=== PATIENT | female | born 2000 | race African-American/Black ===

== ENCOUNTER 2021-01-14 10:28 | Outpatient (REF) | payer OTHER, SELFPAY | END 2021-01-14 10:29 | disposition home or self-care (01) | LOC: HO.LNP 10:28 | PROVIDERS: Visit Provider Otolaryngology | DX: H60.92 Unspecified otitis externa, left ear (principal) | CPT/HCPCS: 87071; 87205 ==

== ENCOUNTER → 2021-05-27 14:40 | Outpatient (BNVA) | payer OTHER, SELFPAY | PROVIDERS: PCP Hospitalist; Visit Provider Hospitalist ==

== ENCOUNTER → 2021-06-15 15:57 | Outpatient (REF) | payer OTHER, SELFPAY | LOC: HO.SL 15:57 | PROVIDERS: PCP Hospitalist; Visit Provider Hospitalist | DX: G47.33 Obstructive sleep apnea (adult) (pediatric) (principal) | CPT/HCPCS: 95806 ==

== ENCOUNTER 2021-07-01 09:20 | Outpatient (REF) | payer OTHER, SELFPAY ==
[2021-07-01 11:06] LABS: MANUAL DIFF FLAG NO
[2021-07-01 11:12] LABS: Basophils Percent Auto 0.3 % (0-2); Eosinophils Absolute Auto 0.5 X10*3/uL (0.0-0.4); Eosinophils Percent Auto 3.8 % (0-4); Hemoglobin 11.1 g/dl (12.0-16.0); Imm Gran Abs Auto 0.03 X10*3/uL (0.00-0.03); Imm Gran Pct Auto 0.2 % (0.0-0.4); Lymphocytes Absolute Auto 3.8 X10*3/uL (1.2-4.9); Lymphocytes Percent Auto 29.5 % (20-40); Mean Corpuscular HGB Conc 31.7 g/dl (31.0-35.0); Mean Corpuscular Hemoglobin 24.8 pg (27.0-33.0); Mean Corpuscular Volume 78.3 fL (80-98); Mean Platelet Volume 10.1 fL (9.4-12.3); Monocytes Absolute Auto 0.5 X10*3/uL (0.1-1.2); Monocytes Percent Auto 4.1 % (2-11); Neutrophils Absolute Auto 7.9 X10*3/uL (2.0-8.3); Neutrophils Percent Auto 62.1 % (45-73); Platelet Count 360 X10*3/uL (160-400); Red Blood Count 4.47 X10*6/uL (4.20-5.50); Red Cell Distribution Width 17.1 % (11.0-16.0); White Blood Count 12.8 X10*3/uL (4.8-10.8)
[2021-07-01 11:20] LABS: Alanine Aminotransferase 89 U/L (0-31); Albumin Level 3.9 g/dL (3.5-5.0); Alkaline Phosphatase 91 U/L (39-117); Anion Gap 11 (12-20); Aspartate Amino Transferase 53 U/L (5-31); Bilirubin Direct 0.2 mg/dL (0.0-0.5); Bilirubin Total 0.3 mg/dL (0.0-1.0); Blood Urea Nitrogen 6 mg/dL (9-16); Calcium 8.8 mg/dL (8.4-10.2); Carbon Dioxide 29 mmol/L (22-29); Chloride 105 mmol/L (96-108); Cholesterol 158 mg/dL; Estimated Glomerular Filt Rate > 60; Glucose Fasting 96 mg/dL (60-99); HDL Cholesterol 44 mg/dL; LDL Cholesterol Calculated 94 mg/dl; Potassium 4.2 mmol/L (3.3-5.1); Sodium 141 mmol/L (135-145); Triglycerides 102 mg/dL
[2021-07-01 11:52] LABS: Appearance Urine HAZY; Color Urine YELLOW; Glucose Urine UA NEG (NEG); Leukocyte Esterase Urine NEG (NEG); Nitrite Urine NEG (NEG); PH 6.5 (5.0-8.0); Specific Gravity - Urine 1.015 (1.005-1.025); Urine Blood NEG (NEG); Urine Ketones NEG (NEG); Urine Protein NEG (NEG-TRACE)
[2021-07-01 11:53] LABS: HBS Num1 4.31 mIU/mL (0-7.99); HBc Num1 0.18 S/CO (0.00-0.79); HBsAGNum1 0.29 S/CO (0.00-0.99); Hepatitis B Core Antibody Nonreactive (Nonreactive); Hepatitis B Surface Antigen Negative (Negative); ~Hepatitis B Surface Antibody NONREACTIVE (Nonreactive); ~Hepatitis C Antibody Nonreactive (Nonreactive)
[2021-07-01 12:39] LABS: Erythrocyte Sedimentation Rate 18 MM/HR (0-20)
[2021-07-02 08:09] LABS: Hepatitis A Antibody IgM 0.14 Index (0-0.79); ~Hepatitis A Antibody IgM Nonreactive (Nonreactive)
[2021-07-04 21:52] LABS: Anti Nuclear Antibody Screen NEGATIVE (NEGATIVE)
== END 2021-07-01 09:21 | disposition home or self-care (01) ==
LOC: HO.WFDLDS 09:20
PROVIDERS: Hospitalist; Visit Provider Hospitalist
DX: Z00.00 Encounter for general adult medical examination without abnormal findings (principal); J45.909 Unspecified asthma, uncomplicated; Z11.3 Encounter for screening for infections with a predominantly sexual mode of transmission
CPT/HCPCS: 36415; 80048; 80061; 80076; 81003; 82785; 84443; 85025; 85027; 85652; 86003; 86038; 86039; 86704; 86706; 86709; 86803; 87086; 87340

== ENCOUNTER → 2021-07-09 15:43 | Outpatient (BNVA) | payer OTHER, SELFPAY | PROVIDERS: PCP Hospitalist; Visit Provider Hospitalist | DX: G47.30 Sleep apnea, unspecified (principal); J45.909 Unspecified asthma, uncomplicated ==

== ENCOUNTER 2021-08-18 08:50 | Outpatient (REF) | payer OTHER, SELFPAY ==
[2021-08-18 11:56] LABS: HCG Quantitative < 2 mIU/mL
== END 2021-08-18 08:51 | disposition home or self-care (01) ==
LOC: HO.WFDLDS 08:50
PROVIDERS: PCP Hospitalist; Visit Provider Hospitalist
DX: N92.6 Irregular menstruation, unspecified (principal)
CPT/HCPCS: 36415; 84702

== ENCOUNTER → 2021-08-19 15:12 | Outpatient (BNVA) | payer OTHER, SELFPAY | PROVIDERS: PCP Hospitalist; Visit Provider Hospitalist ==

== ENCOUNTER → 2021-10-21 15:53 | Outpatient (BNVA) | payer OTHER, SELFPAY | PROVIDERS: PCP Hospitalist; Visit Provider Hospitalist | DX: J45.40 Moderate persistent asthma, uncomplicated (principal); J30.2 Other seasonal allergic rhinitis; J33.9 Nasal polyp, unspecified; L30.9 Dermatitis, unspecified | CPT/HCPCS: 90471; 90686 ==

== ENCOUNTER 2021-10-28 18:10 | Outpatient (REF) | payer OTHER, SELFPAY | END 2021-10-28 18:11 | disposition home or self-care (01) | LOC: HO.LNP 18:10 | PROVIDERS: Visit Provider Hospitalist | DX: R82.90 Unspecified abnormal findings in urine (principal) | CPT/HCPCS: 87086 ==

== ENCOUNTER → 2021-11-01 15:57 | Outpatient (BNV) | payer OTHER, SELFPAY | PROVIDERS: PCP Hospitalist; Visit Provider Hospitalist | DX: R82.90 Unspecified abnormal findings in urine (principal) | CPT/HCPCS: 81003 ==

== ENCOUNTER 2021-11-09 09:00 | Outpatient (REF) | payer OTHER, SELFPAY ==
[2021-11-09 11:39] LABS: Hematocrit 33.9 % (37.0-47.0); Hemoglobin 10.6 g/dl (12.0-16.0); Mean Corpuscular HGB Conc 31.3 g/dl (31.0-35.0); Mean Corpuscular Hemoglobin 24.5 pg (27.0-33.0); Mean Corpuscular Volume 78.3 fL (80.0-98.0); Mean Platelet Volume 10.4 fL (9.4-12.3); Platelet Count 438 X10*3/uL (160-400); Red Blood Count 4.33 X10*6/uL (4.20-5.50); White Blood Count 10.3 X10*3/uL (4.8-10.8)
[2021-11-09 12:11] LABS: Alanine Aminotransferase 21 U/L (0-31); Albumin Level 3.8 g/dL (3.5-5.0); Alkaline Phosphatase 66 U/L (39-117); Anion Gap 13 (12-20); Aspartate Amino Transferase 12 U/L (5-31); Bilirubin Total 0.3 mg/dL (0.0-1.0); Blood Urea Nitrogen 10 mg/dL (9-16); Calcium 9.1 mg/dL (8.4-10.2); Carbon Dioxide 26 mmol/L (22-29); Chloride 105 mmol/L (96-108); Cholesterol 178 mg/dL; Estimated Glomerular Filt Rate > 60; Glucose Fasting 114 mg/dL (60-99); HDL Cholesterol 44 mg/dL; LDL Cholesterol Calculated 113 mg/dl; Potassium 4.7 mmol/L (3.3-5.1); Sodium 139 mmol/L (135-145); Total Protein 7.3 g/dL (6.5-8.0); Triglycerides 108 mg/dL
[2021-11-09 12:20] LABS: TSH reflex Free T4 0.45 uIU/mL (0.32-4.0)
== END 2021-11-09 09:01 | disposition home or self-care (01) ==
LOC: HO.WFDLDS 09:00
PROVIDERS: Visit Provider Hospitalist
DX: Z00.01 Encounter for general adult medical examination with abnormal findings (principal)
CPT/HCPCS: 36415; 80053; 80061; 84443; 85027

== ENCOUNTER 2021-11-25 09:20 | Outpatient (REF) | payer OTHER, SELFPAY ==
[2021-11-25 10:53] LABS: Hematocrit 34.9 % (37.0-47.0); Hemoglobin 10.6 g/dl (12.0-16.0); Mean Corpuscular HGB Conc 30.4 g/dl (31.0-35.0); Mean Corpuscular Volume 79.1 fL (80.0-98.0); Mean Platelet Volume 9.9 fL (9.4-12.3); Platelet Count 280 X10*3/uL (160-400); Red Blood Count 4.41 X10*6/uL (4.20-5.50); Red Cell Distribution Width 17.9 % (11.0-16.0); White Blood Count 8.8 X10*3/uL (4.8-10.8)
[2021-11-25 11:50] LABS: Folate 3.2 ng/mL (> or = 4.0); Vitamin B12 346 pg/mL (200-900)
== END 2021-11-25 09:21 | disposition home or self-care (01) ==
LOC: HO.WFDLDS 09:20
PROVIDERS: Visit Provider Hospitalist
DX: D64.9 Anemia, unspecified (principal)
CPT/HCPCS: 36415; 82607; 82746; 85027

== ENCOUNTER → 2022-02-15 15:51 | Outpatient (BNVA) | payer OTHER, MEDICAID, SELFPAY | PROVIDERS: PCP Hospitalist; Visit Provider Hospitalist | DX: G47.33 Obstructive sleep apnea (adult) (pediatric) (principal) ==

== ENCOUNTER 2022-03-02 09:17 | Outpatient (REF) | payer OTHER, MEDICAID, SELFPAY ==
[2022-03-02 11:34] LABS: Hematocrit 33.9 % (37.0-47.0); Hemoglobin 10.5 g/dl (12.0-16.0); Mean Corpuscular Hemoglobin 24.1 pg (27.0-33.0); Mean Corpuscular Volume 77.8 fL (80.0-98.0); Mean Platelet Volume 10.4 fL (9.4-12.3); Platelet Count 353 X10*3/uL (160-400); Red Blood Count 4.36 X10*6/uL (4.20-5.50); Red Cell Distribution Width 15.6 % (11.0-16.0); White Blood Count 8.9 X10*3/uL (4.8-10.8)
[2022-03-02 11:44] LABS: Iron 47 mcg/dL (30-160); Percent Iron Saturation 13 % (15-50); Total Iron Binding Capacity 354 mcg/dL (228-428); Unsaturated Iron Binding 307 ug/dL
[2022-03-02 12:22] LABS: Folate 3.3 ng/mL (> or = 4.0)
== END 2022-03-02 09:18 | disposition home or self-care (01) ==
LOC: HO.WFDLDS 09:17
PROVIDERS: Visit Provider Hospitalist
DX: D64.9 Anemia, unspecified (principal); E53.8 Deficiency of other specified B group vitamins
CPT/HCPCS: 36415; 82746; 83540; 85027

== ENCOUNTER 2022-03-03 14:15 | Emergency (ER) | payer OTHER, SELFPAY ==
[2022-03-03 14:20] VITALS: BP 146/86; PULSE 102; RESP 20; TEMP 36.8; O2SAT 100; BMI 54.1
--- NOTE | 2022-03-03 14:31 | ED.PSYCH ---
HPI - Psych General Chief Complaint: Psychiatric Symptoms Stated Complaint: crisis Time Seen by Provider: 03/03/22 14:30 Source: patient Mode of arrival: ambulatory Limitations: no limitations History of Present Illness MD complaint: suicidal ideation and feels depressed Onset (ago): week(s) Duration: getting worse History of same: Yes Relieving factors: none Exacerbating factors: none Context: significant life stressor Associated psychiatric symptoms: depression and suicidal ideation Associated symptoms: denies other symptoms Treatments prior to arrival: none If self harm: admits thoughts of self harm Related Data Home Medications Medication Instructions Recorded Confirmed cetirizine 10 mg capsule (Zyrtec) 10 mg PO DAILY 09/29/20 02/10/22 methylphenidate HCl 36 mg 36 mg PO DAILY 02/10/22 02/10/22 tablet,extended release 24 hr (Concerta) Previous Rx's Medication Instructions Recorded ProAir HFA 90 mcg/actuation 2 puff INHALATION Q4H PRN 30 Days 05/01/21 aerosol inhaler (albuterol sulfate) #8.5 g NS trazodone 100 mg tablet 100 mg PO BEDTIME #30 tab 08/11/21 hydroxyzine HCl 50 mg tablet 50 mg PO BID PRN #60 tab 08/18/21 albuterol sulfate 2.5 mg (3 mL) INHALATION Q4H PRN 11/05/21 30 Days #360 ml folic acid 1 mg tablet 1 mg PO DAILY #90 tab 02/10/22 furosemide 20 mg tablet (Lasix) 20 mg PO QAM 3 Days #3 tab 02/15/22 Dupixent Syringe 300 mg/2 mL 300 mg (2 mL) SUBCUT Q2W 30 Days 02/17/22 subcutaneous syringe (dupilumab) #6 ml NS medroxyprogesterone 150 mg/mL 150 mg IM Q12W #1 ml 03/03/22 intramuscular syringe (Depo-Provera) Allergies Allergy/AdvReac Type Severity Reaction Status Date / Time fexofenadine [From Sofía-D] Allergy Severe Swelling Verified 03/03/22 11:19 milk Allergy Severe Anaphylaxis Verified 03/03/22 11:19 pseudoephedrine Allergy Severe Swelling Verified 03/03/22 11:19 [From Sofía-D] Beef Containing Products Allergy Intermediate Hives Verified 03/03/22 11:19 aranda Allergy Intermediate Hives Verified 03/03/22 11:19 egg Allergy Intermediate Hives Verified 03/03/22 11:19 nut - unspecified Allergy Intermediate Hives Verified 03/03/22 11:19 doxycycline AdvReac Intermediate projectile Verified 03/03/22 11:19 vomiting tiotropium AdvReac Intermediate Cough Verified 03/03/22 11:19 [From Spiriva with HandiHaler] Review of Systems Review of Systems: Constitutional : No Fever, No Chills ENT/Mouth : No Ear Pain, No Nasal Congestion, No sore throat Eyes: No Eye Pain, No Swelling, No Redness Cardiovascular : No Chest Pain, No SOB Respiratory : No Cough, No Sputum, No Dyspnea Gastrointestinal : No Nausea, No Vomiting, No Diarrhea, No Hematochezia, No Melena Genitourinary : No Dysuria, No Urinary Frequency, No Hematuria Musculoskeletal : No Myalgias Skin : No Skin Lesions, No rash Neuro : No Weakness, No Numbness, No Paresthesias, No Dizziness, No Headache Psych : positive Anxiety, positive Depression, positive SI no HI Heme/Lymph: No Lymphadenopathy Endocrine : No Polyuria, No Polydipsia All other systems reviewed and are negative [facility] Past Medical History Attestation statement: The following information was validated with the patient. Medical History Asthma Eczema Major depressive disorder Nasal polyps Surgical History History of wisdom tooth extraction Family History Family History Mother Asthma HTN (hypertension) Father Bipolar 1 disorder Diabetes Parkinson disease Social History Social History Housing: House Alcohol intake: current Alcohol intake frequency: holidays/special occasions only Patient Tobacco Use Status: Never used Tobacco e-Cigarette/Vaping Use: Never Used Advance Directives: No Advance Directives Information Provided: Yes service: No Current occupational status: unemployed Cognitive needs: No Hearing needs: No Vision needs: No Physical Exam Vital Signs: Vital Signs: Last Vital Signs Temp 98.2 F 03/03/22 14:20 Pulse 102 H 03/03/22 14:20 Resp 20 03/03/22 14:20 BP 146/86 H 03/03/22 14:20 Pulse Ox 100 03/03/22 14:20 BMI result Body Mass Index 54.1 Appearance: Alert. Oriented X3. No acute distress. Calm and cooperative Eyes: Pupils equal, round and reactive to light. ENT: Pharynx normal. Neck: Normal inspection. Neck supple. CVS: Normal heart rate and rhythm. Pulses normal. Respiratory: No respiratory distress. Breath sounds normal. Abdomen: Soft and nontender. Skin: Skin warm and dry. Normal skin color. Normal skin turgor. Extremities: No lower extremity edema. No calf ttp Neuro: Oriented X 3. No motor deficit. No sensory deficit. Cn 2-12 intact Course Course Course Narrative: Physician observation started at 333pm Patient placed in physician observation because the patient needed more time for N to assess the need for psych admission. At the time observation was started the patient's vitals were stable, patient is alert and oriented, Neuro: nonfocal, CV RRR, Lungs clear MDM - Psych MDM Narrative Medical decision making narrative: 21 yo female with hx of asthma, AMAIRANI, anxiety and depression [place] [facility] [place] comes in with c/o SI and depression - at this time labs, BHN consult ordered Lab Data Result diagrams: 03/03/22 14:51 03/03/22 14:51 Labs: Lab Results 03/03/22 03/03/22 03/03/22 Range/Units 14:51 14:51 14:51 WBC 11.1 H (4.8-10.8) X10*3/uL RBC 4.60 (4.20-5.50) X10*6/uL Hgb 11.0 L (12.0-16.0) g/dl Hct 35.4 L (37.0-47.0) % MCV 77.0 L (80.0-98.0) fL MCH 23.9 L (27.0-33.0) pg MCHC 31.1 (31.0-35.0) g/dl RDW 15.7 (11.0-16.0) % Plt Count 349 (160-400) X10*3/uL MPV 10.1 (9.4-12.3) fL Absolute Nucleated RBC 0.000 (0.0-0.012) X10*3/uL Nucleated RBC % (auto) 0.0 (0.0-0.2) /100WBC Sodium 141 (135-145) mmol/L Potassium 4.3 (3.3-5.1) mmol/L Chloride 107 (96-108) mmol/L Carbon Dioxide 24 (22-29) mmol/L Anion Gap 14 (12-20) BUN 11 (9-16) mg/dL Creatinine 0.88 (0.5-1.4) mg/dL Estim Creat Clear Calc 121.7 Estimated GFR > 60 Random Glucose 101 (60-115) mg/dL Calcium 9.3 (8.4-10.2) mg/dL COVID-19 (TIFFANIE) Negative (Negative) COVID-19 Clin Com See Note Discharge Plan Discharge Clinical Impression: Depression Qualifiers: Depression Type: unspecified Qualified Code(s): F32.A - Depression, unspecified Patient Disposition: Still a Patient Prescriptions: No Action albuterol sulfate [ProAir HFA] 90 mcg/actuation HFA aerosol inhaler 2 puff inhalation Q4H PRN (Reason: shortness of breath or wheezing) 30 Days Qty: 8.5 4RF hydroxyzine HCl 50 mg tablet 50 mg PO BID PRN (Reason: for anxiety) Qty: 60 2RF albuterol sulfate 2.5 mg /3 mL (0.083 %) solution for nebulization 2.5 mg inhalation Q4H PRN (Reason: shortness of breath or wheezing) 30 Days Qty: 360 11RF Dupixent Syringe 300 mg/2 mL syringe 300 mg subcut Q2W 30 Days Qty: 6 11RF Zyrtec 10 mg capsule 10 mg PO DAILY 0RF methylphenidate HCl [Concerta] 36 mg tablet extended release 24hr 36 mg PO DAILY 0RF folic acid 1 mg tablet 1 mg PO DAILY Qty: 90 1RF trazodone 100 mg tablet 100 mg PO BEDTIME Qty: 30 2RF medroxyprogesterone [Depo-Provera] 150 mg/mL syringe 150 mg IM Q12W Qty: 1 3RF furosemide [Lasix] 20 mg tablet 20 mg PO QAM 3 Days Qty: 3 0RF
[2022-03-03 15:01] LABS: Hematocrit 35.4 % (37.0-47.0); Mean Corpuscular HGB Conc 31.1 g/dl (31.0-35.0); Mean Corpuscular Hemoglobin 23.9 pg (27.0-33.0); Mean Platelet Volume 10.1 fL (9.4-12.3); Platelet Count 349 X10*3/uL (160-400); Red Cell Distribution Width 15.7 % (11.0-16.0); White Blood Count 11.1 X10*3/uL (4.8-10.8)
[2022-03-03 15:15] LABS: Anion Gap 14 (12-20); Blood Urea Nitrogen 11 mg/dL (9-16); Calcium 9.3 mg/dL (8.4-10.2); Carbon Dioxide 24 mmol/L (22-29); Chloride 107 mmol/L (96-108); Creatinine Clr Calc Pharmacy 121.7; Estimated Glomerular Filt Rate > 60; Glucose Random 101 mg/dL (60-115); Potassium 4.3 mmol/L (3.3-5.1); Sodium 141 mmol/L (135-145)
[2022-03-03 15:17] LABS: COVID-19 Test Negative (Negative); IDNOW Serial# 9DD0AD1C
[2022-03-03 16:16] VITALS: BP 148/83; PULSE 104; RESP 18; TEMP 37.2; O2SAT 98
--- NOTE | 2022-03-03 16:23 | PC.NURSE ---
care team meeting with pt to discuss plan of care for evaluation
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
== END 2022-03-03 18:39 | disposition home or self-care (01) ==
PROVIDERS: Emergency Provider Emergency Medicine; PCP Hospitalist
DX: F31.9 Bipolar disorder, unspecified (principal); R45.851 Suicidal ideations; J45.909 Unspecified asthma, uncomplicated; Z20.822 Contact with and (suspected) exposure to COVID-19
CPT/HCPCS: 80048; 85027; 87635; 99284; 99285

== ENCOUNTER 2022-07-12 09:29 | Outpatient (REF) | payer OTHER, SELFPAY ==
[2022-07-12 12:05] LABS: Hematocrit 29.9 % (37.0-47.0); Hemoglobin 9.4 g/dl (12.0-16.0); Mean Corpuscular HGB Conc 31.4 g/dl (31.0-35.0); Mean Corpuscular Volume 76.5 fL (80.0-98.0); Mean Platelet Volume 10.5 fL (9.4-12.3); Platelet Count 327 X10*3/uL (160-400); Red Blood Count 3.91 X10*6/uL (4.20-5.50); Red Cell Distribution Width 17.1 % (11.0-16.0); White Blood Count 11.4 X10*3/uL (4.8-10.8)
[2022-07-12 12:10] LABS: Alanine Aminotransferase 17 U/L (0-31); Albumin Level 3.7 g/dL (3.5-5.0); Alkaline Phosphatase 66 U/L (39-117); Anion Gap 14 (12-20); Aspartate Amino Transferase 11 U/L (5-31); Bilirubin Total 0.4 mg/dL (0.0-1.0); Blood Urea Nitrogen 7 mg/dL (9-16); Calcium 8.6 mg/dL (8.4-10.2); Carbon Dioxide 25 mmol/L (22-29); Chloride 107 mmol/L (96-108); Estimated Glomerular Filt Rate > 60; Glucose Random 101 mg/dL (60-115); Potassium 3.6 mmol/L (3.3-5.1); Sodium 142 mmol/L (135-145); Total Protein 6.4 g/dL (6.5-8.0)
[2022-07-16 16:51] LABS: Vitamin D 25-OH, D2 <4 ng/mL; Vitamin D 25-OH, D3 7 ng/mL; Vitamin D 25-OH, Total 7 ng/mL (30-100)
== END 2022-07-12 09:30 | disposition home or self-care (01) ==
LOC: HO.WFDLDS 09:29
PROVIDERS: Visit Provider Hospitalist
DX: Z13.9 Encounter for screening, unspecified (principal); D64.9 Anemia, unspecified; R55 Syncope and collapse
CPT/HCPCS: 36415; 80053; 82306; 85027

== ENCOUNTER 2022-07-14 11:02 | Outpatient (REF) | payer OTHER, SELFPAY ==
[2022-07-14 15:29] LABS: Iron 33 mcg/dL (30-160); Percent Iron Saturation 10 % (15-50); Total Iron Binding Capacity 328 mcg/dL (228-428); Unsaturated Iron Binding 295 ug/dL
[2022-07-14 15:53] LABS: Folate 8.6 ng/mL (> or = 4.0); Vitamin B12 258 pg/mL (200-900)
== END 2022-07-14 11:03 | disposition home or self-care (01) ==
LOC: HO.WFDLDS 11:02
PROVIDERS: Visit Provider Hospitalist
DX: D64.9 Anemia, unspecified (principal)
CPT/HCPCS: 36415; 82607; 82746; 83540

== ENCOUNTER 2022-09-02 10:21 | Outpatient (REF) | payer OTHER, SELFPAY ==
[2022-09-02 18:46] LABS: Influenza A PCR NEGATIVE (Negative); Influenza B PCR NEGATIVE (Negative); Resp Syncy Virus RNA Qual PCR NEGATIVE (Negative); SARS COV2 PCR INHOUSE POSITIVE (Negative)
== END 2022-09-02 10:22 | disposition home or self-care (01) ==
LOC: HO.LAB 10:21
PROVIDERS: Visit Provider Nurse Practitioner Family
DX: Z20.822 Contact with and (suspected) exposure to COVID-19 (principal); B34.9 Viral infection, unspecified
CPT/HCPCS: 0241U

== ENCOUNTER → 2022-10-31 13:09 | Outpatient (BNVA) | payer OTHER, SELFPAY | PROVIDERS: PCP Hospitalist; Referring Provider Hospitalist; Visit Provider Internal Medicine | DX: R55 Syncope and collapse (principal) | CPT/HCPCS: 93005 ==

== ENCOUNTER → 2022-11-15 13:03 | Outpatient (REF) | payer OTHER, SELFPAY ==
--- NOTE | 2022-11-15 13:06 | CA_ITS ---
Transthoracic Echocardiogram Patient (Last, First, Middle): Nimo Bae M Gender: Female Date of : 2000 Age: 22 Procedure Date: 11/15/2022 Procedure Type: Transthoracic Echocardiogram Location: OP Height: 152.4 cm Weight: 122.47 kg BSA: 2.12 m2 Heart Rate: bpm BP: 110 / 70 mmHg Playground Attendant: TO Referring MD: Robert Raymond MD Symptoms: M79.89 - Other specified soft tissue disorders Study Quality: Fair/contrast declined ECG Rhythm: Sinus Conclusions: - The left ventricular systolic function is normal. The visually estimated ejection fraction is between 55-60%. - No obvious valvular pathology seen on this study. Findings Procedure Information The patient declines contrast. Left Ventricle Normal left ventricular cavity size. There is normal left ventricular wall thickness. The left ventricular systolic function is normal. The visually estimated ejection fraction is between 55-60%. There is no evidence of regional wall motion abnormalities. Diastolic function is normal for age. Right Ventricle Normal right ventricular cavity size and systolic function. Atria Both atria are normal in size. Aortic Valve The aortic valve was not well visualized. The aortic valve structure and function is likely normal. There is no aortic valve regurgitation. Mitral Valve The mitral valve appears normal. There is trace mitral valve regurgitation. There is no mitral valve stenosis. Pulmonic Valve The pulmonic valve is likely normal. Tricuspid Valve There is trace tricuspid valve regurgitation. Tricuspid regurgitation envelope is inadequate for calculation of right ventricular systolic pressure. Great Vessels The asc aorta is normal in size. Venous The inferior vena cava is normal in size and collapses greater than 50% with inspiration. Pericardium/Pleural There is a trivial pericardial effusion. Prior Study Comparison No prior study available for comparison. Recommendations, Care & Conclusions No obvious valvular pathology seen on this study. Measurements 2D Linear Measurements IVSd: 0.94 0.6-0.9/0.6-1.0 cm LVIDd: 4.88 3.9-5.3/4.2-5.9 cm LVIDd Index: 2.30 2.4-3.2/2.2-3.1 cm/m2 LVIDs: 3.47 2.0-3.6 cm LVPWd: 0.89 0.7-1.1 cm LA Diam: 3.10 2.7-3.8/3.0-4.0 cm LAIDs Index: 1.46 1.5-2.3 cm/m2 LV Mass: 191.93 67-162/88-224 g LV Mass Index: 90.53 43-95/49-115 g/m2 LVOT Diam: 2.10 3.0+(-)1.3 cm Mitral Valve MV Pk E: 0.92 MV PK A: 0.43 MV Decel Time: 184.00 E/A: 2.10 E'Lateral: 16.20 E'Medial: 12.80 E/E' Med: 7.20 E/E' Lat: 5.70 PHT: 54.00 MVA PHT: 4.07 Decel [place]: 5.01 Aortic Valve AoV Pk Jose: 1.52 AoV Mn Jose: 1.01 AoV VTI: 0.28 AoV Pk Grad: 9.00 Aov Mn Grad: 5.00 WAN Cont.VTI: 1.98 LVOT LVOT Pk Jose: 0.85 LVOT Mn Jose: 0.56 LVOT VTI: 0.16 LVOT Pk Grad: 3.00 LVOT Mn Grad: 1.00 LVOT Diam: 2.10 LVOT Area: 3.46 Diastolic Function MV Pk E: 0.92 MV Pk A: 0.43 E/A: 2.10 E'Medial: 12.80 E/E' Med: 7.20 E' Laterial: 16.20 E/E' Lat: 5.70 Right Ventricle TAPSE (mm): 27.20 TVS' Jose: 11.30 Great Vessels Aorta Sinus of Valsalva: 2.78 2.0-3.5 cm Ao Asc: 2.30 2.1-3.4 cm Updated in Other Vendor System with Status of Final Robert Raymond MD electronically signed on 11/15/2022 5:06:15 PM with status of Final
--- NOTE | 2022-11-15 13:06 | HM_ITS ---
Conclusion: 1. Patient was monitored for total period of 12 days and 7 hours 2. Baseline was normal sinus rhythm with average heart rate 99 beats per minute 3. Frequent sinus tachycardia with 33% of time heart rate greater than 100 beats per minute 4. Rare ectopy noted 5. Patient reported 1 event that correlated with sinus rhythm MTDD
== END ==
LOC: HO.CARD 13:03
PROVIDERS: PCP Hospitalist; Visit Provider Internal Medicine
DX: R55 Syncope and collapse (principal); M79.89 Other specified soft tissue disorders
CPT/HCPCS: 93246; 93306; Q9957

== ENCOUNTER → 2022-12-06 13:30 | Outpatient (BNVA) | payer OTHER, SELFPAY | PROVIDERS: PCP Hospitalist; Referring Provider Hospitalist; Visit Provider Internal Medicine | DX: Z13.89 Encounter for screening for other disorder (principal) ==

== ENCOUNTER → 2023-04-06 09:29 | Outpatient (BNVA) | payer OTHER, SELFPAY | PROVIDERS: PCP Hospitalist; Visit Provider Psychiatry & Neurology Neurology ==

== ENCOUNTER 2023-05-02 12:53 | Outpatient (REF) | payer OTHER, SELFPAY ==
--- NOTE | 2023-05-02 12:56 | EEG_ITS ---
FINDINGS: The waking background activity consists of a [id number] voltage posterior, well-defined 10 to 11 hertz alpha frequency that seems symmetrical and attenuates well with eye opening on low voltage fast frequencies predominate anteriorly. Photic stimulation is are without activation. Hyperventilation is without activation. No focal, lateralizing, or paroxysmal discharges were seen. IMPRESSION: This waking EEG is within normal limits. MD SANCHEZ Melissa/STIVEN / [id number]
== END 2023-05-02 12:54 | disposition home or self-care (01) ==
LOC: HO.NEURO 12:53
PROVIDERS: Visit Provider Psychiatry & Neurology Neurology
DX: R55 Syncope and collapse (principal)
CPT/HCPCS: 95816

== ENCOUNTER → 2023-05-29 09:10 | Day surgery (SDC) | payer OTHER, SELFPAY ==
--- NOTE | ~2023-05-29 | FL_ITS ---
EXAMINATION: XR LUMBAR PUNCTURE CLINICAL INFORMATION: Benign intracranial hypertension COMPARISON: None available. TECHNIQUE/FINDINGS: Procedure and risks and benefits including bleeding, infection and headache were discussed with the patient and informed consent was obtained. Patient was positioned in the prone position. The back was prepped and draped in usual sterile fashion. Soft tissues were anesthetized with 1% lidocaine plain. Using a 20-gauge spinal needle, right interlaminar access to the spinal canal at the L3-L4 level was obtained. 6 mL initially slightly blood-tinged followed by clear fluid was removed. Opening pressure was 26 cm of water. Diagnostic specimen was sent as requested by the ordering physician. FLUOROSCOPY TIME: 0.3 minutes DOSE AREA PRODUCT: 3.8 Gonzalez per centimeter squared. Total dose 22 mgy. 1 saved fluoroscopic image. FL/FL guided lumbar puncture LP IMPRESSION: Fluoroscopy-guided lumbar puncture.
[2023-05-29 10:28] LABS: UPreg QC Valid YES; Urine Pregnancy NEGATIVE (NEGATIVE)
[2023-05-29 10:32] LABS: MANUAL DIFF FLAG NO
[2023-05-29 10:34] LABS: Basophils Percent Auto 0.4 % (0-2); Eosinophils Absolute Auto 0.9 X10*3/uL (0.0-0.4); Eosinophils Percent Auto 8.5 % (0-4); Hematocrit 34.7 % (37.0-47.0); Hemoglobin 11.1 g/dl (12.0-16.0); Imm Gran Abs Auto 0.03 X10*3/uL (0.00-0.03); Imm Gran Pct Auto 0.3 % (0.0-0.4); Lymphocytes Absolute Auto 3.2 X10*3/uL (1.2-4.9); Mean Corpuscular Hemoglobin 26.6 pg (27.0-33.0); Mean Corpuscular Volume 83.2 fL (80.0-98.0); Mean Platelet Volume 9.5 fL (9.4-12.3); Monocytes Absolute Auto 0.6 X10*3/uL (0.1-1.2); Monocytes Percent Auto 5.4 % (2-11); Neutrophils Absolute Auto 5.6 x10*3/uL (2.0-8.3); Neutrophils Percent Auto 54.4 % (45-73); Platelet Count 352 X10*3/uL (160-400); Red Blood Count 4.17 X10*6/uL (4.20-5.50); Red Cell Distribution Width 17.2 % (11.0-16.0); White Blood Count 10.4 X10*3/uL (4.8-10.8)
[2023-05-29 10:40] LABS: INTERNATIONAL NORM RATIO 1.1 (0.9-1.1); Prothrombin Time 13.6 SEC (11.1-13.3)
[2023-05-29 10:43] LABS: Partial Thromboplastin Time 35.6 SEC (26.0-36.4)
[2023-05-29 12:00] VITALS: BP 146/83; PULSE 95; RESP 20; TEMP 36.1; O2SAT 100
[2023-05-29 12:15] VITALS: BP 143/80; PULSE 98; RESP 20; O2SAT 100
[2023-05-29 12:30] VITALS: BP 144/85; PULSE 98; RESP 20; O2SAT 98
[2023-05-29 13:00] VITALS: BP 144/78; PULSE 99; RESP 20; TEMP 36.3; O2SAT 99
[2023-05-29 13:11] LABS: Glucose CSF 65 mg/dL; Total Protein CSF 13.6 mg/dL (15-45)
[2023-05-29 13:20] LABS: Appearance CSF CLEAR; CSF Tube # 4; Color CSF COLORLESS; Lymphocytes CSF 50 %; Neutrophils CSF 50 %; Red Blood Cell CSF 33 MM*3; White Blood Cell CSF 2 MM*3
[2023-05-29 13:30] VITALS: BP 125/68; PULSE 97; RESP 20; O2SAT 100
[2023-05-29 14:11] LABS: CSF Appearance Clear, Colorless; CSF Tube # 3
== END | disposition home or self-care (01) ==
PROVIDERS: Radiology Diagnostic Radiology; PCP Hospitalist; Visit Provider Psychiatry & Neurology Neurology
PROC: 009U3ZZ Drainage of Spinal Canal, Percutaneous Approach (ICD-10-PCS; CPT 62270; principal; 2023-05-29 11:30)
DX: G93.2 Benign intracranial hypertension (principal); R55 Syncope and collapse; G43.909 Migraine, unspecified, not intractable, without status migrainosus; G47.33 Obstructive sleep apnea (adult) (pediatric); I10 Essential (primary) hypertension; J45.909 Unspecified asthma, uncomplicated; E66.01 Morbid (severe) obesity due to excess calories; Z68.43 Body mass index [BMI] 50.0-59.9, adult; Z79.899 Other long term (current) drug therapy; Z99.89 Dependence on other enabling machines and devices; Z88.1 Allergy status to other antibiotic agents; Z88.8 Allergy status to other drugs, medicaments and biological substances; Z91.011 Allergy to milk products; Z91.012 Allergy to eggs
CPT/HCPCS: 36415; 62328; 81025; 82945; 84157; 85025; 85610; 85730; 89051

== ENCOUNTER → 2023-05-29 10:17 | Outpatient (BNV) | payer OTHER, SELFPAY | PROVIDERS: PCP Hospitalist; Visit Provider Radiology Diagnostic Radiology | DX: G93.2 Benign intracranial hypertension (principal) | CPT/HCPCS: 62328 ==

== ENCOUNTER 2023-07-20 08:36 | Outpatient (AMB) | payer OTHER, SELFPAY ==
--- NOTE | 2023-07-20 08:39 | A.OFFPC_ITS ---
Vital Signs 07/20/23 08:40 Height 5 ft Weight 287 lb 6 oz BMI 56.1 BP 124/66 Blood Pressure Location Lt brachial Position Sitting Respiration 13 Pulse 87 Pulse Source Pulse Oximeter Temp 97.3 F Temp Source Temporal Artery Scan Pulse Oximetry (%) 99 Oxygen Delivery Method Room Air Intake Visit Reasons: PE Intake Note: Patient states she would like referral to urology due to incontinence at night and has been happening for over 6 months. Patient states she never received her B-12 and would like it resent over. Manager Of It Required: No Accompanied by: Self / Same As Patient Allergies fexofenadine [From Sofía-D] Allergy (Severe, Verified 07/20/23 09:01) Swelling milk Allergy (Severe, Verified 07/20/23 09:01) Anaphylaxis pseudoephedrine [From Sofía-D] Allergy (Severe, Verified 07/20/23 09:01) Swelling Beef Containing Products Allergy (Intermediate, Verified 07/20/23 09:01) Hives aranda Allergy (Intermediate, Verified 07/20/23 09:01) Hives egg Allergy (Intermediate, Verified 07/20/23 09:01) Hives nut - unspecified Allergy (Intermediate, Verified 07/20/23 09:01) Hives doxycycline Adverse Reaction (Intermediate, Verified 07/20/23 09:01) projectile vomiting tiotropium [From Spiriva with HandiHaler] Adverse Reaction (Intermediate, Verified 07/20/23 09:01) Cough Medication List - Last Reconciled 07/20/23 by Ayse Orta, RESEARCH ENVIRONMENTAL SCIENTIST albuterol sulfate 2.5 mg (3 mL) inhalation Q4H PRN 30 days aripiprazole 7.5 mg PO DAILY blood pressure kit-extra large As directed [id number]-ezallpcjiofsq-hviz 50-325-40 mg 1 tab PO Q6H PRN cetirizine (Zyrtec) 10 mg PO DAILY PRN compress.stocking,knee,reg,med [id number] Dupixent Syringe (dupilumab) 300 mg (2 mL) subcut Q2W 30 days NS ferrous sulfate 325 mg PO DAILY 3 months folic acid 1 mg PO DAILY hydroxyzine HCl 50 mg PO BID PRN magnesium oxide 400 mg PO .qhs medroxyprogesterone (Depo-Provera) 150 mg IM Q12W methylphenidate HCl ER (Concerta) 36 mg PO DAILY ProAir HFA 90 mcg/actuation (albuterol sulfate) 2 puffs inhalation Q4H PRN 30 days NS propranolol 10 mg PO BID riboflavin (vitamin B2) 400 mg PO QAM risperidone (Risperdal) 2 mg PO DAILY trazodone 100 mg PO BEDTIME Tobacco use date assessed: 12/05/22 Dental Screening Dental Screen Date: 07/20/23 Did you have a dental visit in the last 12 months?: Yes Did you have a dental problem in the last 6 months where you did not have access to dental care?: No Was dental information given to patient?: Patient has dentist HPI HPI Comments History of Present Illness Details 23-year-old female presents for a comple te physical exam Her former PCP was GARCIA who is no longer with the practice She has past medical history significant for pseudotumor cerebri he (diagnosed in 2011), migraines, obesity, AMAIRANI on CPAP, hypertension, asthma, vitamin-D deficiency, bipolar 1 disorder, anxiety and depression. She reports urinary incontinence at night for the past 6 months. She admits to not drinking significant amount of fluids before bedtime. She denies associated symptoms. She requests urology referral. She also reports chronic right upper back pain. She reports history of taking methotrexate for fibromyalgia. She is currently not taking any medication for pain. She states she sees a therapist weekly and a psychiatrist monthly. Her psychiatrist manages her psychotropic meds. She notes that she does not exercise routinely. She admits to making healthy dietary choices. She requests a referral to weight management. She notes that her last Pap smear test was a year ago: Normal She is followed by Neurology, Ophthalmology, and Cardiology. [facility] Medical History (Updated 07/20/23 @ 09:28 by Ayse Orta CNP) Lumbar puncture headache Cervicalgia Migraine Benign intracranial hypertension Essential hypertension Lower extremity edema Syncope Major depressive disorder Eczema Nasal polyps Asthma Surgical History History of wisdom tooth extraction Family History Mother Asthma HTN (hypertension) Father Bipolar 1 disorder Diabetes Parkinson disease Maternal Grandmother S/P triple vessel bypass Social History Housing: House Alcohol intake: current Alcohol intake frequency: holidays/special occasions only Patient Tobacco Use Status: Never used Tobacco e-Cigarette/Vaping Use: Never Used Second Hand Smoke Exposure: No service: No Current occupational status: student Current occupational exposures/hazards: No Cognitive needs: No Hearing needs: No Vision needs: No Questionnaire PHQ-9 Over the last 2 weeks, how often have you been bothered by any of the following problems? 1. Little interest or pleasure in doing things: not at all 2. Feeling down, depressed, or hopeless: not at all 3. Trouble falling or staying asleep, or sleeping too much: not at all 4. Feeling tired or having little energy: not at all 5. Poor appetite or overeating: not at all 6. Feeling bad about yourself - or that you are a failure or have let yourself or your family down: not at all 7. Trouble concentrating on things, such as reading the newspaper or watching television: not at all 8. Moving or speaking so slowly that other people could have noticed. Or the opposite - being so fidgety or restless that you have been moving around a lot more than usual: not at all 9. Thoughts that you would be better off or of hurting yourself in some way: not at all Total score: 0 Depression Screening Interpretation: Negative Depression Screening Done: Yes 40323 - PHQ-9 Billing: Yes Source: Developed by Drs. Christofer Ba, Kaylah Dickerson, Marbin Macario and colleagues, with an educational vern from [employer]. Thrive Questionnaire Date Thrive assessed: 07/20/23 I am a: Patient What is your living situation today?: I have a steady place to live Within the past 12 months, did the food you bought not last and you didn't have the money to get more?: Never true Within the past 12 months, did you worry whether your food would run out before you got money to buy more?: Never true Do you have trouble paying for medicines?: No Do you have trouble getting transportation to medical appointments?: No Do you have trouble paying your heating and electricity bill?: No Do you have trouble taking care of your child, family member or friend?: No Do you have trouble with day-to-day activities such as bathing, preparing meals, shopping, managing finances, etc.?: No Are you currently unemployed and looking for a job?: No Are you interested in more education?: No Please select the resources that you would like help with: None Currently or been in a relationship where the following occur: no concerns reported AUDIT C Alcohol Use Questionnaire (AUDIT-C) 1. How often do you have a drink containing alcohol?: Never 3. How often do you have six or more drinks on one occasion?: Never Total Score: 0 CLAIRE-7 AMB Questionnaire CLAIRE-7 Date CLAIRE - 7 assessed: 07/20/23 Feeling nervous, anxious, or on edge: 0 = Not at all Not being able to stop or control worryin = Not at all Worrying too much about different things: 0 = Not at all Trouble relaxin = Not at all Being so restless that it is hard to sit still: 0 = Not at all Becoming easily annoyed or irritable: 0 = Not at all Feeling afraid as if something awful might happen: 0 = Not at all Total CLAIRE-7 score (0-4 normal; 5-9 mild; 10-14 moderate; 15-21 severe): 0 Source: Developed by Drs. Christofer Ba, Kaylah Dickerson, Marbin Macario and colleagues, with an educational vern from [employer]. CLAIRE-7 Assessment Billing CLAIRE-7 Assessment Tool: CLAIRE-7 Assessment 37372 ACT Questionnaire In the past 4 weeks, how much of the time did your asthma keep you from getting as much done at work, school or at home?: Some of the time During the past 4 weeks, how often have you had shortness of breath?: More than once a day During the past 4 weeks, how often did your asthma symptoms wake you up at night or earlier than usual in the morning?: Once or twice per week During the past 4 weeks, how often have you had to use your rescue inhaler or nebulizer medication?: Once a week or less How would you rate your asthma control during the past 4 weeks?: Somewhat controlled ACT Interpretation: Positive Score: 15 Review of Systems Const Details: Const Denies chills, Denies fatigue, Denies fever(s), Denies headache(s) and Denies weakness ENT Denies dizziness and Denies headache(s) Card Denies chest pain, Denies lightheadedness, Denies dyspnea and Denies other (Palpitations) Resp Denies cough, Denies dyspnea, Denies wheezing and Denies other ( shortness of breath) GI Denies abdominal pain, Denies melena, Denies hematochezia, Denies change in bowel habits, Denies dyspepsia and Denies nausea Reports urinary incontinence, Denies hematuria and Denies dysuria Musc Reports right upper back pain , Denies abnormal gait, Denies numbness and Denies tingling Skin/Breast Denies rash, Denies unusual bruising and Denies wounds Neuro Denies abnormal gait, Denies dizziness, Denies headache(s), Denies memory loss, Denies numbness, Denies Sensory deficit (Neuro), Denies tingling and Denies weakness Psych Denies anxiety, Denies depression, Denies memory loss Endo Denies cold intolerance, Denies fatigue, Denies heat intolerance, Denies polydipsia and Denies polyuria Aller/Immun Denies wheezing Physical exam (Primary Care) Vital Signs: Last Vital Signs Temp 97.3 F 07/20/23 08:40 Pulse 87 07/20/23 08:40 Resp 13 07/20/23 08:40 BP 124/66 07/20/23 08:40 Pulse Ox 99 07/20/23 08:40 Oxygen Delivery Method Room Air 07/20/23 08:40 BMI result Body Mass Index 56.1 Tobacco/Smoking Status: Tobacco use Status Tobacco use date assessed 12/05/22 07/20/23 08:53 Patient Tobacco Use Status Never used Tobacco 07/20/23 08:53 e-Cigarette/Vaping Use Never Used 07/20/23 08:53 PHQ-9: PHQ-9 Score PHQ-9: Total score 0 07/20/23 09:31 Depression Screening Interpretation: Negative Thrive Assessment: Date of Thrive Assessment Date Thrive assessed 07/20/23 07/20/23 09:31 Currently or been in a relationship where the following occur: no concerns reported Const Other: General: no acute distress and well developed Nutritional Appearance: well nourished Orientation/consciousness: patient oriented x3 HENMT Head: Yes normocephalic and Yes atraumatic Eyes General: appearance normal, both eyes and all related structures Pupils: Equal, round and reactive pupils present EOM: EOMs intact bilaterally Resp Effort & Inspection: normal respiratory effort Auscultation: clear to auscultation bilaterally Cardio Rate: regular rate Rhythm: regular rhythm Heart sounds: S1 normal heart sound present, S2 normal heart sound present, no gallops, no murmurs and no rubs GI Palpation (GI): No Abdominal aortic bruit present, Soft to palpation, nontender, No hepatosplenomegaly present and No Rebound tenderness present Auscultation: normal bowel sounds General: Yes no CVA tenderness Back/Spine/Pelvis Back: no CVA tenderness Cervical Spine: cervical ROM normal and No Cervical spine tenderness Thoracic/Lumbar Spine: thoraco-lumbar ROM normal, No pain with thoraco-lumbar ROM, thoracic spinal tenderness and No lumbar spinal tenderness Extrem General: Yes normal to inspection, No edema and No calf tenderness Skin General: warm and dry. Normal skin color. Normal skin turgor Lesions: no lesions Rashes: no rashes Trauma: no lacerations or abrasions Wounds: no wounds Nails: normal Neuro General: patient oriented x3, gait normal and no focal neuro deficit Cranial nerves: Yes Equal, round and reactive pupils present Cognition (Neuro): normal cognition Gait exam (Neuro): Normal gait present Sensory Exam: No Sensory deficit (Neuro) Psych Appearance: grossly normal Affect: normal affect Attitude: cooperative Thought process: Normal thought process present Assessment and Plan Assessment & Plan (1) Normal physical examination, routine: Code(s): Z00.00 - Encounter for general adult medical examination without abnormal findings Plan: No significant physical restrictions limitations noted Advised to get blood work done and schedule a telehealth visit for labs review Return with symptoms or concerns Verbalized understanding and agreed with treatment plan. (2) Urinary incontinence: Code(s): R32 - Unspecified urinary incontinence Plan: She reports urinary incontinence at night for the past 6 months. She admits to not drinking significant amount of fluids before bedtime. She denies associated symptoms. She requests urology referral Will check urinalysis Referred to Urology Follow-up with worsening or new symptoms Verbalized understanding and agreed with treatment plan. (3) Chronic back pain: Code(s): M54.9 - Dorsalgia, unspecified; G89.29 - Other chronic pain Plan: Reports chronic right upper back pain. She reports history of taking methotrexate for fibromyalgia. She is currently not taking any medication for pain. Thoracic spine tenderness to palpation Likely musculoskeletal pain May take Tylenol ibuprofen for pain or discomfort Warm/cool compresses encouraged Follow-up with worsening or new symptoms. May referred to rheumatology Verbalized understanding and agreed with treatment plan. (4) Anxiety with depression: Code(s): F41.8 - Other specified anxiety disorders Plan: PHQ-9 and CLAIRE-7 scores are normal Continue with current treatment regimen Continue follow-up with psychiatrist and therapist as planned Return with symptoms or concerns Verbalized understanding and agreed with treatment plan. (5) Bipolar 1 disorder: Code(s): F31.9 - Bipolar disorder, unspecified Plan: As above (6) Morbid obesity with BMI of 45.0-49.9, adult: Code(s): E66.01 - Morbid (severe) obesity due to excess calories; Z68.42 - Body mass index [BMI] 45.0-49.9, adult Plan: She weighs 287 lb, BMI is 56.1 She admits to making healthy dietary choices but not exercising routinely Healthy diet and routine exercise encouraged Referred to weight management Return with symptoms or concerns Verbalized understanding and agreed with treatment plan. (7) Laboratory tests ordered as part of a complete physical exam (CPE): Code(s): Z00.00 - Encounter for general adult medical examination without abnormal findings Plan: Fasting labs ordered as part of a complete physical exam. Advised to fast for at least 10 hours before getting labs drawn. May drink water Verbalized understanding and agreed with treatment plan. Orders: Orders Complete Blood Count Auto Diff Today Z00.00 - Encounter for general adult medical examination without abnormal findings TSH reflex Free T4 Today Z00.00 - Encounter for general adult medical examination without abnormal findings Vitamin D 25-OH Total Today Z00.00 - Encounter for general adult medical examination without abnormal findings Lipid Panel Today Z00.00 - Encounter for general adult medical examination without abnormal findings Complete Blood Count no Diff Today Z00.00 - Encounter for general adult medical examination without abnormal findings UA CC w/rflx Micro + Cult Today Z00.00 - Encounter for general adult medical examination without abnormal findings Referrals Urology Referral R32 - Unspecified urinary incontinence Medical Weight Management Referral E66.01 - Morbid (severe) obesity due to excess calories, Z68.42 - Body mass index [BMI] 45.0-49.9, adult Coding Level of Care Code Est Pt Level 4 (18154) Est Pt Prev Care 18-39y(45045) Diagnoses Normal physical examination, routine Z00.00 Urinary incontinence R32 Chronic back pain M54.9; G89.29 Anxiety with depression F41.8 Bipolar 1 disorder F31.9 Morbid obesity with BMI of 45.0-49.9, adult E66.01; Z68.42 Laboratory tests ordered as part of a complete physical exam (CPE) Z00.00 Additional Codes CLAIRE-7 Assessment Billing - CLAIRE-7 Assessment Tool: CLAIRE-7 Assessment 74998 ([id number])
[2023-07-20 08:40] VITALS: BP 124/66; PULSE 87; RESP 13; TEMP 36.3; O2SAT 99; BMI 56.1
== END 2023-07-20 09:30 | disposition home or self-care (01) ==
PROVIDERS: PCP Hospitalist; Visit Provider Nurse Practitioner Family
DX: Z00.00 Encounter for general adult medical examination without abnormal findings (principal); E66.01 Morbid (severe) obesity due to excess calories; Z68.42 Body mass index [BMI] 45.0-49.9, adult; F31.9 Bipolar disorder, unspecified; F41.8 Other specified anxiety disorders; R32 Unspecified urinary incontinence; M54.9 Dorsalgia, unspecified; G89.29 Other chronic pain
CPT/HCPCS: 96127; 99395

== ENCOUNTER 2023-09-18 11:42 | Outpatient (AMB) | payer OTHER, SELFPAY ==
--- NOTE | 2023-09-18 11:45 | A.OFFVIS_ITS ---
Intake Intake Visit Reasons: Unspecified urinary incontinence Intake Note: New Patient presents for initial visit for urinary incontinence Urology Medications: none Blood Thinner: none PVR: [employer] Required: No Accompanied by: Mother Allergies fexofenadine [From Sofía-D] Allergy (Severe, Verified 09/18/23 12:36) Swelling milk Allergy (Severe, Verified 09/18/23 12:36) Anaphylaxis pseudoephedrine [From Sofía-D] Allergy (Severe, Verified 09/18/23 12:36) Swelling Beef Containing Products Allergy (Intermediate, Verified 09/18/23 12:36) Hives aranda Allergy (Intermediate, Verified 09/18/23 12:36) Hives egg Allergy (Intermediate, Verified 09/18/23 12:36) Hives nut - unspecified Allergy (Intermediate, Verified 09/18/23 12:36) Hives doxycycline Adverse Reaction (Intermediate, Verified 09/18/23 12:36) projectile vomiting tiotropium [From Spiriva with HandiHaler] Adverse Reaction (Intermediate, Verified 09/18/23 12:36) Cough Medication List - Last Reconciled 09/18/23 by WILLA Goins- albuterol sulfate 2.5 mg (3 mL) inhalation Q4H PRN 30 days aripiprazole 7.5 mg PO DAILY blood pressure kit-extra large As directed [id number] 50-325-40 mg 1 tab PO Q6H PRN cetirizine (Zyrtec) 10 mg PO DAILY PRN compress.stocking,knee,reg,med [id number] Dupixent Syringe (dupilumab) 300 mg (2 mL) subcut Q2W 30 days NS ferrous sulfate 325 mg PO DAILY 3 months folic acid 1 mg PO DAILY hydroxyzine HCl 50 mg PO BID PRN magnesium oxide 400 mg PO .qhs medroxyprogesterone (Depo-Provera) 150 mg IM Q12W methylphenidate HCl ER (Concerta) 36 mg PO DAILY oxybutynin chloride ER 10 mg PO DAILY 30 days ProAir HFA 90 mcg/actuation (albuterol sulfate) 2 puffs inhalation Q4H PRN 30 days NS propranolol 10 mg PO BID riboflavin (vitamin B2) 400 mg PO QAM risperidone (Risperdal) 2 mg PO DAILY trazodone 100 mg PO BEDTIME HPI HPI Comments History of Present Illness Details Zelda Snyder is a pleasant 23-year-old female patient of Dr. Low was accompanied by her mom at today's office visit. She has a past medical history of lumbar puncture headache, migraines, benign intracranial hypertension, hypertension, lower extremity edema, major depression, and asthma. She presents to the office today as a new patient for ongoing lower urinary tract symptoms. In discussion with the patient today she reports noting lower urinary tract symptoms to have been present for over 2 years however feels they are worsening. She reports having urinary urgency, urinary frequency, incontinence, and enuresis. She reports originally she had been using incontinent pads however is now using adult diapers due to lower urinary tract symptoms. When asked she denies hematuria, dysuria, foul smelling urine, changes to urinary stream, flank pain, fever, and or chills. She denies any past medical history of pregnancies and or deliveries. Discussed at length potential causes for lower urinary tract symptoms patient is experiencing. Discussed at length lifestyle modifications to assist with lower urinary tract symptoms. Discussed obtaining retroperitoneal ultrasound for further assessment evaluation. In office urinalysis results reviewed with the patient today. PVR 0 mL. PFSH Medical History Lumbar puncture headache Cervicalgia Migraine Benign intracranial hypertension Essential hypertension Lower extremity edema Syncope Major depressive disorder Eczema Nasal polyps Asthma Surgical History History of wisdom tooth extraction Family History Mother Asthma HTN (hypertension) Father Bipolar 1 disorder Diabetes Parkinson disease Maternal Grandmother S/P triple vessel bypass Social History Housing: House Alcohol intake: current Alcohol intake frequency: holidays/special occasions only Patient Tobacco Use Status: Never used Tobacco e-Cigarette/Vaping Use: Never Used Second Hand Smoke Exposure: No service: No Current occupational status: student Current occupational exposures/hazards: No Cognitive needs: No Hearing needs: No Vision needs: No Review of Systems Const Reports as per HPI Eyes Reports no additional complaints ENT Reports no additional complaints Card Reports as per HPI Resp Reports as per HPI GI Reports no additional complaints Reports as per HPI Musc Reports as per HPI Neuro Reports as per HPI Psych Reports as per HPI Endo Reports no additional complaints Vicente/Lymph Reports no additional complaints Aller/Immun Reports no additional complaints Physical Exam Const General: cooperative, healthy appearing, comfortable, no acute distress, well developed, alert and awake Nutritional Appearance: overweight Orientation/consciousness: patient oriented x3 Limitations: no limitations HEENT Head: Yes normal to inspection, Yes normocephalic and Yes atraumatic Ears: hearing grossly normal bilaterally Eyes General: appearance normal, both eyes and all related structures Neck Neck: Yes normal visual inspection and Yes trachea midline Chest Chest palpation & inspection: normal inspection of the chest Resp Effort & Inspection: normal respiratory effort and able to speak in complete sentences Cardio Rate: regular rate GI Inspection: Yes normal to inspection General: Yes no CVA tenderness Back/Spine/Pelvis Back: no CVA tenderness Skin General skin exam: no rashes or lesions noted Neuro General: patient oriented x3 Extrem General: Yes normal to inspection Psych Appearance: grossly normal and well kempt Mental Status: mental status grossly normal Speech and movement: Normal speech and movement present and Clear speech present Affect: normal affect Attitude: cooperative Thought process: Normal thought process present Thought content: Normal thought content present Insight: Fair insight present (Psych) Judgement: Fair judgement present (Psych) Office Procedures Post Void Residual Post Residual Void Post Void Residual (PVR): 0 [id number] Void Residual by ultrasound Results AMB Urinalysis, Automated UA Leukoctes 15 [place]/uL Last Edit by [employer] on 09/18/23 13:10 UA Nitrite Negative Last Edit by [employer] on 09/18/23 13:10 UA Urobilinogen 0.2 mg/dL Last Edit by [employer] on 09/18/23 13:10 UA Protein 0 mg/dL Last Edit by [employer] on 09/18/23 13:10 UA pH 6.0 Last Edit by [employer] on 09/18/23 13:10 UA Blood 0 [place]/uL Last Edit by [employer] on 09/18/23 13:10 UA Specific [place] 1.015 Last Edit by [employer] on 09/18/23 13:10 UA Ketone Negative Last Edit by [employer] on 09/18/23 13:10 UA Bilirubin 0 mg/dL Last Edit by Marilu Burrows on 09/18/23 13:10 UA Glucose 0 mg/dL Last Edit by Marilu Burrows on 09/18/23 13:10 Results Reviewed Results Reviewed: Laboratory Last Values Urine pH (Auto) 6.0 09/18/23 11:57 Specific [place] (Auto) 1.015 09/18/23 11:57 Urine Protein (Auto) 0 mg/dL 09/18/23 11:57 Glucose (UA)(Auto) 0 mg/dL 09/18/23 11:57 Urine Ketones (Auto) Negative 09/18/23 11:57 Urine Blood (Auto) 0 [place]/uL 09/18/23 11:57 Urine Nitrite (Auto) Negative 09/18/23 11:57 Urine Bilirubin (Auto) 0 mg/dL 09/18/23 11:57 Urine Urobilinogen (Auto) 0.2 mg/dL 09/18/23 11:57 Leukocyte Esterase (Auto) 15 [place]/uL 09/18/23 11:57 Assessment & Plan Assessment & Plan (1) Urinary incontinence: Code(s): R32 - Unspecified urinary incontinence (2) Urinary urgency: Code(s): R39.15 - Urgency of urination (3) Urinary frequency: Code(s): R35.0 - Frequency of micturition Plan In office urinalysis results reviewed with the patient today; as noted above. PVR 0 mL. Discussed at length lifestyle modifications to assist with lower urinary tract symptoms patient is reporting. Will obtain retroperitoneal ultrasound for further assessment evaluation. Discussed and stressed the importance of weight management to assist with lower urinary tract symptoms as well as overall health and well-being Start oxybutynin as discussed and prescribed. Discussed possible near future in office cystoscopy and or urodynamics for further assessment evaluation. Discussed bladder triggers/irritants. Discussed importance of limiting fluids to 3 hours prior to bed to assist with decreasing episodes of enuresis. Follow-up in 6 weeks with imaging to be completed prior and PVR at next office visit; or sooner with any issues, concerns, and or questions. Orders: Orders AMB Urinalysis Automated Today Z13.9 - Encounter for screening, unspecified AMB Post Void Residual by ultrasound Today R39.15 - Urgency of urination US retroperitoneal comp Today R32 - Unspecified urinary incontinence Medications: New oxybutynin chloride ER 10 mg PO DAILY 30 tabs 1RF 30 days N32.81 - Overactive bladder Patient Instructions: The patient had an opportunity to ask questions regarding the treatment plan. All questions were answered. Physical exam, labs, and imaging were discussed and reviewed in detail. As well as risks, benefits, and discussion of treatment choices. No major barriers to understanding were identified. The patient expressed understanding and agreement with the above treatment plan. The patient was made aware they should contact our office by phone for worsening of their current condition, the appearance of new symptoms, or with any questions or concerns. Compliance is encouraged with any medications and follow up testing that is ordered. It is a privilege to be allowed the opportunity to participate in? your urological care.? Again, if you have any questions or concerns If you have any questions or concerns please do not hesitate to contact me. The office is [phone]. This note is constructed using voice recognition software. While every effort has been made to ensure accuracy bar manager errors may have been included. Yours sincerely, TAHIR Goins Coding Level of Care Code New Pt Level 4 (57341) Diagnoses Urinary incontinence R32 Urinary urgency R39.15 Urinary frequency R35.0 CPT Codes Post Residual Void - PVR CPT Code: 70122-Nmyn Void Residual by ultrasound ([id number])
== END 2023-09-18 12:35 | disposition home or self-care (01) ==
PROVIDERS: PCP Hospitalist; Visit Provider Nurse Practitioner Family
DX: R32 Unspecified urinary incontinence (principal); R39.15 Urgency of urination; R35.0 Frequency of micturition; Z13.9 Encounter for screening, unspecified
CPT/HCPCS: 99204

== ENCOUNTER → 2023-09-18 11:42 | Outpatient (BNVA) | payer OTHER, SELFPAY | PROVIDERS: PCP Hospitalist; Visit Provider Nurse Practitioner Family | DX: R32 Unspecified urinary incontinence (principal); R39.15 Urgency of urination; R35.0 Frequency of micturition | CPT/HCPCS: 51798; 81003 ==

== ENCOUNTER 2023-10-12 15:43 | Outpatient (AMB) | payer OTHER, SELFPAY ==
--- NOTE | 2023-10-12 15:46 | A.OFFVIS_ITS ---
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 [employer] Required: No Allergies fexofenadine [From Sofía-D] Allergy (Severe, Verified 10/12/23 15:50) Swelling milk Allergy (Severe, Verified 10/12/23 15:50) Anaphylaxis pseudoephedrine [From Sofía-D] Allergy (Severe, Verified 10/12/23 15:50) Swelling Beef Containing Products Allergy (Intermediate, Verified 10/12/23 15:50) Hives aranda Allergy (Intermediate, Verified 10/12/23 15:50) Hives egg Allergy (Intermediate, Verified 10/12/23 15:50) Hives nut - unspecified Allergy (Intermediate, Verified 10/12/23 15:50) Hives doxycycline Adverse Reaction (Intermediate, Verified 10/12/23 15:50) projectile vomiting tiotropium [From Spiriva with HandiHaler] Adverse Reaction (Intermediate, Verified 10/12/23 15:50) Cough HPI HPI Comments History of Present Illness Details The patient is a 23-year-old woman with a known history of asthma in addition to significant allergies and obstructive sleep apnea. Apparently she has had significant allergies and she was very young. She did follow-up with Dr. Dow for many years. She was provided with allergy shots for some time but she is no longer doing nose. She has required prednisone multiple times a year because her significant asthma. Usually her symptoms do worsen in the fall and she is concerned about that. Patient has been on Symbicort for many years. Does not feel like it is working as well for her. She still having to use her rescue inhaler multiple times a day. She does not have a nebulizer at home. In addition to that she does have a history of eczema. the patient has not use any biologics. We did review her blood work from [facility] for many years and she has had significant eosinophilia throughout. Therefore she may be a good candidate for biologics if she continues to be symptomatic patient already is morbidly obese. She is concerned about her weight in the use of prednisone. She has noticed increasing daytime drowsiness. She also has significant migraines and headaches. Her Powell score is elevated 09/24. She has had sleep studies in the past demonstrating sleep apnea but does many years ago. At this point the patient is concerned that her sleep apnea is getting worse and she would likely treated. Therefore, she will need a home sleep study at this time. 07/09/2021 the patient is here for a pulmonary follow-up visit. Since we last spoke she has been having worsening shortness of breath and wheezing. Unfortunately, she could not get the Trelegy inhaler. I will send her the Breo and Incruse separate. in the meantime she continues to be very symptomatic. We did look at her allergy testing and she does have significant allergies, but, specially to dust mites. She is going to get rid of her stopping rug and also will get hypoallergenic covers. She already has an EpiPen available. She has not had to use it. We did review her sleep study. Does not appear that she has any significant sleep apnea the needs treatment. Most likely her degree of difficulty sleeping as a due mainly with her nasal congestion and allergies. On my examination I did believe she had a nasal polyp in her left nostril. This is causing near complete obstruction of the nasal passage on the left-hand side. The patient would benefit from biologic therapy. Will maximize her respiratory therapy in if she still symptomatic will start her on Biologic therapy. Based on her significant allergies, her elevated IgE, her nasal polyps and also h istory of eczema along with the severe asthma I believe Dupixent will be a perfect choice for her. 10/21/2021 the patient is here for a pulmonary follow-up visit. As we last spoke the patient has had episodes of increasing shortness of breath and wheezing. Initially she was responding well to the Dupixent. But she has had an issue with the Dupixent is no longer being the liver. In addition to that she is no longer getting maintenance medication. The patient responded well to Trelegy but was not covered. Therefore I sent Breo and Incruse. However, those were not provided for some reason. She does have a rescue inhaler. I will send her Advair HFA in addition to Spiriva. I am hopeful that she can start this therapy. In addition to that we did talk to the office staff about assessing the issue with the Dupixent delivery. In the meantime the patient is sleeping well. She does have mild degree of sleep apnea. She knows not to sleep on her back and she is adherent to her positional therapy. 02/15/2022 the patient is here for pulmonary follow-up visit. Since we last spoke she has been getting more daytime drowsiness. She has had documented episodes of apnea. She also has significant snoring. she had undergoing a sleep study that we had reviewed previously demonstrating mild sleep apnea. Based on the fact that she is more symptomatic will go ahead and start her on CPAP therapy. will go ahead and request the CPAP from a local DME company. Patient also has a significant family history of sleep apnea and also is obese. Regards of the asthma she has not started the Dupixent as his yet. She had some issues with the pharmacy. Apparently is now on his way and she should be starting soon. When she starts the Dupixent her respiratory symptoms should improve. Meantime she does continue on her respiratory therapy. She does require the albuterol multiple times a week. In addition to that she has had lower extremity edema. Her family is concerned because of the degree of edema. Hopefully when she starts CPAP will see improvement in the meantime will try 3 days of diuresis and she is going to follow low-sodium diet. 06/14/2022 the patient is here for a pulmonary follow-up visit. She finally got her CPAP. She has been trying to use it. The CPAP therapy has been affecting beneficial. She is trying to use it more than 4 hours a night. Her machine is a little cumbersome. She does have a Noreen CPAP. I will have to as regional for download. In the meantime she continues on Dupixent injections. She has not required any prednisone. She still having issues with shortness of breath. Although she still having significant lower extremity edema and overall volume overload status. She did take diuretic for 3 days during the last visit but she did not notice any significant diuresis per in addition to that the patient is describing episodes of syncope and also presyncope. With her significant lower extremity edema patient really needs an echocardiogram to further address her symptoms and also to see if she has any underlying cardiac arrhythmias in view of her other comorbidities even at this early age. Therefore, I am going to re briana her to Cardiology to have further testing done. 09/13/2022 the patient is here for a pulmonary follow-up visit. The patient has been having some issues with her CPAP. She has a hard time with her mask. She is using currently on F 30 mask. Feels like she is not getting enough air up her nose. Is not lining up well. She rather have a traditional fullface mask. I did have an F20 small in the office. We did try it on her own she tolerated well. While she does use it her AHI is down to 0.1. Her average pressure is around 6-7.5. She does use it for more than 4 hours. Unfortunately with the current mass she has not been able to tolerated as well. We did switch her to the F20 mask. She tolerated that much better. I will submit a prescription to her [employer] company with the new masks. From an asthma standpoint she continues on Dupixent injections. She continues with respiratory therapy. She has not had any exacerbations. She has been doing well from that standpoint. She still has lower extremity edema. She has tried to cut down on the salt and also trying to use the compression stockings. She continues to monitor those closely. She is also now on Norvasc so therefore trapped to monitor for any worsening edema. I am hopeful that the more she uses her CPAP the better her lower extremity edema is going to get. 10/12/2023 the patient is here for pulmonary follow-up visit. The patient has been having hard time with her breathing lately. She is noticed increased nasal congestion and shortness of breath. Chest tightness. She continues on Dupixent and just has not been working as well as it did before. Although she did stop most of her inhalers such as Advair she stopped her fluticasone nasal spray. In addition to that the patient was diagnosed with sleep apnea and she did have a CPAP. Although, she stopped using it because she could not tolerated. Now that she has not using she is getting additional daytime drowsiness her Powell score is elevated 09/24. She also has significant lower extremity edema and she is at risk for developing further worsening cardiovascular risk factors. Based on that the patient is willing to have the repeat sleep study and go back on CPAP since she really needs it. On my examination I do believe she does have a component of sinusitis that may be contributing to her ongoing nasal congestion. The patient should continue with biologic therapy and will optimize her respiratory therapy and treated for the upper respiratory illness. Will follow- up in a few months after her sleep study. [facility] Medical History Lumbar puncture headache Cervicalgia Migraine Benign intracranial hypertension Essential hypertension Lower extremity edema Syncope Major depressive disorder Eczema Nasal polyps Asthma Surgical History History of wisdom tooth extraction Family History Mother Asthma HTN (hypertension) Father Bipolar 1 disorder Diabetes Parkinson disease Maternal Grandmother S/P triple vessel bypass Social History Housing: House Alcohol intake: current Alcohol intake frequency: holidays/special occasions only Patient Tobacco Use Status: Never used Tobacco e-Cigarette/Vaping Use: Never Used Second Hand Smoke Exposure: No service: No Current occupational status: student Current occupational exposures/hazards: No Cognitive needs: No Hearing needs: No Vision needs: No Review of Systems Const Reports daytime sleepiness, Reports difficulty sleeping, Reports headache(s), Denies night sweats, Reports stops breathing during sleep and Reports weight gain ENT Denies change in voice, Reports headache(s), Denies lip swelling, Denies mouth pain, Reports nasal congestion, Reports nasal discharge, Reports post nasal drip, Reports sinus pressure and Denies tongue swelling Card Denies chest pain and Reports leg edema Resp Reports cough and Reports wheezing GI Denies abdominal pain Musc Denies no additional complaints Neuro Denies Neuro-related abnormal movements and Reports headache(s) Psych Denies no additional complaints Vicente/Lymph Denies easy bleeding and Denies lymphadenopathy Aller/Immun Denies lip swelling, Denies tongue swelling and Reports wheezing Physical Exam Vital Signs: Last Vital Signs Pulse 88 10/12/23 15:49 Pulse Ox 99 10/12/23 15:49 Oxygen Delivery Method Room Air 10/12/23 15:49 BMI result Body Mass Index 54.5 Const General: alert HEENT General nose exam: Abnormal mucous membranes and turbinates present erythematous Neck Neck: Yes normal visual inspection, Yes full ROM and Yes no lymphadenopathy Chest Chest palpation & inspection: normal inspection of the chest Resp Effort & Inspection: normal respiratory effort Auscultation: no wheezes and diminished lung sounds Cardio Rate: regular rate Rhythm: regular rhythm Heart sounds: S1 normal heart sound present and S2 normal heart sound present GI Palpation (GI): Soft to palpation and nontender Auscultation: normal bowel sounds Skin General skin exam: rashes and/or lesions noted Extrem General: Yes edema Assessment & Plan Assessment & Plan (1) Asthma: Code(s): J45.909 - Unspecified asthma, uncomplicated Qualifiers: Asthma complication type: uncomplicated Asthma persistence: persistent Asthma severity: moderate Qualified Code(s): J45.40 - Moderate persistent asthma, uncomplicated (2) Seasonal allergies: Code(s): J30.2 - Other seasonal allergic rhinitis (3) Nasal polyps: Code(s): J33.9 - Nasal polyp, unspecified (4) Eczema: Code(s): L30.9 - Dermatitis, unspecified Qualifiers: Eczema type: flexural Qualified Code(s): L20.82 - Flexural eczema (5) Sleep apnea: Code(s): G47.30 - Sleep apnea, unspecified Qualifiers: Sleep apnea type: obstructive Qualified Code(s): G47.33 - Obstructive sleep apnea (adult) (pediatric) (6) Lower extremity edema: Code(s): R60.0 - Localized edema (7) Sinusitis: Code(s): J32.9 - Chronic sinusitis, unspecified Qualifiers: Chronicity: subacute Sinusitis location: maxillary Qualified Code(s): J01.00 - Acute maxillary sinusitis, unspecified Plan continue Advair HFA start Augmentin start prednisone restart Fluticasone continue Dupixent Continue nebulizer. repeat home sleep study Bloodwork, allergy levels Low NA diet compression stockings Follow-up in 3 months Orders: Orders Immunoglobulins,IgG IgA IgM Today J45.909 - Unspecified asthma, uncomplicated Immunoglobulin G Subclasses Today J45.909 - Unspecified asthma, uncomplicated Erythrocyte Sedimentation Rate Today J45.909 - Unspecified asthma, uncomplicated Complete Blood Count Auto Diff Today J45.909 - Unspecified asthma, uncomplicated Immunoglobulin E Today J45.909 - Unspecified asthma, uncomplicated RT home sleep study Today G47.33 - Obstructive sleep apnea (adult) (pediatric) Medications: New amoxicillin-pot clavulanate 875-125 mg 1 tab PO BID 14 days 28 tabs 0RF fluticasone propion-salmeterol 115-21 mcg/actuation (Advair HFA) 2 puffs inhalation Q12H 30 days 12 grams 11RF fluticasone propionate 50 mcg/actuation 2 sprays intranasal DAILY 30 days 15.8 mL 11RF J31.0 - Chronic rhinitis Coding Level of Care Code Est Pt Level 4 (79342) Diagnoses Moderate persistent asthma without complication J45.40 Asthma complication type: uncomplicated Asthma persistence: persistent Asthma severity: moderate Seasonal allergies J30.2 Nasal polyps J33.9 Flexural eczema L20.82 Eczema type: flexural Obstructive sleep apnea syndrome G47.33 Sleep apnea type: obstructive Lower extremity edema R60.0 Subacute maxillary sinusitis J01.00 Chronicity: subacute Sinusitis location: maxillary Time Spent (min) 18
[2023-10-12 15:49] VITALS: PULSE 88; O2SAT 99; BMI 54.5
== END 2023-10-12 16:13 | disposition home or self-care (01) ==
PROVIDERS: PCP Hospitalist; Visit Provider Hospitalist
DX: J45.40 Moderate persistent asthma, uncomplicated (principal); J30.2 Other seasonal allergic rhinitis; J33.9 Nasal polyp, unspecified; L20.82 Flexural eczema; G47.33 Obstructive sleep apnea (adult) (pediatric); R60.0 Localized edema; J01.00 Acute maxillary sinusitis, unspecified
CPT/HCPCS: 99214

== ENCOUNTER → 2023-10-12 15:43 | Outpatient (BNVA) | payer OTHER, SELFPAY | PROVIDERS: PCP Hospitalist; Visit Provider Hospitalist ==

== ENCOUNTER 2023-10-30 16:03 | Outpatient (REF) | payer OTHER, SELFPAY ==
--- NOTE | ~2023-10-30 | US_ITS ---
EXAMINATION: US RETROPERITONEAL COMPLETE (RENAL) CLINICAL INFORMATION: Unspecified urinary incontinence. COMPARISON: None available. TECHNIQUE: Real-time imaging of the kidneys and bladder. FINDINGS: RIGHT KIDNEY: 10.3 x 3.8 x 6.0 cm (SAG x AP x TRV). The kidney is normal in size, contour, and echogenicity. Renal cortical thickness is normal. No calculi or focal parenchymal lesions. No hydronephrosis. LEFT KIDNEY: 11.5 x 6.6 x 6.3 cm (SAG x AP x TRV). The kidney is normal in size, contour, and echogenicity. Renal cortical thickness is normal. No calculi or focal parenchymal lesions. There is moderate hydronephrosis and hydroureter. BLADDER: Well distended and normal. Bilateral ureteral jets are demonstrated. Prevoid bladder volume is 146 mL. Postvoid bladder volume is 7 mL. No stones are seen. US/US retroperitoneal comp IMPRESSION: 1. Normal appearance of the right kidney. 2. Moderate left hydronephrosis and hydroureter. 3. Normal appearance of the bladder.
== END 2023-10-30 16:04 | disposition home or self-care (01) ==
LOC: HO.US 16:03
PROVIDERS: Visit Provider Nurse Practitioner Family
DX: R32 Unspecified urinary incontinence (principal)
CPT/HCPCS: 76770

== ENCOUNTER 2023-10-31 14:24 | Outpatient (AMB) | payer OTHER, SELFPAY ==
--- NOTE | 2023-10-31 14:41 | MHC.OFFVIS ---
Intake Intake Visit Reasons: 6w/US Intake Note: Patient presents for follow up incontinence and ultrasound results Imagin10/30/23 Urology Medications: D/C Oxybutynin Blood Thinner: none PVR: 0ml's Front Office Administrator Required: No Accompanied by: Self / Same As Patient Allergies fexofenadine [From Sofía-D] Allergy (Severe, Verified 10/31/23 15:21) Swelling milk Allergy (Severe, Verified 10/31/23 15:21) Anaphylaxis pseudoephedrine [From Sofía-D] Allergy (Severe, Verified 10/31/23 15:21) Swelling Beef Containing Products Allergy (Intermediate, Verified 10/31/23 15:21) Hives aranda Allergy (Intermediate, Verified 10/31/23 15:21) Hives egg Allergy (Intermediate, Verified 10/31/23 15:21) Hives nut - unspecified Allergy (Intermediate, Verified 10/31/23 15:21) Hives doxycycline Adverse Reaction (Intermediate, Verified 10/31/23 15:21) projectile vomiting tiotropium [From Spiriva with HandiHaler] Adverse Reaction (Intermediate, Verified 10/31/23 15:21) Cough Medication List - Last Reconciled 10/31/23 by WILLA Goins-BC albuterol sulfate 2.5 mg (3 mL) inhalation Q4H PRN 30 days aripiprazole 7.5 mg PO DAILY blood pressure kit-extra large As directed bzggdbytmn-ttitmghmqvzaa-afrt 50-325-40 mg 1 tab PO Q6H PRN cetirizine (Zyrtec) 10 mg PO DAILY PRN compress.stocking,knee,reg,med [id number] Dupixent Syringe (dupilumab) 300 mg (2 mL) subcut Q2W 30 days NS ferrous sulfate 325 mg PO DAILY 3 months fluticasone furoate-vilanterol 200-25 mcg/dose (Breo Ellipta) 1 inh inhalation DAILY 30 days fluticasone propion-salmeterol 115-21 mcg/actuation (Advair HFA) 2 puffs inhalation Q12H 30 days fluticasone propionate 50 mcg/actuation 2 sprays intranasal DAILY 30 days folic acid 1 mg PO DAILY hydroxyzine HCl 50 mg PO BID PRN magnesium oxide 400 mg PO .qhs medroxyprogesterone (Depo-Provera) 150 mg IM Q12W methylphenidate HCl ER (Concerta) 36 mg PO DAILY mirabegron ER (Myrbetriq) 25 mg PO DAILY 30 days ProAir HFA 90 mcg/actuation (albuterol sulfate) 2 puffs inhalation Q4H PRN 30 days NS propranolol 10 mg PO BID riboflavin (vitamin B2) 400 mg PO QAM risperidone (Risperdal) 2 mg PO DAILY trazodone 100 mg PO BEDTIME HPI HPI Comments History of Present Illness Details Zelda Snyder is a pleasant 23-year-old female patient of Dr. Low. She has a past medical history of lumbar puncture headache, migraines, benign intracranial hypertension, hypertension, lower extremity edema, major depression, and asthma. She presents to the office today for follow-up. Of note, patient was seen approximately 6 weeks ago as a new patient for ongoing lower urinary tract symptoms at which time a retroperitoneal ultrasound was ordered for further assessment evaluation in the patient was started on oxybutynin. Recent retroperitoneal ultrasound results reviewed with the patient today. Bilateral kidneys with no calculi or lesions noted. Right kidney with no hydronephrosis. Left kidney with moderate hydronephrosis and hydroureter. The bladder is well distended and normal. Bilateral ureteral jets are demonstrated. Pre void bladder volume is approximately 150 mL. Postvoid bladder volume is approximately 10 mL. No stones are seen within the bladder. Discussed at length potential causes for hydronephrosis. Patient reports having since stopped oxybutynin due to dry mouth and abdominal cramping she had been experiencing while taking this medication. She reports having urinary urgency, urinary frequency, incontinence, and enuresis. She reports originally she had been using incontinent pads however is now using adult diapers due to lower urinary tract symptoms. When asked she denies hematuria, dysuria, foul smelling urine, changes to urinary stream, flank pain, fever, and or chills. She denies any past medical history of pregnancies and or deliveries. Discussed at length potential causes for lower urinary tract symptoms patient is experiencing. Discussed at length lifestyle modifications to assist with lower urinary tract symptoms. Discussed obtaining CT urogram for further assessment evaluation. In office urinalysis results reviewed with the patient today. PVR 0 mL. PFSH Medical History Lumbar puncture headache Cervicalgia Migraine Benign intracranial hypertension Essential hypertension Lower extremity edema Syncope Major depressive disorder Eczema Nasal polyps Asthma Surgical History History of wisdom tooth extraction Family History Mother Asthma HTN (hypertension) Father Bipolar 1 disorder Diabetes Parkinson disease Maternal Grandmother S/P triple vessel bypass Social History Housing: House Alcohol intake: current Alcohol intake frequency: holidays/special occasions only Patient Tobacco Use Status: Never used Tobacco e-Cigarette/Vaping Use: Never Used Second Hand Smoke Exposure: No service: No Current occupational status: student Current occupational exposures/hazards: No Cognitive needs: No Hearing needs: No Vision needs: No Review of Systems Const Reports as per HPI Eyes Reports no additional complaints ENT Reports no additional complaints Card Reports as per HPI Resp Reports as per HPI GI Reports no additional complaints Reports as per HPI Musc Reports as per HPI Neuro Reports as per HPI Psych Reports as per HPI Endo Reports no additional complaints Vicente/Lymph Reports no additional complaints Aller/Immun Reports no additional complaints Physical Exam Const General: cooperative, healthy appearing, comfortable, no acute distress, well developed, alert and awake Nutritional Appearance: overweight Orientation/consciousness: patient oriented x3 Limitations: no limitations HEENT Head: Yes normal to inspection, Yes normocephalic and Yes atraumatic Ears: hearing grossly normal bilaterally Eyes General: appearance normal, both eyes and all related structures Neck Neck: Yes normal visual inspection and Yes trachea midline Chest Chest palpation & inspection: normal inspection of the chest Resp Effort & Inspection: normal respiratory effort and able to speak in complete sentences Cardio Rate: regular rate GI Inspection: Yes normal to inspection General: Yes no CVA tenderness Back/Spine/Pelvis Back: no CVA tenderness Skin General skin exam: no rashes or lesions noted Neuro General: patient oriented x3 Extrem General: Yes normal to inspection Psych Appearance: grossly normal and well kempt Mental Status: mental status grossly normal Speech and movement: Normal speech and movement present and Clear speech present Affect: normal affect Attitude: cooperative Thought process: Normal thought process present Thought content: Normal thought content present Insight: Fair insight present (Psych) Judgement: Fair judgement present (Psych) Results Reviewed Results Reviewed: Date of Service: 10/30/23 EXAMINATION: US RETROPERITONEAL COMPLETE (RENAL) FINDINGS: RIGHT KIDNEY: 10.3 x 3.8 x 6.0 cm (SAG x AP x TRV). The kidney is normal in size, contour, and echogenicity. Renal cortical thickness is normal. No calculi or focal parenchymal lesions. No hydronephrosis. LEFT KIDNEY: 11.5 x 6.6 x 6.3 cm (SAG x AP x TRV). The kidney is normal in size, contour, and echogenicity. Renal cortical thickness is normal. No calculi or focal parenchymal lesions. There is moderate hydronephrosis and hydroureter. BLADDER: Well distended and normal. Bilateral ureteral jets are demonstrated. Prevoid bladder volume is 146 mL. Postvoid bladder volume is 7 mL. No stones are seen. IMPRESSION: 1. Normal appearance of the right kidney. 2. Moderate left hydronephrosis and hydroureter. 3. Normal appearance of the bladder. Assessment & Plan Assessment & Plan (1) Hydronephrosis: Code(s): N13.30 - Unspecified hydronephrosis (2) Urinary incontinence: Code(s): R32 - Unspecified urinary incontinence (3) Urinary urgency: Code(s): R39.15 - Urgency of urination (4) Urinary frequency: Code(s): R35.0 - Frequency of micturition Plan In office urinalysis results reviewed with the patient today; as noted above. PVR 0 mL. Recent retroperitoneal ultrasound results reviewed with the patient today; as noted above; discussed at length potential causes for hydronephrosis Discussed at length lifestyle modifications to assist with lower urinary tract symptoms patient is reporting. Will obtain CT urogram for further assessment evaluation. BUN and creatinine ordered for imaging Discussed and stressed the importance of weight management to assist with lower urinary tract symptoms as well as overall health and well-being Stop oxybutynin Back start Myrbetriq as discussed and prescribed Discussed possible near future in office cystoscopy and or urodynamics for further assessment evaluation. Discussed bladder triggers/irritants. Discussed importance of limiting fluids to 3 hours prior to bed to assist with decreasing episodes of enuresis. Follow-up in 6 weeks with imaging to be completed prior and PVR at next office visit; or sooner with any issues, concerns, and or questions. Orders: Orders Blood Urea Nitrogen Today R39.15 - Urgency of urination CT urogram Today N13.30 - Unspecified hydronephrosis Creatinine Today R39.15 - Urgency of urination Medications: New mirabegron ER (Myrbetriq) 25 mg PO DAILY 30 days 30 tabs 1RF N30.10 - Interstitial cystitis (chronic) without hematuria, N32.81 - Overactive bladder, R35.1 - Nocturia, R39.15 - Urgency of urination Discontinued amoxicillin-pot clavulanate 875-125 mg Discontinued Reason: Patient Completed Course 1 tab PO BID 14 days 28 tabs 0RF Patient Instructions: The patient had an opportunity to ask questions regarding the treatment plan. All questions were answered. Physical exam, labs, and imaging were discussed and reviewed in detail. As well as risks, benefits, and discussion of treatment choices. No major barriers to understanding were identified. The patient expressed understanding and agreement with the above treatment plan. The patient was made aware they should contact our office by phone for worsening of their current condition, the appearance of new symptoms, or with any questions or concerns. Compliance is encouraged with any medications and follow up testing that is ordered. It is a privilege to be allowed the opportunity to participate in? your urological care.? Again, if you have any questions or concerns If you have any questions or concerns please do not hesitate to contact me. The office is [phone]. This note is constructed using voice recognition software. While every effort has been made to ensure accuracy product director errors may have been included. Yours sincerely, TAHIR Goins Coding Level of Care Code Est Pt Level 4 (69688) Diagnoses Hydronephrosis N13.30 Urinary incontinence R32 Urinary urgency R39.15 Urinary frequency R35.0
== END 2023-10-31 15:23 | disposition home or self-care (01) ==
PROVIDERS: PCP Hospitalist; Visit Provider Nurse Practitioner Family
DX: N13.30 Unspecified hydronephrosis (principal); R32 Unspecified urinary incontinence; R39.15 Urgency of urination; R35.0 Frequency of micturition
CPT/HCPCS: 99214

== ENCOUNTER → 2023-10-31 14:24 | Outpatient (BNVA) | payer OTHER, SELFPAY | PROVIDERS: PCP Hospitalist; Visit Provider Nurse Practitioner Family ==

== ENCOUNTER 2023-11-07 09:19 | Outpatient (REF) | payer OTHER, SELFPAY ==
[2023-11-07 11:17] LABS: MANUAL DIFF FLAG NO
[2023-11-07 11:38] LABS: Basophils Percent Auto 0.3 % (0-2); Eosinophils Absolute Auto 0.6 X10*3/uL (0.0-0.4); Eosinophils Percent Auto 5.4 % (0-4); Hematocrit 32.9 % (37.0-47.0); Hemoglobin 10.6 g/dl (12.0-16.0); Imm Gran Abs Auto 0.03 X10*3/uL (0.00-0.03); Imm Gran Pct Auto 0.3 % (0.0-0.4); Lymphocytes Absolute Auto 3.7 X10*3/uL (1.2-4.9); Lymphocytes Percent Auto 36.3 % (20-40); Mean Corpuscular HGB Conc 32.2 g/dl (31.0-35.0); Mean Corpuscular Hemoglobin 25.1 pg (27.0-33.0); Mean Platelet Volume 10.4 fL (9.4-12.3); Monocytes Absolute Auto 0.5 X10*3/uL (0.1-1.2); Monocytes Percent Auto 4.5 % (2-11); Neutrophils Absolute Auto 5.4 x10*3/uL (2.0-8.3); Neutrophils Percent Auto 53.2 % (45-73); Platelet Count 316 X10*3/uL (160-400); Red Blood Count 4.22 X10*6/uL (4.20-5.50); White Blood Count 10.2 X10*3/uL (4.8-10.8)
[2023-11-07 12:12] LABS: Color Urine Yellow; Glucose Urine UA Negative (Negative); Leukocyte Esterase Urine Negative (Negative); Nitrite Urine Negative (Negative); Specific Gravity - Urine 1.025 (1.005-1.025); Urine Blood Negative (Negative); Urine Ketones Negative (Negative); Urine Protein Negative (Neg-Trace)
[2023-11-07 12:16] LABS: Erythrocyte Sedimentation Rate 34 MM/HR (0-20)
[2023-11-07 12:17] LABS: Appearance Urine Hazy
[2023-11-07 12:21] LABS: Cholesterol 111 mg/dL (<200); HDL Cholesterol 32 mg/dL (>40); LDL Cholesterol Calculated 66 mg/dL (<100); Triglycerides 68 mg/dL (<150)
[2023-11-07 13:23] LABS: TSH reflex Free T4 1.63 uIU/mL (0.32-4.0); Vitamin D 25-OH Total 13.3 ng/mL (>30)
[2023-11-08 18:58] LABS: Immunoglobulin E 179 kU/L (<OR=114)
[2023-11-09 09:03] LABS: IgA 203 mg/dL (47-310); IgG 974 mg/dL (600-1640); IgM 504 mg/dL (50-300)
[2023-11-09 13:44] LABS: Immunoglobulin G Subclass 1 495 mg/dL (382-929); Immunoglobulin G Subclass 2 343 mg/dL (241-700); Immunoglobulin G Subclass 3 37 mg/dL (22-178); Immunoglobulin G Subclass 4 41.3 mg/dL (4-86); Immunoglobulin G Total 882 mg/dL (600-1640)
== END 2023-11-07 09:20 | disposition home or self-care (01) ==
LOC: HO.WFDLDS 09:19
PROVIDERS: Hospitalist; Nurse Practitioner Family; Visit Provider Nurse Practitioner Family
DX: Z00.00 Encounter for general adult medical examination without abnormal findings (principal); J45.909 Unspecified asthma, uncomplicated
CPT/HCPCS: 36415; 80061; 81003; 82306; 82784; 82785; 84443; 85025; 85027; 85652

== ENCOUNTER 2023-11-21 17:16 | Outpatient (AMB) | payer OTHER, SELFPAY ==
[2023-11-21 17:19] VITALS: BP 126/70; PULSE 121; RESP 13; TEMP 36.6; O2SAT 99; BMI 56.7
--- NOTE | 2023-11-21 17:19 | A.OFFPC_ITS ---
Vital Signs 11/21/23 17:19 11/21/23 17:43 Height 5 ft Weight 290 lb 6 oz BMI 56.7 BP 126/70 Blood Pressure Location Rt brachial Position Sitting Respiration 13 Pulse 121 H 110 H Pulse Source Pulse Oximeter Auscultation Temp 97.9 F Temp Source Temporal Artery Scan Pulse Oximetry (%) 99 Oxygen Delivery Method Room Air Intake Visit Reasons: F/U Anemia Sales Development Coordinator Required: No Accompanied by: Self / Same As Patient Allergies fexofenadine [From Sofía-D] Allergy (Severe, Verified 11/21/23 17:34) Swelling milk Allergy (Severe, Verified 11/21/23 17:34) Anaphylaxis pseudoephedrine [From Sofía-D] Allergy (Severe, Verified 11/21/23 17:34) Swelling Beef Containing Products Allergy (Intermediate, Verified 11/21/23 17:34) Hives aranda Allergy (Intermediate, Verified 11/21/23 17:34) Hives egg Allergy (Intermediate, Verified 11/21/23 17:34) Hives nut - unspecified Allergy (Intermediate, Verified 11/21/23 17:34) Hives doxycycline Adverse Reaction (Intermediate, Verified 11/21/23 17:34) projectile vomiting tiotropium [From Spiriva with HandiHaler] Adverse Reaction (Intermediate, Verified 11/21/23 17:34) Cough Medication List - Last Reconciled 11/21/23 by Ayse Orta CNP albuterol sulfate 2.5 mg (3 mL) inhalation Q4H PRN 30 days aripiprazole 7.5 mg PO DAILY blood pressure kit-extra large As directed yywbfvfaia-hzcomxmunylkd-uogz 50-325-40 mg 1 tab PO Q6H PRN cetirizine (Zyrtec) 10 mg PO DAILY PRN cholecalciferol (vitamin D3) 1,250 mcg PO QWEEK 8 weeks compress.stocking,knee,reg,med [id number] Dupixent Syringe (dupilumab) 300 mg (2 mL) subcut Q2W 30 days NS ferrous sulfate 325 mg PO DAILY 3 months fluticasone furoate-vilanterol 200-25 mcg/dose (Breo Ellipta) 1 inh inhalation DAILY 30 days fluticasone propion-salmeterol 115-21 mcg/actuation (Advair HFA) 2 puffs inhalation Q12H 30 days fluticasone propionate 50 mcg/actuation 2 sprays intranasal DAILY 30 days folic acid 1 mg PO DAILY hydroxyzine HCl 50 mg PO BID PRN magnesium oxide 400 mg PO .qhs medroxyprogesterone (Depo-Provera) 150 mg IM Q12W methylphenidate HCl ER (Concerta) 36 mg PO DAILY mirabegron ER (Myrbetriq) 25 mg PO DAILY 30 days ProAir HFA 90 mcg/actuation (albuterol sulfate) 2 puffs inhalation Q4H PRN 30 days NS propranolol 10 mg PO BID riboflavin (vitamin B2) 400 mg PO QAM risperidone (Risperdal) 2 mg PO DAILY trazodone 100 mg PO BEDTIME Tobacco use date assessed: 11/21/23 Dental Screening Dental Screen Date: 11/21/23 Did you have a dental visit in the last 12 months?: Yes Did you have a dental problem in the last 6 months where you did not have access to dental care?: No Was dental information given to patient?: Patient has dentist HPI HPI Comments History of Present Illness Details 23-year-old female presents for iron def iciency anemia follow-up She notes that she has not been ferrous sulfate in the past 4 months. She note she ran out of refills She offers no complaints and denies acute symptoms at this time She notes that i think i picked up vitamin D3 1250 mcg that was recently ordered. However, she has not started taking the medication. She notes that she will start taking the medication She notes that she continues to follow up with her therapist and psychiatrist and takes her psychotropic medications as prescribed [facility] Medical History Lumbar puncture headache Cervicalgia Migraine Benign intracranial hypertension Essential hypertension Lower extremity edema Syncope Major depressive disorder Eczema Nasal polyps Asthma Surgical History History of wisdom tooth extraction Family History (Updated 11/21/23 @ 17:26 by Gina Joe MA) Mother Asthma HTN (hypertension) Father Bipolar 1 disorder Diabetes Parkinson disease Maternal Grandmother S/P triple vessel bypass Other Mental health disorder Social History Housing: House Alcohol intake: current Alcohol intake frequency: holidays/special occasions only Patient Tobacco Use Status: Never used Tobacco e-Cigarette/Vaping Use: Never Used Second Hand Smoke Exposure: No service: No Current occupational status: student Current occupational exposures/hazards: No Cognitive needs: No Hearing needs: No Vision needs: No Questionnaire Thrive Questionnaire Date Thrive assessed: 07/20/23 CLAIRE-7 AMB Questionnaire CLAIRE-7 Date CLAIRE - 7 assessed: 07/20/23 Source: Developed by Drs. Christofer Ba, Kaylah Dickerson, Marbin Macario and colleagues, with an educational vern from [employer]. Review of Systems Const Details: Const Denies chills, Denies fatigue, Denies fever(s), Denies headache(s) and Denies weakness ENT Denies dizziness and Denies headache(s) Card Denies chest pain, Denies lightheadedness, Denies dyspnea and Denies other (Palpitations) Resp Denies cough, Denies dyspnea, Denies wheezing and Denies other ( shortness of breath) GI Denies abdominal pain, Denies melena, Denies hematochezia, Denies change in bowel habits, Denies dyspepsia and Denies nausea Denies hematuria and Denies dysuria Musc Denies abnormal gait, Denies myalgias, Denies arthralgias, Denies numbness and Denies tingling Skin/Breast Denies rash, Denies unusual bruising and Denies wounds Neuro Denies abnormal gait, Denies dizziness, Denies headache(s), Denies memory loss, Denies numbness, Denies Sensory deficit (Neuro), Denies tingling and Denies weakness Psych Denies anxiety, Denies depression, Denies memory loss Endo Denies cold intolerance, Denies fatigue, Denies heat intolerance, Denies polydipsia and Denies polyuria Aller/Immun Denies wheezing Physical exam (Primary Care) Vital Signs: Last Vital Signs Temp 97.9 F 11/21/23 17:19 Pulse 121 H 11/21/23 17:19 Resp 13 11/21/23 17:19 BP 126/70 11/21/23 17:19 Pulse Ox 99 11/21/23 17:19 Oxygen Delivery Method Room Air 11/21/23 17:19 BMI result Body Mass Index 56.7 Tobacco/Smoking Status: Tobacco use Status Tobacco use date assessed 11/21/23 11/21/23 17:26 Patient Tobacco Use Status Never used Tobacco 11/21/23 17:26 e-Cigarette/Vaping Use Never Used 11/21/23 17:26 Thrive Assessment: Date of Thrive Assessment Date Thrive assessed 07/20/23 11/21/23 17:26 Const Other: General: no acute distress and well developed Nutritional Appearance: well nourished Orientation/consciousness: patient oriented x3 HENMT Head: Yes normocephalic and Yes atraumatic Eyes General: appearance normal, both eyes and all related structures Pupils: Equal, round and reactive pupils present EOM: EOMs intact bilaterally Resp Effort & Inspection: normal respiratory effort Auscultation: clear to auscultation bilaterally Cardio Rate: regular rate Rhythm: regular rhythm Heart sounds: S1 normal heart sound present, S2 normal heart sound present, no gallops, no murmurs and no rubs GI Palpation (GI): No Abdominal aortic bruit present, Soft to palpation, nontender, No hepatosplenomegaly present and No Rebound tenderness present Auscultation: normal bowel sounds General: Yes no CVA tenderness Back/Spine/Pelvis Back: no CVA tenderness Cervical Spine: cervical ROM normal and No Cervical spine tenderness Thoracic/Lumbar Spine: thoraco-lumbar ROM normal, No pain with thoraco-lumbar ROM, No thoracic spinal tenderness and No lumbar spinal tenderness Extrem General: Yes normal to inspection, No edema and No calf tenderness Skin General: warm and dry. Normal skin color. Normal skin turgor Neuro General: patient oriented x3, gait normal and no focal neuro deficit Cranial nerves: Yes Equal, round and reactive pupils present Cognition (Neuro): normal cognition Gait exam (Neuro): Normal gait present Sensory Exam: No Sensory deficit (Neuro) Psych Appearance: grossly normal Affect: normal affect Attitude: cooperative Thought process: Normal thought process present Assessment and Plan Assessment & Plan (1) Iron deficiency anemia: Code(s): D50.9 - Iron deficiency anemia, unspecified Plan: Recent labs reviewed with the patient H&H and MCV levels are low, 10.6/32.9 and 78 respectively Ferrous sulfate 325 mg daily refilled. Take as prescribed Adequate hydration and Healthy diet encouraged Will recheck CBC and iron studies Advised to get blood work done 2-3 days before next visit Follow-up in 6 weeks or return sooner with symptoms or concerns Verbalized understanding and agreed with treatment plan (2) Vitamin D deficiency: Code(s): E55.9 - Vitamin D deficiency, unspecified Plan: Recent vitamin-D level is 13.3 She has not taking vitamin D3 1250 mcg since it was prescribed earlier this month Encouraged to take the medication as prescribed, once weekly (same-day) Advised to inform PCP if she is unable to locate medication Will recheck vitamin-D level. Advised to get blood work done 2-3 days before next visit Follow-up in 6 weeks Verbalized understanding and agreed with treatment plan Orders: Orders Ferritin 6 Weeks D50.9 - Iron deficiency anemia, unspecified Vitamin D 25-OH Total 6 Weeks E55.9 - Vitamin D deficiency, unspecified Reticulocyte Count 6 Weeks D50.9 - Iron deficiency anemia, unspecified IRON PROFILE 6 Weeks D50.9 - Iron deficiency anemia, unspecified Complete Blood Count no Diff 6 Weeks D50.9 - Iron deficiency anemia, unspecified Medications: Changed From ferrous sulfate 325 mg PO DAILY 3 months 90 tabs 1RF D64.9 - Anemia, unspecified To ferrous sulfate 325 mg PO DAILY 30 tabs 3RF 30 days D64.9 - Anemia, unspecified Coding Level of Care Code Est Pt Level 3 (09984) Diagnoses Iron deficiency anemia D50.9 Vitamin D deficiency E55.9
[2023-11-21 17:43] VITALS: PULSE 110
== END 2023-11-21 18:04 | disposition home or self-care (01) ==
PROVIDERS: PCP Hospitalist; Visit Provider Nurse Practitioner Family
DX: D50.9 Iron deficiency anemia, unspecified (principal); E55.9 Vitamin D deficiency, unspecified
CPT/HCPCS: 99213

== ENCOUNTER 2023-12-13 14:00 | Outpatient (REF) | payer OTHER, SELFPAY ==
--- NOTE | ~2023-12-13 | CT_ITS ---
EXAMINATION: CT ABDOMEN AND PELVIS WITHOUT AND WITH CONTRAST CLINICAL INFORMATION: Left hydronephrosis. COMPARISON: Renal ultrasound 10/30/2023. TECHNIQUE: Noncontrast CT of the abdomen and pelvis is performed followed by split bolus contrast-enhanced images using 85 mL Omnipaque 350 contrast.? Postcontrast imaging is performed during the combined nephrogram and excretion phase. Sagittal and coronal reformatted images were obtained on the technologist's workstation for both the precontrast and postcontrast phases. This CT examination was performed using dose optimization techniques as appropriate, variously including the following: *Automated exposure control *Adjustment of mA and/or kV according to patient size (this includes techniques or standardized protocols for targeted exams where dose is matched to indication/reason for exam; i.e. extremities or head) *Use of iterative reconstruction technique DLP: 1537 mGy-cm FINDINGS: LUNG BASES: The visualized lung bases are unremarkable. LIVER, GALLBLADDER, AND BILIARY TREE: The liver is normal in size, shape, and attenuation. No focal hepatic lesion or biliary ductal dilatation is present. Multiple noncalcified gallstones. No evidence of cholecystitis. PANCREAS: No discrete pancreatic mass or pancreatic ductal dilatation. SPLEEN: Renal size. No focal lesion. ADRENAL GLANDS: No adrenal mass. KIDNEYS AND URETERS: No nephrolithiasis. There is moderate dilatation of the left renal pelvis and intrarenal collecting system with transition at the UPJ. Contrast layers dependently in the collecting system. There is no contrast visible in the left ureter. The right renal collecting system appears normal. The symmetric nephrograms and the bilateral ureteral jets present on ultrasound both suggest that the apparent obstruction is only partial. No suspicious renal mass. BLADDER: No bladder calculus or visible bladder mass. GASTROINTESTINAL TRACT: The small and large bowel are unremarkable. The appendix is unremarkable. ABDOMINAL WALL: Small fat-containing umbilical hernia. LYMPH NODES: No adenopathy. VASCULAR: Normal caliber abdominal aorta and inferior vena cava. PELVIC VISCERA: Unremarkable. OSSEUS STRUCTURES: No suspicious osseous lesions. CT/CT urogram IMPRESSION: Moderate hydronephrosis of the left kidney with transition at the UPJ. The symmetric nephrograms and previously seen bilateral ureteral jets on ultrasound both suggest that the hydronephrosis visualized on this CT scan is likely related to a partial UPJ obstruction. This could be further evaluated with nuclear medicine renal scintigraphy. Cholelithiasis.
[2023-12-13] MEDS: iohexoL 350 MG/ML 100 ML INFUS..BTL 85 ML IV (14:48)
== END 2023-12-13 14:01 | disposition home or self-care (01) ==
LOC: HO.CT 14:00
PROVIDERS: PCP Nurse Practitioner Family; Visit Provider Nurse Practitioner Family
DX: N13.30 Unspecified hydronephrosis (principal)
CPT/HCPCS: 74178; Q9967

== ENCOUNTER 2024-01-09 16:32 | Outpatient (AMB) | payer OTHER, SELFPAY ==
[2024-01-09 16:35] VITALS: BP 124/70; PULSE 118; RESP 14; TEMP 36.4; O2SAT 98; BMI 55.8
--- NOTE | 2024-01-09 16:35 | MHC.PC.OV ---
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 Accompanied by: Self / Same As Patient Allergies fexofenadine [From Sofía-D] Allergy (Severe, Verified 01/09/24 16:52) Swelling milk Allergy (Severe, Verified 01/09/24 16:52) Anaphylaxis pseudoephedrine [From Sofía-D] Allergy (Severe, Verified 01/09/24 16:52) Swelling Beef Containing Products Allergy (Intermediate, Verified 01/09/24 16:52) Hives aranda Allergy (Intermediate, Verified 01/09/24 16:52) Hives egg Allergy (Intermediate, Verified 01/09/24 16:52) Hives nut - unspecified Allergy (Intermediate, Verified 01/09/24 16:52) Hives doxycycline Adverse Reaction (Intermediate, Verified 01/09/24 16:52) projectile vomiting tiotropium [From Spiriva with HandiHaler] Adverse Reaction (Intermediate, Verified 01/09/24 16:52) Cough Medication List - Last Reconciled 01/09/24 by Ayse Orta CNP albuterol sulfate 2.5 mg (3 mL) inhalation Q4H PRN 30 days aripiprazole 7.5 mg PO DAILY blood pressure kit-extra large As directed nusfrtbbqy-pewpygqvelizm-jlsa 50-325-40 mg 1 tab PO Q6H PRN cetirizine (Zyrtec) 10 mg PO DAILY PRN cholecalciferol (vitamin D3) 1,250 mcg PO QWEEK 8 weeks compress.stocking,knee,reg,med [id number] Dupixent Syringe (dupilumab) 300 mg (2 mL) subcut Q2W 30 days NS ferrous sulfate 325 mg PO DAILY 30 days fluticasone furoate-vilanterol 200-25 mcg/dose (Breo Ellipta) 1 inh inhalation DAILY 30 days fluticasone propion-salmeterol 115-21 mcg/actuation (Advair HFA) 2 puffs inhalation Q12H 30 days fluticasone propionate 50 mcg/actuation 2 sprays intranasal DAILY 30 days folic acid 1 mg PO DAILY hydroxyzine HCl 50 mg PO BID PRN magnesium oxide 400 mg PO .qhs medroxyprogesterone (Depo-Provera) 150 mg IM Q12W methylphenidate HCl ER (Concerta) 36 mg PO DAILY mirabegron ER (Myrbetriq) 25 mg PO DAILY 30 days ProAir HFA 90 mcg/actuation (albuterol sulfate) 2 puffs inhalation Q4H PRN 30 days NS propranolol 10 mg PO BID riboflavin (vitamin B2) 400 mg PO QAM risperidone (Risperdal) 2 mg PO DAILY trazodone 100 mg PO BEDTIME Tobacco use date assessed: 11/21/23 Dental Screening Dental Screen Date: 01/09/24 Did you have a dental visit in the last 12 months?: Yes Did you have a dental problem in the last 6 months where you did not have access to dental care?: No Was dental information given to patient?: Patient has dentist HPI HPI Comments History of Present Illness Details 23-year-old female presents for iron-deficiency anemia and vitamin-D deficiency follow-up She admits to taking ferrous sulfate prescribed without adverse reactions. She notes that she has not started taking vitamin D3 She states that she did not get blood work done for anemia and vitamin-D deficiency due to transportation issues but plans on getting it done this week She requests a new GI referral for h/o colitis and eosinophilic esophagitis. She states that her pervious GI specialist from [facility] retired last fall and she was not connected with a new provider She offers no complaints and denies acute symptoms at this time [facility] Medical History Lumbar puncture headache Cervicalgia Migraine Benign intracranial hypertension Essential hypertension Lower extremity edema Syncope Major depressive disorder Eczema Nasal polyps Asthma Surgical History History of wisdom tooth extraction Family History Mother Asthma HTN (hypertension) Father Bipolar 1 disorder Diabetes Parkinson disease Maternal Grandmother S/P triple vessel bypass Other Mental health disorder Social History Housing: House Alcohol intake: current Alcohol intake frequency: holidays/special occasions only Patient Tobacco Use Status: Never used Tobacco e-Cigarette/Vaping Use: Never Used Second Hand Smoke Exposure: No service: No Current occupational status: student Current occupational exposures/hazards: No Cognitive needs: No Hearing needs: No Vision needs: No Questionnaire Thrive Questionnaire Date Thrive assessed: 07/20/23 CLAIRE-7 AMB Questionnaire CLAIRE-7 Date CLAIRE - 7 assessed: 07/20/23 Source: Developed by Drs. Christofer Ba, Kaylah Dickerson, Marbin Macario and colleagues, with an educational vern from [employer]. Review of Systems Const Details: Const Denies chills, Denies fatigue, Denies fever(s), Denies headache(s) and Denies weakness ENT Denies dizziness and Denies headache(s) Card Denies chest pain, Denies lightheadedness, Denies dyspnea and Denies other (Palpitations) Resp Denies cough, Denies dyspnea, Denies wheezing and Denies other ( shortness of breath) GI Denies abdominal pain, Denies melena, Denies hematochezia, Denies change in bowel habits, Denies dyspepsia and Denies nausea Denies hematuria and Denies dysuria Musc Denies abnormal gait, Denies myalgias, Denies arthralgias, Denies numbness and Denies tingling Skin/Breast Denies rash, Denies unusual bruising and Denies wounds Neuro Denies abnormal gait, Denies dizziness, Denies headache(s), Denies memory loss, Denies numbness, Denies Sensory deficit (Neuro), Denies tingling and Denies weakness Psych Denies anxiety, Denies depression, Denies memory loss Endo Denies cold intolerance, Denies fatigue, Denies heat intolerance, Denies polydipsia and Denies polyuria Aller/Immun Denies wheezing Physical exam (Primary Care) Vital Signs: Last Vital Signs Temp 97.6 F 01/09/24 16:35 Pulse 118 H 01/09/24 16:35 Resp 14 01/09/24 16:35 BP 124/70 01/09/24 16:35 Pulse Ox 98 01/09/24 16:35 Oxygen Delivery Method Room Air 01/09/24 16:35 BMI result Body Mass Index 55.8 Tobacco/Smoking Status: Tobacco use Status Tobacco use date assessed 11/21/23 01/09/24 16:41 Patient Tobacco Use Status Never used Tobacco 01/09/24 16:41 e-Cigarette/Vaping Use Never Used 01/09/24 16:41 Thrive Assessment: Date of Thrive Assessment Date Thrive assessed 07/20/23 01/09/24 16:41 Const Other: General: no acute distress and well developed Nutritional Appearance: well nourished Orientation/consciousness: patient oriented x3 HENMT Head: Yes normocephalic and Yes atraumatic Eyes General: appearance normal, both eyes and all related structures Pupils: Equal, round and reactive pupils present EOM: EOMs intact bilaterally Resp Effort & Inspection: normal respiratory effort Auscultation: clear to auscultation bilaterally Cardio Rate: regular rate Rhythm: regular rhythm Heart sounds: S1 normal heart sound present, S2 normal heart sound present, no gallops, no murmurs and no rubs GI Palpation (GI): No Abdominal aortic bruit present, Soft to palpation, nontender, No hepatosplenomegaly present and No Rebound tenderness present Auscultation: normal bowel sounds General: Yes no CVA tenderness Back/Spine/Pelvis Back: no CVA tenderness Cervical Spine: cervical ROM normal and No Cervical spine tenderness Thoracic/Lumbar Spine: thoraco-lumbar ROM normal, No pain with thoraco-lumbar ROM, No thoracic spinal tenderness and No lumbar spinal tenderness Extrem General: Yes normal to inspection, No edema and No calf tenderness Skin General: warm and dry. Normal skin color. Normal skin turgor Neuro General: patient oriented x3, gait normal and no focal neuro deficit Cranial nerves: Yes Equal, round and reactive pupils present Cognition (Neuro): normal cognition Gait exam (Neuro): Normal gait present Sensory Exam: No Sensory deficit (Neuro) Psych Appearance: grossly normal Affect: normal affect Attitude: cooperative Thought process: Normal thought process present Assessment and Plan Assessment & Plan (1) Iron deficiency anemia: Code(s): D50.9 - Iron deficiency anemia, unspecified Plan: She did not get blood work done Advised to continue current treatment regimen Encouraged to get blood work done and follow-up for telehealth visit in 2-3 weeks Return sooner with symptoms or concerns Verbalized understanding and agreed with the treatment plan (2) Vitamin D deficiency: Code(s): E55.9 - Vitamin D deficiency, unspecified Plan: She did not get blood work done She has not been taking vitamin-D 3 12 50 units every week; advised to take as prescribed Encouraged to get blood work done in follow-up for telehealth visit 2-3 weeks Verbalized understanding and agreed with the treatment plan (3) History of colitis: Code(s): Z87.19 - Personal history of other diseases of the digestive system Plan: Reports history of colitis and eosinophilic esophagitis. She was followed by [facility] gastroenterology but her provider retired last for and she has not been connected to new provider. Referred to [facility] gastroenterology Follow-up with symptoms or concerns Verbalized understanding and agreed with plan (4) Eosinophilic esophagitis: Code(s): K20.0 - Eosinophilic esophagitis Plan: As above Orders: Orders Reticulocyte Count Today D50.9 - Iron deficiency anemia, unspecified Referrals Gastroenterology Referral K20.0 - Eosinophilic esophagitis, Z87.19 - Personal history of other diseases of the digestive system Coding Level of Care Code Est Pt Level 3 (21846) Diagnoses Iron deficiency anemia D50.9 Vitamin D deficiency E55.9 History of colitis Z87.19 Eosinophilic esophagitis K20.0
== END 2024-01-09 17:27 | disposition home or self-care (01) ==
PROVIDERS: PCP Nurse Practitioner Family; Visit Provider Nurse Practitioner Family
DX: D50.9 Iron deficiency anemia, unspecified (principal); E55.9 Vitamin D deficiency, unspecified; Z87.19 Personal history of other diseases of the digestive system; K20.0 Eosinophilic esophagitis
CPT/HCPCS: 99213

== ENCOUNTER 2024-02-02 15:57 | Outpatient (AMB) | payer OTHER, SELFPAY ==
--- NOTE | 2024-02-02 16:07 | A.OFFVIS_ITS ---
Vital Signs 02/02/24 16:09 Height 5 ft Weight 285 lb BMI 55.7 Pulse 92 Pulse Source Pulse Oximeter Pulse Oximetry (%) 98 Oxygen Delivery Method Room Air Intake Visit Reasons: Dyspnea Allergies fexofenadine [From Sofía-D] Allergy (Severe, Verified 02/02/24 16:11) Swelling milk Allergy (Severe, Verified 02/02/24 16:11) Anaphylaxis pseudoephedrine [From Sofía-D] Allergy (Severe, Verified 02/02/24 16:11) Swelling Beef Containing Products Allergy (Intermediate, Verified 02/02/24 16:11) Hives aranda Allergy (Intermediate, Verified 02/02/24 16:11) Hives egg Allergy (Intermediate, Verified 02/02/24 16:11) Hives nut - unspecified Allergy (Intermediate, Verified 02/02/24 16:11) Hives doxycycline Adverse Reaction (Intermediate, Verified 02/02/24 16:11) projectile vomiting tiotropium [From Spiriva with HandiHaler] Adverse Reaction (Intermediate, Verified 02/02/24 16:11) Cough HPI Comments Details: The patient is a 23-year-old woman with a known history of asthma in addition to significant allergies and obstructive sleep apnea. Apparently she has had significant allergies and she was very young. She did follow-up with Dr. Dow for many years. She was provided with allergy shots for some time but she is no longer doing nose. She has required prednisone multiple times a year because her significant asthma. Usually her symptoms do worsen in the fall and she is concerned about that. Patient has been on Symbicort for many years. Does not feel like it is working as well for her. She still having to use her rescue inhaler multiple times a day. She does not have a nebulizer at home. In addition to that she does have a history of eczema. the patient has not use any biologics. We did review her blood work from [facility] for many years and she has had significant eosinophilia throughout. Therefore she may be a good candidate for biologics if she continues to be symptomatic patient already is morbidly obese. She is concerned about her weight in the use of prednisone. She has noticed increasing daytime drowsiness. She also has significant migraines and headaches. Her Charleston score is elevated 1224. She has had sleep studies in the past demonstrating sleep apnea but does many years ago. At this point the patient is concerned that her sleep apnea is getting worse and she would likely treated. Therefore, she will need a home sleep study at this time. 07/09/2021 the patient is here for a pulmonary follow-up visit. Since we last spoke she has been having worsening shortness of breath and wheezing. Unfortunately, she could not get the Trelegy inhaler. I will send her the Breo and Incruse separate. in the meantime she continues to be very symptomatic. We did look at her allergy testing and she does have significant allergies, but, specially to dust mites. She is going to get rid of her stopping rug and also will get hypoallergenic covers. She already has an EpiPen available. She has not had to use it. We did review her sleep study. Does not appear that she has any significant sleep apnea the needs treatment. Most likely her degree of difficulty sleeping as a due mainly with her nasal congestion and allergies. On my examination I did believe she had a nasal polyp in her left nostril. This is causing near complete obstruction of the nasal passage on the left-hand side. The patient would benefit from biologic therapy. Will maximize her respiratory therapy in if she still symptomatic will start her on Biologic therapy. Based on her significant allergies, her elevated IgE, her nasal polyps and also history of eczema along with the severe asthma I believe Dupixent will be a perfect choice for her. 10/21/2021 the patient is here for a pulmonary follow-up visit. As we last spoke the patient has had episodes of increasing shortness of breath and wheezing. Initially she was responding well to the Dupixent. But she has had an issue with the Dupixent is no longer being the liver. In addition to that she is no longer getting maintenance medication. The patient responded well to Trelegy but was not covered. Therefore I sent Breo and Incruse. However, those were not provided for some reason. She does have a rescue inhaler. I will send her Advair HFA in addition to Spiriva. I am hopeful that she can start this therapy. In addition to that we did talk to the office staff about assessing the issue with the Dupixent delivery. In the meantime the patient is sleeping well. She does have mild degree of sleep apnea. She knows not to sleep on her back and she is adherent to her positional therapy. 02/15/2022 the patient is here for pulmonary follow-up visit. Since we last spoke she has been getting more daytime drowsiness. She has had documented episodes of apnea. She also has significant snoring. she had undergoing a sleep study that we had reviewed previously demonstrating mild sleep apnea. Based on the fact that she is more symptomatic will go ahead and start her on CPAP therapy. will go ahead and request the CPAP from a local DME company. Patient also has a significant family history of sleep apnea and also is obese. Regards of the asthma she has not started the Dupixent as his yet. She had some issues with the pharmacy. Apparently is now on his way and she should be starting soon. When she starts the Dupixent her respiratory symptoms should improve. Meantime she does continue on her respiratory therapy. She does require the albuterol multiple times a week. In addition to that she has had lower extremity edema. Her family is concerned because of the degree of edema. Hopefully when she starts CPAP will see improvement in the meantime will try 3 days of diuresis and she is going to follow low-sodium diet. 06/14/2022 the patient is here for a pulmonary follow-up visit. She finally got her CPAP. She has been trying to use it. The CPAP therapy has been affecting beneficial. She is trying to use it more than 4 hours a night. Her machine is a little cumbersome. She does have a Noreen CPAP. I will have to as regional for download. In the meantime she continues on Dupixent injections. She has not required any prednisone. She still having issues with shortness of breath. Although she still having significant lower extremity edema and overall volume overload status. She did take diuretic for 3 days during the last visit but she did not notice any significant diuresis per in addition to that the patient is describing episodes of syncope and also presyncope. With her significant lower extremity edema patient really needs an echocardiogram to further address her symptoms and also to see if she has any underlying cardiac arrhythmias in view of her other comorbidities even at this early age. Therefore, I am going to refer her to Cardiology to have further testing done. 09/13/2022 the patient is here for a pulmonary follow-up visit. The patient has been having some issues with her CPAP. She has a hard time with her mask. She is using currently on F 30 mask. Feels like she is not getting enough air up her nose. Is not lining up well. She rather have a traditional fullface mask. I did have an F20 small in the office. We did try it on her own she tolerated well. While she does use it her AHI is down to 0.1. Her average pressure is around 6-7.5. She does use it for more than 4 hours. Unfortunately with the current mass she has not been able to tolerated as well. We did switch her to the F20 mask. She tolerated that much better. I will submit a prescription to her [employer] company with the new masks. From an asthma standpoint she continues on Dupixent injections. She continues with respiratory therapy. She has not had any exacerbations. She has been doing well from that standpoint. She still has lower extremity edema. She has tried to cut down on the salt and also trying to use the compression stockings. She continues to monitor those closely. She is also now on Norvasc so therefore trapped to monitor for any worsening edema. I am hopeful that the more she uses her CPAP the better her lower extremity edema is going to get. 10/12/2023 the patient is here for pulmonary follow-up visit. The patient has been having hard time with her breathing lately. She is noticed increased nasal congestion and shortness of breath. Chest tightness. She continues on Dupixent and just has not been working as well as it did before. Although she did stop most of her inhalers such as Advair she stopped her fluticasone nasal spray. In addition to that the patient was diagnosed with sleep apnea and she did have a CPAP. Although, she stopped using it because she could not tolerated. Now that she has not using she is getting additional daytime drowsiness her Charleston score is elevated 12/24. She also has significant lower extremity edema and she is at risk for developing further worsening cardiovascular risk factors. Based on that the patient is willing to have the repeat sleep study and go back on CPAP since she really needs it. On my examination I do believe she does have a component of sinusitis that may be contributing to her ongoing nasal congestion. The patient should continue with biologic therapy and will optimize her respiratory therapy and treated for the upper respiratory illness. Will follow- up in a few months after her sleep study. 02/02/2024 the patient is here for a pulmonary follow-up visit. Overall the patient has been doing well. She is responding well to the Dupixent injections. she is administering them every 2 weeks. In addition to that she is getting some pain at the site of the injections but typically quickly resolved. No other adverse effects. No significant conjunctivitis or rashes noted. She continues to use her albuterol. She had been on Advair. Although for some reason she has not been able to get it filled at the pharmacy. She is actually requesting to see if she can try a new inhaler, Airsupra. at this point is reasonable for her to start the medication she can try and see if his effective for her. If is not she will call and I can send the Advair again to the pharmacy. I do believe since the initiation of the Dupixent her asthma has been better controlled and using as needed combination inhaler would be reasonable at this time. She continues have some daytime drowsiness. Charleston score is elevated, 10/24. Although she did not tolerate CPAP and she has not interested to go back on it. We did review his sleep study. She should respond to positional therapy. We did talk about different options in order for to perform positional therapy at this time. No recent imaging studies to review. [facility] Medical History Lumbar puncture headache Cervicalgia Migraine Benign intracranial hypertension Essential hypertension Lower extremity edema Syncope Major depressive disorder Eczema Nasal polyps Asthma Surgical History History of wisdom tooth extraction Family History Mother Asthma HTN (hypertension) Father Bipolar 1 disorder Diabetes Parkinson disease Maternal Grandmother S/P triple vessel bypass Other Mental health disorder Social History Housing: House Alcohol intake: current Alcohol intake frequency: holidays/special occasions only Patient Tobacco Use Status: Never used Tobacco e-Cigarette/Vaping Use: Never Used Second Hand Smoke Exposure: No service: No Current occupational status: student Current occupational exposures/hazards: No Cognitive needs: No Hearing needs: No Vision needs: No Review of Systems Const Reports daytime sleepiness, Reports difficulty sleeping, Reports headache(s), Denies night sweats, Reports stops breathing during sleep and Reports weight gain ENT Denies change in voice, Reports headache(s), Denies lip swelling, Denies mouth pain, Reports nasal congestion, Reports nasal discharge, Reports post nasal drip, Reports sinus pressure and Denies tongue swelling Card Denies chest pain and Reports leg edema Resp Reports cough and Reports wheezing GI Denies abdominal pain Musc Denies no additional complaints Neuro Denies Neuro-related abnormal movements and Reports headache(s) Psych Denies no additional complaints Vicente/Lymph Denies easy bleeding and Denies lymphadenopathy Aller/Immun Denies lip swelling, Denies tongue swelling and Reports wheezing Physical Exam Vital Signs: Last Vital Signs Pulse 92 02/02/24 16:09 Pulse Ox 98 02/02/24 16:09 Oxygen Delivery Method Room Air 02/02/24 16:09 BMI result Body Mass Index 55.7 Const General: alert HEENT General nose exam: Abnormal mucous membranes and turbinates present erythematous Neck Neck: Yes normal visual inspection, Yes full ROM and Yes no lymphadenopathy Chest Chest palpation & inspection: normal inspection of the chest Resp Effort & Inspection: normal respiratory effort Auscultation: no wheezes and diminished lung sounds Cardio Rate: regular rate Rhythm: regular rhythm Heart sounds: S1 normal heart sound present and S2 normal heart sound present GI Palpation (GI): Soft to palpation and nontender Auscultation: normal bowel sounds Skin General skin exam: rashes and/or lesions noted Extrem General: Yes edema Assessment & Plan Assessment & Plan (1) Asthma: Code(s): J45.909 - Unspecified asthma, uncomplicated Category: Medical Qualifiers: Asthma complication type: uncomplicated Asthma persistence: persistent Asthma severity: moderate Qualified Code(s): J45.40 - Moderate persistent asthma, uncomplicated (2) Seasonal allergies: Code(s): J30.2 - Other seasonal allergic rhinitis Category: Medical (3) Nasal polyps: Code(s): J33.9 - Nasal polyp, unspecified Category: Medical (4) Eczema: Code(s): L30.9 - Dermatitis, unspecified Category: Medical Qualifiers: Eczema type: flexural Qualified Code(s): L20.82 - Flexural eczema (5) Sleep apnea: Code(s): G47.30 - Sleep apnea, unspecified Category: Medical Qualifiers: Sleep apnea type: obstructive Qualified Code(s): G47.33 - Obstructive sleep apnea (adult) (pediatric) (6) Lower extremity edema: Code(s): R60.0 - Localized edema Category: Medical Plan hold Advair HFA start Airsupra BID PRN continue Fluticasone continue Dupixent Continue nebulizer. Low NA diet compression stockings AMAIRANI positional therapy Follow-up in 6-8 months Medications: New albuterol-budesonide 90-80 mcg/actuation (Airsupra) 2 inhalations inhalation BID PRN 10.7 grams 11RF shortness of breath 30 days Coding Level of Care Code Est Pt Level 4 (04516) Diagnoses Moderate persistent asthma without complication J45.40 Asthma complication type: uncomplicated Asthma persistence: persistent Asthma severity: moderate Seasonal allergies J30.2 Nasal polyps J33.9 Flexural eczema L20.82 Eczema type: flexural Obstructive sleep apnea syndrome G47.33 Sleep apnea type: obstructive Lower extremity edema R60.0 Time Spent (min) 17
[2024-02-02 16:09] VITALS: PULSE 92; O2SAT 98; BMI 55.7
== END 2024-02-02 16:25 | disposition home or self-care (01) ==
PROVIDERS: PCP Hospitalist; Visit Provider Hospitalist
DX: J45.40 Moderate persistent asthma, uncomplicated (principal); J30.2 Other seasonal allergic rhinitis; J33.9 Nasal polyp, unspecified; L20.82 Flexural eczema; G47.33 Obstructive sleep apnea (adult) (pediatric); R60.0 Localized edema
CPT/HCPCS: 99214

== ENCOUNTER → 2024-02-02 15:57 | Outpatient (BNVA) | payer OTHER, SELFPAY | PROVIDERS: PCP Hospitalist; Visit Provider Hospitalist ==

== ENCOUNTER 2024-02-23 13:30 | Outpatient (AMB) | payer OTHER, SELFPAY ==
--- NOTE | 2024-02-23 13:30 | MHC.OFFVIS ---
Intake Visit Reasons: 6w/CT/labs(set) Intake Note: Patient presents for follow up CT Scan Imagin12/13/23 Urology Medications: Myrbetriq Blood Thinner: none Lumber Tripper Required: No Accompanied by: Self / Same As Patient Allergies fexofenadine [From Sofía-D] Allergy (Severe, Verified 02/26/24 16:56) Swelling milk Allergy (Severe, Verified 02/26/24 16:56) Anaphylaxis pseudoephedrine [From Sofía-D] Allergy (Severe, Verified 02/26/24 16:56) Swelling Beef Containing Products Allergy (Intermediate, Verified 02/26/24 16:56) Hives aranda Allergy (Intermediate, Verified 02/26/24 16:56) Hives egg Allergy (Intermediate, Verified 02/26/24 16:56) Hives nut - unspecified Allergy (Intermediate, Verified 02/26/24 16:56) Hives doxycycline Adverse Reaction (Intermediate, Verified 02/26/24 16:56) projectile vomiting tiotropium [From Spiriva with HandiHaler] Adverse Reaction (Intermediate, Verified 02/26/24 16:56) Cough Medication List - Last Reconciled 02/26/24 by WILLA Goins- albuterol sulfate 2.5 mg (3 mL) inhalation Q4H PRN 30 days albuterol-budesonide 90-80 mcg/actuation (Airsupra) 2 inhalations inhalation BID PRN 30 days blood pressure kit-extra large As directed hzhbsoglov-ngsycfrftdrje-alvu 50-325-40 mg 1 tab PO Q6H PRN cetirizine (Zyrtec) 10 mg PO DAILY PRN cholecalciferol (vitamin D3) 1,250 mcg PO QWEEK 8 weeks compress.stocking,knee,reg,med [id number] Dupixent Syringe (dupilumab) 300 mg (2 mL) subcut Q2W 30 days NS ferrous sulfate 325 mg PO DAILY 30 days fluticasone furoate-vilanterol 200-25 mcg/dose (Breo Ellipta) 1 inh inhalation DAILY 30 days fluticasone propionate 50 mcg/actuation 2 sprays intranasal DAILY 30 days folic acid 1 mg PO DAILY hydroxyzine HCl 50 mg PO BID PRN lorazepam 0.5 mg PO DAILY magnesium oxide 400 mg PO .qhs medroxyprogesterone (Depo-Provera) 150 mg IM Q12W methylphenidate HCl ER (Concerta) 36 mg PO DAILY mirabegron ER (Myrbetriq) 50 mg (2 x 25 mg) PO DAILY 90 days nebulizers As directed ProAir HFA 90 mcg/actuation (albuterol sulfate) 2 puffs inhalation Q4H PRN 30 days NS propranolol 10 mg PO BID riboflavin (vitamin B2) 400 mg PO QAM risperidone (Risperdal) 2 mg PO DAILY trazodone 100 mg PO BEDTIME HPI Comments Details: Zelda Snyder is a pleasant 23-year-old female patient of Dr. Low. She has a past medical history of lumbar puncture headache, migraines, benign intracranial hypertension, hypertension, lower extremity edema, major depression, and asthma. She is being followed up on today via video telehealth for her ongoing lower urinary tract symptoms and hydronephrosis. In discussion with the patient today she reports to be doing and feeling well. Recent CT results reviewed with the patient today. No nephrolithiasis. There is moderate dilatation of the left renal pelvis and intrarenal collecting system with transition at the UPJ. Contrast layers dependently in the collecting system. There is no contrast visible in the left ureter. The right renal collecting system appears normal. The symmetric nephrograms and the bilateral ureteral jets present on ultrasound both suggest that the apparent obstruction is only partial. No suspicious renal mass. Bladder with no bladder calculus or visible bladder mass. Previous workup has also included a retroperitoneal ultrasound noting bilateral kidneys with no calculi or lesions noted. Right kidney with no hydronephrosis. Left kidney with moderate hydronephrosis and hydroureter. The bladder is well distended and normal. Bilateral ureteral jets are demonstrated. Pre void bladder volume is approximately 150 mL. Postvoid bladder volume is approximately 10 mL. No stones are seen within the bladder. Discussed at length potential causes for hydronephrosis. Patient reports having since stopped oxybutynin due to dry mouth and abdominal cramping she had been experiencing while taking this medication. She has since been prescribed Myrbetriq 25 mg daily and feels this has been somewhat helpful in her lower urinary tract symptoms of urinary urgency, urinary frequency, incontinence, and enuresis. When asked she denies hematuria, dysuria, foul smelling urine, changes to urinary stream, flank pain, fever, and or chills. Discussed at length potential causes for lower urinary tract symptoms patient is experiencing. Discussed at length lifestyle modifications to assist with lower urinary tract symptoms. Discussed obtaining nuclear renal scan further assessment evaluation. During last office visit BUN and creatinine were ordered however never obtain. Discussed importance in doing so. She otherwise offers no other issues or concerns at this time. [facility] Medical History Lumbar puncture headache Cervicalgia Migraine Benign intracranial hypertension Essential hypertension Lower extremity edema Syncope Major depressive disorder Eczema Nasal polyps Asthma Surgical History History of wisdom tooth extraction Family History Mother Asthma HTN (hypertension) Father Bipolar 1 disorder Diabetes Parkinson disease Maternal Grandmother S/P triple vessel bypass Other Mental health disorder Social History Housing: House Alcohol intake: current Alcohol intake frequency: holidays/special occasions only Patient Tobacco Use Status: Never used Tobacco e-Cigarette/Vaping Use: Never Used Second Hand Smoke Exposure: No service: No Current occupational status: student Current occupational exposures/hazards: No Cognitive needs: No Hearing needs: No Vision needs: No Review of Systems Const Reports as per [facility] Eyes Reports no additional complaints ENT Reports no additional complaints Card Reports as per HPI Resp Reports as per HPI GI Reports no additional complaints Reports as per HPI Musc Reports as per [facility] Neuro Reports as per [facility] Psych Reports as per HPI Endo Reports no additional complaints Vicente/Lymph Reports no additional complaints Aller/Immun Reports no additional complaints Physical Exam Const General: cooperative, healthy appearing, comfortable, no acute distress, well developed, alert and awake Nutritional Appearance: obese Orientation/consciousness: patient oriented x3 Resp Effort & Inspection: normal respiratory effort and able to speak in complete sentences Neuro General: patient oriented x3 Psych Appearance: grossly normal and well kempt Mental Status: mental status grossly normal Speech and movement: Clear speech present Affect: normal affect Attitude: cooperative Thought process: Normal thought process present Thought content: Normal thought content present Insight: Fair insight present (Psych) Judgement: Fair judgement present (Psych) Telehealth Telehealth Telehealth Platform: Doximity Location of provider rendering services: practice address Location of patient: address on file Patient Identification confirmed using: Name, : Yes Telehealth method: video Patient verbally consented to treatment: Yes Patient verbally consented to billing insurance company: Yes Patient informed of any privacy concerns related to visit: Yes Minutes spent on Phone/Video with Pt.: 21 Results Reviewed Results Reviewed: Date of Service: 12/13/23 EXAMINATION: CT ABDOMEN AND PELVIS WITHOUT AND WITH CONTRAST FINDINGS: LUNG BASES: The visualized lung bases are unremarkable. LIVER, GALLBLADDER, AND BILIARY TREE: The liver is normal in size, shape, and attenuation. No focal hepatic lesion or biliary ductal dilatation is present. Multiple noncalcified gallstones. No evidence of cholecystitis. PANCREAS: No discrete pancreatic mass or pancreatic ductal dilatation. SPLEEN: Renal size. No focal lesion. ADRENAL GLANDS: No adrenal mass. KIDNEYS AND URETERS: No nephrolithiasis. There is moderate dilatation of the left renal pelvis and intrarenal collecting system with transition at the UPJ. Contrast layers dependently in the collecting system. There is no contrast visible in the left ureter. The right renal collecting system appears normal. The symmetric nephrograms and the bilateral ureteral jets present on ultrasound both suggest that the apparent obstruction is only partial. No suspicious renal mass. BLADDER: No bladder calculus or visible bladder mass. GASTROINTESTINAL TRACT: The small and large bowel are unremarkable. The appendix is unremarkable. ABDOMINAL WALL: Small fat-containing umbilical hernia. LYMPH NODES: No adenopathy. VASCULAR: Normal caliber abdominal aorta and inferior vena cava. PELVIC VISCERA: Unremarkable. OSSEUS STRUCTURES: No suspicious osseous lesions. IMPRESSION: Moderate hydronephrosis of the left kidney with transition at the UPJ. The symmetric nephrograms and previously seen bilateral ureteral jets on ultrasound both suggest that the hydronephrosis visualized on this CT scan is likely related to a partial UPJ obstruction. This could be further evaluated with nuclear medicine renal scintigraphy. Cholelithiasis. Assessment & Plan Assessment & Plan (1) Hydronephrosis: Code(s): N13.30 - Unspecified hydronephrosis Category: Medical (2) Urinary frequency: Code(s): R35.0 - Frequency of micturition Category: Medical Plan Recent CT results reviewed with the patient today; as noted above. Will obtain nuclear renal scan for further assessment evaluation. Continue Myrbetriq; dose increase to 50 mg daily; prescription provided Discussed near future in office cystoscopy and or urodynamics for further assessment evaluation. Discussed, educated, and stressed the importance of weight loss to assist with lower urinary tract symptoms as well as overall health and well-being. Will obtain BUN and creatinine as planned; discussed importance in doing so. Discussed potential causes of hydronephrosis. Follow-up in 1-2 months with imaging to be completed prior; or sooner with any issues, concerns, and or questions. Orders: Orders NM renal flow w pharm int 02/23/24 N13.30 - Unspecified hydronephrosis, R35.0 - Frequency of micturition Medications: Changed From mirabegron ER (Myrbetriq) 25 mg PO DAILY 30 days 30 tabs 1RF N30.10 - Interstitial cystitis (chronic) without hematuria, N32.81 - Overactive bladder, R35.1 - Nocturia, R39.15 - Urgency of urination To mirabegron ER (Myrbetriq) 50 mg (2 x 25 mg) PO DAILY 90 days 180 tabs 1RF N30.10 - Interstitial cystitis (chronic) without hematuria, N32.81 - Overactive bladder, R35.1 - Nocturia, R39.15 - Urgency of urination Patient Instructions: The patient had an opportunity to ask questions regarding the treatment plan. All questions were answered. Physical exam, labs, and imaging were discussed and reviewed in detail. As well as risks, benefits, and discussion of treatment choices. No major barriers to understanding were identified. The patient expressed understanding and agreement with the above treatment plan. The patient was made aware they should contact our office by phone for worsening of their current condition, the appearance of new symptoms, or with any questions or concerns. Compliance is encouraged with any medications and follow up testing that is ordered. It is a privilege to be allowed the opportunity to participate in? your urological care.? Again, if you have any questions or concerns If you have any questions or concerns please do not hesitate to contact me. The office is [phone]. This note is constructed using voice recognition software. While every effort has been made to ensure accuracy financial services professional errors may have been included. Yours sincerely, TAHIR Goins Coding Level of Care Code Tele Est Pt Level 4 (19506) Diagnoses Hydronephrosis N13.30 Urinary frequency R35.0
== END 2024-02-23 14:30 | disposition home or self-care (01) ==
LOC: HO.HUSH 13:30
PROVIDERS: PCP Hospitalist; Visit Provider Nurse Practitioner Family
DX: N13.30 Unspecified hydronephrosis (principal); R35.0 Frequency of micturition
CPT/HCPCS: 99214

== ENCOUNTER → 2024-02-23 13:30 | Outpatient (BNVA) | payer OTHER, SELFPAY | PROVIDERS: PCP Hospitalist; Visit Provider Nurse Practitioner Family ==

== ENCOUNTER → 2024-04-02 13:07 | Outpatient (REF) | payer OTHER, SELFPAY ==
--- NOTE | ~2024-04-02 | NM_ITS ---
EXAMINATION: NM RENOGRAM WITH LASIX CLINICAL INFORMATION: 24-year-old female with left-sided hydroureteronephrosis with transition at the UPJ. COMPARISON: Renal ultrasound done on 10/30/[address] urogram done on 12/13/2023. TECHNIQUE: Dynamic renal scintigraphy was performed after intravenous administration of 10.0 mCi Tc-99m Technetium 99m DTPA . 40 mg of furosemide was administered at 30 minutes and continued dynamic imaging of the abdomen/pelvis was obtained for a total of 60 minutes. The images were processed multiple times using different centimeters to get optimal value. FINDINGS: Left kidney 65.7% and the right kidney 34.3% of total renal uptake. Left Kidney: Normal perfusion. The left kidney is normal in size, shape, outline and position. The radiotracer is seen taken up by the cortex promptly with subsequent progressive excretion into the asymmetrically dilated pelvicalyceal system, similar to prior CT urogram done on 12/13/2023. The left ureter remained nonvisualized throughout the entire study and no evidence of any significant washout of the tracer activity from the dilated pelvicalyceal system is seen before as well as after administration of Lasix confirming presence of underlying significant obstruction. The time activity curve following administration of Lasix remains flat without any significant washout, consistent with underlying obstruction at the UPJ. Right Kidney: Normal perfusion. The right renal pelvicalyceal system appeared normal in caliber and shows progressive washout before as well as after administration of Lasix indicating above no underlying obstruction. Other: None. NM/NM renal flow w pharm int IMPRESSION: 1. Differential renal function: Left 65.7%, Right 34.3%. 2. Left kidney has obstructive parameters after diuresis. 3. Right kidney has non-obstructive parameters before and after diuresis.
== END ==
LOC: HO.NUCMED 13:07
PROVIDERS: Visit Provider Nurse Practitioner Family
DX: N13.30 Unspecified hydronephrosis (principal); R35.0 Frequency of micturition
CPT/HCPCS: 78708; A9539; J1940

== ENCOUNTER 2024-05-28 15:07 | Outpatient (AMB) | payer OTHER, SELFPAY ==
--- NOTE | 2024-05-28 15:10 | A.OFFVIS_ITS ---
Vital Signs 05/28/24 15:11 Height 5 ft Weight 274 lb 4.081 oz BMI 53.6 BP 134/73 Blood Pressure Location Rt brachial Position Sitting Pulse 98 Intake Visit Reasons: Eosinophilic esophagitis Intake Note: Patient in office today for evaluation and management of eosinophilic esophagitis. CC: Patient states that she has always had trouble with GI. She used to see a GI specialist at [facility]. Patient c/o abdominal pain, nausea, vomiting every other week, GERD, diarrhea, and constipation. Last colonoscopy and EGD was on 2020 at [facility]. Fancy Needleworker Required: No Accompanied by: Mother Allergies fexofenadine [From Sofía-D] Allergy (Severe, Verified 06/13/24 16:01) Swelling milk Allergy (Severe, Verified 06/13/24 16:01) Anaphylaxis pseudoephedrine [From Sofía-D] Allergy (Severe, Verified 06/13/24 16:01) Swelling Beef Containing Products Allergy (Intermediate, Verified 06/13/24 16:01) Hives aranda Allergy (Intermediate, Verified 06/13/24 16:01) Hives egg Allergy (Intermediate, Verified 06/13/24 16:01) Hives nut - unspecified Allergy (Intermediate, Verified 06/13/24 16:01) Hives doxycycline Adverse Reaction (Intermediate, Verified 06/13/24 16:01) projectile vomiting tiotropium [From Spiriva with HandiHaler] Adverse Reaction (Intermediate, Verified 06/13/24 16:01) Cough Medication List - Last Reconciled 05/28/24 by DUSTIN Roberts albuterol sulfate 2.5 mg (3 mL) inhalation Q4H PRN 30 days albuterol-budesonide 90-80 mcg/actuation (Airsupra) 2 inhalations inhalation BID PRN 30 days blood pressure kit-extra large As directed skckguojqf-dbijnhwnwhivh-fayg 50-325-40 mg 1 tab PO Q6H PRN compress.stocking,knee,reg,med [id number] dupilumab (Dupixent) 300 mg (2 mL) subcut Q2W hydroxyzine HCl 50 mg PO BID PRN loratadine (Claritin) 10 mg PO DAILY lorazepam 0.5 mg PO DAILY magnesium oxide 400 mg PO .qhs medroxyprogesterone (Depo-Provera) 150 mg IM Q12W methylphenidate HCl ER (Concerta) 36 mg PO DAILY mirabegron ER 50 mg PO DAILY 90 days nebulizers As directed omeprazole 40 mg PO DAILY ProAir HFA 90 mcg/actuation (albuterol sulfate) 2 puffs inhalation Q4H PRN 30 days NS propranolol 60 mg PO DAILY risperidone 4 mg PO BEDTIME trazodone 100 mg PO BEDTIME HPI HPI Eosinophilic esophagitis: Details: 24-year-old female here for initial evaluation of ?colitis and eosinophilic esophagitis.? She is referred [place] Ayse [facility] [place] [facility]. PMX AMAIRANI Asthma Morbid obesity Hypertension High cholesterol - pt denies Migraines Chronic diarrhea GERD Fibromyalgia syndrome Pseudotumor cerebri Hard of hearing left ear Bipolar disorder/depression/anxiety Multiple food allergies * SURGICAL HISTORY [place] teeth extraction * ALLERGIES Fexofenadine - stiff neck Doxycycline - N/V Tiotropium - r/t milk protein ingredient Propofol - hyperactivity * [facility] LABS: Laboratory Tests 07/12/22 11/07/23 09:36 09:24 WBC 10.2 Hgb 10.6 L Hct 32.9 L MCV 78.0 L MCH 25.1 L Plt Count 316 Total Bilirubin 0.4 AST 11 ALT 17 Alkaline Phosphatase 66 TSH 1.63 REVIEW OF [facility] GASTR[facility] NOTES 01/2023 This indicates the patient has a long history of erosive esophagitis since childhood. PATHOLOGY REPORT FROM LAST EGD AT [facility] 01/2023 Final Diagnosis: 1. Colon, random biopsies: ?? ?- Colonic mucosa, without significant change. ?? ? 2. Duodenum, biopsies: ?? ?- Duodenal mucosa, without significant change. ? 3. Stomach, random biopsies: ?? ?- Gastric mucosa, fundic-body type, with reactive changes. ?? ?- No histologic evidence of H. pylori organisms. ? 4. Esophagus, biopsies: ?? ?- Squamous esophageal mucosa, without significant change. ?? ?- Minute fragment of gastric mucosa, fundic-body type, without significant change. ? CT ABD AND PELVIS [facility] [place] 10/2022 RESULT: CT Abd/Pelvis W/ IV Contrast Only CT Abd/Pelvis W/ IV Contrast Only Hx of Present Illness: Pt came in stating that she has sleep apnea and she has lack of control of her bladder in the last 3 months. Pt states that she urinates 3-4 times at night not knowing it and couple times times during a day time. Pt also, c o abd pain and diarrhea; Reason: Other:; abdominal pain; Clinical Question(s): Diverticulitis; Order Comment: Patient unable to tolerate PO contrast. TECHNIQUE: Spiral CT through the abdomen and pelvis with IV contrast formatted in 3 planes. 100 cc of Omnipaque 300 was administered intravenously. This study was performed without oral contrast. Weight-based protocol using automatic tube modulation was used to optimize exposure parameters. CTDIvol Body: 35.42 mGy, DLP Body: 1683 mGy*cm. COMPARISON: None. FINDINGS: Filling Machine Tender View Findings, Lines and Tubes: None. Visualized Chest: Lung bases are clear. 3 mm nodule at the left lung base is subpleural, likely postinfectious or postinflammatory. No pleural effusion. The heart is normal in size. No pericardial effusion. Diaphragm: Normal. Liver: No acute abnormality. Findings suggest underlying chronic hepatic steatosis. Gallbladder: Gallstones. Bile ducts: No biliary ductal dilation. Spleen: Mildly enlarged at 13 cm Pancreas: Normal. Adrenal glands: Normal. Kidneys and ureters: Marked pelvocaliectasis on the left with moderate pelviectasis seen to the level of the upper ureter/ureteropelvic junction at series 2 image 64. No solid renal mass. Bladder: Mild diffuse bladder wall thickening which could be due to nondistention. Reproductive organs: Unremarkable. Stomach, small bowel, and large bowel: No bowel obstruction. Tiny hiatal hernia. Mild submucosal fat seen throughout the colon is likely related to prior inflammation Appendix: Normal. Peritoneum and retroperitoneum: No ascites or fluid collection. No omental or mesenteric lesions. Lymph nodes: No adenopathy. Blood vessels: Nonaneurysmal abdominal aorta. No evidence of venous thrombosis. Abdominal and pelvic wall: No acute abnormality Bones: No acute abnormality. IMPRESSION: Mild diffuse bladder wall thickening. This can be seen with cystitis or be exaggerated by under distention. Recommend correlation with urinalysis to evaluate for cystitis, if clinically warranted. Moderate degree of pelvocaliectasis on the left with transition point at the ureteropelvic junction. This can be seen with congenital or crossing vessel/prior stricture obstruction. No asymmetric resultant atrophy of the left kidney. Suggest outpatient urology clinic follow-up which could include additional imaging such as CT IVP, if clinically supported. Cholelithiasis. No CT evidence for acute cholecystitis. TODAY'S VISIT The patient says she was seen by [facility] for many years until ?the provider left.? Vomiting new sx, diarrhea chronic but alt with [facility] ? diarrhea more, pain mid abd below BB, sharp/aching, mostly there always, 02/08 - 07/11. It will be 07/11 3-4 days a week lasting all day. Vomiting about once a week, always nauseated. Food allergies: Milk, nuts, eggs, beef, cherries, apples skin. Still has GERD and HB on omeprazole 20mg 2 at once buying OTC now. She had a CT 2022 = gallstones of which she was unaware. (??). No meds for diarrhea in past. A lot of gas and bloating. No known FHX crc, similar sx or stomach/esoph ca. Mother had GB disease and tricia. NO wt loss of gain. Will try changing her PPI to something like Dexilant, give her a trial of Creon for gas and bloating and re-evaluate her response. Return office visit in 4 weeks [facility] Medical History Low folate Morbid obesity due to excess calories Asthma, mild intermittent, well-controlled Well adult exam Morbid (severe) obesity due to excess calories Otitis media Foreign body in ear Left otitis media Concern about STD in female without diagnosis Nasal polyps Irregular menses Sinusitis Abnormal physical evaluation Abnormal urinalysis Anemia Headache Lower extremity edema Due for screening Viral upper respiratory illness Leg swelling Morbid obesity Urinary incontinence Urinary frequency Laboratory tests ordered as part of a complete physical exam (CPE) Normal physical examination, routine Lumbar puncture headache Cervicalgia Migraine Benign intracranial hypertension Essential hypertension Syncope Major depressive disorder Eczema Asthma Surgical History History of esophagogastroduodenoscopy (EGD) H/O colonoscopy History of wisdom tooth extraction Family History Mother Asthma HTN (hypertension) Father Bipolar 1 disorder Diabetes Parkinson disease Maternal Grandmother S/P triple vessel bypass Mother Uterine cancer Other Mental health disorder Social History Housing: House Alcohol intake: current Alcohol intake frequency: holidays/special occasions only Patient Tobacco Use Status: Never used Tobacco e-Cigarette/Vaping Use: Never Used Second Hand Smoke Exposure: No service: No Current occupational status: student Current occupational exposures/hazards: No Cognitive needs: No Hearing needs: No Vision needs: No Review of Systems Const Denies fatigue, Denies fever(s), Denies night sweats, Denies poor appetite and Denies weight loss Eyes Details: glasses Reports requires corrective lenses ENT Reports Normal hearing present, Denies dysphagia, Denies odynophagia, Denies throat swelling and Denies tongue swelling Card Reports no additional complaints Resp Reports no additional complaints GI Details: Reports abdominal pain, Denies melena, Reports bloating, Denies hematochezia, Denies constipation, Denies GI cramping, Denies dysphagia, Reports excessive flatus, Denies early satiety, Reports heartburn, Denies diarrhea, Reports nausea, Denies odynophagia, Reports vomiting and Denies hematemesis Skin/Breast Denies pruritus, Denies lesions, Denies rash and Denies jaundice Neuro Reports Normal hearing present and Denies Abnormal speech present Endo Denies fatigue Aller/Immun Denies throat swelling and Denies tongue swelling Physical Exam Vital Signs: Last Vital Signs Pulse 98 05/28/24 15:11 BP 134/73 05/28/24 15:11 BMI result Body Mass Index 53.6 Const General: cooperative, no acute distress, well developed and well groomed Nutritional Appearance: well nourished and obese morbidly obese Orientation/consciousness: oriented to person, oriented to place and oriented to time Limitations: No language barrier HEENT Head: Yes normocephalic and Yes atraumatic Eyes General: appearance normal, both eyes and all related structures Pupils: Equal, round and reactive pupils present Neck Neck: Yes normal visual inspection and Yes no lymphadenopathy Thyroid: Thyroid normal Resp Effort & Inspection: normal respiratory effort and able to speak in complete sentences Auscultation: clear to auscultation bilaterally Cardio Rate: regular rate Rhythm: regular rhythm Heart sounds: Normal, physiologic split S2 sound present Peripheral pulses: radial pulses present and posterior tibial pulses present GI Inspection: No distended, Yes Abdominal panniculus present, Yes obesity, No scar and No striae Palpation (GI): Soft to palpation, Tenderness to palpation present (GI) in the RLQ, in the LUQ and periumbilically, no guarding, not rigid and No hepatosplenomegaly present Percussion: Yes normal to percussion Auscultation: normal bowel sounds Rectal Exam - Female: deferred Skin Other: lower legs very dry/eczema General skin exam: no rashes or lesions noted, turgor normal, dry skin, no jaundice, No spider nevi and no striae Rashes: no rashes Nails: normal Neuro General: oriented to person, oriented to place and oriented to time Cranial nerves: Yes Equal, round and reactive pupils present and Yes Normal hearing present Speech: No Abnormal speech present Extrem General: Yes normal to inspection, No clubbing, No cyanosis and No edema Psych Appearance: grossly normal and well kempt Mental Status: mental status grossly normal Speech and movement: Normal speech and movement present Affect: normal affect Attitude: cooperative Thought process: Normal thought process present and not confabulating Thought content: Normal thought content present Insight: Fair insight present (Psych) Judgement: Fair judgement present (Psych) Results Reviewed Results Reviewed: Laboratory Tests 07/12/22 11/07/23 09:36 09:24 WBC 10.2 Hgb 10.6 L Hct 32.9 L MCV 78.0 L MCH 25.1 L Plt Count 316 Total Bilirubin 0.4 AST 11 ALT 17 Alkaline Phosphatase 66 TSH 1.63 REVIEW OF [facility] NOTES 01/2023 This indicates the patient has a long history of erosive esophagitis since childhood. PATHOLOGY REPORT FROM LAST EGD AT [facility] 01/2023 Final Diagnosis: 1. Colon, random biopsies: ?? ?- Colonic mucosa, without significant change. ?? ? 2. Duodenum, biopsies: ?? ?- Duodenal mucosa, without significant change. ? 3. Stomach, random biopsies: ?? ?- Gastric mucosa, fundic-body type, with reactive changes. ?? ?- No histologic evidence of H. pylori organisms. ? 4. Esophagus, biopsies: ?? ?- Squamous esophageal mucosa, without significant change. ?? ?- Minute fragment of gastric mucosa, fundic-body type, without significant change. ? CT ABD AND PELVIS [facility] [place] 10/2022 RESULT: CT Abd/Pelvis W/ IV Contrast Only CT Abd/Pelvis W/ IV Contrast Only Hx of Present Illness: Pt came in stating that she has sleep apnea and she has lack of control of her bladder in the last 3 months. Pt states that she urinates 3-4 times at night not knowing it and couple times times during a day time. Pt also, c o abd pain and diarrhea; Reason: Other:; abdominal pain; Clinical Question(s): Diverticulitis; Order Comment: Patient unable to tolerate PO contrast. TECHNIQUE: Spiral CT through the abdomen and pelvis with IV contrast formatted in 3 planes. 100 cc of Omnipaque 300 was administered intravenously. This study was performed without oral contrast. Weight-based protocol using automatic tube modulation was used to optimize exposure parameters. CTDIvol Body: 35.42 mGy, DLP Body: 1683 mGy*cm. COMPARISON: None. FINDINGS: Filling Machine Tender View Findings, Lines and Tubes: None. Visualized Chest: Lung bases are clear. 3 mm nodule at the left lung base is subpleural, likely postinfectious or postinflammatory. No pleural effusion. The heart is normal in size. No pericardial effusion. Diaphragm: Normal. Liver: No acute abnormality. Findings suggest underlying chronic hepatic steatosis. Gallbladder: Gallstones. Bile ducts: No biliary ductal dilation. Spleen: Mildly enlarged at 13 cm Pancreas: Normal. Adrenal glands: Normal. Kidneys and ureters: Marked pelvocaliectasis on the left with moderate pelviectasis seen to the level of the upper ureter/ureteropelvic junction at series 2 image 64. No solid renal mass. Bladder: Mild diffuse bladder wall thickening which could be due to nondistention. Reproductive organs: Unremarkable. Stomach, small bowel, and large bowel: No bowel obstruction. Tiny hiatal hernia. Mild submucosal fat seen throughout the colon is likely related to prior inflammation Appendix: Normal. Peritoneum and retroperitoneum: No ascites or fluid collection. No omental or mesenteric lesions. Lymph nodes: No adenopathy. Blood vessels: Nonaneurysmal abdominal aorta. No evidence of venous thrombosis. Abdominal and pelvic wall: No acute abnormality Bones: No acute abnormality. IMPRESSION: Mild diffuse bladder wall thickening. This can be seen with cystitis or be exaggerated by under distention. Recommend correlation with urinalysis to evaluate for cystitis, if clinically warranted. Moderate degree of pelvocaliectasis on the left with transition point at the ureteropelvic junction. This can be seen with congenital or crossing vessel/prior stricture obstruction. No asymmetric resultant atrophy of the left kidney. Suggest outpatient urology clinic follow-up which could include additional imaging such as CT IVP, if clinically supported. Cholelithiasis. No CT evidence for acute cholecystitis. Assessment & Plan Assessment & Plan (1) Eosinophilic esophagitis: Code(s): K20.0 - Eosinophilic esophagitis Category: Medical (2) Gallstones: Code(s): K80.20 - Calculus of gallbladder without cholecystitis without obstruction Category: Medical (3) Abdominal pain: Code(s): R10.9 - Unspecified abdominal pain Category: Medical (4) Diarrhea: Code(s): R19.7 - Diarrhea, unspecified Category: Medical (5) Erosive esophagitis: Code(s): K22.10 - Ulcer of esophagus without bleeding Category: Medical (6) Abdominal pain: Code(s): R10.9 - Unspecified abdominal pain Category: Medical (7) Diarrhea: Code(s): R19.7 - Diarrhea, unspecified Category: Medical Plan The patient says she was seen by [facility] for many years until ?the provider left.? Vomiting new sx, diarrhea chronic but alt with [facility] ? diarrhea more, pain mid abd below BB, sharp/aching, mostly there always, 5/10 - 10/10. It will be 10/10 3-4 days a week lasting all day. Vomiting about once a week, always nauseated. Food allergies: Milk, nuts, eggs, beef, cherries, apples skin. Still has GERD and HB on omeprazole 20mg 2 at once buying OTC now. She had a CT 2022 = gallstones of which she was unaware. (??). No meds for diarrhea in past. A lot of gas and bloating. No known FHX crc, similar sx or stomach/esoph ca. Mother had GB disease and tricia. NO wt loss of gain. Will try changing her PPI to something like Dexilant, give her a trial of Creon for gas and bloating and re-evaluate her response. Return office visit in 4 weeks Orders: Orders NM hepatobiliary w pharm 05/28/24 K80.20 - Calculus of gallbladder without cholecystitis without obstruction, R10.9 - Unspecified abdominal pain, R19.7 - Diarrhea, unspecified, K20.0 - Eosinophilic esophagitis Rast Allergen 05/28/24 K80.20 - Calculus of gallbladder without cholecystitis without obstruction, R10.9 - Unspecified abdominal pain, R19.7 - Diarrhea, unspecified, K20.0 - Eosinophilic esophagitis NM gastric emptying study 05/28/24 K80.20 - Calculus of gallbladder without cholecystitis without obstruction, R10.9 - Unspecified abdominal pain, R19.7 - Diarrhea, unspecified, K20.0 - Eosinophilic esophagitis Medications: New dexlansoprazole (Dexilant) 60 mg PO DAILY 30 caps 6RF 30 days [id number] 36,000-114,000- 180,000 unit (Creon) administer with meals and/or snacks 2 caps PO BID 120 caps 6RF R19.7 - Diarrhea, unspecified, R10.9 - Unspecified abdominal pain Coding Level of Care Code New Pt Level 3 (34852) Diagnoses Eosinophilic esophagitis K20.0 Gallstones K80.20 Abdominal pain R10.9 Diarrhea R19.7 Erosive esophagitis K22.10
[2024-05-28 15:11] VITALS: BP 134/73; PULSE 98; BMI 53.6
== END 2024-05-28 16:15 | disposition home or self-care (01) ==
PROVIDERS: PCP Hospitalist; Visit Provider Nurse Practitioner
DX: K20.0 Eosinophilic esophagitis (principal); K80.20 Calculus of gallbladder without cholecystitis without obstruction; R19.7 Diarrhea, unspecified
CPT/HCPCS: 99203

== ENCOUNTER → 2024-05-28 15:07 | Outpatient (BNVA) | payer OTHER, SELFPAY | PROVIDERS: PCP Hospitalist; Visit Provider Nurse Practitioner | DX: K59.00 Constipation, unspecified (principal); K20.0 Eosinophilic esophagitis; K80.20 Calculus of gallbladder without cholecystitis without obstruction; K22.10 Ulcer of esophagus without bleeding; R10.9 Unspecified abdominal pain; R11.10 Vomiting, unspecified; K21.9 Gastro-esophageal reflux disease without esophagitis; R19.7 Diarrhea, unspecified | CPT/HCPCS: 99202 ==

== ENCOUNTER 2024-06-11 11:35 | Outpatient (REF) | payer OTHER, SELFPAY ==
[2024-06-11 14:09] LABS: MANUAL DIFF FLAG NO
[2024-06-11 14:16] LABS: Immature Retic Fraction 11.2 % (3.0-15.9); Retic HGB Equivalent 35.1 pg (30.0-35.0); Reticulocyte Percent 1.3 % (0.5-1.8); Reticulocytes Absolute 0.044 X10*6/uL (0.026-0.095)
[2024-06-11 14:18] LABS: Basophils Percent Auto 0.4 % (0-2); Eosinophils Absolute Auto 0.7 X10*3/uL (0.0-0.4); Eosinophils Percent Auto 6.7 % (0-4); Hematocrit 30.4 % (37.0-47.0); Hemoglobin 9.9 g/dl (12.0-16.0); Imm Gran Abs Auto 0.04 X10*3/uL (0.00-0.03); Imm Gran Pct Auto 0.4 % (0.0-0.4); Immature Retic Fraction 17.2 % (3.0-15.9); Lymphocytes Absolute Auto 3.3 X10*3/uL (1.2-4.9); Lymphocytes Percent Auto 30.7 % (20-40); Mean Corpuscular HGB Conc 32.6 g/dl (31.0-35.0); Mean Corpuscular Hemoglobin 29.3 pg (27.0-33.0); Mean Corpuscular Volume 89.9 fL (80.0-98.0); Mean Platelet Volume 10.2 fL (9.4-12.3); Monocytes Absolute Auto 0.4 X10*3/uL (0.1-1.2); Monocytes Percent Auto 3.7 % (2-11); Neutrophils Absolute Auto 6.3 x10*3/uL (2.0-8.3); Neutrophils Percent Auto 58.1 % (45-73); Platelet Count 353 X10*3/uL (160-400); Red Blood Count 3.38 X10*6/uL (4.20-5.50); Red Cell Distribution Width 17.5 % (11.0-16.0); Retic HGB Equivalent 35.4 pg (30.0-35.0); Reticulocyte Percent 1.3 % (0.5-1.8); Reticulocytes Absolute 0.045 X10*6/uL (0.026-0.095); White Blood Count 10.9 X10*3/uL (4.8-10.8)
[2024-06-11 14:43] LABS: Blood Urea Nitrogen 8 mg/dL (9-16); Estimated Glomerular Filt Rate > 60; Iron 43 mcg/dL (30-160); Percent Iron Saturation 18 % (15-50); Total Iron Binding Capacity 240 mcg/dL (228-428); Unsaturated Iron Binding 197 ug/dL
[2024-06-11 14:50] LABS: Ferritin 99 ng/mL (10-122); Vitamin D 25-OH Total 15.5 ng/mL (>30)
== END 2024-06-11 11:36 | disposition home or self-care (01) ==
LOC: HO.WFDLDS 11:35
PROVIDERS: Nurse Practitioner; Referring Provider Nurse Practitioner Family; Visit Provider Nurse Practitioner Family
DX: Z00.00 Encounter for general adult medical examination without abnormal findings (principal); R39.15 Urgency of urination; D50.9 Iron deficiency anemia, unspecified; E55.9 Vitamin D deficiency, unspecified; K80.20 Calculus of gallbladder without cholecystitis without obstruction; R10.9 Unspecified abdominal pain; R19.7 Diarrhea, unspecified; K20.0 Eosinophilic esophagitis
CPT/HCPCS: 36415; 82306; 82565; 82728; 83540; 84520; 85025; 85027; 85045; 86003

== ENCOUNTER 2024-06-13 14:50 | Outpatient (AMB) | payer OTHER, SELFPAY ==
--- NOTE | 2024-06-13 14:52 | A.OFFVIS_ITS ---
Intake Visit Reasons: follow up/imaging(set) Intake Note: Patient presents today for follow up on hydronephrosis, frequency, renal scan and lab results Imagin04/02/24 Urology Medications: Myrbetriq Blood Thinner: none PVR: 0ml's Airline Dispatcher Required: No Accompanied by: Self / Same As Patient Allergies fexofenadine [From Sofía-D] Allergy (Severe, Verified 06/13/24 16:01) Swelling milk Allergy (Severe, Verified 06/13/24 16:01) Anaphylaxis pseudoephedrine [From Sofía-D] Allergy (Severe, Verified 06/13/24 16:01) Swelling Beef Containing Products Allergy (Intermediate, Verified 06/13/24 16:01) Hives aranda Allergy (Intermediate, Verified 06/13/24 16:01) Hives egg Allergy (Intermediate, Verified 06/13/24 16:01) Hives nut - unspecified Allergy (Intermediate, Verified 06/13/24 16:01) Hives doxycycline Adverse Reaction (Intermediate, Verified 06/13/24 16:01) projectile vomiting tiotropium [From Spiriva with HandiHaler] Adverse Reaction (Intermediate, Verified 06/13/24 16:01) Cough Medication List - Last Reconciled 06/13/24 by WILLA Goins- albuterol sulfate 2.5 mg (3 mL) inhalation Q4H PRN 30 days albuterol-budesonide 90-80 mcg/actuation (Airsupra) 2 inhalations inhalation BID PRN 30 days blood pressure kit-extra large As directed ooeepeheql-dmfcvepxbgnrj-vvmw 50-325-40 mg 1 tab PO Q6H PRN compress.stocking,knee,reg,med [id number] dexlansoprazole (Dexilant) 60 mg PO DAILY 30 days dupilumab (Dupixent) 300 mg (2 mL) subcut Q2W hydroxyzine HCl 50 mg PO BID PRN ccjqqk-zxhhsrjh-fsjtool 36,000-114,000- 180,000 unit (Creon) 2 caps PO BID loratadine (Claritin) 10 mg PO DAILY lorazepam 0.5 mg PO DAILY magnesium oxide 400 mg PO .qhs medroxyprogesterone (Depo-Provera) 150 mg IM Q12W methylphenidate HCl ER (Concerta) 36 mg PO DAILY nebulizers As directed omeprazole 40 mg PO DAILY ProAir HFA 90 mcg/actuation (albuterol sulfate) 2 puffs inhalation Q4H PRN 30 days NS propranolol 60 mg PO DAILY risperidone 4 mg PO BEDTIME trazodone 100 mg PO BEDTIME vibegron (Gemtesa) 75 mg PO DAILY 30 days HPI Comments Details: Nimo Snyder is a pleasant 24-year-old female patient of Dr. Low who was accompanied by her mom at today's office visit. She has a past medical history of lumbar puncture headache, migraines, benign intracranial hypertension, hypertension, lower extremity edema, major depression, and asthma. She presents to the office today for follow-up of her urinary incontinence and hydronephrosis. In discussion with the patient today she reports to be doing and feeling well. Of note, initial presentation to urology office was for urinary incontinence at which time a retroperitoneal ultrasound 10/25 was ordered and noted bilateral kidneys with no calculi or lesions noted. Right kidney with no hydronephrosis. Left kidney with moderate hydronephrosis and hydroureter. The bladder is well distended and normal. Bilateral ureteral jets are demonstrated. Pre void bladder volume is approximately 150 mL. Postvoid bladder volume is approximately 10 mL. No stones are seen within the bladder at which time a CT urogram was ordered for further assessment evaluation. CT 12/23 noted no nephrolithiasis. There is moderate dilatation of the left renal pelvis and intrarenal collecting system with transition at the UPJ. Contrast layers dependently in the collecting system. There is no contrast visible in the left ureter. The right renal collecting system appears normal. The symmetric nephrograms and the bilateral ureteral jets present on ultrasound both suggest that the apparent obstruction is only partial. No suspicious renal mass. Bladder with no bladder calculus or visible bladder mass. Therefore during last office visit a nuclear renal scan 04/24 was ordered for further assessment ev aluation and these results were reviewed with the patient and her mother today differential renal function left 65.7%, right 34.3%. Left kidney has obstructive parameters after diuresis. Right kidney has nonobstructive parameters before and after diuresis. We discussed at length further workup to include diagnostic bilateral retrograde with left ureteroscopy. Risks and benefits of this intervention were discussed. She continues to experience incontinence. She reports utilizing a proximally 4-5 Arline pads per day. She does feel 50 mg of Myrbetriq has been somewhat helpful however continues with incontinent episodes. She reports mixed urinary incontinence. She has previously trialed oxybutynin however experience dry mouth and abdominal cramping. When asked she denies hematuria, dysuria, foul smelling urine, changes to urinary stream, flank pain, fever, and or chills. Discussed at length potential causes for lower urinary tract symptoms patient is experiencing. We discussed hydronephrosis. All questions were answered Discussed at length lifestyle modifications to assist with lower urinary tract symptoms. BUN and creatinine results were reviewed. She otherwise offers no other issues or concerns at this time. BUN:06/22 6, 11/23 10, 03/23 11, 07/23 7, 06/25 8 Creatinine: 06/22 0.72, 11/23 0.76, 03/23 0.88, 07/23 0.86, 06/25 0.77 [facility] Medical History Low folate Morbid obesity due to excess calories Asthma, mild intermittent, well-controlled Well adult exam Morbid (severe) obesity due to excess calories Otitis media Foreign body in ear Left otitis media Concern about STD in female without diagnosis Nasal polyps Irregular menses Sinusitis Abnormal physical evaluation Abnormal urinalysis Anemia Headache Lower extremity edema Due for screening Viral upper respiratory illness Leg swelling Morbid obesity Urinary incontinence Urinary frequency Laboratory tests ordered as part of a complete physical exam (CPE) Normal physical examination, routine Lumbar puncture headache Cervicalgia Migraine Benign intracranial hypertension Essential hypertension Syncope Major depressive disorder Eczema Asthma Surgical History History of esophagogastroduodenoscopy (EGD) H/O colonoscopy History of wisdom tooth extraction Family History Mother Asthma HTN (hypertension) Father Bipolar 1 disorder Diabetes Parkinson disease Maternal Grandmother S/P triple vessel bypass Mother Uterine cancer Other Mental health disorder Social History Housing: House Alcohol intake: current Alcohol intake frequency: holidays/special occasions only Patient Tobacco Use Status: Never used Tobacco e-Cigarette/Vaping Use: Never Used Second Hand Smoke Exposure: No service: No Current occupational status: student Current occupational exposures/hazards: No Cognitive needs: No Hearing needs: No Vision needs: No Review of Systems Const Reports as per [facility] Eyes Reports no additional complaints ENT Reports no additional complaints Card Reports as per [facility] Resp Reports as per [facility] GI Reports no additional complaints Reports as per HPI Musc Reports as per [facility] Neuro Reports as per [facility] Psych Reports as per HPI Endo Reports no additional complaints Vicente/Lymph Reports no additional complaints Aller/Immun Reports no additional complaints Physical Exam Const General: cooperative, healthy appearing, comfortable, no acute distress, well developed, alert and awake Nutritional Appearance: overweight Orientation/consciousness: patient oriented x3 Limitations: no limitations HEENT Head: Yes normal to inspection, Yes normocephalic and Yes atraumatic Ears: hearing grossly normal bilaterally Eyes General: appearance normal, both eyes and all related structures Neck Neck: Yes normal visual inspection and Yes trachea midline Chest Chest palpation & inspection: normal inspection of the chest Resp Effort & Inspection: normal respiratory effort and able to speak in complete sentences Cardio Rate: regular rate GI Inspection: Yes normal to inspection General: Yes no CVA tenderness Back/Spine/Pelvis Back: no CVA tenderness Skin General skin exam: no rashes or lesions noted Neuro General: patient oriented x3 Extrem General: Yes normal to inspection Psych Appearance: grossly normal and well kempt Mental Status: mental status grossly normal Speech and movement: Normal speech and movement present and Clear speech present Affect: normal affect Attitude: cooperative Thought process: Normal thought process present Thought content: Normal thought content present Insight: Fair insight present (Psych) Judgement: Fair judgement present (Psych) Office Procedures Post Void Residual Post Residual Void Post Void Residual (PVR): 0 22104-Sinv Void Residual by ultrasound Results AMB Urinalysis, Automated UA Leukoctes 0 [place]/uL Last Edit by [employer] on 06/13/24 15:46 UA Nitrite Negative Last Edit by [employer] on 06/13/24 15:46 UA Urobilinogen 0.2 mg/dL Last Edit by [employer] on 06/13/24 15:46 UA Protein 0 mg/dL Last Edit by [employer] on 06/13/24 15:46 UA pH 6.0 Last Edit by [employer] on 06/13/24 15:46 UA Blood 0 [place]/uL Last Edit by Marilu Emmanuelarnold on 06/13/24 15:46 UA Specific [place] 1.015 Last Edit by Denzelalfserge Emmanuelarnold on 06/13/24 15:46 UA Ketone Negative Last Edit by Denzelalfserge Emmanuelarnold on 06/13/24 15:46 UA Bilirubin 0 mg/dL Last Edit by Denzelgilda Lienarnold on 06/13/24 15:46 UA Glucose 0 mg/dL Last Edit by Denzelgilda Lienarnold on 06/13/24 15:46 Results Reviewed Results Reviewed: Laboratory Last Values Urine pH (Auto) 6.0 06/13/24 14:58 Specific [place] (Auto) 1.015 06/13/24 14:58 Urine Protein (Auto) 0 mg/dL 06/13/24 14:58 Glucose (UA)(Auto) 0 mg/dL 06/13/24 14:58 Urine Ketones (Auto) Negative 06/13/24 14:58 Urine Blood (Auto) 0 [place]/uL 06/13/24 14:58 Urine Nitrite (Auto) Negative 06/13/24 14:58 Urine Bilirubin (Auto) 0 mg/dL 06/13/24 14:58 Urine Urobilinogen (Auto) 0.2 mg/dL 06/13/24 14:58 Leukocyte Esterase (Auto) 0 [place]/uL 06/13/24 14:58 Date of Service: 04/02/24 EXAMINATION: NM RENOGRAM WITH LASIX FINDINGS: Left kidney 65.7% and the right kidney 34.3% of total renal uptake. Left Kidney: Normal perfusion. The left kidney is normal in size, shape, outline and position. The radiotracer is seen taken up by the cortex promptly with subsequent progressive excretion into the asymmetrically dilated pelvicalyceal system, similar to prior CT urogram done on 12/13/2023. The left ureter remained nonvisualized throughout the entire study and no evidence of any significant washout of the tracer activity from the dilated pelvicalyceal system is seen before as well as after administration of Lasix confirming presence of underlying significant obstruction. The time activity curve following administration of Lasix remains flat without any significant washout, consistent with underlying obstruction at the UPJ. Right Kidney: Normal perfusion. The right renal pelvicalyceal system appeared normal in caliber and shows progressive washout before as well as after administration of Lasix indicating above no underlying obstruction. IMPRESSION: 1. Differential renal function: Left 65.7%, Right 34.3%. 2. Left kidney has obstructive parameters after diuresis. 3. Right kidney has non-obstructive parameters before and after diuresis. Assessment & Plan Assessment & Plan (1) Hydronephrosis: Code(s): N13.30 - Unspecified hydronephrosis Category: Medical (2) Ureteropelvic junction (UPJ) obstruction: Code(s): N13.5 - Crossing vessel and stricture of ureter without hydronephrosis Category: Medical (3) Urinary incontinence, mixed: Code(s): N39.46 - Mixed incontinence Category: Medical Plan: Risks, benefits and alternatives to therapy were discussed. These include but are not limited to infection, bleeding, damage to local organs and tissues, need for further interventions. ? Anesthetic risks regarding cardiac arrhythmia, blood clots, and potential mortality were discussed. The patient understands the typical recovery time and the outpatient nature of the procedure. After consideration of these risks the patient gives full informed consent and they wish to move ahead with the procedure. Plan In office urinalysis results reviewed with the patient today; as noted above. PVR 0 mL. Stop Myrbetriq. Start Gemtesa BUN and creatinine trended and reviewed with the patient today as noted above Recent renal nuclear scan results reviewed with the patient and her mother today; as noted above Discussed at length potential causes of hydronephrosis as well as urinary incontinence. Will schedule for bilateral retrograde with diagnostic left ureteroscopy; risks and benefits were discussed All questions were answered. Follow-up per doctor's orders; or sooner with any issues, concerns, and or questions. Orders: Orders AMB Post Void Residual by ultrasound Today R39.15 - Urgency of urination AMB Urinalysis Automated Today Z13.9 - Encounter for screening, unspecified Medications: New vibegron (Gemtesa) 75 mg PO DAILY 30 days 30 tabs 3RF N32.81 - Overactive bladder Discontinued mirabegron ER Discontinued Reason: Doctor's Order 50 mg PO DAILY 90 days 90 tabs 1RF N30.10 - Interstitial cystitis (chronic) without hematuria, N32.81 - Overactive bladder, R35.1 - Nocturia, R39.15 - Urgency of urination Patient Instructions: The patient had an opportunity to ask questions regarding the treatment plan. All questions were answered. Physical exam, labs, and imaging were discussed and reviewed in detail. As well as risks, benefits, and discussion of treatment choices. No major barriers to understanding were identified. The patient expr essed understanding and agreement with the above treatment plan. The patient was made aware they should contact our office by phone for worsening of their current condition, the appearance of new symptoms, or with any questions or concerns. Compliance is encouraged with any medications and follow up testing that is ordered. It is a privilege to be allowed the opportunity to participate in? your urological care.? Again, if you have any questions or concerns If you have any questions or concerns please do not hesitate to contact me. The office is [phone]. This note is constructed using voice recognition software. While every effort has been made to ensure accuracy transition program manager errors may have been included. Yours sincerely, TAHIR Goins Coding Level of Care Code Est Pt Level 4 (23646) Diagnoses Hydronephrosis N13.30 Ureteropelvic junction (UPJ) obstruction N13.5 Urinary incontinence, mixed N39.46 CPT Codes Post Residual Void - PVR CPT Code: 17238-Ucjx Void Residual by ultrasound ([id number])
== END 2024-06-13 15:25 | disposition home or self-care (01) ==
PROVIDERS: PCP Hospitalist; Visit Provider Nurse Practitioner Family
DX: N13.30 Unspecified hydronephrosis (principal); N13.5 Crossing vessel and stricture of ureter without hydronephrosis; N39.46 Mixed incontinence; Z13.9 Encounter for screening, unspecified
CPT/HCPCS: 99214

== ENCOUNTER → 2024-06-13 14:50 | Outpatient (BNVA) | payer OTHER, SELFPAY | PROVIDERS: PCP Hospitalist; Visit Provider Nurse Practitioner Family | DX: N13.30 Unspecified hydronephrosis (principal); N13.5 Crossing vessel and stricture of ureter without hydronephrosis; N39.46 Mixed incontinence | CPT/HCPCS: 51798; 81003; 99212 ==

== ENCOUNTER 2024-07-16 15:50 | Outpatient (REF) | payer OTHER, SELFPAY ==
[2024-07-16 16:54] LABS: MANUAL DIFF FLAG NO
[2024-07-16 17:13] LABS: Basophils Absolute Auto 0.1 X10*3/uL (0.0-0.2); Basophils Percent Auto 0.5 % (0-2); Eosinophils Absolute Auto 0.5 X10*3/uL (0.0-0.4); Eosinophils Percent Auto 5.2 % (0-4); Hematocrit 32.9 % (37.0-47.0); Hemoglobin 10.7 g/dl (12.0-16.0); Imm Gran Abs Auto 0.04 X10*3/uL (0.00-0.03); Imm Gran Pct Auto 0.4 % (0.0-0.4); Lymphocytes Absolute Auto 2.8 X10*3/uL (1.2-4.9); Lymphocytes Percent Auto 26.8 % (20-40); Mean Corpuscular HGB Conc 32.5 g/dl (31.0-35.0); Mean Corpuscular Hemoglobin 29.3 pg (27.0-33.0); Mean Corpuscular Volume 90.1 fL (80.0-98.0); Mean Platelet Volume 10.3 fL (9.4-12.3); Monocytes Absolute Auto 0.5 X10*3/uL (0.1-1.2); Monocytes Percent Auto 5.3 % (2-11); Neutrophils Absolute Auto 6.4 x10*3/uL (2.0-8.3); Neutrophils Percent Auto 61.8 % (45-73); Platelet Count 359 X10*3/uL (160-400); Red Blood Count 3.65 X10*6/uL (4.20-5.50); White Blood Count 10.3 X10*3/uL (4.8-10.8)
[2024-07-16 17:23] LABS: D Dimer High Sensitivity 221 NG/ML
[2024-07-16 17:43] LABS: Anion Gap 11 (12-20); Blood Urea Nitrogen 9 mg/dL (9-16); Calcium 9.8 mg/dL (8.4-10.2); Carbon Dioxide 28 mmol/L (22-29); Chloride 108 mmol/L (96-108); Estimated Glomerular Filt Rate > 60; Glucose Random 98 mg/dL (60-115); Potassium 4.5 mmol/L (3.3-5.1); Sodium 142 mmol/L (135-145)
[2024-07-16 17:49] LABS: Troponin-I High Sensitivity < 2.7 ng/L (<3.5-17.0)
[2024-07-16 18:16] LABS: Erythrocyte Sedimentation Rate 42 MM/HR (0-20)
[2024-07-18 14:04] LABS: Anti Nuclear Antibody Screen NEGATIVE (NEGATIVE)
== END 2024-07-16 15:51 | disposition home or self-care (01) ==
LOC: HO.LAB 15:50
PROVIDERS: PCP Nurse Practitioner Family; Visit Provider Hospitalist
DX: J45.40 Moderate persistent asthma, uncomplicated (principal); R09.1 Pleurisy; J33.9 Nasal polyp, unspecified; J30.2 Other seasonal allergic rhinitis; L20.82 Flexural eczema; G47.33 Obstructive sleep apnea (adult) (pediatric); R60.0 Localized edema
CPT/HCPCS: 36415; 80048; 84484; 85025; 85379; 85652; 86038; 99212

== ENCOUNTER 2024-07-16 15:50 | Outpatient (AMB) | payer OTHER, SELFPAY ==
--- NOTE | 2024-07-16 15:53 | MHC.OFFVIS ---
Vital Signs 07/16/24 15:55 Height 5 ft Weight 275 lb BMI 53.7 Pulse 83 Pulse Source Pulse Oximeter Pulse Oximetry (%) 99 Oxygen Delivery Method Room Air Intake Visit Reasons: Chest pain Allergies fexofenadine [From Sofía-D] Allergy (Severe, Verified 07/16/24 15:53) Swelling milk Allergy (Severe, Verified 07/16/24 15:53) Anaphylaxis pseudoephedrine [From Sofía-D] Allergy (Severe, Verified 07/16/24 15:53) Swelling Beef Containing Products Allergy (Intermediate, Verified 07/16/24 15:53) Hives aranda Allergy (Intermediate, Verified 07/16/24 15:53) Hives egg Allergy (Intermediate, Verified 07/16/24 15:53) Hives nut - unspecified Allergy (Intermediate, Verified 07/16/24 15:53) Hives doxycycline Adverse Reaction (Intermediate, Verified 07/16/24 15:53) projectile vomiting tiotropium [From Spiriva with HandiHaler] Adverse Reaction (Intermediate, Verified 07/16/24 15:53) Cough HPI Comments Details: The patient is a 24-year-old woman with a known history of asthma in addition to significant allergies and obstructive sleep apnea. Apparently she has had significant allergies and she was very young. She did follow-up with Dr. Dow for many years. She was provided with allergy shots for some time but she is no longer doing nose. She has required prednisone multiple times a year because her significant asthma. Usually her symptoms do worsen in the fall and she is concerned about that. Patient has been on Symbicort for many years. Does not feel like it is working as well for her. She still having to use her rescue inhaler multiple times a day. She does not have a nebulizer at home. In addition to that she does have a history of eczema. the patient has not use any biologics. We did review her blood work from [facility] for many years and she has had significant eosinophilia throughout. Therefore she may be a good candidate for biologics if she continues to be symptomatic patient already is morbidly obese. She is concerned about her weight in the use of prednisone. She has noticed increasing daytime drowsiness. She also has significant migraines and headaches. Her [place] score is elevated 09/24. She has had sleep studies in the past demonstrating sleep apnea but does many years ago. At this point the patient is concerned that her sleep apnea is getting worse and she would likely treated. Therefore, she will need a home sleep study at this time. 07/09/2021 the patient is here for a pulmonary follow-up visit. Since we last spoke she has been having worsening shortness of breath and wheezing. Unfortunately, she could not get the Trelegy inhaler. I will send her the Breo and Incruse separate. in the meantime she continues to be very symptomatic. We did look at her allergy testing and she does have significant allergies, but, specially to dust mites. She is going to get rid of her stopping rug and also will get hypoallergenic covers. She already has an EpiPen available. She has not had to use it. We did review her sleep study. Does not appear that she has any significant sleep apnea the needs treatment. Most likely her degree of difficulty sleeping as a due mainly with her nasal congestion and allergies. On my examination I did believe she had a nasal polyp in her left nostril. This is causing near complete obstruction of the nasal passage on the left-hand side. The patient would benefit from biologic therapy. Will maximize her respiratory therapy in if she still symptomatic will start her on Biologic therapy. Based on her significant allergies, her elevated IgE, her nasal polyps and also history of eczema along with the severe asthma I believe Dupixent will be a perfect choice for her. 10/21/2021 the patient is here for a pulmonary follow-up visit. As we last spoke the patient has had episodes of increasing shortness of breath and wheezing. Initially she was responding well to the Dupixent. But she has had an issue with the Dupixent is no longer being the liver. In addition to that she is no longer getting maintenance medication. The patient responded well to Trelegy but was not covered. Therefore I sent Breo and Incruse. However, those were not provided for some reason. She does have a rescue inhaler. I will send her Advair HFA in addition to Spiriva. I am hopeful that she can start this therapy. In addition to that we did talk to the office staff about assessing the issue with the Dupixent delivery. In the meantime the patient is sleeping well. She does have mild degree of sleep apnea. She knows not to sleep on her back and she is adherent to her positional therapy. 02/15/2022 the patient is here for pulmonary follow-up visit. Since we last spoke she has been getting more daytime drowsiness. She has had documented episodes of apnea. She also has significant snoring. she had undergoing a sleep study that we had reviewed previously demonstrating mild sleep apnea. Based on the fact that she is more symptomatic will go ahead and start her on CPAP therapy. will go ahead and request the CPAP from a local DME company. Patient also has a significant family history of sleep apnea and also is obese. Regards of the asthma she has not started the Dupixent as his yet. She had some issues with the pharmacy. Apparently is now on his way and she should be starting soon. When she starts the Dupixent her respiratory symptoms should improve. Meantime she does continue on her respiratory therapy. She does require the albuterol multiple times a week. In addition to that she has had lower extremity edema. Her family is concerned because of the degree of edema. Hopefully when she starts CPAP will see improvement in the meantime will try 3 days of diuresis and she is going to follow low-sodium diet. 06/14/2022 the patient is here for a pulmonary follow-up visit. She finally got her CPAP. She has been trying to use it. The CPAP therapy has been affecting beneficial. She is trying to use it more than 4 hours a night. Her machine is a little cumbersome. She does have a Noreen CPAP. I will have to as regional for download. In the meantime she continues on Dupixent injections. She has not required any prednisone. She still having issues with shortness of breath. Although she still having significant lower extremity edema and overall volume overload status. She did take diuretic for 3 days during the last visit but she did not notice any significant diuresis per in addition to that the patient is describing episodes of syncope and also presyncope. With her significant lower extremity edema patient really needs an echocardiogram to further address her symptoms and also to see if she has any underlying cardiac arrhythmias in view of her other comorbidities even at this early age. Therefore, I am going to refer her to Cardiology to have further testing done. 09/13/2022 the patient is here for a pulmonary follow-up visit. The patient has been having some issues with her CPAP. She has a hard time with her mask. She is using currently on F 30 mask. Feels like she is not getting enough air up her nose. Is not lining up well. She rather have a traditional fullface mask. I did have an F20 small in the office. We did try it on her own she tolerated well. While she does use it her AHI is down to 0.1. Her average pressure is around 6-7.5. She does use it for more than 4 hours. Unfortunately with the current mass she has not been able to tolerated as well. We did switch her to the F20 mask. She tolerated that much better. I will submit a prescription to her [employer] company with the new masks. From an asthma standpoint she continues on Dupixent injections. She continues with respiratory therapy. She has not had any exacerbations. She has been doing well from that standpoint. She still has lower extremity edema. She has tried to cut down on the salt and also trying to use the compression stockings. She continues to monitor those closely. She is also now on Norvasc so therefore trapped to monitor for any worsening edema. I am hopeful that the more she uses her CPAP the better her lower extremity edema is going to get. 10/12/2023 the patient is here for pulmonary follow-up visit. The patient has been having hard time with her breathing lately. She is noticed increased nasal congestion and shortness of breath. Chest tightness. She continues on Dupixent and just has not been working as well as it did before. Although she did stop most of her inhalers such as Advair she stopped her fluticasone nasal spray. In addition to that the patient was diagnosed with sleep apnea and she did have a CPAP. Although, she stopped using it because she could not tolerated. Now that she has not using she is getting additional daytime drowsiness her [place] score is elevated 12/24. She also has significant lower extremity edema and she is at risk for developing further worsening cardiovascular risk factors. Based on that the patient is willing to have the repeat sleep study and go back on CPAP since she really needs it. On my examination I do believe she does have a component of sinusitis that may be contributing to her ongoing nasal congestion. The patient should continue with biologic therapy and will optimize her respiratory therapy and treated for the upper respiratory illness. Will follow-up in a few months after her sleep study. 02/02/2024 the patient is here for a pulmonary follow-up visit. Overall the patient has been doing well. She is responding well to the Dupixent injections. she is administering them every 2 weeks. In addition to that she is getting some pain at the site of the injections but typically quickly resolved. No other adverse effects. No significant conjunctivitis or rashes noted. She continues to use her albuterol. She had been on Advair. Although for some reason she has not been able to get it filled at the pharmacy. She is actually requesting to see if she can try a new inhaler, Airsupra. at this point is reasonable for her to start the medication she can try and see if his effective for her. If is not she will call and I can send the Advair again to the pharmacy. I do believe since the initiation of the Dupixent her asthma has been better controlled and using as needed combination inhaler would be reasonable at this time. She continues have some daytime drowsiness. [place] score is elevated, 07/25. Although she did not tolerate CPAP and she has not interested to go back on it. We did review his sleep study. She should respond to positional therapy. We did talk about different options in order for to perform positional therapy at this time. No recent imaging studies to review. 07/16/2024 the patient is here for sick visit. The patient has been complaining of chest pain now for a couple weeks. The pain waxes and wanes. It is mainly substernal. Sometimes it affects her breathing. She has a hard time breathing in suggesting a pleuritic component. She denies any fevers chills. She denies any congested cough. She does use her inhalers and she gets some minimal improvement when she uses her inhalers. Her asthma continues to be well controlled under Dupixent. She has not had any recent studies and she has not use any nsdc-[id number]-lryizyo medications for. On further questioning she does states that her grandmother and her mother both had a history of blood clots. She has never had a blood clot in her life. She does have some lower extremity edema and she does have some pain in her lower extremities as well. During the office visit we did go for brief walking oximetry and heart rate in oxygen were within normal limits. The patient was complaining of her chest discomfort. Will go ahead and have blood work done including a D-dimer to see what her risk for thromboembolic diseases. If the D-dimer is elevated then she will need a CTA to rule out PE. Otherwise is negative will go ahead and request a chest x-ray. Likely that she may have a component of musculoskeletal discomfort or pleurisy. [facility] Medical History Low folate Morbid obesity due to excess calories Asthma, mild intermittent, well-controlled Well adult exam Morbid (severe) obesity due to excess calories Otitis media Foreign body in ear Left otitis media Concern about STD in female without diagnosis Nasal polyps Irregular menses Sinusitis Abnormal physical evaluation Abnormal urinalysis Anemia Headache Lower extremity edema Due for screening Viral upper respiratory illness Leg swelling Morbid obesity Urinary incontinence Urinary frequency Laboratory tests ordered as part of a complete physical exam (CPE) Normal physical examination, routine Lumbar puncture headache Cervicalgia Migraine Benign intracranial hypertension Essential hypertension Syncope Major depressive disorder Eczema Asthma Surgical History History of esophagogastroduodenoscopy (EGD) H/O colonoscopy History of wisdom tooth extraction Family History Mother Asthma HTN (hypertension) Father Bipolar 1 disorder Diabetes Parkinson disease Maternal Grandmother S/P triple vessel bypass Mother Uterine cancer Other Mental health disorder Social History Housing: House Alcohol intake: current Alcohol intake frequency: holidays/special occasions only Patient Tobacco Use Status: Never used Tobacco e-Cigarette/Vaping Use: Never Used Second Hand Smoke Exposure: No service: No Current occupational status: student Current occupational exposures/hazards: No Cognitive needs: No Hearing needs: No Vision needs: No Review of Systems Const Reports difficulty sleeping, Denies night sweats, Reports stops breathing during sleep and Reports weight gain ENT Denies change in voice, Denies lip swelling, Denies mouth pain, Reports nasal congestion, Reports post nasal drip and Denies tongue swelling Card Reports chest pain and Reports leg edema Resp Reports cough, Reports pain on inspiration and Reports wheezing GI Denies abdominal pain Musc Denies no additional complaints Neuro Denies Neuro-related abnormal movements Psych Denies no additional complaints Vicente/Lymph Denies easy bleeding and Denies lymphadenopathy Aller/Immun Denies lip swelling, Denies tongue swelling and Reports wheezing Physical Exam Vital Signs: Last Vital Signs Pulse 83 10/15/24 15:55 Pulse Ox 99 07/16/24 15:55 Oxygen Delivery Method Room Air 07/16/24 15:55 BMI result Body Mass Index 53.7 Const General: alert HEENT Head: Yes normocephalic General nose exam: Abnormal mucous membranes and turbinates present erythematous Neck Neck: Yes normal visual inspection, Yes full ROM and Yes no lymphadenopathy Chest Chest palpation & inspection: tenderness sternum and costochondral junction Resp Effort & Inspection: normal respiratory effort Auscultation: no wheezes and diminished lung sounds Cardio Rate: regular rate Rhythm: regular rhythm Heart sounds: S1 normal heart sound present and S2 normal heart sound present GI Palpation (GI): Soft to palpation and nontender Auscultation: normal bowel sounds Skin General skin exam: rashes and/or lesions noted Extrem General: Yes edema Assessment & Plan Assessment & Plan (1) Asthma: Code(s): J45.909 - Unspecified asthma, uncomplicated Category: Medical Qualifiers: Asthma complication type: uncomplicated Asthma persistence: persistent Asthma severity: moderate Qualified Code(s): J45.40 - Moderate persistent asthma, uncomplicated (2) Seasonal allergies: Code(s): J30.2 - Other seasonal allergic rhinitis Category: Medical (3) Nasal polyps: Code(s): J33.9 - Nasal polyp, unspecified Category: Medical (4) Eczema: Code(s): L30.9 - Dermatitis, unspecified Category: Medical Qualifiers: Eczema type: flexural Qualified Code(s): L20.82 - Flexural eczema (5) Sleep apnea: Code(s): G47.30 - Sleep apnea, unspecified Category: Medical Qualifiers: Sleep apnea type: obstructive Qualified Code(s): G47.33 - Obstructive sleep apnea (adult) (pediatric) (6) Lower extremity edema: Code(s): R60.0 - Localized edema Category: Medical (7) Pleurisy: Code(s): R09.1 - Pleurisy Category: Medical Plan medrol pack bloodwork if ddimer is + then will need CTA continue Airsupra BID PRN continue Fluticasone continue Dupixent Continue nebulizer. Low NA diet compression stockings AMAIRANI positional therapy Follow-up in 6-8 months Orders: Orders Complete Blood Count Auto Diff Today R09.1 - Pleurisy Erythrocyte Sedimentation Rate Today R09.1 - Pleurisy DAVE Reflex Titer and Pattern Today R09.1 - Pleurisy Basic Metabolic Panel Today R09.1 - Pleurisy D Dimer High Sensitivity Today R09.1 - Pleurisy Troponin-I High Sensitivity Today R09.1 - Pleurisy Medications: New methylprednisolone (Medrol (Pb)) PO PER PKG DIR 21 ea 0RF 6 days Coding Level of Care Code Est Pt Level 4 (78850) Diagnoses Moderate persistent asthma without complication J45.40 Asthma complication type: uncomplicated Asthma persistence: persistent Asthma severity: moderate Seasonal allergies J30.2 Nasal polyps J33.9 Flexural eczema L20.82 Eczema type: flexural Obstructive sleep apnea syndrome G47.33 Sleep apnea type: obstructive Lower extremity edema R60.0 Pleurisy R09.1 Time Spent (min) 17
[2024-07-16 15:55] VITALS: PULSE 83; O2SAT 99; BMI 53.7
== END 2024-07-16 16:10 | disposition home or self-care (01) ==
PROVIDERS: PCP Nurse Practitioner Family; Visit Provider Hospitalist
DX: J45.40 Moderate persistent asthma, uncomplicated (principal); J30.2 Other seasonal allergic rhinitis; J33.9 Nasal polyp, unspecified; L20.82 Flexural eczema; G47.33 Obstructive sleep apnea (adult) (pediatric); R60.0 Localized edema; R09.1 Pleurisy
CPT/HCPCS: 99214

== ENCOUNTER → 2024-07-18 08:13 | Outpatient (REF) | payer OTHER, SELFPAY ==
--- NOTE | ~2024-07-18 | NM_ITS ---
EXAMINATION: GA RADIONUCLIDE SOLID FOOD GASTRIC EMPTYING 4-HOUR STUDY CLINICAL INFORMATION: Abdominal pain. Gallstones. Bloating. Nausea and vomiting. COMPARISON: None TECHNIQUE: A standard meal consisting of 4 oz of Egg Beaters brand tagged with 1000 microcuries Tc-99m Sulfur Colloid, 8 oz water and 2 slices of toast with jelly was administered orally to the patient. Images were obtained using a dual head gamma camera in the anterior and posterior projections over of the stomach immediately post ingestion and at hourly intervals up to 4 hours post ingestion. The anterior and posterior counts at each time interval were averaged using the geometric mean and expressed as percentage of the immediate post ingestion counts. FINDINGS: There is good visualization of activity in the stomach immediately post ingestion. As the study progresses, there is good clearance of activity from the stomach and visualization of progressively increasing small bowel activity. By the end of the study, there is significant retention noted in the stomach. Retention in the stomach at each time interval was: 1 hour 84% (normal 37%-90%) 2 hours 80% (normal 30%-60%) 3 hours 77% 4 hours 63% (normal 0%-10%) GA/GA gastric emptying study IMPRESSION: Abnormal grade 4 delayed 4-hour solid food gastric emptying study. For solid meal, rapid gastric emptying is less than 30% at 60 minutes. Delayed gastric emptying criteria is more than 60% remaining at 120 minutes or more than 10% at 240 minutes. The 4-hour value is the best discriminator of a normal or abnormal result). Gastric emptying study grading per JNMT Consensus Recommendations in 2008 (https://tech.snmjournals.org/content/36/1/44) Grade 1 (mild retention): 11-20% at 4h Grade 2 (moderate retention): 21-35% at 4h Grade 3 (severe retention): 36-50% at 4h Grade 4 (very severe retention): >50% retention at 4h Electronically signed by: Kaitlyn Nguyen MD 07/22/2024 12:24 PM EDT
== END ==
LOC: HO.NUCMED 08:13
PROVIDERS: PCP Nurse Practitioner Family; Visit Provider Nurse Practitioner
DX: K80.20 Calculus of gallbladder without cholecystitis without obstruction (principal); R10.9 Unspecified abdominal pain; R19.7 Diarrhea, unspecified; K20.0 Eosinophilic esophagitis
CPT/HCPCS: 78264; A9541

== ENCOUNTER → 2024-07-22 11:15 | Outpatient (REF) | payer OTHER, SELFPAY ==
--- NOTE | ~2024-07-22 | NM_ITS ---
EXAMINATION: BILIARY TRACT IMAGING STUDY WITH CCK CLINICAL INFORMATION: Calculus of gallbladder without cholecystitis without obstruction.. COMPARISON: CT of the abdomen and pelvis done on 12/13/2023.. TECHNIQUE: Serial gamma scintillation camera images were obtained over the abdomen for a total observation period of 60 minutes following the intravenous administration of 5.0 mCi Tc-99m mebrofenin. FINDINGS: There is good concentration of activity in the liver by 5 minutes post injection. Biliary activity is visualized by 8 minutes. The gallbladder is well visualized by 15 minutes. Small bowel is well visualized by 15 minutes. At 60 minutes post radiopharmaceutical injection, a 30-minute infusion of 2.5 micrograms Sincalide was then begun and an additional 30 minutes of images were obtained. There is good emptying of the gallbladder. By the end of the study there is good clearance of activity from the liver and visualization of diffuse small bowel activity. The calculated gallbladder ejection fraction is 68% (normal gallbladder ejection fraction is greater than 35%). NM/NM hepatobiliary w pharm IMPRESSION: Visualization of the gallbladder is evidence of a patent cystic duct and strong evidence against the diagnosis of acute cholecystitis. The common bile duct is patent. Gallbladder emptying and ejection fraction are normal. Liver function appears normal. Electronically signed by: Kaitlyn Nguyen MD 08/11/2024 12:57 PM MEGHANN
== END ==
LOC: HO.NUCMED 11:15
PROVIDERS: PCP Nurse Practitioner Family; Visit Provider Nurse Practitioner
DX: K80.20 Calculus of gallbladder without cholecystitis without obstruction (principal); R10.9 Unspecified abdominal pain; R19.7 Diarrhea, unspecified; K20.0 Eosinophilic esophagitis
CPT/HCPCS: 78227; A9537; J2805

== ENCOUNTER 2024-07-29 06:15 | Day surgery (SDC) | payer OTHER, SELFPAY ==
[2024-07-25 10:23] VITALS: BMI 53.7
[2024-07-29 06:51] VITALS: BP 125/79; PULSE 85; RESP 12; TEMP 36.1; O2SAT 98; BMI 53.1
[2024-07-29 06:52] LABS: UPreg QC Valid YES; Urine Pregnancy NEGATIVE (NEGATIVE)
--- NOTE | 2024-07-29 07:07 | HO.ANESPROP2 ---
[facility] Active Problems Active Problems: All Active Problems Gastroparesis (Acute) Pleurisy (Acute) Food allergy (Acute) Urinary incontinence, mixed (Acute) Ureteropelvic junction (UPJ) obstruction (Acute) Erosive esophagitis (Acute) Diarrhea (Acute) Abdominal pain (Acute) Gallstones (Acute) Eosinophilic esophagitis (Acute) Iron deficiency anemia (Acute) Hydronephrosis (Acute) Morbid obesity with BMI of 45.0-49.9, adult (Acute) Chronic back pain (Acute) Migraine (Acute) Urinary urgency (Acute) HTN, goal below 130/80 (Acute) Vitamin D deficiency (Acute) Pseudotumor (Acute) Bipolar 1 disorder (Acute) Heavy menses (Acute) Chronic diarrhea of unknown origin (Acute) History of colitis (Acute) Gastroesophageal reflux disease (Acute) Fibromyalgia (Acute) Asthma (Acute). Used inhaler yesterday Sleep apnea (Acute). Does not use CPAPMachine because cannot tolerate Decreased hearing of left ear (Acute) Tympanosclerosis (Acute) Multiple food allergies (Acute) Seasonal allergies (Acute) Anxiety with depression (Acute) Cervicalgia (Acute) Benign intracranial hypertension (Acute) Syncope (Acute) Eczema (Acute) Past Medical History Medical History Pseudotumor cerebri Eosinophilic esophagitis Colitis Anxiety AMAIRANI (obstructive sleep apnea) Fibromyalgia Bipolar disorder Migraine headache History of lumbar puncture Urinary frequency Urinary incontinence Cervicalgia Benign intracranial hypertension Essential hypertension Syncope Major depressive disorder Anemia Irregular menses Eczema Nasal polyps Morbid (severe) obesity due to excess calories Asthma, mild intermittent, well-controlled Family History Family History Mother Asthma HTN (hypertension) Father Bipolar 1 disorder Diabetes Parkinson disease Maternal Grandmother S/P triple vessel bypass Mother Uterine cancer Other Mental health disorder Family history of problems with anesthesia: No Surgical History Surgical History History of esophagogastroduodenoscopy (EGD) H/O colonoscopy History of wisdom tooth extraction History of Problems with Anesthesia: No Social History Social History Housing: House Are you a primary director career to a significant other at home: No Do you presently have visiting nurse or other home services: No Alcohol intake: current Alcohol intake frequency: holidays/special occasions only Patient Tobacco Use Status: Never used Tobacco e-Cigarette/Vaping Use: Never Used Second Hand Smoke Exposure: No Use of substances other than those prescribed or required for medical reasons: No Have you been hit, kicked, punched, or otherwise hurt by someone within the past year? If so, by whom?: No Are you DNR?: No Advance Directives: No Advance Directives Information Provided: Yes Advance Directives on File: No Recently lost weight without trying: No Nutrition Risks: No Nutritional Risk Patient : No service: No Current occupational status: student Current occupational exposures/hazards: No Cognitive needs: No Hearing needs: No Vision needs: No Meds Allergies Allergy/AdvReac Type Severity Reaction Status Date / Time fexofenadine [From Sofía-D] Allergy Severe Swelling Verified 07/29/24 06:26 milk Allergy Severe Anaphylaxis Verified 07/29/24 06:26 pseudoephedrine Allergy Severe Swelling Verified 07/29/24 06:26 [From Sofía-D] Beef Containing Products Allergy Intermediate Hives Verified 07/29/24 06:26 aranda Allergy Intermediate Hives Verified 07/29/24 06:26 egg Allergy Intermediate Hives Verified 07/29/24 06:26 nut - unspecified Allergy Intermediate Hives Verified 07/29/24 06:26 doxycycline AdvReac Intermediate projectile Verified 07/29/24 06:26 vomiting tiotropium AdvReac Intermediate Cough Verified 07/29/24 06:26 [From Spiriva with HandiHaler] Home Medications ?Medication ?Instructions ?Recorded ?Confirmed ?Last Taken ?Type methylphenidate HCl 36 mg 36 mg PO DAILY 02/10/22 07/25/24 07/28/24 History tablet,extended release 24 hr (Concerta) mlqcfhefyu-qggiyaawnxhju-lalkraml 1 tab PO Q6H PRN headache 10/31/22 07/25/24 07/28/24 History 50 mg-325 mg-40 mg tablet lorazepam 0.5 mg tablet 0.5 mg PO DAILY 02/02/24 07/25/24 07/28/24 History nebulizers 02/02/24 05/28/24 07/28/24 History loratadine 10 mg tablet (Claritin) 10 mg PO DAILY 05/28/24 07/25/24 07/28/24 History propranolol 60 mg tablet 60 mg PO DAILY 05/28/24 07/25/24 07/28/24 History lumateperone 42 mg capsule 42 mg PO QPM 07/25/24 07/25/24 07/28/24 History (Caplyta) sertraline 50 mg tablet 50 mg PO DAILY 07/29/24 07/29/24 07/28/24 History topiramate 50 mg tablet (Topamax) mg 07/29/24 07/29/24 07/28/24 History Exam Height,Weight and Vital Signs: Height 5 ft Weight 123.377 kg Last Vital Signs Temp 97.0 F 07/29/24 06:51 Pulse 85 07/29/24 06:51 Resp 12 07/29/24 06:51 BP 125/79 07/29/24 06:51 Pulse Ox 98 07/29/24 06:51 O2 Del Method Room Air 07/29/24 06:51 Pertinent Lab Results Pertinent Lab Results: Laboratory Tests 07/29/24 06:20 Urine Test NEGATIVE Airway Mallampati Class: III TM Dist: >3cm Neck ROM: Full Loose/Missing/Broken Teeth: No Heart: RRR Lungs: CTAB Assessment and Plan Assessment Anesthesia Assessment: Anesthesia Plan Discussed and Chart Reviewed Final Anesthetic Review Family History of Problems with Anesthesia: No History of Problems with Anesthesia: No NPO: Yes ASA Class: III Final Preanesthetic Review: No Changes in Pt Med Stat, Meds/Allgs Chart Reviewed, Consent Obtained/Reviewed and Anes Risks/Benef Reviewed Patient Risk: Intermediate Procedure Risk: Low Assessment/Block/Sedation in SS: Assess/Block/Sedation-SS Anesthetic Plan Anesthetic Plan: GA Disposition: Standard PACU
[2024-07-29] MEDS: levoFLOXacin 500 MG TABLET PO (07:24)
[2024-07-29] MEDS: Metoclopramide HCl 10 MG/2 ML VIAL IVPUSH (07:27)
[2024-07-29] MEDS: Lactated Ringers 1,000 ML 100 ML IVCONT (07:32)
--- NOTE | 2024-07-29 07:40 | MHC.SHP ---
Pre-Procedural Eval Section A - 24 Hr Update-Section A only Date of Service: 07/29/24 The patient is an INPATIENT: No Changes since office visit: No Cold of Flu in the past 2 weeks, No New Medical Problems, No Changes in Medication and No Patient answered all questions The patient has been examined within 24 hours of the surgical procedure. The History & Physical has been completed within 30 days and I have reviewed it.: No Section B - Complete if H&P > 30 days Chief Complaint: Unspecified hydronephrosis Details of Present Illness: Cystoscopy, bilateral retrograde, left ureteroscopy Allergies: Allergies Allergy/AdvReac Type Severity Reaction Status Date / Time fexofenadine [From Sofía-D] Allergy Severe Swelling Verified 07/29/24 06:26 milk Allergy Severe Anaphylaxis Verified 07/29/24 06:26 pseudoephedrine Allergy Severe Swelling Verified 07/29/24 06:26 [From Sofía-D] Beef Containing Products Allergy Intermediate Hives Verified 07/29/24 06:26 aranda Allergy Intermediate Hives Verified 07/29/24 06:26 egg Allergy Intermediate Hives Verified 07/29/24 06:26 nut - unspecified Allergy Intermediate Hives Verified 07/29/24 06:26 doxycycline AdvReac Intermediate projectile Verified 07/29/24 06:26 vomiting tiotropium AdvReac Intermediate Cough Verified 07/29/24 06:26 [From Spiriva with HandiHaler] Review of Systems Sugical H&P ROS: Negative: Constitution, Cardiovascular, Respiratory, Neurological, Psychiatric, Hem-Onc, Allergic/Immunologic, Gastrointestinal, Genitourinary, Musculoskeletal, Integumentary, Endocrine and Eyes/Ears/Nose/Throat Exam Surgical H&P Exam: Normal: HEENT, Normal: Heart, Normal: Lungs, Normal: Extremities, Normal: Abdomen, Normal: Skin and Normal: Neurological Plan Diagnosis/Plan: Unchanged I have reviewed the history and physical and performed a pertinent physical examination on my patient. No changes have occurred unless specified. Time Spent With Patient Time: Total time managing care of this patient today ____ minutes.
--- NOTE | 2024-07-29 08:16 | P.OP_ITS ---
Operative Note Operative Note Date of Service: 07/29/24 Narrative: PreOperative Diagnosis: Left hydronephrosis Post Operative Diagnosis: Left UPJ obstruction Procedure: Cystoscopy, bilateral retrograde, left diagnostic ureteroscopy, left stent placement Surgeon: Dr Braden Scruggs Anesthesia: LMA Indications for procedure: Presentation with hydronephrosis and Lasix renogram showing delayed emptying on left side Procedure: After informed consent was verified the patient was brought to the operating room and placed in a supine position. Anesthesia was administered per protocol. The patient was prepped and draped in a sterile fashion. Safety pause time-out was performed. Antibiotics being given. Cystoscopy performed. Ureteric orifice in normal position. Left ureteric orifice cannulated. Retrograde examination performed. Delicate ureter. Hydronephrosis with probable UPJ. Does have efflux of urine from ureteric orifice. Retrograde examination on right side normal. Eduardo dilator used to dilate left side. Left ureteroscopy performed. Slim ureter. UPJ folds consistent with probable crossing vessel. Made to place 6 Somali by 22 cm stent. Patient 5 ft tall. Stent placed under fluoroscopy with good positioning. Bladder emptied. Patient tolerated the procedure well was extubated in operating room and transferred in stable condition to recovery area. Follow-up in 6 weeks with Lasix renogram to check for resolution of obstruction with stent in place. Also need CT angiogram delineating vessels in kidney Pathology: Drains: Stent as above
[2024-07-29 08:28] VITALS: BP 108/81; PULSE 93; RESP 18; TEMP 36.1; O2SAT 100
[2024-07-29 08:30] VITALS: BP 116/68; PULSE 93; RESP 18; O2SAT 100
[2024-07-29 08:35] VITALS: BP 124/70; PULSE 93; RESP 18; O2SAT 100
[2024-07-29 08:40] VITALS: BP 116/78; PULSE 85; RESP 18; O2SAT 100
[2024-07-29 08:55] VITALS: BP 116/75; PULSE 93; RESP 18; TEMP 36.1; O2SAT 100
== END 2024-07-29 09:30 | disposition home or self-care (01) ==
PROVIDERS: Anesthesiology; PCP Nurse Practitioner Family; Visit Provider Urology
PROC: 0TJ98ZZ Inspection of Ureter, Via Natural or Artificial Opening Endoscopic (ICD-10-PCS; CPT 52351; principal; 2024-07-29 07:30)
DX: N13.5 Crossing vessel and stricture of ureter without hydronephrosis (principal); N13.30 Unspecified hydronephrosis; N39.46 Mixed incontinence; G93.2 Benign intracranial hypertension; I10 Essential (primary) hypertension; D64.9 Anemia, unspecified; J45.909 Unspecified asthma, uncomplicated; R60.0 Localized edema; G43.909 Migraine, unspecified, not intractable, without status migrainosus; E66.01 Morbid (severe) obesity due to excess calories; G47.33 Obstructive sleep apnea (adult) (pediatric); F32.A Depression, unspecified; Z79.51 Long term (current) use of inhaled steroids; Z79.899 Other long term (current) drug therapy; Z91.018 Allergy to other foods; Z88.1 Allergy status to other antibiotic agents; Z88.8 Allergy status to other drugs, medicaments and biological substances; Z91.012 Allergy to eggs; Z91.011 Allergy to milk products; Z98.890 Other specified postprocedural states
CPT/HCPCS: 52351; 52332; 81025; C1758; C2617; J0131; J0330; J1100; J2003; J2250; J2704; J2765; J3010; Q9967

== ENCOUNTER → 2024-07-29 06:15 | Outpatient (BNV) | payer OTHER, SELFPAY | PROVIDERS: PCP Nurse Practitioner Family; Visit Provider Urology | DX: N13.0 Hydronephrosis with ureteropelvic junction obstruction (principal) | CPT/HCPCS: 52332; 74420 ==

== ENCOUNTER 2024-07-31 20:26 | Emergency (ER) | payer OTHER, SELFPAY ==
--- NOTE | ~2024-07-31 | XR_ITS ---
EXAMINATION: XR CHEST CLINICAL INFORMATION: Chest pain COMPARISON: None available. TECHNIQUE: 2 views of the chest were obtained. FINDINGS: No significant abnormality is noted involving the heart, lungs, mediastinum, bony thorax or soft tissues. XR/XR chest 2V IMPRESSION: Unremarkable examination. Electronically signed by: Christofer Batista MD 07/31/2024 10:31 PM EDT
--- NOTE | 2024-07-31 20:29 | ECG_ITS ---
Test Reason : CHEST PAIN Blood Pressure : / mmHG Vent. Rate : 082 BPM Atrial Rate : 082 BPM P-R Int : 136 ms QRS Dur : 088 ms QT Int : 368 ms P-R-T Axes : 037 000 007 degrees QTc Int : 429 ms Normal sinus rhythm with sinus arrhythmia Minimal voltage criteria for LVH, may be normal variant ( R in aVL ) Nonspecific T wave abnormality Abnormal ECG No previous ECGs available Referred By: Luis Martin Electronically Signed By:NIKKI MAHONEY
[2024-07-31 20:47] VITALS: BP 119/79; PULSE 81; RESP 19; TEMP 36.6; O2SAT 98; BMI 53.5
[2024-07-31 21:08] LABS: MANUAL DIFF FLAG NO
[2024-07-31 21:20] LABS: Anion Gap 13 (12-20); Blood Urea Nitrogen 11 mg/dL (9-16); Calcium 8.3 mg/dL (8.4-10.2); Carbon Dioxide 25 mmol/L (22-29); Chloride 106 mmol/L (96-108); Creatinine Clr Calc Pharmacy 76.2; Estimated Glomerular Filt Rate 47; Glucose Random 93 mg/dL (60-115); Potassium 3.8 mmol/L (3.3-5.1); Sodium 140 mmol/L (135-145)
[2024-07-31 21:23] LABS: Basophils Absolute Auto 0.1 X10*3/uL (0.0-0.2); Basophils Percent Auto 0.3 % (0-2); Eosinophils Absolute Auto 0.2 X10*3/uL (0.0-0.4); Eosinophils Percent Auto 1.2 % (0-4); Hematocrit 32.9 % (37.0-47.0); Hemoglobin 10.9 g/dl (12.0-16.0); Imm Gran Abs Auto 0.07 X10*3/uL (0.00-0.03); Imm Gran Pct Auto 0.5 % (0.0-0.4); Lymphocytes Absolute Auto 4.5 X10*3/uL (1.2-4.9); Lymphocytes Percent Auto 30.7 % (20-40); Mean Corpuscular HGB Conc 33.1 g/dl (31.0-35.0); Mean Corpuscular Hemoglobin 29.6 pg (27.0-33.0); Mean Corpuscular Volume 89.4 fL (80.0-98.0); Mean Platelet Volume 9.7 fL (9.4-12.3); Monocytes Absolute Auto 0.8 X10*3/uL (0.1-1.2); Monocytes Percent Auto 5.7 % (2-11); Neutrophils Percent Auto 61.6 % (45-73); Platelet Count 378 X10*3/uL (160-400); Red Blood Count 3.68 X10*6/uL (4.20-5.50); Red Cell Distribution Width 16.6 % (11.0-16.0); White Blood Count 14.7 X10*3/uL (4.8-10.8)
[2024-07-31 21:29] LABS: Troponin-I High Sensitivity < 2.7 ng/L (<3.5-17.0)
[2024-07-31 21:30] LABS: INTERNATIONAL NORM RATIO 1.1 (0.9-1.1); Prothrombin Time 12.3 SEC (10.9-12.4)
[2024-07-31 22:55] VITALS: BP 133/84; PULSE 88; RESP 13; TEMP 36.4; O2SAT 100
[2024-07-31 23:52] LABS: Troponin-I High Sensitivity < 2.7 ng/L (<3.5-17.0)
[2024-08-01 00:24] VITALS: BP 123/60; PULSE 79; RESP 18; O2SAT 97
--- NOTE | 2024-08-01 00:44 | ED.CHESTPAIN ---
HPI - Chest Pain General Chief Complaint: Chest Pain Stated Complaint: Chest Pain Time Seen by Provider: 07/31/24 20:42 Source: patient History of Present Illness ED Provider: Bill VILLEDA narrative: 24-year-old female with past medical history of obesity, asthma, acid reflux, eosinophilic esophagitis, gastroparesis, multiple food allergies presenting for chest pain and intermittent shortness of breath. Patient states that she has been experiencing approximately 3 weeks of chest pain and intermittent shortness of breath. She describes it as a substernal burning sensation that makes it difficult to breathe at times. She states it feels worsen her normal acid reflux. She denies diaphoresis, nausea, vomiting, urinary symptoms, fevers, chills. Related Data Home Medications ?Medication ?Instructions ?Recorded ?Confirmed methylphenidate HCl 36 mg 36 mg PO DAILY 02/10/22 07/25/24 tablet,extended release 24 hr (Concerta) iypsxnpcxq-ushhifydmyniv-dcogqjug 1 tab PO Q6H PRN headache 10/31/22 07/25/24 50 mg-325 mg-40 mg tablet lorazepam 0.5 mg tablet 0.5 mg PO DAILY 02/02/24 07/25/24 nebulizers 02/02/24 05/28/24 loratadine 10 mg tablet (Claritin) 10 mg PO DAILY 05/28/24 07/25/24 propranolol 60 mg tablet 60 mg PO DAILY 05/28/24 07/25/24 lumateperone 42 mg capsule 42 mg PO QPM 07/25/24 07/25/24 (Caplyta) sertraline 50 mg tablet 50 mg PO DAILY 07/29/24 07/29/24 topiramate 50 mg tablet (Topamax) mg 07/29/24 07/29/24 Previous Rx's ?Medication ?Instructions ?Recorded hydroxyzine HCl 50 mg tablet 50 mg PO BID PRN for anxiety #60 08/18/21 tabs albuterol sulfate 2.5 mg/3 mL 2.5 mg (3 mL) inhalation Q4H PRN 11/05/21 (0.083 %) solution for nebulization shortness of breath or wheezing 30 days #360 mL compress.stocking,knee,reg,med #2 ea 06/14/22 blood pressure kit-extra large #1 ea 07/11/22 trazodone 100 mg tablet 100 mg PO BEDTIME #30 tabs 03/09/23 magnesium oxide 400 mg PO .qhs #30 caps 04/06/23 albuterol 90 mcg-budesonide 80 2 inh inhalation BID PRN shortness 02/02/24 mcg/actuation HFA aerosol inhaler of breath 30 days #10.7 grams (Airsupra) dupilumab 300 mg/2 mL subcutaneous 300 mg (2 mL) subcut Q2W #4 mL 04/22/24 syringe (Dupixent) medroxyprogesterone 150 mg/mL 150 mg IM Q12W #1 mL 05/07/24 intramuscular syringe (Depo-Provera) dexlansoprazole 60 mg 60 mg PO DAILY 30 days #30 caps 05/28/24 capsule,biphase delayed release (Dexilant) qkgupm-uhkopykn-syneayp 2 cap PO BID #120 caps 05/28/24 36,000-114,000-180,000 unit capsule,delay rel (Creon) vibegron 75 mg tablet (Gemtesa) 75 mg PO DAILY 30 days #30 tabs 06/13/24 metoclopramide HCl 5 mg tablet 5 mg PO QIDACHS #120 tabs 07/22/24 (Reglan) phenazopyridine 100 mg tablet 100 mg PO TID PRN Spasm 4 days #12 07/29/24 (Pyridium) tabs sucralfate 1 gram tablet 1 g PO QIDACHS 14 days #60 tabs 07/31/24 Allergies Allergy/AdvReac Type Severity Reaction Status Date / Time fexofenadine [From Sofía-D] Allergy Severe Swelling Verified 07/31/24 20:49 milk Allergy Severe Anaphylaxis Verified 07/31/24 20:49 pseudoephedrine Allergy Severe Swelling Verified 07/31/24 20:49 [From Sofía-D] Beef Containing Products Allergy Intermediate Hives Verified 07/31/24 20:49 aranda Allergy Intermediate Hives Verified 07/31/24 20:49 egg Allergy Intermediate Hives Verified 07/31/24 20:49 nut - unspecified Allergy Intermediate Hives Verified 07/31/24 20:49 doxycycline AdvReac Intermediate projectile Verified 07/31/24 20:49 vomiting tiotropium AdvReac Intermediate Cough Verified 07/31/24 20:49 [From Spiriva with HandiHaler] Review of Systems Review of Systems: Patient endorses shortness of breath and chest pain Yes all other systems are reviewed and are negative [facility] Past Medical History Attestation statement: The following information was validated with the patient. [facility] Narrative: Obesity, eosinophilic esophagitis, milk allergy, acid reflux, asthma Source: old records reviewed Medical History Pseudotumor cerebri Eosinophilic esophagitis Colitis Anxiety AMAIRANI (obstructive sleep apnea) Fibromyalgia Bipolar disorder Migraine headache History of lumbar puncture Urinary frequency Urinary incontinence Cervicalgia Benign intracranial hypertension Essential hypertension Syncope Major depressive disorder Anemia Irregular menses Eczema Nasal polyps Morbid (severe) obesity due to excess calories Asthma, mild intermittent, well-controlled Surgical History History of esophagogastroduodenoscopy (EGD) H/O colonoscopy History of wisdom tooth extraction Family History Family History Mother Asthma HTN (hypertension) Father Bipolar 1 disorder Diabetes Parkinson disease Maternal Grandmother S/P triple vessel bypass Mother Uterine cancer Other Mental health disorder Social History Social History Housing: House Are you a primary career transition specialist to a significant other at home: No Do you presently have visiting nurse or other home services: No Alcohol intake: current Alcohol intake frequency: holidays/special occasions only Patient Tobacco Use Status: Never used Tobacco e-Cigarette/Vaping Use: Never Used Second Hand Smoke Exposure: No Advance Directives: No Advance Directives Information Provided: No Do you have a plan to hurt others: No Plan service: No Current occupational status: student Current occupational exposures/hazards: No Cognitive needs: No Hearing needs: No Vision needs: No Physical Exam Vital Signs: Vital Signs: Last Vital Signs Temp 97.5 F 07/31/24 22:55 Pulse 79 08/01/24 00:24 Resp 18 08/01/24 00:24 BP 123/60 08/01/24 00:24 Pulse Ox 97 08/01/24 00:24 O2 Del Method Room Air 08/01/24 00:24 BMI result Body Mass Index 53.5 Well-appearing female in no acute distress; lungs clear to auscultation bilaterally; sternal tenderness to palpation; normal S1-S2 regular rate rhythm; abdomen is soft nontender nondistended Medical Decision Making Medical Decision Making MDM Narrative: This is a 24-year-old female presenting for chest pain shortness of breath. I am concerned for the following; worsening of her underlying acid reflux/eosinophilic esophagitis. I have no concerns for asthma exacerbation, pulmonary embolism, ACS or dissection given HPI and physical exam -labs ordered in triage -labs notable for leukocytosis, stable H&H, electrolytes within normal limits, negative troponin x2 -patient does have a leukocytosis however she has no respiratory symptoms and denies dysuria/hematuria. I do not believe that pursuing this leukocytosis will change her disposition -patient states that she just recently got plugged in with a medical oncology physician and she was also started on a new PPI. -explained to her that I think her symptoms are due to her underlying gastrointestinal issue. I instructed her to reach out to her outpatient providers tomorrow in regards to her recent emergency department visit. I also provided her with return precautions Differential Diagnosis Differential Diagnoses: The differential diagnosis associated with the presentation includes Acid reflux, eosinophilic esophagitis, gastroparesis Lab Data 07/31/24 20:51 07/31/24 21:01 Labs: Lab Results 07/31/24 07/31/24 07/31/24 Range/Units 20:51 21:01 23:23 WBC 14.7 H (4.8-10.8) X10*3/uL RBC 3.68 L (4.20-5.50) X10*6/uL Hgb 10.9 L (12.0-16.0) g/dl Hct 32.9 L (37.0-47.0) % MCV 89.4 (80.0-98.0) fL MCH 29.6 (27.0-33.0) pg MCHC 33.1 (31.0-35.0) g/dl RDW 16.6 H (11.0-16.0) % Plt Count 378 (160-400) X10*3/uL MPV 9.7 (9.4-12.3) fL Immature Gran % (Auto) 0.5 H (0.0-0.4) % Neut % (Auto) 61.6 (45-73) % Lymph % (Auto) 30.7 (20-40) % [place] % (Auto) 5.7 (2-11) % Eos % (Auto) 1.2 (0-4) % Baso % (Auto) 0.3 (0-2) % Lymph # (Auto) 4.5 (1.2-4.9) X10*3/uL [place] # (Auto) 0.8 (0.1-1.2) X10*3/uL Eos # (Auto) 0.2 (0.0-0.4) X10*3/uL Baso # (Auto) 0.1 (0.0-0.2) X10*3/uL Abs Immat Gran (auto) 0.07 H (0.00-0.03) X10*3/uL Absolute Neuts (auto) 9.0 H (2.0-8.3) x10*3/uL Absolute Nucleated RBC 0.000 (0.0-0.012) X10*3/uL Nucleated RBC % (auto) 0.0 (0.0-0.2) /100WBC PT 12.3 (10.9-12.4) SEC INR 1.1 (0.9-1.1) Sodium 140 (135-145) mmol/L Potassium 3.8 (3.3-5.1) mmol/L Chloride 106 (96-108) mmol/L Carbon Dioxide 25 (22-29) mmol/L Anion Gap 13 (12-20) BUN 11 (9-16) mg/dL Creatinine 1.36 (0.5-1.4) mg/dL Estim Creat Clear Calc 76.2 Estimated GFR 47 Random Glucose 93 (60-115) mg/dL Calcium 8.3 L D (8.4-10.2) mg/dL Troponin I High Sens < 2.7 < 2.7 (<3.5-17.0) ng/L Discharge Plan Discharge Clinical Impression: Acid reflux Qualifiers: Esophagitis presence: with esophagitis Esophagitis bleeding: without hemorrhage Qualified Code(s): K21.00 - Gastro-esophageal reflux disease with esophagitis, without bleeding Patient Disposition: Home, Self-Care Additional Instructions: Please follow up with your outpatient providers in the next 24-48 hours If you develop any new or worsening symptoms please return to the emergency department Prescriptions: No Action hydroxyzine HCl 50 mg tablet 50 mg PO BID PRN (Reason: for anxiety) Qty: 60 2RF albuterol sulfate 2.5 mg /3 mL (0.083 %) solution for nebulization 2.5 mg inhalation Q4H PRN (Reason: shortness of breath or wheezing) 30 Days Qty: 360 11RF trazodone 100 mg tablet 100 mg PO BEDTIME Qty: 30 2RF Dupixent Syringe 300 mg/2 mL syringe 300 mg subcut Q2W Qty: 4 11RF medroxyprogesterone [Depo-Provera] 150 mg/mL syringe 150 mg IM Q12W Qty: 1 1RF metoclopramide HCl [Reglan] 5 mg tablet 5 mg PO QIDACHS Qty: 120 6RF sucralfate 1 gram tablet 1 g PO QIDACHS 14 Days Qty: 60 0RF Caplyta 42 mg capsule 42 mg PO QPM sertraline 50 mg Tablet 50 mg PO DAILY topiramate [Topamax] 50 mg Tablet phenazopyridine [Pyridium] 100 mg tablet 100 mg PO TID PRN (Reason: Spasm) 4 Days Qty: 12 0RF methylphenidate HCl [Concerta] 36 mg tablet extended release 24hr 36 mg PO DAILY (DME) blood pressure kit-extra large Kit See Rx Instructions .Route Qty: 1 0RF Rx Instructions: As directed magnesium oxide 400 mg magnesium capsule 400 mg PO .qhs Qty: 30 6RF (DME) compress.stocking,knee,reg,med Misc See Rx Instructions .Route Qty: 2 0RF Rx Instructions: [id number] lnubtaihbe-nxfjpahmnptuw-ybak 50-325-40 mg tablet 1 tab PO Q6H PRN (Reason: headache) (DME) nebulizers Misc See Rx Instructions .Route Rx Instructions: As directed lorazepam 0.5 mg tablet 0.5 mg PO DAILY Airsupra 90-80 mcg/actuation HFA aerosol inhaler 2 inh inhalation BID PRN (Reason: shortness of breath) 30 Days Qty: 10.7 11RF Gemtesa 75 mg tablet 75 mg PO DAILY 30 Days Qty: 30 3RF loratadine [Claritin] 10 mg tablet 10 mg PO DAILY propranolol 60 mg tablet 60 mg PO DAILY dexlansoprazole [Dexilant] 60 mg capsule,biphase delayed releas 60 mg PO DAILY 30 Days Qty: 30 6RF Creon 36,000-114,000- 180,000 unit capsule,delayed release(DR/EC) 2 cap PO BID Qty: 120 6RF Rx Instructions: administer with meals and/or snacks Print Language: American
[2024-08-01 01:08] VITALS: BP 133/82; PULSE 77; RESP 16; TEMP 36.6; O2SAT 98
[2024-08-01 01:12] VITALS: PULSE 72
[2024-08-01 01:14] VITALS: BP 133/82; PULSE 77; RESP 16; TEMP 36.6; O2SAT 98
== END 2024-08-01 01:16 | disposition home or self-care (01) ==
PROVIDERS: Emergency Provider Student in an Organized Health Care Education/Training Program
DX: K21.00 Gastro-esophageal reflux disease with esophagitis, without bleeding (principal); R07.9 Chest pain, unspecified; R06.02 Shortness of breath; K21.9 Gastro-esophageal reflux disease without esophagitis; Z79.899 Other long term (current) drug therapy
CPT/HCPCS: 36415; 71046; 80048; 84484; 85025; 85610; 93005; 99283; 99285

== ENCOUNTER → 2024-07-31 20:29 | Outpatient (BNV) | payer OTHER, SELFPAY | PROVIDERS: Emergency Provider Student in an Organized Health Care Education/Training Program; Visit Provider Internal Medicine | DX: R94.31 Abnormal electrocardiogram [ECG] [EKG] (principal) | CPT/HCPCS: 93010 ==

== ENCOUNTER 2024-08-09 14:08 | Outpatient (AMB) | payer OTHER, SELFPAY ==
--- NOTE | 2024-08-09 14:10 | MHC.OFFVIS ---
Intake Visit Reasons: BI retrogrades with left ureteroscopy- follow up Intake Note: Patient is present for Telephone Post Op Bi Retrogrades with Left Ureteroscopy Date of Procedure: 07/29/24 Urology Med: [facility] Antibiotic Allergy: None Blood Thinner: None Allergies fexofenadine [From Sfoía-D] Allergy (Severe, Verified 09/24/24 11:06) Swelling milk Allergy (Severe, Verified 09/24/24 11:06) Anaphylaxis pseudoephedrine [From Sofía-D] Allergy (Severe, Verified 09/24/24 11:06) Swelling Beef Containing Products Allergy (Intermediate, Verified 09/24/24 11:06) Hives aranda Allergy (Intermediate, Verified 09/24/24 11:06) Hives egg Allergy (Intermediate, Verified 09/24/24 11:06) Hives lamotrigine Allergy (Intermediate, Verified 09/24/24 11:06) hives nut - unspecified Allergy (Intermediate, Verified 09/24/24 11:06) Hives doxycycline Adverse Reaction (Intermediate, Verified 09/24/24 11:06) projectile vomiting tiotropium [From Spiriva with HandiHaler] Adverse Reaction (Intermediate, Verified 09/24/24 11:06) Cough sulcralfate Adverse Reaction (Mild, Uncoded 09/24/24 11:06) hives HPI Comments Details: Zelda is a pleasant female. She is a patient of Dr. Low. She seen for the following urologic conditions - hydronephrosis Hydronephrosis Retroperitoneal ultrasound with left moderate hydronephrosis CT urogram shows no stones Lasix renogram performed - left 65%, right 35%. Left kidney with obstructive parameters after diuresis. Plan for stent placement and repeat Lasix renogram [facility] Medical History Pseudotumor cerebri Eosinophilic esophagitis Colitis Anxiety AMAIRANI (obstructive sleep apnea) Fibromyalgia Bipolar disorder Migraine headache History of lumbar puncture Urinary frequency Urinary incontinence Cervicalgia Benign intracranial hypertension Essential hypertension Syncope Major depressive disorder Anemia Irregular menses Eczema Nasal polyps Morbid (severe) obesity due to excess calories Asthma, mild intermittent, well-controlled Surgical History History of esophagogastroduodenoscopy (EGD) H/O colonoscopy History of wisdom tooth extraction Family History Mother Asthma HTN (hypertension) Father Bipolar 1 disorder Diabetes Parkinson disease Maternal Grandmother S/P triple vessel bypass Mother Uterine cancer Other Mental health disorder Social History Housing: House Are you a primary career resource technician to a significant other at home: No Do you presently have visiting nurse or other home services: No Alcohol intake: never Patient Tobacco Use Status: Never used Tobacco e-Cigarette/Vaping Use: Never Used Second Hand Smoke Exposure: No service: No Current occupational status: student Current occupational exposures/hazards: No Cognitive needs: No Hearing needs: No Vision needs: No Review of Systems Const All systems reviewed & are unremarkable except as noted in HPI and below Denies chills and Denies fever(s) Card Reports no additional complaints and Denies syncope Resp Denies cough GI Denies abdominal pain and Denies heartburn Reports as per HPI and Denies change in libido Musc Reports no additional complaints Neuro Denies syncope Psych Denies change in libido Endo Denies change in libido Physical Exam Telemedicine evaluation Appropriate responses Regular breathing rate and rhythm HEENT Head: Yes normal to inspection Ears: hearing grossly normal bilaterally Eyes General: appearance normal, both eyes and all related structures Neck Neck: Yes normal visual inspection Chest Chest palpation & inspection: normal inspection of the chest Resp Effort & Inspection: normal respiratory effort and able to speak in complete sentences Telehealth Telehealth Telehealth Platform: [employer] Location of provider rendering services: practice address Location of patient: address on file Patient Identification confirmed using: Name, : Yes Telehealth method: video Patient verbally consented to treatment: Yes Patient verbally consented to billing insurance company: Yes Patient informed of any privacy concerns related to visit: Yes Assessment & Plan Assessment & Plan (1) Ureteropelvic junction (UPJ) obstruction: Code(s): N13.5 - Crossing vessel and stricture of ureter without hydronephrosis Category: Medical Plan Trial oxybutynin Needs stent placement Medications: New oxybutynin chloride ER 5 mg PO DAILY 30 tabs 1RF 30 days N13.5 - Crossing vessel and stricture of ureter without hydronephrosis, R39.15 - Urgency of urination, N32.81 - Overactive bladder Patient Instructions: Imaging studies, laboratory and physical exam results were discussed and reviewed in detail. No major barriers to patient understanding were identified. An opportunity to ask questions regarding the treatment plan was provided. All questions were answered. The patient expressed understanding and agreement with the above treatment plan. The patient is aware they should contact our office by phone for worsening of their current condition or the appearance of new urologic symptoms. Compliance is encouraged with any medications and followup testing that is ordered. It is a privilege to participate in the urologic care of your patient. If you have any questions or concerns regarding treatment for the above conditions, or other urologic issues, please do not hesitate to contact me. The office telephone contact is [phone]. This note is constructed using voice recognition software. While every effort has been made to ensure accuracy box brander errors may have been included. Yours sincerely, Dr Braden Scruggs MD, [facility] - Urology Providers of Expert, Compassionate Care for the Genitourinary System Coding Level of Care Code Est Pt Level 3 (03893) Diagnoses Ureteropelvic junction (UPJ) obstruction N13.5
== END 2024-08-09 15:10 | disposition home or self-care (01) ==
LOC: HO.HUSH 14:08
PROVIDERS: Visit Provider Urology
DX: N13.5 Crossing vessel and stricture of ureter without hydronephrosis (principal)
CPT/HCPCS: 99213

== ENCOUNTER → 2024-08-09 14:08 | Outpatient (BNVA) | payer OTHER, SELFPAY | PROVIDERS: Visit Provider Urology | DX: N13.5 Crossing vessel and stricture of ureter without hydronephrosis (principal); R39.15 Urgency of urination; N32.81 Overactive bladder; Z98.890 Other specified postprocedural states | CPT/HCPCS: 99212 ==

== ENCOUNTER 2024-08-16 13:26 | Outpatient (AMB) | payer OTHER, SELFPAY ==
--- NOTE | 2024-08-16 13:27 | MHC.PC.OV ---
Vital Signs 08/16/24 13:39 Height 5 ft Weight 276 lb BMI 53.9 BP 133/81 Blood Pressure Location Rt brachial Position Sitting Respiration 16 Pulse 90 Pulse Source Pulse Oximeter Temp 99.1 F Temp Source Oral Pulse Oximetry (%) 98 Oxygen Delivery Method Room Air Intake Visit Reasons: dc disability paperwork Intake Note: patient here for [facility] disability paper work Spindle Maker Required: No Is last menstrual period known: No (on the depo) Post menopausal: No Patient : No Allergies fexofenadine [From Sofía-D] Allergy (Severe, Verified 08/16/24 14:25) Swelling milk Allergy (Severe, Verified 08/16/24 14:25) Anaphylaxis pseudoephedrine [From Sofía-D] Allergy (Severe, Verified 08/16/24 14:25) Swelling Beef Containing Products Allergy (Intermediate, Verified 08/16/24 14:25) Hives aranda Allergy (Intermediate, Verified 08/16/24 14:25) Hives egg Allergy (Intermediate, Verified 08/16/24 14:25) Hives lamotrigine Allergy (Intermediate, Verified 08/16/24 14:25) hives nut - unspecified Allergy (Intermediate, Verified 08/16/24 14:25) Hives doxycycline Adverse Reaction (Intermediate, Verified 08/16/24 14:25) projectile vomiting tiotropium [From Spiriva with HandiHaler] Adverse Reaction (Intermediate, Verified 08/16/24 14:25) Cough sulcralfate Adverse Reaction (Mild, Uncoded 08/16/24 14:25) hives Medication List - Last Reconciled 08/16/24 by Ayse Orta CNP albuterol sulfate 2.5 mg (3 mL) inhalation Q4H PRN 30 days albuterol-budesonide 90-80 mcg/actuation (Airsupra) 2 inhalations inhalation BID PRN 30 days blood pressure kit-extra large As directed wkwncretvk-anscztxoahkiu-qdzk 50-325-40 mg 1 tab PO Q6H PRN compress.stocking,knee,reg,med [id number] dexlansoprazole (Dexilant) 60 mg PO DAILY 30 days dupilumab (Dupixent) 300 mg (2 mL) subcut Q2W nqoysq-ckmyjvfz-rmjkluk 36,000-114,000- 180,000 unit (Creon) 2 caps PO BID lithium carbonate 300 mg PO DAILY loratadine (Claritin) 10 mg PO DAILY lorazepam 0.5 mg PO DAILY lumateperone (Caplyta) 42 mg PO QPM magnesium oxide 400 mg PO .qhs medroxyprogesterone (Depo-Provera) 150 mg IM Q12W metoclopramide HCl (Reglan) 5 mg PO QIDACHS nebulizers As directed oxybutynin chloride ER 5 mg PO DAILY 30 days propranolol 60 mg PO DAILY sertraline 50 mg PO DAILY trazodone 100 mg PO BEDTIME Tobacco use date assessed: 11/21/23 Dental Screening Dental Screen Date: 01/09/24 HPI HPI Comments History of Present Illness Details 24-year-old female presents with request to have [facility] ([facility]) medical provider statement form completed by her PCP. She notes that she took her ferrous sulfate after she ran out of refills. She never took her vitamin D3 that was prescribed in May. She notes that she is not consistent with taking her medications because she is forgetful at time or She wants the medications refilled. No acute symptoms at this time. [facility] Medical History Pseudotumor cerebri Eosinophilic esophagitis Colitis Anxiety AMAIRANI (obstructive sleep apnea) Fibromyalgia Bipolar disorder Migraine headache History of lumbar puncture Urinary frequency Urinary incontinence Cervicalgia Benign intracranial hypertension Essential hypertension Syncope Major depressive disorder Anemia Irregular menses Eczema Nasal polyps Morbid (severe) obesity due to excess calories Asthma, mild intermittent, well-controlled Surgical History History of esophagogastroduodenoscopy (EGD) H/O colonoscopy History of wisdom tooth extraction Family History Mother Asthma HTN (hypertension) Father Bipolar 1 disorder Diabetes Parkinson disease Maternal Grandmother S/P triple vessel bypass Mother Uterine cancer Other Mental health disorder Social History Housing: House Are you a primary career services representative to a significant other at home: No Do you presently have visiting nurse or other home services: No Alcohol intake: never Patient Tobacco Use Status: Never used Tobacco e-Cigarette/Vaping Use: Never Used Second Hand Smoke Exposure: No service: No Current occupational status: student Current occupational exposures/hazards: No Cognitive needs: No Hearing needs: No Vision needs: No Questionnaire PHQ-9 Over the last 2 weeks, how often have you been bothered by any of the following problems? 1. Little interest or pleasure in doing things: more than half the days 2. Feeling down, depressed, or hopeless: more than half the days 3. Trouble falling or staying asleep, or sleeping too much: nearly every day 4. Feeling tired or having little energy: more than half the days 5. Poor appetite or overeating: more than half the days 6. Feeling bad about yourself - or that you are a failure or have let yourself or your family down: nearly every day 7. Trouble concentrating on things, such as reading the newspaper or watching television: several days 8. Moving or speaking so slowly that other people could have noticed. Or the opposite - being so fidgety or restless that you have been moving around a lot more than usual: not at all 9. Thoughts that you would be better off or of hurting yourself in some way: not at all Total score: 15 Depression Screening Interpretation: Positive Depression Screening Follow-up: Existing condition Depression Screening Done: Yes Source: Developed by Drs. Christofer Ba, Kaylah Dickerson, Marbin Macario and colleagues, with an educational vern from [employer]. Thrive Questionnaire Date Thrive assessed: 07/20/23 I am a: Patient What is your living situation today?: I have a steady place to live Within the past 12 months, did the food you bought not last and you didn't have the money to get more?: Never true Within the past 12 months, did you worry whether your food would run out before you got money to buy more?: Never true Do you have trouble paying for medicines?: No Do you have trouble getting transportation to medical appointments?: No Do you have trouble paying your heating and electricity bill?: No Do you have trouble taking care of your child, family member or friend?: No Do you have trouble with day-to-day activities such as bathing, preparing meals, shopping, managing finances, etc.?: I choose not to answer this question Are you currently unemployed and looking for a job?: No Are you interested in more education?: No Please select the resources that you would like help with: None Currently or been in a relationship where the following occur: No concerns reported THRIVE Score: 0 AUDIT C Alcohol Use Questionnaire (AUDIT-C) 1. How often do you have a drink containing alcohol?: Never Total Score: 0 CLAIRE-7 AMB Questionnaire CLAIRE-7 Date CLAIRE - 7 assessed: 07/20/23 Feeling nervous, anxious, or on edge: 2 = More than half the days Not being able to stop or control worryin = More than half the days Worrying too much about different things: 2 = More than half the days Trouble relaxin = More than half the days Being so restless that it is hard to sit still: 2 = More than half the days Becoming easily annoyed or irritable: 2 = More than half the days Feeling afraid as if something awful might happen: 0 = Not at all Total CLARIE-7 score (0-4 normal; 5-9 mild; 10-14 moderate; 15-21 severe): 12 Source: Developed by Drs. Christofer Ba, Kaylah Dickersno, Marbin Macario and colleagues, with an educational vern from [employer]. Review of Systems Const Details: Const Denies chills, Denies fatigue, Denies fever(s), Denies headache(s) and Denies weakness ENT Denies dizziness and Denies headache(s) Card Denies chest pain, Denies lightheadedness, Denies dyspnea and Denies other (Palpitations) Resp Denies cough, Denies dyspnea, Denies wheezing and Denies other ( shortness of breath) GI Denies abdominal pain, Denies melena, Denies hematochezia, Denies change in bowel habits, Denies dyspepsia and Denies nausea Denies hematuria and Denies dysuria Musc Denies abnormal gait, Denies myalgias, Denies arthralgias, Denies numbness and Denies tingling Skin/Breast Denies rash, Denies unusual bruising and Denies wounds Neuro Denies abnormal gait, Denies dizziness, Denies headache(s), Denies memory loss, Denies numbness, Denies Sensory deficit (Neuro), Denies tingling and Denies weakness Psych Denies anxiety, Denies depression, Denies memory loss Endo Denies cold intolerance, Denies fatigue, Denies heat intolerance, Denies polydipsia and Denies polyuria Aller/Immun Denies wheezing Physical exam (Primary Care) Vital Signs: Last Vital Signs Temp 99.1 F 08/16/24 13:39 Pulse 90 08/16/24 13:39 Resp 16 08/16/24 13:39 BP 133/81 08/16/24 13:39 Pulse Ox 98 08/16/24 13:39 Oxygen Delivery Method Room Air 08/16/24 13:39 BMI result Body Mass Index 53.9 Tobacco/Smoking Status: Tobacco use Status Tobacco use date assessed 11/21/23 08/16/24 13:41 Patient Tobacco Use Status Never used Tobacco 08/16/24 13:41 e-Cigarette/Vaping Use Never Used 08/16/24 13:41 PHQ-9: PHQ-9 Score PHQ-9: Total score 15 08/16/24 13:41 Depression Screening Interpretation: Positive Depression Screening Follow-up: Existing condition Thrive Assessment: Date of Thrive Assessment Date Thrive assessed 07/20/23 08/16/24 13:41 Currently or been in a relationship where the following occur: No concerns reported Coding Level of Care Code Est Pt Level 3 (31087) Diagnoses Iron deficiency anemia D50.9 Vitamin D deficiency E55.9 Anxiety with depression F41.8 Assessment & Plan Assessment & Plan (1) Iron deficiency anemia: Code(s): D50.9 - Iron deficiency anemia, unspecified Category: Medical Plan: She stopped taking ferrous sulfate after she ran out of refills Recent WBC is elevated, 14.7, RBC and H&H are low, 3.68 and 10.9/32.9 respectively Will check CBC and iron profile and make changes as needed Encouraged to schedule an appointment for an extended physical exam Return with symptoms or concerns Verbalized understanding and agreed with the treatment plan (2) Vitamin D deficiency: Code(s): E55.9 - Vitamin D deficiency, unspecified Category: Medical Plan: She never took her vitamin D3 that was prescribed in May Recent vitamin-D level is 15.5 Will check vitamin-D level and make changes as needed Verbalized understanding and agreed with the plan (3) Anxiety with depression: Code(s): F41.8 - Other specified anxiety disorders Category: Medical Plan: PHQ-9 and CLAIRE-7 scores revealed moderate depression and anxiety respectively She declines VNA services for medication management/administration and notes that her mom is a nurse and helps with medication management/administration Continue current treatment regimen Routine exercise encouraged Follow-up with therapist and psychiatrist as planned EAEOR statement form not completed as patient is currently being followed for iron-deficiency anemia and vitamin-D 3 which does not substantiate disability. She was encouraged to follow-up with her psychiatric provider to determine if the statement form can be completed Verbalized understanding and agreed with the treatment plan Orders: Orders Vitamin D 25-OH Total Today E55.9 - Vitamin D deficiency, unspecified Complete Blood Count no Diff Today D50.9 - Iron deficiency anemia, unspecified IRON PROFILE Today D50.9 - Iron deficiency anemia, unspecified
[2024-08-16 13:39] VITALS: BP 133/81; PULSE 90; RESP 16; TEMP 37.3; O2SAT 98; BMI 53.9
== END 2024-08-16 14:10 | disposition home or self-care (01) ==
PROVIDERS: Visit Provider Nurse Practitioner Family
DX: D50.9 Iron deficiency anemia, unspecified (principal); E55.9 Vitamin D deficiency, unspecified; F41.8 Other specified anxiety disorders

== ENCOUNTER → 2024-08-16 13:26 | Outpatient (BNVA) | payer OTHER, SELFPAY | PROVIDERS: Visit Provider Nurse Practitioner Family | DX: D50.9 Iron deficiency anemia, unspecified (principal); E55.9 Vitamin D deficiency, unspecified; F41.8 Other specified anxiety disorders | CPT/HCPCS: 96127; 99212 ==

== ENCOUNTER → 2024-08-22 10:52 | Outpatient (REF) | payer OTHER, SELFPAY ==
--- NOTE | ~2024-08-22 | NM_ITS ---
EXAMINATION: RENAL DYNAMIC IMAGING STUDY WITH LASIX CLINICAL INFORMATION: Reason for Exam - hydronephrosis, crossing vessel. Status post stent 1 month ago. COMPARISON: Diuretic renogram from April 09, 2024 TECHNIQUE: Serial gamma scintillation camera images were obtained over the posterior trunk during the initial transit and subsequent distribution of a bolus intravenous injection of 10 mCi of Tc-99m DTPA. At 30 minutes later, 40 mg of Lasix was administered intravenously and an additional 30 minutes of images obtained. FINDINGS: Initial rapid sequence images show prompt and bilaterally symmetrical flow to the kidneys. Subsequent images: Left kidney; normal radiotracer uptake with peak followed by corticomedullary transit is noted. There is moderate spontaneous clearance from the left renal collecting system with further clearance following Lasix administration. Thus, no longer reproduced are the prior study noted retention with no demonstrable spontaneous clearance or lack of response to Lasix from the left renal collecting system. Right kidney; relatively smaller than the left. Expected radiotracer uptake with peak followed by normal corticomedullary transit. There is spontaneous and good clearance from the right renal collecting system with further clearance following Lasix administration. The T-1/2 post Lasix: Left 13.2 (prior > 20) minutes and right 13.8 (prior 17.7) minutes. The relative function of the two kidneys based on the 2-3 minute images are: Left 61.4% (prior 63.1%) and right 38.6% (prior 36.9%). NM/NM renal flow w pharm int IMPRESSION: 1. Preserved parenchymal function in the left kidney with markedly improved excretory function. Prior study noted obstruction to the left renal collecting system is no longer demonstrated. 2. Normal functioning right kidney. 3. Relatively lesser functional contribution from the right kidney in comparison to the left; unchanged from prior. Electronically signed by: Brooks Adams MD 09/12/2024 02:31 PM MEGHANN
[2024-08-22] MEDS: Furosemide 40 MG/4 ML VIAL IVPUSH (13:54)
== END ==
LOC: HO.NUCMED 10:52
PROVIDERS: PCP Nurse Practitioner Family; Visit Provider Urology
DX: N13.30 Unspecified hydronephrosis (principal); N13.5 Crossing vessel and stricture of ureter without hydronephrosis; R39.15 Urgency of urination
CPT/HCPCS: 78708; A9539; J1940

== ENCOUNTER 2024-09-18 14:39 | Outpatient (AMB) | payer OTHER, SELFPAY ==
--- NOTE | 2024-09-18 14:50 | MHC.OFFVIS ---
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 Required: No Accompanied by: Self / Same As Patient Allergies fexofenadine [From Sofía-D] Allergy (Severe, Verified 09/18/24 15:00) Swelling milk Allergy (Severe, Verified 09/18/24 15:00) Anaphylaxis pseudoephedrine [From Sofía-D] Allergy (Severe, Verified 09/18/24 15:00) Swelling Beef Containing Products Allergy (Intermediate, Verified 09/18/24 15:00) Hives aranda Allergy (Intermediate, Verified 09/18/24 15:00) Hives egg Allergy (Intermediate, Verified 09/18/24 15:00) Hives lamotrigine Allergy (Intermediate, Verified 09/18/24 15:00) hives nut - unspecified Allergy (Intermediate, Verified 09/18/24 15:00) Hives doxycycline Adverse Reaction (Intermediate, Verified 09/18/24 15:00) projectile vomiting tiotropium [From Spiriva with HandiHaler] Adverse Reaction (Intermediate, Verified 09/18/24 15:00) Cough sulcralfate Adverse Reaction (Mild, Uncoded 09/18/24 15:00) hives HPI Comments Details: Nimo Snyder is a pleasant 24-year-old female patient of Dr. Low who was accompanied by her mom at today's office visit. She has a past medical history of lumbar puncture headache, migraines, benign intracranial hypertension, hypertension, lower extremity edema, major depression, and asthma. She presents to the office today for follow-up of her urinary incontinence and hydronephrosis. In discussion with the patient today she reports to be doing and feeling well. Of note, initial presentation to urology office was for urinary incontinence at which time a retroperitoneal ultrasound 10/25 was ordered and noted bilateral kidneys with no calculi or lesions noted. Right kidney with no hydronephrosis. Left kidney with moderate hydronephrosis and hydroureter. The bladder is well distended and normal. Bilateral ureteral jets are demonstrated. Pre void bladder volume is approximately 150 mL. Postvoid bladder volume is approximately 10 mL. No stones are seen within the bladder at which time a CT urogram was ordered for further assessment evaluation. CT 12/23 noted no nephrolithiasis. There is moderate dilatation of the left renal pelvis and intrarenal collecting system with transition at the UPJ. Contrast layers dependently in the collecting system. There is no contrast visible in the left ureter. The right renal collecting system appears normal. The symmetric nephrograms and the bilateral ureteral jets present on ultrasound both suggest that the apparent obstruction is only partial. No suspicious renal mass. Bladder with no bladder calculus or visible bladder mass. Therefore during last office visit a nuclear renal scan 04/24 was ordered for further assessment evaluation and these results were reviewed with the patient and her mother today differential renal function left 65.7%, right 34.3%. Left kidney has obstructive parameters after diuresis. Right kidney has nonobstructive parameters before and after diuresis. We discussed at length further workup to include diagnostic bilateral retrograde with left ureteroscopy. Risks and benefits of this intervention were discussed. She continues to experience incontinence. She reports utilizing a proximally 4-5 Arline pads per day. She does feel 50 mg of Myrbetriq has been somewhat helpful however continues with incontinent episodes. BUN:06/22 6, 11/23 10, 03/23 11, 07/23 7, 06/25 8 Creatinine: 06/22 0.72, 11/23 0.76, 03/23 0.88, 07/23 0.86, 06/25 0.77 Lasix renogram with stent shows resolved UPJ outlet Refer Dr. Bernstein for robotic UPJ repair [facility] [place] Medical History Pseudotumor cerebri Eosinophilic esophagitis Colitis Anxiety AMAIRANI (obstructive sleep apnea) Fibromyalgia Bipolar disorder Migraine headache History of lumbar puncture Urinary frequency Urinary incontinence Cervicalgia Benign intracranial hypertension Essential hypertension Syncope Major depressive disorder Anemia Irregular menses Eczema Nasal polyps Morbid (severe) obesity due to excess calories Asthma, mild intermittent, well-controlled Surgical History History of esophagogastroduodenoscopy (EGD) H/O colonoscopy History of wisdom tooth extraction Family History Mother Asthma HTN (hypertension) Father Bipolar 1 disorder Diabetes Parkinson disease Maternal Grandmother S/P triple vessel bypass Mother Uterine cancer Other Mental health disorder Social History Housing: House Are you a primary healthcare project manager to a significant other at home: No Do you presently have visiting nurse or other home services: No Alcohol intake: never Patient Tobacco Use Status: Never used Tobacco e-Cigarette/Vaping Use: Never Used Second Hand Smoke Exposure: No service: No Current occupational status: student Current occupational exposures/hazards: No Cognitive needs: No Hearing needs: No Vision needs: No Review of Systems Const Denies chills and Denies fever(s) Card Reports no additional complaints and Denies syncope Resp Denies cough GI Denies abdominal pain and Denies heartburn Reports as per HPI and Denies change in libido Neuro Denies syncope Psych Denies change in libido Endo Denies change in libido Physical Exam Const General: cooperative, healthy appearing, comfortable and no acute distress Orientation/consciousness: patient oriented x3 HEENT Face and sinus: Yes normal facial exam Mouth: moist mucous membranes Neck Neck: Yes normal visual inspection, Yes full ROM and Yes trachea midline Chest Chest palpation & inspection: normal inspection of the chest Resp Effort & Inspection: normal respiratory effort, able to speak in complete sentences and no respiratory distress GI Inspection: Yes normal to inspection Back/Spine/Pelvis Cervical Spine: normal cervical lordosis Thoracic/Lumbar Spine: thoracic and lumbar spine normal to inspection Skin General skin exam: no rashes or lesions noted Neuro General: patient oriented x3, gait normal, tone normal and moves all extremities Extrem General: Yes normal to inspection and Yes capillary refill normal Assessment & Plan Assessment & Plan (1) Urinary urgency: Code(s): R39.15 - Urgency of urination Category: Medical (2) Ureteropelvic junction (UPJ) obstruction: Code(s): N13.5 - Crossing vessel and stricture of ureter without hydronephrosis Category: Medical Plan Imaging for crossing vessel Referral to Dr. Bernstein regarding discussion for robotic UPJ repair Orders: Orders CT abdomen w IV con Today N13.5 - Crossing vessel and stricture of ureter without hydronephrosis Medications: Changed From oxybutynin chloride ER 5 mg PO DAILY 30 days 30 tabs 1RF N32.81 - Overactive bladder, R39.15 - Urgency of urination To oxybutynin chloride ER Take 1 per day, may double to 2 if necessary 10 mg PO DAILY 30 days 30 tabs 1RF N32.81 - Overactive bladder, R39.15 - Urgency of urination Patient Instructions: Imaging studies, laboratory and physical exam results were discussed and reviewed in detail. No major barriers to patient understanding were identified. An opportunity to ask questions regarding the treatment plan was provided. All questions were answered. The patient expressed understanding and agreement with the above treatment plan. The patient is aware they should contact our office by phone for worsening of their current condition or the appearance of new urologic symptoms. Compliance is encouraged with any medications and followup testing that is ordered. It is a privilege to participate in the urologic care of your patient. If you have any questions or concerns regarding treatment for the above conditions, or other urologic issues, please do not hesitate to contact me. The office telephone contact is [phone]. This note is constructed using voice recognition software. While every effort has been made to ensure accuracy extracorporeal circulation specialist errors may have been included. Yours sincerely, Dr Braden Scruggs MD, [facility] [place] - Urology Providers of Expert, Compassionate Care for the Genitourinary System Coding Level of Care Code Est Pt Level 4 (45743) Diagnoses Urinary urgency R39.15 Ureteropelvic junction (UPJ) obstruction N13.5
== END 2024-09-18 15:26 | disposition home or self-care (01) ==
PROVIDERS: Visit Provider Urology
DX: R39.15 Urgency of urination (principal); N13.5 Crossing vessel and stricture of ureter without hydronephrosis
CPT/HCPCS: 99214

== ENCOUNTER → 2024-09-18 14:39 | Outpatient (BNVA) | payer OTHER, SELFPAY | PROVIDERS: Visit Provider Urology | DX: R39.15 Urgency of urination (principal); N13.5 Crossing vessel and stricture of ureter without hydronephrosis | CPT/HCPCS: 99212 ==

== ENCOUNTER 2024-09-24 10:29 | Outpatient (AMB) | payer OTHER, SELFPAY ==
--- NOTE | 2024-09-24 10:31 | A.OFFPC_ITS ---
Vital Signs 09/24/24 10:40 Height 5 ft Weight 272 lb 8 oz BMI 53.2 BP 136/76 Blood Pressure Location Rt brachial Position Sitting Respiration 16 Pulse 106 H Pulse Source Pulse Oximeter Temp 98.1 F Temp Source Oral Pulse Oximetry (%) 97 Oxygen Delivery Method Room Air Intake Visit Reasons: CPE Intake Note: patient here for CPE Editor Producer Required: No Is last menstrual period known: No (on the depo) Post menopausal: No Patient : No Allergies fexofenadine [From Sofía-D] Allergy (Severe, Verified 09/24/24 11:06) Swelling milk Allergy (Severe, Verified 09/24/24 11:06) Anaphylaxis pseudoephedrine [From Sofía-D] Allergy (Severe, Verified 09/24/24 11:06) Swelling Beef Containing Products Allergy (Intermediate, Verified 09/24/24 11:06) Hives aranda Allergy (Intermediate, Verified 09/24/24 11:06) Hives egg Allergy (Intermediate, Verified 09/24/24 11:06) Hives lamotrigine Allergy (Intermediate, Verified 09/24/24 11:06) hives nut - unspecified Allergy (Intermediate, Verified 09/24/24 11:06) Hives doxycycline Adverse Reaction (Intermediate, Verified 09/24/24 11:06) projectile vomiting tiotropium [From Spiriva with HandiHaler] Adverse Reaction (Intermediate, Verified 09/24/24 11:06) Cough sulcralfate Adverse Reaction (Mild, Uncoded 09/24/24 11:06) hives Medication List - Last Reconciled 09/24/24 by Ayse Orta, ZARINA albuterol sulfate 2.5 mg (3 mL) inhalation Q4H PRN 30 days albuterol-budesonide 90-80 mcg/actuation (Airsupra) 2 inhalations inhalation BID PRN 30 days blood pressure kit-extra large As directed alimeagxmi-wlavftmgilfuc-snvr 50-325-40 mg 1 tab PO Q6H PRN compress.stocking,knee,reg,med [id number] dexlansoprazole (Dexilant) 60 mg PO DAILY 30 days dupilumab (Dupixent) 300 mg (2 mL) subcut Q2W dabuvi-uqiouhsx-cxsndia 36,000-114,000- 180,000 unit (Creon) 2 caps PO BID lorazepam 0.5 mg PO DAILY lumateperone (Caplyta) 42 mg PO QPM magnesium oxide 400 mg PO .qhs medroxyprogesterone (Depo-Provera) 150 mg IM Q12W metoclopramide HCl (Reglan) 5 mg PO QIDACHS nebulizers As directed oxybutynin chloride ER 10 mg PO DAILY 30 days propranolol 60 mg PO DAILY sertraline 50 mg PO DAILY trazodone 100 mg PO BEDTIME Tobacco use date assessed: 09/24/24 Dental Screening Dental Screen Date: 09/24/24 Did you have a dental visit in the last 12 months?: Yes Did you have a dental problem in the last 6 months where you did not have access to dental care?: No Was dental information given to patient?: Patient has dentist HPI HPI Comments History of Present Illness Details 24-year-old female, accompanied by her m other, presents for an extended physical exam. She admits to taking her medications as prescribed without adverse reactions. She stop taking ferrous sulfate and vitamin D3 since she ran out of refills several months ago. She was referred to [facility] weight management a year ago. However, she notes that she was not contacted to schedule an appointment. She requests a new weight management referral. She did not get blood work done for this visit as planned. Acute issue(s) - She notes generalized body aches and s oreness due to fibromyalgia. She has had fibromyalgia since childhood. She was followed by Rheumatology at [facility] until she was 14 years old. She requests rheumatology referral. Past Medical History - lumbar puncture headache, migraines, b enign intracranial hypertension, hypertension, lower extremity edema, major depression, anxiety, bipolar disorder, and seasonal allergies, asthma, AMAIRANI, gallstones, gastroparesis, morbid obesity, acid reflux, erosive esophagitis, colitis, urinary incontinence, hydronephrosis, vitamin-D deficiency, fibromyalgia, astigmatism, and eczema. Social History - Nonsmoker. Does not vape. Drinks 1 dri nk/liquor every 6 months. Denies recreational drug use - Has been making healthy dietary choice s. Does not exercise. Generally sleep well Health maintenance - Last eye exam was in March 2024. She wi ll sign a release for his PCP to obtain recordl - Last dental visit was in December 2023 - Last Tdap was on 06/06/2019 - Has not been vaccinated for the flu ; received vaccine at the end of this visit - Last pap smear test [facility]: normal Specialists - [facility] urology, pulmonology, and Gastroen terology - Psychiatrist, Shaneka Quiñones: sees her monthly - Therapist at [facility] every other week [facility] Medical History Pseudotumor cerebri Eosinophilic esophagitis Colitis Anxiety AMAIRANI (obstructive sleep apnea) Fibromyalgia Bipolar disorder Migraine headache History of lumbar puncture Urinary frequency Urinary incontinence Cervicalgia Benign intracranial hypertension Essential hypertension Syncope Major depressive disorder Anemia Irregular menses Eczema Nasal polyps Morbid (severe) obesity due to excess calories Asthma, mild intermittent, well-controlled Surgical History History of esophagogastroduodenoscopy (EGD) H/O colonoscopy History of wisdom tooth extraction Family History Mother Asthma HTN (hypertension) Father Bipolar 1 disorder Diabetes Parkinson disease Maternal Grandmother S/P triple vessel bypass Mother Uterine cancer Other Mental health disorder Social History Housing: House Are you a primary resident care manager to a significant other at home: No Do you presently have visiting nurse or other home services: No Alcohol intake: never Patient Tobacco Use Status: Never used Tobacco e-Cigarette/Vaping Use: Never Used Second Hand Smoke Exposure: No service: No Current occupational status: student Current occupational exposures/hazards: No Cognitive needs: No Hearing needs: No Vision needs: No Questionnaire PHQ-9 Over the last 2 weeks, how often have you been bothered by any of the following problems? 1. Little interest or pleasure in doing things: not at all 2. Feeling down, depressed, or hopeless: not at all 3. Trouble falling or staying asleep, or sleeping too much: not at all 4. Feeling tired or having little energy: not at all 5. Poor appetite or overeating: not at all 6. Feeling bad about yourself - or that you are a failure or have let yourself or your family down: not at all 7. Trouble concentrating on things, such as reading the newspaper or watching television: not at all 8. Moving or speaking so slowly that other people could have noticed. Or the opposite - being so fidgety or restless that you have been moving around a lot more than usual: not at all 9. Thoughts that you would be better off or of hurting yourself in some way: not at all Total score: 0 Depression Screening Interpretation: Negative Depression Screening Done: Yes 14229 - PHQ-9 Billing: Yes Source: Developed by Drs. Christofer Ba, Kaylah Dickerson, Marbin Macario and colleagues, with an educational vern from [employer]. Thrive Questionnaire Date Thrive assessed: 08/16/24 I am a: Patient What is your living situation today?: I have a steady place to live Within the past 12 months, did the food you bought not last and you didn't have the money to get more?: Never true Within the past 12 months, did you worry whether your food would run out before you got money to buy more?: Never true Do you have trouble paying for medicines?: No Do you have trouble getting transportation to medical appointments?: No Do you have trouble paying your heating and electricity bill?: No Do you have trouble taking care of your child, family member or friend?: No Do you have trouble with day-to-day activities such as bathing, preparing meals, shopping, managing finances, etc.?: No Are you currently unemployed and looking for a job?: No Are you interested in more education?: No Please select the resources that you would like help with: None Currently or been in a relationship where the following occur: No concerns reported THRIVE Score: 0 AUDIT C Alcohol Use Questionnaire (AUDIT-C) 1. How often do you have a drink containing alcohol?: Monthly or less 2. How many drinks containing alcohol do you have on a typical day when you are drinking?: 1 or 2 3. How often do you have six or more drinks on one occasion?: Never Total Score: 1 Score Reviewed/Action Taken: Yes CLAIRE-7 AMB Questionnaire CLAIRE-7 Date CLAIRE - 7 assessed: 09/24/24 Feeling nervous, anxious, or on edge: 0 = Not at all Not being able to stop or control worryin = Not at all Worrying too much about different things: 0 = Not at all Trouble relaxin = Not at all Being so restless that it is hard to sit still: 0 = Not at all Becoming easily annoyed or irritable: 0 = Not at all Feeling afraid as if something awful might happen: 0 = Not at all Total CLAIRE-7 score (0-4 normal; 5-9 mild; 10-14 moderate; 15-21 severe): 0 Source: Developed by Drs. Christofer Ba, Kaylah Dickerson, Marbin Macario and colleagues, with an educational vern from [employer]. CLAIRE-7 Assessment Billing CLAIRE-7 Assessment Tool: CLAIRE-7 Assessment 37853 ACT Questionnaire In the past 4 weeks, how much of the time did your asthma keep you from getting as much done at work, school or at home?: Some of the time During the past 4 weeks, how often have you had shortness of breath?: More than once a day During the past 4 weeks, how often did your asthma symptoms wake you up at night or earlier than usual in the morning?: Once a week During the past 4 weeks, how often have you had to use your rescue inhaler or nebulizer medication?: 2-3 times a week How would you rate your asthma control during the past 4 weeks?: Poorly controlled Score: 12 Review of Systems Const Details: Denies chills, Denies fatigue, Denies fever(s), Denies headache(s) and Denies weakness HEENT Denies change in vision, Denies dizziness, Denies headache(s), Denies hearing loss, Denies nasal congestion, Denies sinus pain, Denies sinus pressure and Denies sore throat Card Denies chest pain, Denies lightheadedness, Denies dyspnea and Denies other (palpitations) Resp Denies cough, Denies dyspnea and Denies wheezing GI Denies abdominal pain, Denies melena, Denies hematochezia, Denies change in bowel habits, Denies dyspepsia and Denies nausea Denies hematuria and Denies dysuria Musc Reports generalized body aches and soreness, Denies abnormal gait, Denies myalgias, Denies numbness and Denies tingling Skin/Breast Denies rash, Denies unusual bruising and Denies wounds Neuro Denies abnormal gait, Denies dizziness, Denies headache(s), Denies memory loss, Denies numbness, Denies Sensory deficit (Neuro), Denies tingling and Denies weakness Psych Denies anxiety, Denies depression and Denies memory loss Endo Denies cold intolerance, Denies fatigue, Denies heat intolerance, Denies polydipsia and Denies polyuria Vicente/Lymph Denies easy bleeding and Denies easy bruising Aller/Immun Denies wheezing Physical exam (Primary Care) Vital Signs: Last Vital Signs Temp 98.1 F 09/24/24 10:40 Pulse 106 H 09/24/24 10:40 Resp 16 09/24/24 10:40 BP 136/76 09/24/24 10:40 Pulse Ox 97 09/24/24 10:40 Oxygen Delivery Method Room Air 09/24/24 10:40 BMI result Body Mass Index 53.2 Tobacco/Smoking Status: Tobacco use Status Tobacco use date assessed 11/21/23 09/24/24 10:32 Patient Tobacco Use Status Never used Tobacco 09/24/24 10:32 e-Cigarette/Vaping Use Never Used 09/24/24 10:32 Depression Screening Interpretation: Negative Thrive Assessment: Date of Thrive Assessment Date Thrive assessed 08/16/24 09/24/24 10:32 Currently or been in a relationship where the following occur: No concerns reported Const Other: General: no acute distress, well developed, alert and awake Nutritional Appearance: well nourished Orientation/consciousness: patient oriented x3 HENMT Head: Yes normocephalic and Yes atraumatic Ears: hearing grossly normal bilaterally and TM's normal bilaterally General nose exam: Normal external nose present and Normal nares present Mouth: Normal oral and palatal mucosa present and moist mucous membranes Teeth and gingiva: dentition normal Throat: Yes oropharynx normal Eyes Pupils: Equal, round and reactive pupils present and Pupil accommodation reflex normal EOM: EOMs intact bilaterally Neck Neck: Yes normal visual inspection, Yes no lymphadenopathy and Yes trachea midline Thyroid: Thyroid normal Carotids: no bruits Lymphatic: no lymphadenopathy noted Chest Chest palpation & inspection: normal inspection of the chest Resp Effort & Inspection: normal respiratory effort Auscultation: clear to auscultation bilaterally Cardio Rate: regular rate Rhythm: regular rhythm Heart sounds: S1 normal heart sound present, S2 normal heart sound present, no gallops, no murmurs and no rubs Bruits: no abdominal aortic bruits and no carotid bruits GI Palpation (GI): No Abdominal aortic bruit present, Soft to palpation, nontender, No hepatosplenomegaly present and No Rebound tenderness present Auscultation: normal bowel sounds General: Yes no CVA tenderness Back/Spine/Pelvis Back: no CVA tenderness Cervical Spine: cervical ROM normal and No Cervical spine tenderness Thoracic/Lumbar Spine: thoraco-lumbar ROM normal, No pain with thoraco-lumbar ROM, No thoracic spinal tenderness and No lumbar spinal tenderness Skin General: warm and dry. Normal skin color. Normal skin turgor. Generalized muscle soreness and aches with palpation Lesions: no lesions Rashes: no rashes Trauma: no lacerations or abrasions Wounds: no wounds Nails: normal Neuro General: patient oriented x3, gait normal and CN's II-XI intact bilaterally Cranial nerves: Yes Equal, round and reactive pupils present Cognition (Neuro): normal cognition Gait exam (Neuro): Normal gait present Motor exam (neuro): 5/5 motor strength present throughout Sensory Exam: No Sensory deficit (Neuro) Deep tendon reflexes (DTR's): Right patellar reflex intensity grade: 2+ and Left patellar reflex intensity grade: 2+ Extrem General: Yes normal to inspection, No edema and No calf tenderness Psych Appearance: grossly normal Affect: normal affect Attitude: cooperative Thought process: Normal thought process present Coding Level of Care Code Est Pt Level 3 (50364) Est Pt Prev Care 18-39y(43135) Diagnoses Normal physical examination, routine Z00.00 Fibromyalgia M79.7 Morbid obesity with BMI of 50.0-59.9, adult E66.01; Z68.43 Additional Codes CLAIRE-7 Assessment Billing - CLAIRE-7 Assessment Tool: CLAIRE-7 Assessment 11335 ([id number]) PHQ-9 - 68167 - PHQ-9 Billing: Yes ([id number]) Assessment & Plan Assessment & Plan (1) Normal physical examination, routine: Code(s): Z00.00 - Encounter for general adult medical examination without abnormal findings Category: Medical Plan: No significant functional limitation noted. Continue current treatment regimen. Follow-up with specialist as planned. Advised to get lab work done today; Will review results and make changes as needed; Will also determine her next follow- up visit. Follow-up with symptoms or concerns. Verbalized understanding and agreed with the plan. (2) Fibromyalgia: Code(s): M79.7 - Fibromyalgia Category: Medical Plan: Generalized body aches and soreness with palpation. Was followed by [facility] Rheumatology until age 14. May take Tylenol ibuprofen for pain or discomfort. Warm/cool compresses encouraged. Follow-up with worsening or new symptoms. Referred to [facility] Rheumatology. Verbalized understanding and agreed with treatment plan. (3) Morbid obesity with BMI of 50.0-59.9, adult: Code(s): E66.01 - Morbid (severe) obesity due to excess calories; Z68.43 - Body mass index [BMI] 50.0-59.9, adult Category: Medical Plan: She currently weighs 272 lb, BMI is 53.2. Healthy diet and routine exercise encouraged. She was referred to [facility] with management a year ago but notes she was not contacted. New weight management referral made to [facility]. Verbalized understanding and agreed with the plan. Orders: Referrals Medical Weight Management Referral E66.01 - Morbid (severe) obesity due to excess calories, Z68.43 - Body mass index [BMI] 50.0-59.9, adult Rheumatology Referral M79.7 - Fibromyalgia Medications: New epinephrine (EpiPen) May repeat dose x1 after 5-15 minutes. Go to the ED after first use. 0.3 mg (0.3 mL) IM Q10M PRN 2 ea 0RF anaphylaxis
[2024-09-24 10:40] VITALS: BP 136/76; PULSE 106; RESP 16; TEMP 36.7; O2SAT 97; BMI 53.2
== END 2024-09-24 11:31 | disposition home or self-care (01) ==
LOC: HO.HMCFM 10:29
PROVIDERS: Visit Provider Nurse Practitioner Family
DX: Z00.00 Encounter for general adult medical examination without abnormal findings (principal); M79.7 Fibromyalgia; E66.01 Morbid (severe) obesity due to excess calories; Z68.43 Body mass index [BMI] 50.0-59.9, adult

== ENCOUNTER 2024-09-24 11:41 | Outpatient (REF) | payer OTHER, SELFPAY ==
[2024-09-24 14:44] LABS: Hematocrit 32.5 % (37.0-47.0); Hemoglobin 10.6 g/dl (12.0-16.0); Mean Corpuscular HGB Conc 32.6 g/dl (31.0-35.0); Mean Corpuscular Hemoglobin 30.2 pg (27.0-33.0); Mean Corpuscular Volume 92.6 fL (80.0-98.0); Mean Platelet Volume 10.4 fL (9.4-12.3); Platelet Count 360 X10*3/uL (160-400); Red Blood Count 3.51 X10*6/uL (4.20-5.50); Red Cell Distribution Width 18.1 % (11.0-16.0)
[2024-09-24 15:03] LABS: Iron 41 mcg/dL (30-160); Percent Iron Saturation 16 % (15-50); Total Iron Binding Capacity 250 mcg/dL (228-428); Unsaturated Iron Binding 209 ug/dL
[2024-09-24 15:31] LABS: Vitamin D 25-OH Total 9.9 ng/mL (>30)
== END 2024-09-24 11:42 | disposition home or self-care (01) ==
LOC: HO.WFDLDS 11:41
PROVIDERS: Visit Provider Nurse Practitioner Family
DX: D50.9 Iron deficiency anemia, unspecified (principal); E55.9 Vitamin D deficiency, unspecified
CPT/HCPCS: 36415; 82306; 83540; 85027

== ENCOUNTER 2024-09-24 16:02 | Outpatient (REF) | payer OTHER, SELFPAY ==
[2024-09-24] MEDS: iohexoL 350 MG/ML 100 ML INFUS..BTL IV (16:52)
== END 2024-09-24 16:03 | disposition home or self-care (01) ==
LOC: HO.CT 16:02
PROVIDERS: PCP Nurse Practitioner Family; Visit Provider Urology
DX: N13.5 Crossing vessel and stricture of ureter without hydronephrosis (principal)
CPT/HCPCS: 74170; 96127; 99212; 99395; Q9967

== ENCOUNTER → 2024-09-24 16:06 | Outpatient (BNV) | payer OTHER, SELFPAY | PROVIDERS: PCP Nurse Practitioner Family; Visit Provider Radiology Diagnostic Radiology | DX: N13.5 Crossing vessel and stricture of ureter without hydronephrosis (principal); Z96.0 Presence of urogenital implants | CPT/HCPCS: 74170 ==

== ENCOUNTER 2024-10-21 16:02 | Outpatient (AMB) | payer OTHER, SELFPAY ==
[2024-10-21 16:04] VITALS: BP 150/92; PULSE 75; O2SAT 99; BMI 53.6
--- NOTE | 2024-10-21 16:04 | A.OFFVIS_ITS ---
Vital Signs 10/21/24 16:04 Height 5 ft Weight 274 lb 7.608 oz BMI 53.6 BP 150/92 H Blood Pressure Location Rt brachial Position Sitting Pulse 75 Pulse Source Pulse Oximeter Pulse Oximetry (%) 99 Oxygen Delivery Method Room Air Intake Visit Reasons: Asthma Allergies fexofenadine [From Sofía-D] Allergy (Severe, Verified 10/21/24 16:07) Swelling milk Allergy (Severe, Verified 10/21/24 16:07) Anaphylaxis pseudoephedrine [From Sofía-D] Allergy (Severe, Verified 10/21/24 16:07) Swelling Beef Containing Products Allergy (Intermediate, Verified 10/21/24 16:07) Hives aranda Allergy (Intermediate, Verified 10/21/24 16:07) Hives egg Allergy (Intermediate, Verified 10/21/24 16:07) Hives lamotrigine Allergy (Intermediate, Verified 10/21/24 16:07) hives nut - unspecified Allergy (Intermediate, Verified 10/21/24 16:07) Hives doxycycline Adverse Reaction (Intermediate, Verified 10/21/24 16:07) projectile vomiting tiotropium [From Spiriva with HandiHaler] Adverse Reaction (Intermediate, Verified 10/21/24 16:07) Cough sulcralfate Adverse Reaction (Mild, Uncoded 10/21/24 16:07) hives HPI Comments Details: The patient is a 24-year-old woman with a known history of asthma in addition to significant allergies and obstructive sleep apnea. Apparently she has had significant allergies and she was very young. She did follow-up with Dr. Dow for many years. She was provided with allergy shots for some time but she is no longer doing nose. She has required prednisone multiple times a year because her significant asthma. Usually her symptoms do worsen in the fall and she is concerned about that. Patient has been on Symbicort for many years. Does not feel like it is working as well for her. She still having to use her rescue inhaler multiple times a day. She does not have a nebulizer at home. In addition to that she does have a history of eczema. the patient has not use any biologics. We did review her blood work from [facility] for many years and she has had significant eosinophilia throughout. Therefore she may be a good candidate for biologics if she continues to be symptomatic patient already is morbidly obese. She is concerned about her weight in the use of prednisone. She has noticed increasing daytime drowsiness. She also has significant migraines and headaches. Her Decker score is elevated 12/24. She has had sleep studies in the past demonstrating sleep apnea but does many years ago. At this point the patient is concerned that her sleep apnea is getting worse and s he would likely treated. Therefore, she will need a home sleep study at this time. 07/09/2021 the patient is here for a pulmonary follow-up visit. Since we last spoke she has been having worsening shortness of breath and wheezing. Unfortunately, she could not get the Trelegy inhaler. I will send her the Breo and Incruse separate. in the meantime she continues to be very symptomatic. We did look at her allergy testing and she does have significant allergies, but, specially to dust mites. She is going to get rid of her stopping rug and also will get hypoallergenic covers. She already has an EpiPen available. She has not had to use it. We did review her sleep study. Does not appear that she has any significant sleep apnea the needs treatment. Most likely her degree of difficulty sleeping as a due mainly with her nasal congestion and allergies. On my examination I did believe she had a nasal polyp in her left nostril. This is causing near complete obstruction of the nasal passage on the left-hand side. The patient would benefit from biologic therapy. Will maximize her respiratory therapy in if she still symptomatic will start her on Biologic therapy. Based on her significant allergies, her elevated IgE, her nasal polyps and also history of eczema along with the severe asthma I believe Dupixent will be a perfect choice for her. 10/21/2021 the patient is here for a pulmonary follow-up visit. As we last spoke the patient has had episodes of increasing shortness of breath and wheezing. Initially she was responding well to the Dupixent. But she has had a n issue with the Dupixent is no longer being the liver. In addition to that she is no longer getting maintenance medication. The patient responded well to Trelegy but was not covered. Therefore I sent Breo and Incruse. However, those were not provided for some reason. She does have a rescue inhaler. I will send her Advair HFA in addition to Spiriva. I am hopeful that she can start this therapy. In addition to that we did talk to the office staff about assessing the issue with the Dupixent delivery. In the meantime the patient is sleeping well. She does have mild degree of sleep apnea. She knows not to sleep on her back and she is adherent to her positional therapy. 02/15/2022 the patient is here for pulmonary follow-up visit. Since we last spoke she has been getting more daytime drowsiness. She has had documented episodes of apnea. She also has significant snoring. she had undergoing a sleep study that we had reviewed previously demonstrating mild sleep apnea. Based on the fact that she is more symptomatic will go ahead and start her on CPAP therapy. will go ahead and request the CPAP from a local [employer] company. Patient also has a significant family history of sleep apnea and also is obese. Regards of the asthma she has not started the Dupixent as his yet. She had some issues with the pharmacy. Apparently is now on his way and she should be starting soon. When she starts the Dupixent her respiratory symptoms should improve. Meantime she does continue on her respiratory therapy. She does require the albuterol multiple times a week. In addition to that she has had lower extremity edema. Her family is concerned because of the degree of edema. Hopefully when she starts CPAP will see improvement in the meantime will try 3 days of diuresis and she is going to follow low-sodium diet. 06/14/2022 the patient is here for a pulmonary follow-up visit. She finally got her CPAP. She has been trying to use it. The CPAP therapy has been affecting b eneficial. She is trying to use it more than 4 hours a night. Her machine is a little cumbersome. She does have a Noreen CPAP. I will have to as regional for download. In the meantime she continues on Dupixent injections. She has not required any prednisone. She still having issues with shortness of breath. Although she still having significant lower extremity edema and overall volume overload status. She did take diuretic for 3 days during the last visit but she did not notice any significant diuresis per in addition to that the patient is describing episodes of syncope and also presyncope. With her significant lower extremity edema patient really needs an echocardiogram to further address her symptoms and also to see if she has any underlying cardiac arrhythmias in view of her other comorbidities even at this early age. Therefore, I am going to refer her to Cardiology to have further testing done. 09/13/2022 the patient is here for a pulmonary follow-up visit. The patient has been having some issues with her CPAP. She has a hard time with her mask. She is using currently on F 30 mask. Feels like she is not getting enough air up her nose. Is not lining up well. She rather have a traditional fullface mask. I did have an F20 small in the office. We did try it on her own she tolerated well. While she does use it her AHI is down to 0.1. Her average pressure is around 6-7.5. She does use it for more than 4 hours. Unfortunately with the current mass she has not been able to tolerated as well. We did switch her to the F20 mask. She tolerated that much better. I will submit a prescription to her [employer] company with the new masks. From an asthma standpoint she continues on Dupixent injections. She continues with respiratory therapy. She has not had any exacerbations. She has been doing well from that standpoint. She still has lower extremity edema. She has tried to cut down on the salt and also trying to use the compression stockings. She continues to monitor those closely. She is also now on Norvasc so therefore trapped to monitor for any worsening edema. I am hopeful that the more she uses her CPAP the better her lower extremity edema is going to get. 10/12/2023 the patient is here for pulmonary follow-up visit. The patient has been having hard time with her breathing lately. She is noticed increased nasal congestion and shortness of breath. Chest tightness. She continues on Dupixent and just has not been working as well as it did before. Although she did stop most of her inhalers such as Advair she stopped her fluticasone nasal spray. In addition to that the patient was diagnosed with sleep apnea and she did have a CPAP. Although, she stopped using it because she could not tolerated. Now that she has not using she is getting additional daytime drowsiness her Decker score is elevated 09/24. She also has significant lower extremity edema and she is at risk for developing further worsening cardiovascular risk factors. Based on that the patient is willing to have the repeat sleep study and go back on CPAP since she really needs it. On my examination I do believe she does have a component of sinusitis that may be contributing to her ongoing nasal congestion. The patient should continue with biologic therapy and will optimize her respiratory therapy and treated for the upper respiratory illness. Will follow- up in a few months after her sleep study. 02/02/2024 the patient is here for a pulmonary follow-up visit. Overall the patient has been doing well. She is responding well to the Dupixent injections. she is administering them every 2 weeks. In addition to that she is getting some pain at the site of the injections but typically quickly resolved. No other adverse effects. No significant conjunctivitis or rashes noted. She continues to use her albuterol. She had been on Advair. Although for some reason she has not been able to get it filled at the pharmacy. She is actually requesting to see if she can try a new inhaler, Airsupra. at this point is reasonable for her to start the medication she can try and see if his effective for her. If is not she will call and I can send the Advair again to the pharmacy. I do believe since the initiation of the Dupixent her asthma has been better controlled and using as needed combination inhaler would be reasonable at this time. She continues have some daytime drowsiness. Decker score is elevated, 10/24. Although she did not tolerate CPAP and she has not interested to go back on it. We did review his sleep study. She should respond to positional therapy. We did talk about different options in order for to perform positional therapy at this time. No recent imaging studies to review. 07/16/2024 the patient is here for sick visit. The patient has been complaining of chest pain now for a couple weeks. The pain waxes and wanes. It is mainly substernal. Sometimes it affects her breathing. She has a hard time breathing in suggesting a pleuritic component. She denies any fevers chills. She denies any congested cough. She does use her inhalers and she gets some minimal improvement when she uses her inhalers. Her asthma continues to be well controlled under Dupixent. She has not had any recent studies and she has not use any jnov-[id number] medications for. On further questioning she does states that her grandmother and her mother both had a history of blood clots. She has never had a blood clot in her life. She does have some lower extremity edema and she does have some pain in her lower extremities as well. During the office visit we did go for brief walking oximetry and heart rate in oxygen were within normal limits. The patient was complaining of her chest discomfort. Will go ahead and have blood work done including a D-dimer to see what her risk for thromboembolic diseases. If the D-dimer is elevated then she will need a CTA to rule out PE. Otherwise is negative will go ahead and request a chest x- ray. Likely that she may have a component of musculoskeletal discomfort or pleurisy. 10/21/2024 the patient is here for a pulmonary follow-up visit. Overall she is doing okay. She does have daytime drowsiness. Decker score is elevated 08/25. She did have sleep apnea was on CPAP but it was taken away because she was not using it as prescribed. Now she has the developing high blood pressure and also lower extremity edema explained to her that importance of her treating her sleep apnea because of cardiovascular health specially her young age. In addition to that she complains of sinus discomfort and nasal obstruction. Has been dealing with sinusitis her some time. She feels like her breathing is worse. The Airsupra has been helpful but she will do better with Breztri. In the meantime for high blood pressure and lower extremity edema will give her a few days of Lasix. She will have a repeat home sleep study and will return 3 months to review. Patient now is more accepting of the diagnosis sleep apnea and is willing to be compliant with therapy. [facility] Medical History (Updated 10/18/24 @ 12:01 by Ce Williamson CMA) Pseudotumor cerebri Eosinophilic esophagitis Colitis Anxiety AMAIRANI (obstructive sleep apnea) Fibromyalgia Bipolar disorder Migraine headache History of lumbar puncture Urinary frequency Urinary incontinence Cervicalgia Benign intracranial hypertension Essential hypertension Syncope Major depressive disorder Anemia Irregular menses Eczema Nasal polyps Morbid (severe) obesity due to excess calories Asthma, mild intermittent, well-controlled Surgical History History of esophagogastroduodenoscopy (EGD) H/O colonoscopy History of wisdom tooth extraction Family History Mother Asthma HTN (hypertension) Father Bipolar 1 disorder Diabetes Parkinson disease Maternal Grandmother S/P triple vessel bypass Mother Uterine cancer Other Mental health disorder Social History Housing: House Are you a primary rn coronary care unit to a significant other at home: No Do you presently have visiting nurse or other home services: No Alcohol intake: current Alcohol intake frequency: holidays/special occasions only Patient Tobacco Use Status: Never used Tobacco e-Cigarette/Vaping Use: Never Used Second Hand Smoke Exposure: No service: No Current occupational status: student Current occupational exposures/hazards: No Cognitive needs: No Hearing needs: No Vision needs: No Review of Systems Const Reports difficulty sleeping, Denies night sweats, Reports stops breathing during sleep and Reports weight gain ENT Denies change in voice, Denies lip swelling, Denies mouth pain, Reports nasal congestion, Reports post nasal drip and Denies tongue swelling Card Reports chest pain and Reports leg edema Resp Reports cough, Reports pain on inspiration and Reports wheezing GI Denies abdominal pain Musc Denies no additional complaints Neuro Denies Neuro-related abnormal movements Psych Denies no additional complaints Vicente/Lymph Denies easy bleeding and Denies lymphadenopathy Aller/Immun Denies lip swelling, Denies tongue swelling and Reports wheezing Physical Exam Vital Signs: Last Vital Signs Pulse 75 10/21/24 16:04 BP 150/92 H 10/21/24 16:04 Pulse Ox 99 10/21/24 16:04 Oxygen Delivery Method Room Air 10/21/24 16:04 BMI result Body Mass Index 53.6 Const General: alert HEENT Head: Yes normocephalic General nose exam: Abnormal mucous membranes and turbinates present erythematous Neck Neck: Yes normal visual inspection, Yes full ROM and Yes no lymphadenopathy Chest Chest palpation & inspection: normal inspection of the chest Resp Effort & Inspection: normal respiratory effort Auscultation: no wheezes and diminished lung sounds Cardio Rate: regular rate Rhythm: regular rhythm Heart sounds: S1 normal heart sound present and S2 normal heart sound present GI Palpation (GI): Soft to palpation and nontender Auscultation: normal bowel sounds Skin General skin exam: rashes and/or lesions noted Extrem General: Yes edema Assessment & Plan Assessment & Plan (1) Asthma: Code(s): J45.909 - Unspecified asthma, uncomplicated Category: Medical Qualifiers: Asthma complication type: uncomplicated Asthma persistence: persistent Asthma severity: moderate Qualified Code(s): J45.40 - Moderate persistent asthma, uncomplicated (2) Seasonal allergies: Code(s): J30.2 - Other seasonal allergic rhinitis Category: Medical (3) Nasal polyps: Code(s): J33.9 - Nasal polyp, unspecified Category: Medical (4) Eczema: Code(s): L30.9 - Dermatitis, unspecified Category: Medical Qualifiers: Eczema type: flexural Qualified Code(s): L20.82 - Flexural eczema (5) Sleep apnea: Code(s): G47.30 - Sleep apnea, unspecified Category: Medical Qualifiers: Sleep apnea type: obstructive Qualified Code(s): G47.33 - Obstructive sleep apnea (adult) (pediatric) (6) Lower extremity edema: Code(s): R60.0 - Localized edema Category: Medical Plan stop Airsupra BID start Breztri continue Fluticasone continue Dupixent Continue nebulizer. Low NA diet compression stockings home sleep study start lasix x 3 days start Afrin x 5 days start azithromycin x 5 days Follow-up in 3-4 months Orders: Orders RT home sleep study Today G47.33 - Obstructive sleep apnea (adult) (pediatric) Medications: New aenkfcjzgm-xtteyisw-orwbdqcxtt 160-9-4.8 mcg/actuation (Breztri Aerosphere) 2 inhalations inhalation BID 10.7 grams 0RF azithromycin 500 mg PO DAILY 5 tabs 0RF 5 days oxymetazoline 0.05% (Afrin (oxymetazoline)) 2 sprays intranasal Q12H PRN 22 mL 0RF nasal congestion 5 days furosemide (Lasix) 20 mg PO DAILY 6 tabs 0RF 6 days Coding Level of Care Code Est Pt Level 4 (69694) Diagnoses Moderate persistent asthma without complication J45.40 Asthma complication type: uncomplicated Asthma persistence: persistent Asthma severity: moderate Seasonal allergies J30.2 Nasal polyps J33.9 Flexural eczema L20.82 Eczema type: flexural Obstructive sleep apnea syndrome G47.33 Sleep apnea type: obstructive Lower extremity edema R60.0 Time Spent (min) 17
== END 2024-10-21 16:21 | disposition home or self-care (01) ==
PROVIDERS: PCP Nurse Practitioner Family; Visit Provider Hospitalist
DX: J45.40 Moderate persistent asthma, uncomplicated (principal); J30.2 Other seasonal allergic rhinitis; J33.9 Nasal polyp, unspecified; L20.82 Flexural eczema; G47.33 Obstructive sleep apnea (adult) (pediatric); R60.0 Localized edema
CPT/HCPCS: 99214

== ENCOUNTER → 2024-10-21 16:02 | Outpatient (BNVA) | payer OTHER, SELFPAY | PROVIDERS: PCP Nurse Practitioner Family; Visit Provider Hospitalist | DX: J45.40 Moderate persistent asthma, uncomplicated (principal); J30.2 Other seasonal allergic rhinitis; J33.9 Nasal polyp, unspecified; G47.33 Obstructive sleep apnea (adult) (pediatric); L20.82 Flexural eczema; R60.0 Localized edema; Z99.89 Dependence on other enabling machines and devices | CPT/HCPCS: 99212 ==

== ENCOUNTER 2024-10-25 08:04 | Outpatient (AMB) | payer OTHER, SELFPAY ==
--- NOTE | 2024-10-25 13:08 | MHC.OFFVISWM ---
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 Allergies fexofenadine [From Sofía-D] Allergy (Severe, Verified 10/25/24 13:08) Swelling milk Allergy (Severe, Verified 10/25/24 13:08) Anaphylaxis pseudoephedrine [From Sofía-D] Allergy (Severe, Verified 10/25/24 13:08) Swelling Beef Containing Products Allergy (Intermediate, Verified 10/25/24 13:08) Hives aranad Allergy (Intermediate, Verified 10/25/24 13:08) Hives egg Allergy (Intermediate, Verified 10/25/24 13:08) Hives lamotrigine Allergy (Intermediate, Verified 10/25/24 13:08) hives nut - unspecified Allergy (Intermediate, Verified 10/25/24 13:08) Hives doxycycline Adverse Reaction (Intermediate, Verified 10/25/24 13:08) projectile vomiting tiotropium [From Spiriva with HandiHaler] Adverse Reaction (Intermediate, Verified 10/25/24 13:08) Cough sulcralfate Adverse Reaction (Mild, Uncoded 10/25/24 13:08) hives Medication List - Last Reconciled 10/25/24 by Pablo Acuna MD albuterol sulfate 2.5 mg (3 mL) inhalation Q4H PRN 30 days azithromycin 500 mg PO DAILY 5 days blood pressure kit-extra large As directed xgzvvadcij-pcsyzguw-hcibchkago 160-9-4.8 mcg/actuation (Breztri Aerosphere) 2 inhalations inhalation BID zjrdrnnkoe-qqvfclfuzgahz-rlxa 50-325-40 mg 1 tab PO Q6H PRN cholecalciferol (vitamin D3) 1,250 mcg PO QWEEK 8 weeks compress.stocking,knee,reg,med [id number] dexlansoprazole (Dexilant) 60 mg PO DAILY 30 days dupilumab (Dupixent) 300 mg (2 mL) subcut Q2W epinephrine (EpiPen) 0.3 mg (0.3 mL) IM Q10M PRN furosemide (Lasix) 20 mg PO DAILY 6 days tnnzbp-uxvbuypy-omdqgwq 36,000-114,000- 180,000 unit (Creon) 2 caps PO BID lorazepam 0.5 mg PO DAILY lumateperone (Caplyta) 42 mg PO QPM magnesium oxide 400 mg PO .qhs medroxyprogesterone (Depo-Provera) 150 mg IM Q12W metoclopramide HCl (Reglan) 5 mg PO QIDACHS nebulizers As directed oxybutynin chloride ER 10 mg PO DAILY 30 days oxymetazoline 0.05% (Afrin (oxymetazoline)) 2 sprays intranasal Q12H PRN 5 days propranolol 60 mg PO DAILY sertraline 50 mg PO DAILY trazodone 100 mg PO BEDTIME HPI HPI 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: Details: Start time: 1pm, End time: 1.45pm ?I spent 40 minutes speaking with the patient on the phone plus an additional 5 minutes reviewing and updating records for a total of 45 minutes HPI Comments Details: Previous weight loss efforts: exercise Wakes up: 11am, Sleep: 1am Breakfast: skips Lunch: 2pm (Mac and cheese, noodles, chicken) Dinner: 8pm (chicken, rice, beans, broccoli) Snacks: 4pm (popcorn), 10pm (cookies occasionally) Exercise: has a walking pad Fluids: coffee: none, iced/hot tea: 1-2 cups/day (oat milk and sugar), soda: Regular Coke and Gingerale (2-3 cans/day), juice: (3-4/day), ETOH: none PFSH Medical History (Updated 10/18/24 @ 12:01 by Ce Williamson CMA) Pseudotumor cerebri Eosinophilic esophagitis Colitis Anxiety AMAIRANI (obstructive sleep apnea) Fibromyalgia Bipolar disorder Migraine headache History of lumbar puncture Urinary frequency Urinary incontinence Cervicalgia Benign intracranial hypertension Essential hypertension Syncope Major depressive disorder Anemia Irregular menses Eczema Nasal polyps Morbid (severe) obesity due to excess calories Asthma, mild intermittent, well-controlled Surgical History History of esophagogastroduodenoscopy (EGD) H/O colonoscopy History of wisdom tooth extraction Family History Mother Asthma HTN (hypertension) Father Bipolar 1 disorder Diabetes Parkinson disease Maternal Grandmother S/P triple vessel bypass Mother Uterine cancer Other Mental health disorder Social History Housing: House Are you a primary family member caretaker to a significant other at home: No Do you presently have visiting nurse or other home services: No Alcohol intake: current Alcohol intake frequency: holidays/special occasions only Patient Tobacco Use Status: Never used Tobacco e-Cigarette/Vaping Use: Never Used Second Hand Smoke Exposure: No service: No Current occupational status: student Current occupational exposures/hazards: No Cognitive needs: No Hearing needs: No Vision needs: No Telehealth Telehealth Telehealth Platform: Telephone Location of provider rendering services: practice address Location of patient: address on file Patient Identification confirmed using: Name, : Yes Telehealth method: voice only Patient verbally consented to treatment: Yes Patient verbally consented to billing insurance company: Yes Patient informed of any privacy concerns related to visit: Yes Minutes spent on Phone/Video with Pt.: 45 Assessment & Plan Assessment & Plan (1) Morbid obesity with BMI of 45.0-49.9, adult: Code(s): E66.01 - Morbid (severe) obesity due to excess calories; Z68.42 - Body mass index [BMI] 45.0-49.9, adult Category: Medical Plan: 1. You will receive a link of our software remington to generate an individualized nutritional and exercise plan specific for you. Please send me a screenshot of the plans you will generate Meal to include lean meat (beef, fish, pork, turkey, chicken), or romanian yogurt, or egg whites, or beans with a salad with olive oil and fruits (berries, pears, apples, kiwi). Avoid salt, breads, potatoes, rice, pasta, desserts. ?2. If you choose shakes, each shake would be drunk slowly, like coffee in a period of 2 hours. ?3. If you choose bars, cut each bar in 4 pieces and eat each piece in 30min ?to make each bar last 2 hours. ?4. I emphasized the importance of measuring accurately the food portion and measure it when serving the food in plate ?5. The meal portions include a specific number of forks of meat and salad. You always eat the meat portion but you can replace up to half of salad/vegetables portion with rice, potatoes or pasta, or a fruit ?if you like. The less you do it the better weight loss will be. ?6. One full-size fork is what it can be scooped on the fork without falling aside and not what can be bit with the fork. Use regular forks like those you find in a typical restaurant. ?7.? Please buy the body composition scale we discussed and send me weight measurements as soon as possible and then once a week. Always include your diet and exercise plan. 8. The best choice would be to purchase a stationary bike, elliptical or treadmill at home that can track calories. Let me know if you do so I can give you an exercise plan. ?9. Goal is to lose at least 1.5-2lbs per week ?10. Goal to lose 10% of your weight before surgery, which is about 27lbs. Ultimate weight goal: 240lbs before surgery 11. Please follow the diet plan exactly without any change. If you don't like something about the plan or you feel hungry you need to communicate with me so I can help you revise the plan. You should not change the plan yourself.
[2024-10-25 13:28] VITALS: BMI 52.2
== END 2024-10-25 13:46 | disposition home or self-care (01) ==
LOC: HO.HBS 08:04
PROVIDERS: PCP Nurse Practitioner Family; Visit Provider Surgery
DX: E66.01 Morbid (severe) obesity due to excess calories (principal); Z68.42 Body mass index [BMI] 45.0-49.9, adult
CPT/HCPCS: 99204

== ENCOUNTER → 2024-10-25 08:04 | Outpatient (BNVA) | payer OTHER, SELFPAY | PROVIDERS: PCP Nurse Practitioner Family; Visit Provider Surgery ==

== ENCOUNTER 2024-11-01 14:01 | Outpatient (AMB) | payer OTHER, SELFPAY ==
--- NOTE | 2024-11-01 14:03 | A.OFFVIS_ITS ---
Intake Visit Reasons: 6w follow up Intake Note: Patient is present for 6W F/U Urology Medication:OXYBUTYNIN,VITAMIN B12 Antibiotic Allergy:DOXYCYLINE Blood Thinner:NONE Office Coordinator Receptionist Required: No Allergies fexofenadine [From Sofía-D] Allergy (Severe, Verified 11/01/24 14:05) Swelling milk Allergy (Severe, Verified 11/01/24 14:05) Anaphylaxis pseudoephedrine [From Sofía-D] Allergy (Severe, Verified 11/01/24 14:05) Swelling Beef Containing Products Allergy (Intermediate, Verified 11/01/24 14:05) Hives aranda Allergy (Intermediate, Verified 11/01/24 14:05) Hives egg Allergy (Intermediate, Verified 11/01/24 14:05) Hives lamotrigine Allergy (Intermediate, Verified 11/01/24 14:05) hives nut - unspecified Allergy (Intermediate, Verified 11/01/24 14:05) Hives doxycycline Adverse Reaction (Intermediate, Verified 11/01/24 14:05) projectile vomiting tiotropium [From Spiriva with HandiHaler] Adverse Reaction (Intermediate, Verified 11/01/24 14:05) Cough sulcralfate Adverse Reaction (Mild, Uncoded 11/01/24 14:05) hives HPI Comments Details: Poncho is a pleasant female. She is a patient of Dr. Low. She is seen for the following urologic conditions - urinary incontinence - background occult spina bifida - hydronephrosis left side Tolerating stent Upcoming appointment with Dr. 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 Prior study noted obstruction to the left renal collecting system is no longer demonstrated Urinary incontinence Aggravated by stent placement Using 4-5 pads per day Has been on 25 mg Myrbetriq which has been somewhat helpful Addition of oxybutynin not as useful Will trial Toviaz 8 mg PFSH Medical History (Updated 11/01/24 @ 16:11 by Danay Seay MD) Pseudotumor cerebri Eosinophilic esophagitis Colitis Anxiety AMAIRANI (obstructive sleep apnea) Fibromyalgia Bipolar disorder Migraine headache History of lumbar puncture Urinary frequency Urinary incontinence Cervicalgia Benign intracranial hypertension Essential hypertension Syncope Major depressive disorder Anemia Irregular menses Eczema Nasal polyps Morbid (severe) obesity due to excess calories Asthma, mild intermittent, well-controlled Surgical History (Updated 11/01/24 @ 11:27 by Danay Seay MD) History of esophagogastroduodenoscopy (EGD) H/O colonoscopy History of wisdom tooth extraction Family History Mother Asthma HTN (hypertension) Father Bipolar 1 disorder Diabetes Parkinson disease Maternal Grandmother S/P triple vessel bypass Mother Uterine cancer Other Mental health disorder Social History (Updated 11/01/24 @ 11:21 by Chas Dietrich) Household Members: Family Housing: House Are you a primary acute care nurse to a significant other at home: No Do you presently have visiting nurse or other home services: No Alcohol intake: current Alcohol intake frequency: holidays/special occasions only Patient Tobacco Use Status: Never used Tobacco e-Cigarette/Vaping Use: Never Used Second Hand Smoke Exposure: No Current occupational status: unemployed and student Current occupational exposures/hazards: No Gender identity: Female Cognitive needs: No Hearing needs: No Vision needs: No Review of Systems Const Denies chills and Denies fever(s) Card Reports no additional complaints and Denies syncope Resp Denies cough GI Denies abdominal pain and Denies heartburn Reports as per HPI and Denies change in libido Neuro Denies syncope Psych Denies change in libido Endo Denies change in libido Physical Exam Const General: cooperative, healthy appearing, comfortable and no acute distress Orientation/consciousness: patient oriented x3 HEENT Face and sinus: Yes normal facial exam Mouth: moist mucous membranes Neck Neck: Yes normal visual inspection, Yes full ROM and Yes trachea midline Chest Chest palpation & inspection: normal inspection of the chest Resp Effort & Inspection: normal respiratory effort, able to speak in complete sentences and no respiratory distress GI Inspection: Yes normal to inspection Back/Spine/Pelvis Cervical Spine: normal cervical lordosis Thoracic/Lumbar Spine: thoracic and lumbar spine normal to inspection Skin General skin exam: no rashes or lesions noted Neuro General: patient oriented x3, gait normal, tone normal and moves all extremities Extrem General: Yes normal to inspection and Yes capillary refill normal Results AMB Urinalysis, Automated UA Leukoctes 15 [place]/uL Last Edit by JOHAN Radford on 11/01/24 14:34 UA Nitrite Negative Last Edit by Socorro Montoya CCM on 11/01/24 14:34 UA Urobilinogen 0.2 mg/dL Last Edit by Socorro Montoya CCM on 11/01/24 14:3 4 UA Protein 0 mg/dL Last Edit by Socorro Montoya [facility] on 11/01/24 14:34 UA pH 6.0 Last Edit by Socorro Montoya [facility] on 11/01/24 14:34 UA Blood 0 [place]/uL Last Edit by Socorro Montoya CCM on 11/01/24 14:34 UA Specific [place] 1.010 Last Edit by Socorro Montoya [facility] on 11/01/24 14: 34 UA Ketone Negative Last Edit by Socorro Montoya CCM on 11/01/24 14:34 UA Bilirubin 0 mg/dL Last Edit by Socorro Montoya [facility] on 11/01/24 14:34 UA Glucose 0 mg/dL Last Edit by Socorro Montoya [facility] on 11/01/24 14:34 Results Reviewed Results Reviewed: Laboratory Last Values Urine pH (Auto) 6.0 11/01/24 14:33 Specific [place] (Auto) 1.010 11/01/24 14:33 Urine Protein (Auto) 0 mg/dL 11/01/24 14:33 Glucose (UA)(Auto) 0 mg/dL 11/01/24 14:33 Urine Ketones (Auto) Negative 11/01/24 14:33 Urine Blood (Auto) 0 [place]/uL 11/01/24 14:33 Urine Nitrite (Auto) Negative 11/01/24 14:33 Urine Bilirubin (Auto) 0 mg/dL 11/01/24 14:33 Urine Urobilinogen (Auto) 0.2 mg/dL 11/01/24 14:33 Leukocyte Esterase (Auto) 15 [place]/uL 11/01/24 14:33 Assessment & Plan Assessment & Plan (1) Urinary urgency: Code(s): R39.15 - Urgency of urination Category: Medical (2) Urinary incontinence, mixed: Code(s): N39.46 - Mixed incontinence Category: Medical (3) Occult spina bifida: Code(s): Q76.0 - Spina bifida occulta Category: Medical Plan Trial Toviaz Upcoming appointment Dr. Bernstein Orders: Orders AMB Urinalysis Automated Today Z13.9 - Encounter for screening, unspecified Medications: New diaper,brief,adult,disposable As directed 32 ea 3RF Q76.0 - Spina bifida occulta, R32 - Unspecified urinary incontinence fesoterodine ER (Toviaz) 8 mg PO DAILY 30 days 30 tabs 1RF R39.15 - Urgency of urination Patient Instructions: This note is constructed using voice recognition software. While every effort has been made to ensure accuracy companion errors may have been included. Imaging studies, laboratory and physical exam results were discussed and reviewed in detail. No major barriers to patient understanding were identified. An opportunity to ask questions regarding the treatment plan was provided. All questions were answered. The patient expressed understanding and agreement with the above treatment plan. The patient is aware they should contact our office by phone for worsening of their current condition or the appearance of new urologic symptoms. Compliance is encouraged with any medications and followup testing that is ordered. It is a privilege to participate in the urologic care of your patient. If you have any questions or concerns regarding treatment for the above conditions, or other urologic issues, please do not hesitate to contact me. The office telephone contact is [phone]. Sincerely, Dr Braden Scruggs MD, [facility] - Urology Compassionate Specialist Care for the Genitourinary System Coding Level of Care Code Est Pt Level 4 (70220) Diagnoses Urinary urgency R39.15 Urinary incontinence, mixed N39.46 Occult spina bifida Q76.0
== END 2024-11-01 15:12 | disposition home or self-care (01) ==
PROVIDERS: Visit Provider Urology
DX: R39.15 Urgency of urination (principal); Q76.0 Spina bifida occulta; Z13.9 Encounter for screening, unspecified
CPT/HCPCS: 99214

== ENCOUNTER → 2024-11-01 14:01 | Outpatient (BNVA) | payer OTHER, SELFPAY | PROVIDERS: Visit Provider Urology | DX: N39.46 Mixed incontinence (principal); Q76.0 Spina bifida occulta; R39.15 Urgency of urination | CPT/HCPCS: 81003; 99212 ==

== ENCOUNTER 2024-11-25 10:43 | Outpatient (AMB) | payer OTHER, SELFPAY ==
--- NOTE | 2024-11-25 10:36 | A.OFFPC_ITS ---
Intake Visit Reasons: Review labs Intake Note: patient here for telehealth for lab review Manager Exchange Required: No Is last menstrual period known: No (depo) Post menopausal: No Patient : No Allergies fexofenadine [From Sofía-D] Allergy (Severe, Verified 11/25/24 10:40) Swelling milk Allergy (Severe, Verified 11/25/24 10:40) Anaphylaxis pseudoephedrine [From Sofía-D] Allergy (Severe, Verified 11/25/24 10:40) Swelling Beef Containing Products Allergy (Intermediate, Verified 11/25/24 10:40) Hives aranda Allergy (Intermediate, Verified 11/25/24 10:40) Hives egg Allergy (Intermediate, Verified 11/25/24 10:40) Hives lamotrigine Allergy (Intermediate, Verified 11/25/24 10:40) hives nut - unspecified Allergy (Intermediate, Verified 11/25/24 10:40) Hives doxycycline Adverse Reaction (Intermediate, Verified 11/25/24 10:40) projectile vomiting tiotropium [From Spiriva with HandiHaler] Adverse Reaction (Intermediate, Verified 11/25/24 10:40) Cough sulcralfate Adverse Reaction (Mild, Uncoded 11/01/24 14:05) hives Tobacco use date assessed: 11/25/24 Dental Screening Dental Screen Date: 11/25/24 Did you have a dental visit in the last 12 months?: Yes Did you have a dental problem in the last 6 months where you did not have access to dental care?: No Was dental information given to patient?: Patient has dentist HPI HPI Comments History of Present Illness Details 24-year-old female presents for [facility] visit for review of recent lab results. She admits to taking her medications as prescribed without adverse reactions. However, she is unsure whether she picked up vitamin D3 that was prescribed in 09/24/2024. She offers no complaints and denies acute symptoms at this time. [facility] Medical History (Updated 11/25/24 @ 11:07 by Ayse Orta CNP) Pseudotumor cerebri Eosinophilic esophagitis Colitis Anxiety AMAIRANI (obstructive sleep apnea) Fibromyalgia Bipolar disorder Migraine headache History of lumbar puncture Urinary frequency Urinary incontinence Cervicalgia Benign intracranial hypertension Essential hypertension Syncope Major depressive disorder Anemia Irregular menses Eczema Nasal polyps Morbid (severe) obesity due to excess calories Asthma, mild intermittent, well-controlled Surgical History (Updated 11/01/24 @ 11:27 by Danay Seay MD) History of esophagogastroduodenoscopy (EGD) H/O colonoscopy History of wisdom tooth extraction Family History Mother Asthma HTN (hypertension) Father Bipolar 1 disorder Diabetes Parkinson disease Maternal Grandmother S/P triple vessel bypass Mother Uterine cancer Other Mental health disorder Social History (Updated 11/01/24 @ 11:21 by Chas Dietrich) Household Members: Family Housing: House Are you a primary intensive care specialist to a significant other at home: No Do you presently have visiting nurse or other home services: No Alcohol intake: current Alcohol intake frequency: holidays/special occasions only Patient Tobacco Use Status: Never used Tobacco e-Cigarette/Vaping Use: Never Used Second Hand Smoke Exposure: No Patient : No Current occupational status: unemployed and student Current occupational exposures/hazards: No Gender identity: Female Cognitive needs: No Hearing needs: No Vision needs: No Questionnaire Thrive Questionnaire Date Thrive assessed: 08/16/24 CLAIRE-7 AMB Questionnaire CLAIRE-7 Date CLAIRE - 7 assessed: 09/24/24 Source: Developed by Drs. Christofer Ba, Kaylah Dickerson, Marbin Macario and colleagues, with an educational vern from the grafter. Review of Systems Const Details: Const Denies chills, Denies fatigue, Denies fever(s), Denies headache(s) and Denies weakness ENT Denies dizziness and Denies headache(s) Card Denies chest pain, Denies lightheadedness, Denies dyspnea and Denies other (Palpitations) Resp Denies cough, Denies dyspnea, Denies wheezing and Denies other ( shortness of breath) Physical exam (Primary Care) Tobacco/Smoking Status: Tobacco use Status Tobacco use date assessed 11/25/24 11/25/24 10:42 Patient Tobacco Use Status Never used Tobacco 11/25/24 10:36 e-Cigarette/Vaping Use Never Used 11/25/24 10:36 Thrive Assessment: Date of Thrive Assessment Date Thrive assessed 08/16/24 11/25/24 10:36 Const Other: Telehealth visit. No physical exam. Telehealth Telehealth Telehealth Platform: Telephone Location of provider rendering services: practice address Location of patient: address on file Patient Identification confirmed using: Name, : Yes Telehealth method: voice only Patient verbally consented to treatment: Yes Patient verbally consented to billing insurance company: Yes Patient informed of any privacy concerns related to visit: Yes Coding Level of Care Code Tele Est Pt Level 3 (45286) Diagnoses Anemia D64.9 Vitamin D deficiency E55.9 Leukocytosis D72.829 Elevated AST (SGOT) R74.01 Time Spent (min) 25 Assessment & Plan Assessment & Plan (1) Anemia: Code(s): D64.9 - Anemia, unspecified Category: Medical Plan: Recent RBC and H&H are slightly low, 3.40 and 10.4/31.0 respectively. She has history of chronic normocystic anemia. She is on p.o. vitamin B12 and folic acid. Continue current treatment regimen per Hematology/Oncology. Continue to follow-up with Hematology/oncology as planned. Encouraged to schedule her next physical exam on or after 09/24/2025. Return with symptoms or concerns. Verbalized understanding and agreed with treatment plan. (2) Vitamin D deficiency: Code(s): E55.9 - Vitamin D deficiency, unspecified Category: Medical Plan: Vitamin-D level in 09/24/2024 was significantly low, 9.9. She was subsequently prescribed vitamin D3 1250 mcg weekly. However, she is unsure whether she picked up the medication from the pharmacy. Pharmacy was contacted and noted that the patient's health plan required 90 day supply of or vitamin D3 and therefore the medication was not filled when it was ordered. After discussion with the pharmacy that the medication is required for only 2 months, they were able to fill the medication for 28 days. A new order has been sent for vitamin D3 1250 mcg weekly for 28 days. Patient advised to take the medication weekly, same day, for 8 weeks Encouraged to perform vitamin D3 blood work after 8 weeks. Will review results and make changes as needed. May decrease vitamin D3 ordered to 25 mg or 50 mcg daily. Verbalized understanding and agreed with the plan. (3) Leukocytosis: Code(s): D72.829 - Elevated white blood cell count, unspecified Category: Medical Plan: Recent WBC level is slightly low, 11.5. She has history of leukocytosis. She is followed by Hematology/Oncology and i advised continued follow-up. (4) Elevated AST (SGOT): Code(s): R74.01 - Elevation of levels of liver transaminase levels Category: Medical Plan: Recent AST level is slightly elevated, 37. Fatty liver deposits is possible. Healthy diet, including low-fat and routine exercise encouraged. Will monitor liver enzymes periodically or if symptomatic. Verbalized understanding and agreed with the plan. Orders: Orders Vitamin D 25-OH Total Today E55.9 - Vitamin D deficiency, unspecified Medications: Changed From cholecalciferol (vitamin D3) 1,250 mcg PO QWEEK 8 weeks 8 tabs 0RF To cholecalciferol (vitamin D3) 1,250 mcg PO QWEEK 28 days 4 tabs 0RF
== END 2024-11-25 17:05 | disposition home or self-care (01) ==
LOC: HO.HMCFM 10:43
PROVIDERS: PCP Nurse Practitioner Family; Visit Provider Nurse Practitioner Family
DX: D64.9 Anemia, unspecified (principal); E55.9 Vitamin D deficiency, unspecified; D72.829 Elevated white blood cell count, unspecified; R74.01 Elevation of levels of liver transaminase levels

== ENCOUNTER → 2024-11-25 10:43 | Outpatient (BNVA) | payer OTHER, SELFPAY | PROVIDERS: PCP Nurse Practitioner Family; Visit Provider Nurse Practitioner Family ==

== ENCOUNTER 2024-12-03 11:55 | Outpatient (AMB) | payer OTHER, SELFPAY ==
--- NOTE | 2024-12-03 11:55 | MHC.PC.OV ---
Vital Signs 12/03/24 12:01 Height 5 ft Weight 264 lb BMI 51.6 BP 134/71 Blood Pressure Location Rt brachial Position Sitting Respiration 16 Pulse 90 Pulse Source Pulse Oximeter Temp 97.6 F Temp Source Oral Pulse Oximetry (%) 99 Oxygen Delivery Method Room Air Intake Visit Reasons: pain her ear Intake Note: patient here c/o waves of pain in left ear for about 2 weeks Valuation Consultant Required: No Is last menstrual period known: Yes Last menstrual period: 11/26/24 Post menopausal: No Patient : No Allergies fexofenadine [From Sofía-D] Allergy (Severe, Verified 12/03/24 12:05) Swelling milk Allergy (Severe, Verified 12/03/24 12:05) Anaphylaxis pseudoephedrine [From Sofía-D] Allergy (Severe, Verified 12/03/24 12:05) Swelling Beef Containing Products Allergy (Intermediate, Verified 12/03/24 12:05) Hives aranda Allergy (Intermediate, Verified 12/03/24 12:05) Hives egg Allergy (Intermediate, Verified 12/03/24 12:05) Hives lamotrigine Allergy (Intermediate, Verified 12/03/24 12:05) hives nut - unspecified Allergy (Intermediate, Verified 12/03/24 12:05) Hives doxycycline Adverse Reaction (Intermediate, Verified 12/03/24 12:05) projectile vomiting tiotropium [From Spiriva with HandiHaler] Adverse Reaction (Intermediate, Verified 12/03/24 12:05) Cough sulcralfate Adverse Reaction (Mild, Uncoded 12/03/24 12:05) hives Medication List - Last Reconciled 12/03/24 by Ayse Orta CNP albuterol sulfate 2.5 mg (3 mL) inhalation Q4H PRN 30 days azithromycin 500 mg PO DAILY 5 days blood pressure kit-extra large As directed pzqlgvltsw-nfaivjxw-guwccphhqd 160-9-4.8 mcg/actuation (Breztri Aerosphere) 2 inhalations inhalation BID qkvpbvdfji-bpdpieabcrcrx-ivsq 50-325-40 mg 1 tab PO Q6H PRN cholecalciferol (vitamin D3) 1,250 mcg PO QWEEK 28 days compress.stocking,knee,reg,med [id number] cyanocobalamin (vitamin B-12) (Vitamin B-12) 1,000 mcg PO DAILY Dexilant (dexlansoprazole) 60 mg PO DAILY 30 days NS diaper,brief,adult,disposable As directed 4 times daily dupilumab (Dupixent) 300 mg (2 mL) subcut Q2W epinephrine (EpiPen) 0.3 mg (0.3 mL) IM Q10M PRN fesoterodine ER (Toviaz) 8 mg PO DAILY 30 days folic acid 1 mg PO DAILY furosemide (Lasix) 20 mg PO DAILY 6 days opcgya-jvyurmxn-ntqtvwq 36,000-114,000- 180,000 unit (Creon) 2 caps PO BID lorazepam 0.5 mg PO DAILY lumateperone (Caplyta) 42 mg PO QPM magnesium oxide 400 mg PO .qhs metoclopramide HCl (Reglan) 5 mg PO QIDACHS nebulizers As directed propranolol 60 mg PO DAILY sertraline 50 mg PO DAILY trazodone 100 mg PO BEDTIME Tobacco use date assessed: 12/03/24 Dental Screening Dental Screen Date: 12/03/24 Did you have a dental visit in the last 12 months?: Yes Did you have a dental problem in the last 6 months where you did not have access to dental care?: No Was dental information given to patient?: Patient has dentist HPI HPI Comments History of Present Illness Details 24-year-old female presents with complaints of intermittent left ear pain for the past 2 weeks. She admits to cleaning her ears with Q-tips. She denies any other symptoms at this time. [facility] Medical History (Updated 12/03/24 @ 12:18 by Ayse Orta CNP) Pseudotumor cerebri Eosinophilic esophagitis Colitis Anxiety AMAIRANI (obstructive sleep apnea) Fibromyalgia Bipolar disorder Migraine headache History of lumbar puncture Urinary frequency Urinary incontinence Cervicalgia Benign intracranial hypertension Essential hypertension Syncope Major depressive disorder Anemia Irregular menses Eczema Nasal polyps Morbid (severe) obesity due to excess calories Asthma, mild intermittent, well-controlled Surgical History (Updated 11/01/24 @ 11:27 by Danay Seay MD) History of esophagogastroduodenoscopy (EGD) H/O colonoscopy History of wisdom tooth extraction Family History Mother Asthma HTN (hypertension) Father Bipolar 1 disorder Diabetes Parkinson disease Maternal Grandmother S/P triple vessel bypass Mother Uterine cancer Other Mental health disorder Social History (Updated 11/01/24 @ 11:21 by Chas Dietrich) Household Members: Family Housing: House Are you a primary director of healthcare systems to a significant other at home: No Do you presently have visiting nurse or other home services: No Alcohol intake: current Alcohol intake frequency: holidays/special occasions only Patient Tobacco Use Status: Never used Tobacco e-Cigarette/Vaping Use: Never Used Second Hand Smoke Exposure: No Current occupational status: unemployed and student Current occupational exposures/hazards: No Gender identity: Female Cognitive needs: No Hearing needs: No Vision needs: No Female Reproductive History Menstrual Date of last menstrual period: 11/26/24 Questionnaire Thrive Questionnaire Date Thrive assessed: 08/16/24 CLAIRE-7 AMB Questionnaire CLAIRE-7 Date CLAIRE - 7 assessed: 09/24/24 Source: Developed by Drs. Christofer Ba, Kaylah Dickerson, Marbin Macario and colleagues, with an educational vern from [employer]. Review of Systems Const Details: Const Denies chills, Denies fatigue, Denies fever(s), Denies headache(s) and Denies weakness ENT Reports as per HPI Card Denies chest pain, Denies lightheadedness, Denies dyspnea and Denies other (Palpitations) Resp Denies cough, Denies dyspnea, Denies wheezing and Denies other ( shortness of breath) GI Denies abdominal pain, Denies melena, Denies hematochezia, Denies change in bowel habits, Denies dyspepsia and Denies nausea Denies hematuria and Denies dysuria Musc Denies abnormal gait, Denies myalgias, Denies arthralgias, Denies numbness and Denies tingling Skin/Breast Denies rash, Denies unusual bruising and Denies wounds Neuro Denies abnormal gait, Denies dizziness, Denies headache(s), Denies memory loss, Denies numbness, Denies Sensory deficit (Neuro), Denies tingling and Denies weakness Psych Denies anxiety, Denies depression, Denies memory loss Endo Denies cold intolerance, Denies fatigue, Denies heat intolerance, Denies polydipsia and Denies polyuria Aller/Immun Denies wheezing Physical exam (Primary Care) Tobacco/Smoking Status: Tobacco use Status Tobacco use date assessed 11/25/24 12/03/24 11:57 Patient Tobacco Use Status Never used Tobacco 12/03/24 11:57 e-Cigarette/Vaping Use Never Used 12/03/24 11:57 Thrive Assessment: Date of Thrive Assessment Date Thrive assessed 08/16/24 12/03/24 11:57 Const Other: General: no acute distress and well developed Nutritional Appearance: well nourished Orientation/consciousness: patient oriented x3 HENMT Head is normocephalic Bilateral ear canal and TM are normal. Small hematoma to the left ear canal; no overt infection or active injury Nasal turbinates and oropharynx are pink and moist Sinuses are nontender with palpation No auricular or cervical lymphadenopathy Eyes General: appearance normal, both eyes and all related structures Pupils: Equal, round and reactive pupils present EOM: EOMs intact bilaterally Resp Effort & Inspection: normal respiratory effort Auscultation: clear to auscultation bilaterally Cardio Rate: regular rate Rhythm: regular rhythm Heart sounds: S1 normal heart sound present, S2 normal heart sound present, no gallops, no murmurs and no rubs GI Palpation (GI): No Abdominal aortic bruit present, Soft to palpation, nontender, No hepatosplenomegaly present and No Rebound tenderness present Auscultation: normal bowel sounds General: Yes no CVA tenderness Back/Spine/Pelvis Back: no CVA tenderness Cervical Spine: cervical ROM normal and No Cervical spine tenderness Thoracic/Lumbar Spine: thoraco-lumbar ROM normal, No pain with thoraco-lumbar ROM, No thoracic spinal tenderness and No lumbar spinal tenderness Extrem General: Yes normal to inspection, No edema and No calf tenderness Skin General: warm and dry. Normal skin color. Normal skin turgor Neuro General: patient oriented x3, gait normal and no focal neuro deficit Cranial nerves: Yes Equal, round and reactive pupils present Cognition (Neuro): normal cognition Gait exam (Neuro): Normal gait present Sensory Exam: No Sensory deficit (Neuro) Psych Appearance: grossly normal Affect: normal affect Attitude: cooperative Thought process: Normal thought process present Coding Level of Care Code Est Pt Level 3 (13780) Diagnoses Left ear pain H92.02 Assessment & Plan Assessment & Plan (1) Left ear pain: Code(s): H92.02 - Otalgia, left ear Category: Medical Plan: Intermittent left ear pain x2 weeks. Small hematoma to the left ear canal, likely from cleaning the ear with Q-tip. No overt infection or active injury. Advised to avoid cleaning ears with a Q-tip to prevent injury/trauma. May take Tylenol ibuprofen as needed for pain or discomfort. Follow-up with worsening or new symptoms. Verbalized understanding and agreed with the plan.
[2024-12-03 12:01] VITALS: BP 134/71; PULSE 90; RESP 16; TEMP 36.4; O2SAT 99; BMI 51.6
--- OUTSIDE RECORDS SUMMARY | 2024-12-03 15:04 | XMS_ITS | Encounter Summary ---
Author Organization [facility] Address [address] [place] [address] Care Team Providers Care Polisher Brass Name Role Phone Patient, Has No Pcp Or Ref Primary Care Provider Unavailable Reason for Visit * Reason Comments New Patient * Urology (Routine) - Authorized Specialty Diagnoses / Procedures Referred By Contac t Referred To Contact Urology Diagnoses Crossing vessel and stricture of ureter without hydronephrosis Braden Scruggs MD [address] [place] [id number] Phone: tel: fax: Vivienne Bernstein MD [address] [place] [address] Phone: tel: fax: Referral ID Status Reason Start Date Expiration Date V isits Requested Visits Authorized [id number] Authorized 09/23/2024 03/25/2026 6 6 Encounter Details Date Type Department Care Team (Late st Contact Info) Description 11/29/2024 2:00 PM EST Office Visit [facility] [address] [place] [address] Medical Physicist: Anabell Britton MD [address] [place] [id number] UPJ obstruction, congenital (Primary Dx) Social History Tobacco Use Types Packs/Day Years Used Date Smoking Tobacco: Never Assessed Comments Unknown Sex and Gender Information Value Date Recorded Sex Assigned at Female 11/29/2024 1:55 PM EST Legal Sex Female 10:56 AM EST Gender Identity Not on file Sexual Orientation Not on file documented as of this encounter Last Filed Vital Signs Vital Sign Reading Time Taken Comments Blood Pressure 138/90 11/29/2024 2:17 PM EST Pulse 105 11/29/2024 2:17 PM EST Temperature - - Respiratory Rate - - Oxygen Saturation - - Inhaled Oxygen Concentration - - Weight - - Height - - Body Mass Index - - documented in this encounter Progress Notes * Anabell Davalos MD - 11/29/2024 2:00 PM EST Images from the original note were not included. CLINIC NOTE NEW PATIENT VISIT CC: Nocturnal enuresis, possible left UPJ obstruction HPI: 24-year-old female with nocturnal enuresis for the past 5 years that has been significantly worsening. She also has daytime urgency. On cross-sectional imaging done to assess her bladder, left hydronephrosis was found.On 07/29/2024 patient underwent left ureteroscopy with stent placement with Dr. Scruggs. Retrograde at this time demonstrated hydronephrosis with probable UPJ and UPJ folds consistent with probable crossing vessel. . A stent was placed at this time. Renogram from 08/22/2024 demonstrates a function of 61.4% on the left and 38.6% on the right. No evidence of high-grade obstruction. Of note, renogram was performed with a stent in place. Patient is tolerating the stent very poorly. She has worsening irritation with LUTS and frequency. Patient has AMAIRANI but is not compliant with CPAP use. Patient's mother reports that patient has a history of occult spina bifida. PMH: No past medical history on file. PSH: No past surgical history on file. CURRENT MEDS: Current Outpatient Medications on File Prior to Visit Medication Sig Dispense Refill Airsupra 90-80 mcg/actuation HFA aerosol inhaler SMARTSI Puff(s) By Mouth Twice Daily PRN brimonidine (ALPHAGAN) 0.2% ophthalmic solution Instill 1 drop into both eyes 2 times a day. Caplyta 42 mg capsule Take 42 mg by mouth once a day. cholecalciferol (VITAMIN D3) 1,250 mcg (50,000 unit) capsule Take 50,000 Units by mouth once a week. Creon 36,000-114,000- 180,000 unit capsule Take 36,000 units of lipase by mouth 2 times a day. cyanocobalamin 1,000 mcg tablet Take 1,000 mcg by mouth once a day. Dexilant 60 mg capsule Take 60 mg by mouth once a day. Dupixent Syringe 300 mg/2 mL syringe injection Inject 300 mg under the skin over 168 hr. EPINEPHrine (EPIPEN) 0.3 mg/0.3 mL injection syringe Inject 0.3 mg into the outer thigh muscle as directed as needed. fesoterodine 8 mg tablet extended release 24 hr Take 8 mg by mouth daily. folic acid (FOLVITE) 1 mg tablet Take 1 mg by mouth once a day. LORazepam (ATIVAN) 0.5 mg tablet Take 0.5 mg by mouth daily as needed. magnesium oxide 400 mg magnesium tablet Take 400 mg by mouth every night. metoclopramide (REGLAN) 5 mg tablet Take 5 mg by mouth 4 times a day. propranolol LA (INDERAL LA) 60 mg capsule Take 60 mg by mouth daily as needed. sertraline (ZOLOFT) 100 mg tablet Take 100 mg by mouth once a day. traZODone (DESYREL) 100 mg tablet Take 100 mg by mouth nightly. No current facility-administered medications on file prior to visit. ALLERGIES: Milk, Doxycycline, Beef containing products, Alejo flavor, Egg, Fexofenadine- pseudoephedrine, Fruit extracts, and Nut - unspecified FHX: No family history on file. SHX: Social History[1] ROS: General ROS: negative ENT ROS: negative Respiratory ROS: no cough, shortness of breath, or wheezing Cardiovascular ROS: no chest pain or dyspnea on exertion Gastrointestinal ROS: no abdominal pain Musculoskeletal ROS: negative Dermatological ROS: negative for - rash Genito-Urinary ROS: as per HPI All others negative PE: BP (!) 138/90 Pulse (!) 105 HEENT: head normocephalic, atraumatic Neck: supple Pulmonary: unlabored breathing Abdomen: deferred : deferred Rectal Exam: deferred Ext: no pedal edema noted Skin: normal, no rashes Neuro: alert, oriented DATA: CTAP 12/13/23 Renogram 04/02/24 \ ASSESSMENT/PLAN: Patient has to issues: 1. Possible UPJ obstruction. I do not have any prior imaging to review. Based on reports and notes from prior urologist, this is a very soft diagnosis and certainly not convincing enough to warrant reconstructive surgery. In addition, the patient currently has a stent in place which would preclude her from receiving any reconstructive surgery. I recommend first removing the stent to minimize patient's irritative symptoms and follow-up with an ultrasound 1 month after stent removal. If she continues to have hydronephrosis, I would repeat the renogram with stent removed. Renogram should never be performed with a stent in place if you are looking for obstruction. 2. Bladder symptoms. Mother reports the patient has occult spina bifida . Even though patient is primarily bothered by her nighttime symptoms, she does also endorse significant daytime symptoms. I recommend that the first step will be removing the stent as that is likely masking many of her irritative symptoms. I also recommended that she continue her AMAIRANI care as this may significantly improve her nocturnal symptoms. After stent removal, I will have her follow-up with my colleague Dr. Conde who is a specialist in female urology neurogenic bladder. Anabell Davalos MD Reconstructive Urology [1] Social History Socioeconomic History Marital status: Unknown Spouse name: Not on file Number of children: Not on file Years of education: Not on file Highest education level: Not on file Occupational History Not on file Tobacco Use Smoking status: Not on file Smokeless tobacco: Not on file Substance and Sexual Activity Alcohol use: Not on file Drug use: Not on file Sexual activity: Not on file Other Topics Concern Not on file Social History Narrative Not on file documented in this encounter Plan of Treatment Upcoming Encounters Date Type Department Care Team (Late st Contact Info) Description 12/27/2024 2:15 PM EDT Follow-Up [facility] [address] [place] [id number] Medical Physicist: Anabell Britton MD [address] [place] [phone] 03/20/2025 2:30 PM EDT Office Visit [facility] [address] [place] [phone] Medical Physicist: Ramona Montelongo MD [address] [place] [phone] documented as of this encounter Visit Diagnoses Diagnosis UPJ obstruction, congenital- Primary documented in this encounter Care Teams Polisher Brass Relationship Specialty Start Date End Date Patient, Has No Pcp Or Ref DO NOT EDIT THIS RECORD VIA PROVIDER ON THE FLY PCP - General Manufacturer'S Service Representative 09/23/24 documented as of this encounter
--- OUTSIDE RECORDS SUMMARY | 2024-12-03 15:04 | XMS_ITS | Referral Summary ---
Author Organization [facility] Address [address] [place] [address] Care Team Providers Care Newborn Photographer Name Role Phone Patient, Has No Pcp Or Ref Primary Care Provider Unavailable Encounters Date Type Department Care Team Description 11/29/2024 2:00 PM EST Office Visit [facility] [address] [place] [phone] Upholsterer Limousine And Hearse: Anabell Britton MD UPDanielle obstruction, congenital (Primary Dx) from Last 3 Months Allergies Active Allergy Reactions Criticality Noted Date Comments Beef Containing Products Rash 03/09/2016 Alejo Flavor Rash 03/09/2016 Doxycycline Nausea And Vomiting Medium 10/12/2022 Egg Unknown 03/09/2016 Fexofenadine-Pseudoephedrine Unknown 017 Stiff neck Fruit Extracts Unknown 03/09/2016 Milk Anaphylaxis High 03/09/2016 Nut - Unspecified Unknown 03/09/2016 Medications sertraline (ZOLOFT) 100 mg tablet Take 100 mg by mouth once a day. 10/14/2024 Active traZODone (DESYREL) 100 mg tablet Take 100 mg by mouth nightly. 06/27/2024 Active propranolol LA (INDERAL LA) 60 mg capsule Take 60 mg by mouth daily as needed. 01/31/2024 Active metoclopramide (REGLAN) 5 mg tablet Take 5 mg by mouth 4 times a day. 07/22/2024 Active magnesium oxide 400 mg magnesium tablet Take 400 mg by mouth every night. 02/10/2024 Active Airsupra 90-80 mcg/actuation HFA aerosol inhaler SMARTSI Puff(s) By Mouth Twice Daily PRN 10/21/2024 Active brimonidine (ALPHAGAN) 0.2% ophthalmic solution Instill 1 drop into both eyes 2 times a day. 11/05/2024 Active cholecalciferol (VITAMIN D3) 1,250 mcg (50,000 unit) capsule Take 50,000 Units by mouth once a week. 11/25/2024 Active cyanocobalamin 1,000 mcg tablet Take 1,000 mcg by mouth once a day. 11/01/2024 Active Dupixent Syringe 300 mg/2 mL syringe injection Inject 300 mg under the skin over 168 hr. 11/06/2024 Active Dexilant 60 mg capsule Take 60 mg by mouth once a day. 10/31/2024 Active Caplyta 42 mg capsule Take 42 mg by mouth once a day. 11/21/2024 Active LORazepam (ATIVAN) 0.5 mg tablet Take 0.5 mg by mouth daily as needed. 12/20/2023 Active Creon 36,000-114,000- 180,000 unit capsule Take 36,000 units of lipase by mouth 2 times a day. 05/28/2024 Active folic acid (FOLVITE) 1 mg tablet Take 1 mg by mouth once a day. 11/01/2024 Active fesoterodine 8 mg tablet extended release 24 hr Take 8 mg by mouth daily. 11/01/2024 Active EPINEPHrine (EPIPEN) 0.3 mg/0.3 mL injection syringe Inject 0.3 mg into the outer thigh muscle as directed as needed. 09/24/2024 Active Social History Tobacco Use Types Packs/Day Years Used Date Smoking Tobacco: Never Assessed Comments Unknown Sex and Gender Information Value Date Recorded Sex Assigned at Female 11/29/2024 1:55 PM EST Legal Sex Female 10:56 AM EST Gender Identity Not on file Sexual Orientation Not on file Last Filed Vital Signs Vital Sign Reading Time Taken Comments Blood Pressure 138/90 11/29/2024 2:17 PM EST Pulse 105 11/29/2024 2:17 PM EST Temperature - - Respiratory Rate - - Oxygen Saturation - - Inhaled Oxygen Concentration - - Weight - - Height - - Body Mass Index - - Plan of Treatment Upcoming Encounters Date Type Department Care Team (Late st Contact Info) Description 12/27/2024 2:15 PM EDT Follow-Up [facility] [address] [place] [address] Upholsterer [employer]ine [employer]se: Anabell Britton MD [address] [place] [phone] 03/20/2025 2:30 PM EDT Office Visit [facility] [address] [place] [phone] Upholsterer [employer]se: Ramona oMntelongo MD [address] [place] [phone] Insurance [employer] Care Teams Newborn Photographer Relationship Specialty Start Date End Date Patient, Has No Pcp Or Ref DO NOT EDIT THIS RECORD VIA PROVIDER ON THE FLY PCP - General Access Representative 09/23/24
--- OUTSIDE RECORDS SUMMARY | 2024-12-03 15:04 | XMS_ITS | Clinical Summary ---
Author Organization [facility] Address [address] [place] [address] Care Team Providers Care Insulation Technician Name Role Phone Patient, Has No Pcp Or Ref Primary Care Provider Unavailable Allergies Active Allergy Reactions Criticality Noted Date [...] muscle as directed as needed. 09/24/2024 Active Encounters Date Type Department Care Team Description 11/29/2024 2:00 PM EST Office Visit [facility] [address] [place] [phone] Legal Executive Assistant: Anabell Britton MD UPJ obstruction, congenital (Primary Dx) from Last 3 Months Social History Tobacco Use Types Packs/Day Years [...] Info) Description 12/27/2024 2:15 PM EDT Follow-Up [facility] [address] [address] Legal Executive Assistant: Anabell Britton MD [address] [place] [phone] 03/20/2025 2:30 PM EDT Office Visit [facility] [address] [place] [address] - [place] [address] Legal Executive Assistant: Ramona Montelongo MD [address] [place] [phone] Health Maintenance Due Date Last Done Comments HIV Screening 1998 Hepatitis C Screening 1998 Pap Smear 1998 Varicella Vaccines (1 of 2 - 13+ 2-dose series) 2011 HPV Vaccines (1 - 3-dose series) 2013 Hepatitis B Vaccines (1 of 3 - 19+ 3-dose series) 2017 Pneumococcal Vaccine: Pediat bartolo (0-5 Years) and At-Risk Patients (6-50 Years) (1 of 2 - PCV) 2017 DTaP,Tdap,and Td Vaccines (2 - Tdap) 06/07/201901/2019 COVID-19 Vaccine ( season) 2024 01/31/2022, 03/15/2021, 02/15/2021 Influenza Vaccine (#1) 2024 10/21/2021 Alcohol/Substance Use Screening 10/02/2024 Depression Screening and Follow-Up 10/02/2024 Social Drivers of Health Kary ual Screening 10/02/2024 RSV Vaccine (60+ years old a nd patients) (1 - 1-dose 75+ series) 2073 [place] [phone] Care Teams Insulation Technician Relationship Specialty Start Date End Date Patient, Has No Pcp Or Ref DO NOT EDIT THIS RECORD VIA PROVIDER ON THE FLY PCP - General Traffic Rate Computer 09/23/24
== END 2024-12-03 12:23 | disposition home or self-care (01) ==
LOC: HO.HMCFM 11:55
PROVIDERS: PCP Nurse Practitioner Family; Visit Provider Nurse Practitioner Family
DX: H92.02 Otalgia, left ear (principal)

== ENCOUNTER → 2024-12-03 11:55 | Outpatient (BNVA) | payer OTHER, SELFPAY | PROVIDERS: PCP Nurse Practitioner Family; Visit Provider Nurse Practitioner Family | DX: H92.02 Otalgia, left ear (principal) | CPT/HCPCS: 99212 ==

== ENCOUNTER 2024-12-04 09:10 | Outpatient (AMB) | payer OTHER, SELFPAY ==
[2024-12-04 09:14] VITALS: BMI 51.9
--- NOTE | 2024-12-04 09:14 | MHC.OFFVIS ---
Vital Signs 12/04/24 09:14 Height 5 ft Weight 266 lb BMI 51.9 Intake Visit Reasons: Head aches and spinal pressure Intake Note: Pt presents to the office today for Headaches and spinal pressure. Pt last seen in [address] Montez and since then pt had LP 05/29/23,EEG 05/02/23, and has seen weight management 10/25/24. Pt states she did not do PT. Allergies fexofenadine [From Sofía-D] Allergy (Severe, Verified 12/04/24 09:16) Swelling milk Allergy (Severe, Verified 12/04/24 09:16) Anaphylaxis pseudoephedrine [From Sofía-D] Allergy (Severe, Verified 12/04/24 09:16) Swelling Beef Containing Products Allergy (Intermediate, Verified 12/04/24 09:16) Hives aranda Allergy (Intermediate, Verified 12/04/24 09:16) Hives egg Allergy (Intermediate, Verified 12/04/24 09:16) Hives lamotrigine Allergy (Intermediate, Verified 12/04/24 09:16) hives nut - unspecified Allergy (Intermediate, Verified 12/04/24 09:16) Hives doxycycline Adverse Reaction (Intermediate, Verified 12/04/24 09:16) projectile vomiting tiotropium [From Spiriva with HandiHaler] Adverse Reaction (Intermediate, Verified 12/04/24 09:16) Cough sulcralfate Adverse Reaction (Mild, Uncoded 12/04/24 09:16) hives Medication List - Last Reconciled 12/04/24 by Giovanna Montez MD albuterol sulfate 2.5 mg (3 mL) inhalation Q4H PRN 30 days azithromycin 500 mg PO DAILY 5 days blood pressure kit-extra large As directed lunxusyeek-skgwwuwa-xpmwqupbcu 160-9-4.8 mcg/actuation (Breztri Aerosphere) 2 inhalations inhalation BID aujwqqxown-phhysbtwfbntt-asop 50-325-40 mg 1 tab PO Q6H PRN cholecalciferol (vitamin D3) 1,250 mcg PO QWEEK 28 days compress.stocking,knee,reg,med [id number] cyanocobalamin (vitamin B-12) (Vitamin B-12) 1,000 mcg PO DAILY Dexilant (dexlansoprazole) 60 mg PO DAILY 30 days NS diaper,brief,adult,disposable As directed 4 times daily dupilumab (Dupixent) 300 mg (2 mL) subcut Q2W epinephrine (EpiPen) 0.3 mg (0.3 mL) IM Q10M PRN fesoterodine ER (Toviaz) 8 mg PO DAILY 30 days folic acid 1 mg PO DAILY furosemide (Lasix) 20 mg PO DAILY 6 days fdrjui-ndnnfeom-jhenfat 36,000-114,000- 180,000 unit (Creon) 2 caps PO BID lorazepam 0.5 mg PO DAILY lumateperone (Caplyta) 42 mg PO QPM magnesium oxide 400 mg PO .qhs metoclopramide HCl (Reglan) 5 mg PO QIDACHS nebulizers As directed propranolol 60 mg PO DAILY sertraline 50 mg PO DAILY trazodone 100 mg PO BEDTIME HPI Comments Details: 24 y/o female patient presents for follow up of benign intracranial hypertension.she reports migraines every other day.she sees her occupational nurse monthly - was told her eye swollen ? Dr Ania Dunn she has not been on diamox since 2014. Pt reports she had a lumbar puncture done May,. Pt states that she has more frequent headache, she had 2-3 headache days per week, but now having daily headache. The headache accompanied by dizziness, photohobia and phonophobia. She feels really dizzy when she has headache, almost passing out when she stands up. She used Fioricet 4 times a week and ibuprofen, Tylenol between the Fioricet. [facility] Medical History Pseudotumor cerebri Eosinophilic esophagitis Colitis Anxiety AMAIRANI (obstructive sleep apnea) Fibromyalgia Bipolar disorder Migraine headache History of lumbar puncture Urinary frequency Urinary incontinence Cervicalgia Benign intracranial hypertension Essential hypertension Syncope Major depressive disorder Anemia Irregular menses Eczema Nasal polyps Morbid (severe) obesity due to excess calories Asthma, mild intermittent, well-controlled Surgical History History of esophagogastroduodenoscopy (EGD) H/O colonoscopy History of wisdom tooth extraction Family History Mother Asthma HTN (hypertension) Father Bipolar 1 disorder Diabetes Parkinson disease Maternal Grandmother S/P triple vessel bypass Mother Uterine cancer Other Mental health disorder Social History Household Members: Family Housing: House Are you a primary care clinician to a significant other at home: No Do you presently have visiting nurse or other home services: No Alcohol intake: current Alcohol intake frequency: holidays/special occasions only Patient Tobacco Use Status: Never used Tobacco e-Cigarette/Vaping Use: Never Used Second Hand Smoke Exposure: No Current occupational status: unemployed and student Current occupational exposures/hazards: No Gender identity: Female Cognitive needs: No Hearing needs: No Vision needs: No Physical Exam Vital Signs: BMI result Body Mass Index 51.9 Const General: cooperative and comfortable Nutritional Appearance: obese Orientation/consciousness: patient oriented x3 HEENT Head: Yes normal to inspection and Yes normocephalic Face and sinus: Yes normal facial exam Eyes Pupils: Equal, round and reactive pupils present Neuro General: patient oriented x3, gait normal, tone normal, moves all extremities and no focal motor deficits Cranial nerves: Yes Facial sensation intact/muscles of mastication intact, Yes Equal, round and reactive pupils present, Yes Bilaterally intact EOM present, Yes Nystagmus not present, Yes Normal facial strength present and Yes Midline tongue present Cognition (Neuro): normal cognition Gait exam (Neuro): Normal gait present Motor exam (neuro): 5/5 motor strength present throughout and Normal motor muscle tone present throughout Coordination: fnpcit-hs-yfwn test normal Assessment & Plan Assessment & Plan (1) Benign intracranial hypertension: Code(s): G93.2 - Benign intracranial hypertension Category: Medical (2) Migraine: Code(s): G43.909 - Migraine, unspecified, not intractable, without status migrainosus Category: Medical Qualifiers: Migraine type: chronic migraine (15 or more days per month) without aura Status migrainosus presence: without status migrainosus Intractability: not intractable Qualified Code(s): G43.709 - Chronic migraine without aura, not intractable, without status migrainosus Plan schedule lumbar puncture to check opening pressure Unable to start diamox due to aptients allergy to milk and beef products I will start topiramate Xr 50mg qd Sumatriptan 5 mg nasal spray as needed for migraine F/u ophthalmology Continue to take Magnesium 400mg qhs and Vit B 2 400mg qam. Continue CPAP f/u with Dr. Bae. Orders: Orders FL guided lumbar puncture LP Today G93.2 - Benign intracranial hypertension Medications: New sumatriptan 5 mg/actuation into each nostril once; if headache remains, may repeat total dose once after at least 2 hours 5 mg intranasal Q2-4H PRN 6 ea 6RF migraine headache bksvopysll-ikhjrkofcanwb-nvqj 50-325-40 mg 1 tab PO Q6H PRN 10 tabs 0RF headache topiramate XR 50 mg PO DAILY 30 ea 4RF Discontinued azithromycin Discontinued Reason: Doctor's Order 500 mg PO DAILY 5 days 5 tabs 0RF furosemide (Lasix) Discontinued Reason: Patient Refused 20 mg PO DAILY 6 days 6 tabs 0RF Coding Level of Care Code Est Pt Level 4 (28820) Complex EM visit Add On G2211 Diagnoses Benign intracranial hypertension G93.2 Chronic migraine without aura without status migrainosus, not intractable G43.709 Migraine type: chronic migraine (15 or more days per month) without aura Status migrainosus presence: without status migrainosus Intractability: not intractable
--- OUTSIDE RECORDS SUMMARY | 2024-12-04 10:05 | XMS_ITS | Referral Summary ---
Author Organization [facility] Address [address] [place] [address] Care Team Providers Care Roll Panner Name Role Phone Patient, Has No Pcp Or Ref Primary Care Provider Unavailable Encounters Date Type Department Care Team Description 11/29/2024 2:00 PM EST Office Visit [facility] [address] [place] [phone] Health And Wellness Director: Anabell Britton MD UPDanielle obstruction, congenital (Primary [...] Info) Description 12/27/2024 2:15 PM EDT Follow-Up [facility] [address] [place] [address] Health And Wellness Director: Anabell Britton MD [address] [place] [phone] 03/20/2025 2:30 PM EDT Office Visit [facility] [address] [place] [phone] Health And Wellness Director: Ramona Montelongo MD [address] [place] [phone] Insurance [employer] Care Teams Roll Panner Relationship Specialty Start Date End Date Patient, Has No Pcp Or Ref DO NOT EDIT THIS RECORD VIA PROVIDER ON THE FLY PCP - General Computer Architect 09/23/24
--- OUTSIDE RECORDS SUMMARY | 2024-12-04 10:05 | XMS_ITS | Encounter Summary ---
Author Organization [facility] Address [address] [place] [address] Care Team Providers Care Equipment Detailer Name Role Phone Patient, Has No Pcp Or Ref Primary Care Provider Unavailable Reason for Visit * Reason Comments New Patient * Urology (Routine) - Authorized Specialty Diagnoses / Procedures Referred By Contac t Referred To Contact Urology Diagnoses Crossing vessel and stricture of ureter without hydronephrosis Braden Scruggs MD [address] [place] [phone] Phone: tel: fax: Vivienne Bernstein MD [address] [place] [address] Phone: tel: fax: Referral ID Status Reason Start Date Expiration Date V isits Requested Visits Authorized [id number] Authorized 09/23/2024 03/25/2026 6 6 Encounter Details Date Type Department Care Team (Late st Contact Info) Description 11/29/2024 2:00 PM EST Office Visit [facility] [address] [place] [address] Machine Hand: Anabell Britton MD [address] [place] [phone] UPJ obstruction, congenital (Primary Dx) Social History [...] Info) Description 12/27/2024 2:15 PM EDT Follow-Up [facility] [address] [place] [phone] Machine Hand: Anabell Britton MD [address] [place] [phone] 03/20/2025 2:30 PM EDT Office Visit [facility] [address] [place] [id number] Machine Hand: Ramona Montelongo MD [address] [place] [phone] documented as of this encounter Visit Diagnoses Diagnosis UPJ obstruction, congenital- Primary documented in this encounter Care Teams Equipment Detailer Relationship Specialty Start Date End Date Patient, Has No Pcp Or Ref DO NOT EDIT THIS RECORD VIA PROVIDER ON THE FLY PCP - General Briquette Maker 09/23/24 documented as of this encounter
--- OUTSIDE RECORDS SUMMARY | 2024-12-04 10:05 | XMS_ITS | Clinical Summary ---
Author Organization [facility] Address [address] [place] [address] Care Team Providers Care Recovery Operator Name Role Phone Patient, Has No Pcp [...] Description 11/29/2024 2:00 PM EST Office Visit [facility] [address] [place] [phone] Visual Merchandising Assistant: Anabell Britton MD UPJ obstruction, congenital [...] Info) Description 12/27/2024 2:15 PM EDT Follow-Up [facility]rology [address] [address] Visual Merchandising Assistant: Anabell Britton MD [address] [place] [phone] 03/20/2025 2:30 PM EDT Office Visit [facility] [address] [place] [address] - [place] [address] Visual Merchandising Assistant: Ramona Montelongo MD [address] [place] [phone] Health Maintenance Due Date Last Done Comments [...] 1-dose 75+ series) 2073 Insurance [employer] [place] [address] Care Teams Recovery Operator Relationship Specialty Start Date End Date Patient, Has No Pcp Or Ref DO NOT EDIT THIS RECORD VIA PROVIDER ON THE FLY PCP - General Oil And Gas Exploration Technician 09/23/24
== END 2024-12-04 09:48 | disposition home or self-care (01) ==
PROVIDERS: PCP Nurse Practitioner Family; Visit Provider Psychiatry & Neurology Neurology
DX: G93.2 Benign intracranial hypertension (principal); G43.709 Chronic migraine without aura, not intractable, without status migrainosus
CPT/HCPCS: 99214; G2211

== ENCOUNTER → 2024-12-04 09:10 | Outpatient (BNVA) | payer OTHER, SELFPAY | PROVIDERS: PCP Nurse Practitioner Family; Visit Provider Psychiatry & Neurology Neurology | DX: G93.2 Benign intracranial hypertension (principal); G43.709 Chronic migraine without aura, not intractable, without status migrainosus | CPT/HCPCS: 99212 ==

== ENCOUNTER → 2024-12-16 13:54 | Outpatient (REF) | payer OTHER, SELFPAY | LOC: HO.SL 13:54 | PROVIDERS: PCP Nurse Practitioner Family; Visit Provider Hospitalist | DX: G47.33 Obstructive sleep apnea (adult) (pediatric) (principal) | CPT/HCPCS: 95806 ==

== ENCOUNTER → 2024-12-17 14:15 | Outpatient (BNV) | payer OTHER, SELFPAY | PROVIDERS: PCP Nurse Practitioner Family; Visit Provider Internal Medicine | DX: R06.83 Snoring (principal); G47.10 Hypersomnia, unspecified | CPT/HCPCS: 95806 ==

== ENCOUNTER 2024-12-20 15:00 | Outpatient (AMB) | payer OTHER, SELFPAY ==
--- NOTE | 2024-12-20 15:00 | A.OFFVIS_ITS ---
Intake Visit Reasons: 6 week follow up Intake Note: Patient is present for 6W F/U Urology Medication:V ITAMIN B12,FEOSTERODINE Antibiotic Allergy:DOXYCYCLINE Blood Thinner:NONE Bow Maker Production Required: No Allergies fexofenadine [From Sofía-D] Allergy (Severe, Verified 01/29/25 10:11) Swelling milk Allergy (Severe, Verified 01/29/25 10:11) Anaphylaxis pseudoephedrine [From Sofía-D] Allergy (Severe, Verified 01/29/25 10:11) Swelling Beef Containing Products Allergy (Intermediate, Verified 01/29/25 10:11) Hives aranda Allergy (Intermediate, Verified 01/29/25 10:11) Hives egg Allergy (Intermediate, Verified 01/29/25 10:11) Hives lamotrigine Allergy (Intermediate, Verified 01/29/25 10:11) hives nut - unspecified Allergy (Intermediate, Verified 01/29/25 10:11) Hives doxycycline Adverse Reaction (Intermediate, Verified 01/29/25 10:11) projectile vomiting tiotropium [From Spiriva with HandiHaler] Adverse Reaction (Intermediate, Verified 01/29/25 10:11) Cough sulcralfate Adverse Reaction (Mild, Uncoded 01/29/25 10:11) hives HPI Comments Details: Poncho is a pleasant female. She is a patient of Dr. Low. She is seen for the following urologic conditions - urinary incontinence - background occult spina bifida - hydronephrosis left side Tolerating stent Upcoming appointment with Dr. 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 Prior study noted obstruction to the left renal collecting system is no longer demonstrated Urinary incontinence Aggravated by stent placement Using 4-5 pads per day Has been on 25 mg Myrbetriq which has been somewhat helpful Addition of oxybutynin not as useful Will trial Toviaz 8 mg PFSH Medical History (Updated 01/21/25 @ 16:12 by Lennox Bae MD) Syncope Palpitations Food allergy History of colitis Chronic diarrhea of unknown origin Urinary urgency Morbid obesity with BMI of 45.0-49.9, adult Hydronephrosis Iron deficiency anemia Gallstones Abdominal pain Diarrhea Pleurisy Leukocytosis Elevated AST (SGOT) Left ear pain Pseudotumor cerebri Eosinophilic esophagitis Colitis Anxiety AMAIRANI (obstructive sleep apnea) Fibromyalgia Bipolar disorder Migraine headache History of lumbar puncture Urinary frequency Urinary incontinence Cervicalgia Benign intracranial hypertension Essential hypertension Major depressive disorder Anemia Irregular menses Eczema Nasal polyps Morbid (severe) obesity due to excess calories Asthma, mild intermittent, well-controlled Surgical History History of esophagogastroduodenoscopy (EGD) H/O colonoscopy History of wisdom tooth extraction Family History Mother Asthma HTN (hypertension) Father Bipolar 1 disorder Diabetes Parkinson disease Maternal Grandmother S/P triple vessel bypass Mother Uterine cancer Other Mental health disorder Social History Household Members: Family Housing: House Are you a primary care program resident to a significant other at home: No Do you presently have visiting nurse or other home services: No Alcohol intake: current Alcohol intake frequency: holidays/special occasions only Patient Tobacco Use Status: Never used Tobacco e-Cigarette/Vaping Use: Never Used Second Hand Smoke Exposure: No Current occupational status: unemployed and student Current occupational exposures/hazards: No Gender identity: Female Cognitive needs: No Hearing needs: No Vision needs: No Review of Systems Const Denies chills and Denies fever(s) Card Reports no additional complaints and Denies syncope Resp Denies cough GI Denies abdominal pain and Denies heartburn Reports as per HPI and Denies change in libido Neuro Denies syncope Psych Denies change in libido Endo Denies change in libido Physical Exam Const General: cooperative, healthy appearing, comfortable and no acute distress Orientation/consciousness: patient oriented x3 HEENT Face and sinus: Yes normal facial exam Mouth: moist mucous membranes Neck Neck: Yes normal visual inspection, Yes full ROM and Yes trachea midline Chest Chest palpation & inspection: normal inspection of the chest Resp Effort & Inspection: normal respiratory effort, able to speak in complete sentences and no respiratory distress GI Inspection: Yes normal to inspection Back/Spine/Pelvis Cervical Spine: normal cervical lordosis Thoracic/Lumbar Spine: thoracic and lumbar spine normal to inspection Skin General skin exam: no rashes or lesions noted Neuro General: patient oriented x3, gait normal, tone normal and moves all extremities Extrem General: Yes normal to inspection and Yes capillary refill normal Assessment & Plan Assessment & Plan (1) Ureteropelvic junction (UPJ) obstruction: Code(s): N13.5 - Crossing vessel and stricture of ureter without hydronephrosis Category: Medical (2) Urinary incontinence, mixed: Code(s): N39.46 - Mixed incontinence Category: Medical Plan Upcoming UPJ surgery Patient Instructions: This note is constructed using voice recognition software. While every effort has been made to ensure accuracy material yard clerk errors may have been included. Imaging studies, laboratory and physical exam results were discussed and reviewed in detail. No major barriers to patient understanding were identified. An opportunity to ask questions regarding the treatment plan was provided. All questions were answered. The patient expressed understanding and agreement with the above treatment plan. The patient is aware they should contact our office by phone for worsening of their current condition or the appearance of new urologic symptoms. Compliance is encouraged with any medications and followup testing that is ordered. It is a privilege to participate in the urologic care of your patient. If you have any questions or concerns regarding treatment for the above conditions, or other urologic issues, please do not hesitate to contact me. The office telephone contact is [phone]. Sincerely, Dr Braden Scruggs MD, [facility] - Urology Compassionate Specialist Care for the Genitourinary System Coding Level of Care Code Est Pt Level 3 (12507) Diagnoses Ureteropelvic junction (UPJ) obstruction N13.5 Urinary incontinence, mixed N39.46
== END 2024-12-20 15:32 | disposition home or self-care (01) ==
PROVIDERS: PCP Nurse Practitioner Family; Visit Provider Urology
DX: N13.5 Crossing vessel and stricture of ureter without hydronephrosis (principal); N39.46 Mixed incontinence
CPT/HCPCS: 99213

== ENCOUNTER → 2024-12-20 15:00 | Outpatient (BNVA) | payer OTHER, SELFPAY | PROVIDERS: PCP Nurse Practitioner Family; Visit Provider Urology | DX: N13.5 Crossing vessel and stricture of ureter without hydronephrosis (principal); N39.46 Mixed incontinence | CPT/HCPCS: 99212 ==

== ENCOUNTER 2024-12-25 16:04 | Outpatient (AMB) | payer OTHER, SELFPAY ==
[2024-12-25 16:08] VITALS: BP 139/89; PULSE 86; BMI 50.4
--- NOTE | 2024-12-25 16:08 | A.OFFVIS_ITS ---
Vital Signs 12/25/24 16:08 Height 5 ft Weight 257 lb 15.053 oz BMI 50.4 BP 139/89 Blood Pressure Location Lt brachial Position Sitting Pulse 86 Intake Visit Reasons: Rast / HIDA scan r/s 10/23 Intake Note: Patient in office today in follow up for RAST and HIDA scan results. CC: Patient reports constipation alternating with diarrhea. Leakage Tester Required: No Accompanied by: Self / Same As Patient Allergies fexofenadine [From Sofía-D] Allergy (Severe, Verified 12/25/24 16:08) Swelling milk Allergy (Severe, Verified 12/25/24 16:08) Anaphylaxis pseudoephedrine [From Sofía-D] Allergy (Severe, Verified 12/25/24 16:08) Swelling Beef Containing Products Allergy (Intermediate, Verified 12/25/24 16:08) Hives aranda Allergy (Intermediate, Verified 12/25/24 16:08) Hives egg Allergy (Intermediate, Verified 12/25/24 16:08) Hives lamotrigine Allergy (Intermediate, Verified 12/25/24 16:08) hives nut - unspecified Allergy (Intermediate, Verified 12/25/24 16:08) Hives doxycycline Adverse Reaction (Intermediate, Verified 12/25/24 16:08) projectile vomiting tiotropium [From Spiriva with HandiHaler] Adverse Reaction (Intermediate, Verified 12/25/24 16:08) Cough sulcralfate Adverse Reaction (Mild, Uncoded 12/20/24 15:02) hives HPI HPI Rast / HIDA scan r/s 10/23: Details: Assessment & Plan (1) Eosinophilic esophagitis: Code(s): K20.0 - Eosinophilic esophagitis Category: Medical (2) Gallstones: Code(s): K80.20 - Calculus of gallbladder without cholecystitis without obstruction Category: Medical (3) Abdominal pain: Code(s): R10.9 - Unspecified abdominal pain Category: Medical (4) Diarrhea: Code(s): R19.7 - Diarrhea, unspecified Category: Medical (5) Erosive esophagitis: Code(s): K22.10 - Ulcer of esophagus without bleeding Category: Medical (6) Abdominal pain: Code(s): R10.9 - Unspecified abdominal pain Category: Medical (7) Diarrhea: Code(s): R19.7 - Diarrhea, unspecified Category: Medical Plan The patient says she was seen by [facility] for many years until ?the provider left.? Vomiting new sx, diarrhea chronic but alt with [facility] ? diarrhea more, pain mid abd below BB, sharp/aching, mostly there always, 5/10 - 10/10. It will be 10/10 3-4 days a week lasting all day. Vomiting about once a week, always nauseated. Food allergies: Milk, nuts, eggs, beef, cherries, apples skin. Still has GERD and HB on omeprazole 20mg 2 at once buying OTC now. She had a CT 2022 = gallstones of which she was unaware. (??). No meds for diarrhea in past. A lot of gas and bloating. No known FHX crc, similar sx or stomach/esoph ca. Mother had GB disease and tricia. NO wt loss of gain. Will try changing her PPI to something like Dexilant, give her a trial of Creon for gas and bloating and re-evaluate her response. Return office visit in 4 weeks Orders: Orders NM hepatobiliary w pharm 05/28/24 K80.20 - Calculus of gallbladder without cholecystitis without obstruction, R10.9 - Unspecified abdominal pain, R19.7 - Diarrhea, unspecified, K20.0 - Eosinophilic esophagitis Rast Allergen 05/28/24 K80.20 - Calculus of gallbladder without cholecystitis without obstruction, R10.9 - Unspecified abdominal pain, R19.7 - Diarrhea, unspecified, K20.0 - Eosinophilic esophagitis NM gastric emptying study 05/28/24 K80.20 - Calculus of gallbladder without cholecystitis without obstruction, R10.9 - Unspecified abdominal pain, R19.7 - Diarrhea, unspecified, K20.0 - Eosinophilic esophagitis Medications: New dexlansoprazole (Dexilant) 60 mg PO DAILY 30 caps 6RF 30 days [id number] 36,000-114,000- 180,000 unit (Creon) administer with meals and/or snacks 2 caps PO BID 120 caps 6RF R19.7 - Diarrhea, unspecified, R10.9 - Unspecified abdominal pain HIDA SCAN 08/11/24 IMPRESSION: Visualization of the gallbladder is evidence of a patent cystic duct and strong evidence against the diagnosis of acute cholecystitis. The common bile duct is patent. Gallbladder emptying and ejection fraction are normal. Liver function appears normal. GASTRIC EMPTYING STUDY 07/22/24 IMPRESSION: Abnormal grade 4 delayed 4-hour solid food gastric emptying study. RAST STUDY SHOWS TRUE ALLERGY TO HAZELNUTS AND ALMONDS. TODAY'S VISIT SHE CONTINUES ON HER CREON, DEXILANT, AND NOW REGLAN 5 MG 4 TIMES A DAY. She thinks that the Reglan has helped quite a lot as she is no longer vomiting but she also tends to forget to take it during the day. The Dexilant has also greatly helped her heartburn. The 1 thing that continues is the sharp cramping in the periumbilical area and her stooling tends to go back and forth between constipation and diarrhea. We also reviewed the RAST and the only thing she actually tested out for in terms of foods allergies was Latonia nuts and almonds. There are quite a lot of other foods she does not seem to tolerate. Will try to keep chipping away although we have improved quite a few of her symptoms. I think were going to try to approach the stooling with a trial of dicyclomine to see if that can help with the antwon abdominal cramping. She stopped the Creon because it did not seem to be helping her very much and also provided trouble in terms of the multiple daily doses. Return office visit next available [facility], [facility] Medical History (Updated 12/25/24 @ 16:41 by DUSTIN Roberts) Syncope Food allergy History of colitis Chronic diarrhea of unknown origin Urinary urgency Morbid obesity with BMI of 45.0-49.9, adult Hydronephrosis Iron deficiency anemia Gallstones Abdominal pain Diarrhea Pleurisy Leukocytosis Elevated AST (SGOT) Left ear pain Pseudotumor cerebri Eosinophilic esophagitis Colitis Anxiety AMAIRANI (obstructive sleep apnea) Fibromyalgia Bipolar disorder Migraine headache History of lumbar puncture Urinary frequency Urinary incontinence Cervicalgia Benign intracranial hypertension Essential hypertension Major depressive disorder Anemia Irregular menses Eczema Nasal polyps Morbid (severe) obesity due to excess calories Asthma, mild intermittent, well-controlled Surgical History History of esophagogastroduodenoscopy (EGD) H/O colonoscopy History of wisdom tooth extraction Family History Mother Asthma HTN (hypertension) Father Bipolar 1 disorder Diabetes Parkinson disease Maternal Grandmother S/P triple vessel bypass Mother Uterine cancer Other Mental health disorder Social History Household Members: Family Housing: House Are you a primary direct support professional caregiver to a significant other at home: No Do you presently have visiting nurse or other home services: No Alcohol intake: current Alcohol intake frequency: holidays/special occasions only Patient Tobacco Use Status: Never used Tobacco e-Cigarette/Vaping Use: Never Used Second Hand Smoke Exposure: No Current occupational status: unemployed and student Current occupational exposures/hazards: No Gender identity: Female Cognitive needs: No Hearing needs: No Vision needs: No Review of Systems Const Denies fatigue, Denies fever(s), Denies night sweats, Denies poor appetite and Denies weight loss Eyes Details: glasses Reports requires corrective lenses ENT Reports Normal hearing present, Denies dental pain, Denies dysphagia, Denies hearing loss, Denies mouth pain, Denies odynophagia, Denies throat swelling, Denies tongue swelling and Reports other (Dentition adequate) Card Reports no additional complaints Resp Reports no additional complaints GI Details: Reports abdominal pain, Denies melena, Reports bloating, Denies hematochezia, Reports constipation, Denies GI cramping, Denies dysphagia, Denies excessive flatus, Reports early satiety, Reports heartburn, Reports diarrhea, Denies nausea, Denies odynophagia, Denies vomiting and Denies hematemesis Skin/Breast Denies pruritus, Denies lesions, Denies rash and Denies jaundice Neuro Reports Normal hearing present and Denies Abnormal speech present Endo Denies fatigue Aller/Immun Denies throat swelling and Denies tongue swelling Physical Exam Vital Signs: Last Vital Signs Pulse 86 12/25/24 16:08 BP 139/89 12/25/24 16:08 BMI result Body Mass Index 50.4 Const General: cooperative, no acute distress, well developed and well groomed Nutritional Appearance: well nourished and obese Orientation/consciousness: oriented to person, oriented to place and oriented to time Limitations: No language barrier HEENT Head: Yes normocephalic and Yes atraumatic Eyes General: appearance normal, both eyes and all related structures Pupils: Equal, round and reactive pupils present Neck Neck: Yes normal visual inspection and Yes no lymphadenopathy Thyroid: Thyroid normal Resp Effort & Inspection: normal respiratory effort and able to speak in complete sentences Auscultation: clear to auscultation bilaterally Cardio Rate: regular rate Rhythm: regular rhythm Heart sounds: Normal, physiologic split S2 sound present Peripheral pulses: radial pulses present and posterior tibial pulses present GI Inspection: No distended, Yes Abdominal panniculus present and Yes obesity Palpation (GI): Soft to palpation, nontender, no guarding, not rigid and No hepatosplenomegaly present Percussion: Yes normal to percussion Auscultation: normal bowel sounds Rectal Exam - Female: deferred Skin General skin exam: no rashes or lesions noted, turgor normal, skin not dry, no jaundice, No spider nevi and no striae Rashes: no rashes Nails: normal Neuro General: oriented to person, oriented to place and oriented to time Cranial nerves: Yes Equal, round and reactive pupils present and Yes Normal hearing present Speech: No Abnormal speech present Extrem General: Yes normal to inspection, No clubbing, No cyanosis and No edema Psych Appearance: grossly normal and well kempt Mental Status: mental status grossly normal Speech and movement: Normal speech and movement present Affect: normal affect Attitude: cooperative Thought process: Normal thought process present and not confabulating Thought content: Normal thought content present Insight: Limited insight present (Psych) Judgement: Limited judgement present (Psych) Results Reviewed Results Reviewed: HIDA SCAN 08/11/24 IMPRESSION: Visualization of the gallbladder is evidence of a patent cystic duct and strong evidence against the diagnosis of acute cholecystitis. The common bile duct is patent. Gallbladder emptying and ejection fraction are normal. Liver function appears normal. GASTRIC EMPTYING STUDY 07/22/24 IMPRESSION: Abnormal grade 4 delayed 4-hour solid food gastric emptying study. RAST STUDY SHOWS TRUE ALLERGY TO HAZELNUTS AND ALMONDS. Assessment & Plan Assessment & Plan (1) Gastroparesis: Comment: Grade 4, severe delay on 2023 GS Code(s): K31.84 - Gastroparesis Category: Medical (2) Food allergy: Comment: hazelnuts, almonds Code(s): Z91.018 - Allergy to other foods Category: Medical (3) Gastroesophageal reflux disease: Code(s): K21.9 - Gastro-esophageal reflux disease without esophagitis Category: Medical (4) Multiple food allergies: Comment: RAST SHOWS ONLY HAZELNUTS AND ALMONDS; but she does not tolerate Eggs, apples, milk, nuts, red meat Code(s): Z91.018 - Allergy to other foods Category: Medical (5) Abdominal cramping: Code(s): R10.9 - Unspecified abdominal pain Category: Medical Plan SHE CONTINUES ON HER CREON, DEXILANT, AND NOW REGLAN 5 MG 4 TIMES A DAY. She thinks that the Reglan has helped quite a lot as she is no longer vomiting but she also tends to forget to take it during the day. She has suffered absolutely no adverse effects at the 5 mg dose. The Dexilant has also greatly helped her heartburn. The 1 thing that continues is the sharp cramping in the periumbilical area and her stooling tends to go back and forth between constipation and diarrhea. We also reviewed the RAST and the only thing she actually tested out for in terms of foods allergies was Latonia nuts and almonds. There are quite a lot of other foods she does not seem to tolerate. Will try to keep chipping away although we have improved quite a few of her symptoms. I think were going to try to approach the stooling with a trial of dicyclomine to see if that can help with the antwon abdominal cramping. She stopped the Creon because it did not seem to be helping her very much and also provided trouble in terms of the multiple daily doses. Return office visit next available Medications: New dicyclomine 20 mg PO QID PRN 120 tabs 3RF abdominal pain 30 days R10.9 - Unspecified abdominal pain Discontinued [id number]-hsdxyjwz-umcabzn 36,000-114,000- 180,000 unit (Creon) administer with meals and/or snacks Discontinued Reason: Doctor's Order 2 caps PO BID 120 caps 6RF R10.9 - Unspecified abdominal pain, R19.7 - Diarrhea, unspecified Coding Level of Care Code Est Pt Level 3 (73690) Diagnoses Gastroparesis K31.84 Food allergy Z91.018 Gastroesophageal reflux disease K21.9 Multiple food allergies Z91.018 Abdominal cramping R10.9
--- OUTSIDE RECORDS SUMMARY | 2024-12-25 18:54 | XMS_ITS | Encounter Summary ---
Author Organization [facility] Address [address] [place] [address] Care Team Providers Care Medical Librarian Name Role Phone Patient, Has No Pcp Or Ref Primary Care Provider Unavailable Reason for Visit * Reason Comments New Patient * Urology (Routine) - Authorized Specialty Diagnoses / Procedures Referred By Contac t Referred To Contact Urology Diagnoses Crossing vessel and stricture of ureter without hydronephrosis Braden Scruggs MD [address] [place] [phone] Phone: tel: fax: Vivienne Bernstein MD [address] [place] [address] Phone: tel: fax: Referral ID Status Reason Start Date Expiration Date V isits Requested Visits Authorized [id number] Authorized 09/23/2024 03/25/2026 6 6 Encounter Details Date Type Department Care Team (Late st Contact Info) Description 11/29/2024 2:00 PM EST Office Visit [facility] [address] [place] [address] Safety Assistant: Anabell Britton MD [address] [place] [phone] UPJ obstruction, congenital (Primary Dx) Social History [...] Info) Description 12/27/2024 2:15 PM EDT Follow-Up [facility] [address] [place] [phone] Safety Assistant: Anabell Britton MD [address] [place] [phone] 03/20/2025 2:30 PM EDT Office Visit [facility] [address] [place] [phone] Safety Assistant: Ramona Montelongo MD [address] [place] [phone] documented as of this encounter Visit Diagnoses Diagnosis UPJ obstruction, congenital- Primary documented in this encounter Care Teams Medical Librarian Relationship Specialty Start Date End Date Patient, Has No Pcp Or Ref DO NOT EDIT THIS RECORD VIA PROVIDER ON THE FLY PCP - General Residence Counselor 09/23/24 documented as of this encounter
--- OUTSIDE RECORDS SUMMARY | 2024-12-25 18:54 | XMS_ITS | Referral Summary ---
Author Organization [facility] Address [address] [place] [address] Care Team Providers Care Pneumatic Jacketer Name Role Phone Patient, Has No Pcp Or Ref Primary Care Provider Unavailable Encounters Date Type Department Care Team Description 11/29/2024 2:00 PM EST Office Visit [facility] [address] [place] [phone] International Marketing Specialist: Anabell Britton MD UPDanielle obstruction, congenital (Primary [...] PM EDT Follow-Up [facility] [address] [place] [address] International Marketing Specialist: Anabell Britton MD [address] [place] [phone] 03/20/2025 2:30 PM EDT Office Visit [facility] [address] [place] [phone] International Marketing Specialist: Ramona Montelongo MD [address] [place] [phone] Insurance [employer] Care Teams Pneumatic Jacketer Relationship Specialty Start Date End Date Patient, Has No Pcp Or Ref DO NOT EDIT THIS RECORD VIA PROVIDER ON THE FLY PCP - General Precinct Commanding Officer 09/23/24
--- OUTSIDE RECORDS SUMMARY | 2024-12-25 18:54 | XMS_ITS | Clinical Summary ---
Author Organization [facility] Address [address] [place] [address] Care Team Providers Care Brick Maker Name Role Phone Patient, Has No Pcp [...] Description 11/29/2024 2:00 PM EST Office Visit [facility] [address] [place] [phone] Power Electronics Research Engineer: Anabell Britton MD UPJ obstruction, congenital (Primary [...] Info) Description 12/27/2024 2:15 PM EDT Follow-Up [facility] [address] [phone] Power Electronics Research Engineer: Anabell Britton MD [address] [place] [phone] 03/20/2025 2:30 PM EDT Office Visit [facility] [address] [place] [address] - [place] [address] Power Electronics Research Engineer: Ramona Montelongo MD [address] [place] [phone] Health Maintenance Due Date Last Done Comments [...] 75+ series) 2073 Insurance [place] [address] Care Teams Brick Maker Relationship Specialty Start Date End Date Patient, Has No Pcp Or Ref DO NOT EDIT THIS RECORD VIA PROVIDER ON THE FLY PCP - General Medical Transcription 09/23/24
== END 2024-12-25 16:44 | disposition home or self-care (01) ==
LOC: HO.HGI 16:05
PROVIDERS: PCP Nurse Practitioner Family; Visit Provider Nurse Practitioner
DX: K31.84 Gastroparesis (principal); Z91.018 Allergy to other foods; K21.9 Gastro-esophageal reflux disease without esophagitis; R10.9 Unspecified abdominal pain
CPT/HCPCS: 99213

== ENCOUNTER → 2024-12-25 16:04 | Outpatient (BNVA) | payer OTHER, SELFPAY | PROVIDERS: PCP Nurse Practitioner Family; Visit Provider Nurse Practitioner | DX: K31.84 Gastroparesis (principal); K21.9 Gastro-esophageal reflux disease without esophagitis; R10.9 Unspecified abdominal pain; Z91.018 Allergy to other foods | CPT/HCPCS: 99212 ==

== ENCOUNTER 2025-01-21 15:44 | Outpatient (AMB) | payer OTHER, SELFPAY ==
[2025-01-21 15:48] VITALS: BP 124/80; PULSE 111; O2SAT 97; BMI 50.8
--- NOTE | 2025-01-21 15:48 | A.OFFVIS_ITS ---
Vital Signs 01/21/25 15:48 Height 5 ft Weight 260 lb 2.327 oz BMI 50.8 BP 124/80 Blood Pressure Location Rt brachial Position Sitting Pulse 111 H Pulse Source Pulse Oximeter Pulse Oximetry (%) 97 Oxygen Delivery Method Room Air Intake Visit Reasons: Asthma Inspector Tubes Required: No Accompanied by: Self / Same As Patient Allergies fexofenadine [From Sofía-D] Allergy (Severe, Verified 01/21/25 15:51) Swelling milk Allergy (Severe, Verified 01/21/25 15:51) Anaphylaxis pseudoephedrine [From Sofía-D] Allergy (Severe, Verified 01/21/25 15:51) Swelling Beef Containing Products Allergy (Intermediate, Verified 01/21/25 15:51) Hives aranda Allergy (Intermediate, Verified 01/21/25 15:51) Hives egg Allergy (Intermediate, Verified 01/21/25 15:51) Hives lamotrigine Allergy (Intermediate, Verified 01/21/25 15:51) hives nut - unspecified Allergy (Intermediate, Verified 01/21/25 15:51) Hives doxycycline Adverse Reaction (Intermediate, Verified 01/21/25 15:51) projectile vomiting tiotropium [From Spiriva with HandiHaler] Adverse Reaction (Intermediate, Verified 01/21/25 15:51) Cough sulcralfate Adverse Reaction (Mild, Uncoded 12/20/24 15:02) hives HPI Comments Details: The patient is a 24-year-old woman with a known history of asthma in addition to significant allergies and obstructive sleep apnea. Apparently she has had significant allergies and she was very young. She did follow-up with Dr. Dow for many years. She was provided with allergy shots for some time but she is no longer doing nose. She has required prednisone multiple times a year because her significant asthma. Usually her symptoms do worsen in the fall and she is concerned about that. Patient has been on Symbicort for many years. Does not feel like it is working as well for her. She still having to use her rescue inhaler multiple times a day. She does not have a nebulizer at home. In addition to that she does have a history of eczema. the patient has not use any biologics. We did review her blood work from [facility] for many years and she has had significant eosinophilia throughout. Therefore she may be a good candidate for biologics if she continues to be symptomatic patient already is morbidly obese. She is concerned about her weight in the use of prednisone. She has noticed increasing daytime drowsiness. She also has significant migraines and headaches. Her [place] score is elevated 12/24. She has had sleep studies in the past demonstrating sleep apnea but does many years ago. At this point the patient is concerned that her sleep apnea is getting worse and she would likely treated. Therefore, she will need a home sleep study at this time. 07/09/2021 the patient is here for a pulmonary follow-up visit. Since we last spoke she has been having worsening shortness of breath and wheezing. Unfortunately, she could not get the Trelegy inhaler. I will send her the Breo and Incruse separate. in the meantime she continues to be very symptomatic. We did look at her allergy testing and she does have significant allergies, but, specially to dust mites. She is going to get rid of her stopping rug and also will get hypoallergenic covers. She already has an EpiPen available. She has not had to use it. We did review her sleep study. Does not appear that she has any significant sleep apnea the needs treatment. Most likely her degree of difficulty sleeping as a due mainly with her nasal congestion and allergies. On my examination I did believe she had a nasal polyp in her left nostril. This is causing near complete obstruction of the nasal passage on the left-hand side. The patient would benefit from biologic therapy. Will maximize her respiratory therapy in if she still symptomatic will start her on Biologic therapy. Based on her significant allergies, her elevated IgE, her nasal polyps and also history of eczema along with the severe asthma I believe Dupixent will be a perfect choice for her. 10/21/2021 the patient is here for a pulmonary follow-up visit. As we last spoke the patient has had episodes of increasing shortness of breath and wheezing. Initially she was responding well to the Dupixent. But she has had an issue with the Dupixent is no longer being the liver. In addition to that she is no longer getting maintenance medication. The patient responded well to Trelegy but was not covered. Therefore I sent Breo and Incruse. However, those were not provided for some reason. She does have a rescue inhaler. I will send her Advair HFA in addition to Spiriva. I am hopeful that she can start this therapy. In addition to that we did talk to the office staff about assessing the issue with the Dupixent delivery. In the meantime the patient is sleeping well. She does have mild degree of sleep apnea. She knows not to sleep on her back and she is adherent to her positional therapy. 02/15/2022 the patient is here for pulmonary follow-up visit. Since we last spoke she has been getting more daytime drowsiness. She has had documented episodes of apnea. She also has significant snoring. she had undergoing a sleep study that we had reviewed previously demonstrating mild sleep apnea. Based on the fact that she is more symptomatic will go ahead and start her on CPAP therapy. will go ahead and request the CPAP from a local [employer] company. Patient also has a significant family history of sleep apnea and also is obese. Regards of the asthma she has not started the Dupixent as his yet. She had some issues with the pharmacy. Apparently is now on his way and she should be starting soon. When she starts the Dupixent her respiratory symptoms should improve. Meantime she does continue on her respiratory therapy. She does require the albuterol multiple times a week. In addition to that she has had lower extremity edema. Her family is concerned because of the degree of edema. Hopefully when she starts CPAP will see improvement in the meantime will try 3 days of diuresis and she is going to follow low-sodium diet. 06/14/2022 the patient is here for a pulmonary follow-up visit. She finally got her CPAP. She has been trying to use it. The CPAP therapy has been affecting beneficial. She is trying to use it more than 4 hours a night. Her machine is a little cumbersome. She does have a Noreen CPAP. I will have to as regional for download. In the meantime she continues on Dupixent injections. She has not required any prednisone. She still having issues with shortness of breath. Although she still having significant lower extremity edema and overall volume overload status. She did take diuretic for 3 days during the last visit but she did not notice any significant diuresis per in addition to that the patient is describing episodes of syncope and also presyncope. With her significant lower extremity edema patient really needs an echocardiogram to further address her symptoms and also to see if she has any underlying cardiac arrhythmias in view of her other comorbidities even at this early age. Therefore, I am going to refer her to Cardiology to have further testing done. 09/13/2022 the patient is here for a pulmonary follow-up visit. The patient has been having some issues with her CPAP. She has a hard time with her mask. She is using currently on F 30 mask. Feels like she is not getting enough air up her nose. Is not lining up well. She rather have a traditional fullface mask. I did have an F20 small in the office. We did try it on her own she tolerated well. While she does use it her AHI is down to 0.1. Her average pressure is around 6-7.5. She does use it for more than 4 hours. Unfortunately with the current mass she has not been able to tolerated as well. We did switch her to the F20 mask. She tolerated that much better. I will submit a prescription to her [employer] company with the new masks. From an asthma standpoint she continues on Dupixent injections. She continues with respiratory therapy. She has not had any exacerbations. She has been doing well from that standpoint. She still has lower extremity edema. She has tried to cut down on the salt and also trying to use the compression stockings. She continues to monitor those closely. She is also now on Norvasc so therefore trapped to mon itor for any worsening edema. I am hopeful that the more she uses her CPAP the better her lower extremity edema is going to get. 10/12/2023 the patient is here for pulmonary follow-up visit. The patient has been having hard time with her breathing lately. She is noticed increased nasal congestion and shortness of breath. Chest tightness. She continues on Dupixent and just has not been working as well as it did before. Although she did stop most of her inhalers such as Advair she stopped her fluticasone nasal spray. In addition to that the patient was diagnosed with sleep apnea and she did have a CPAP. Although, she stopped using it because she could not tolerated. Now that she has not using she is getting additional daytime drowsiness her [place] score is elevated 09/24. She also has significant lower extremity edema and she is at risk for developing further worsening cardiovascular risk factors. Based on that the patient is willing to have the repeat sleep study and go back on CPAP since she really needs it. On my examination I do believe she does have a component of sinusitis that may be contributing to her ongoing nasal congestion. The patient should continue with biologic therapy and will optimize her respiratory therapy and treated for the upper respiratory illness. Will follow- up in a few months after her sleep study. 02/02/2024 the patient is here for a pulmonary follow-up visit. Overall the patient has been doing well. She is responding well to the Dupixent injections. she is administering them every 2 weeks. In addition to that she is getting some pain at the site of the injections but typically quickly resolved. No other adverse effects. No significant conjunctivitis or rashes noted. She continues to use her albuterol. She had been on Advair. Although for some reason she has not been able to get it filled at the pharmacy. She is actually requesting to see if she can try a new inhaler, Airsupra. at this point is reasonable for her to start the medication she can try and see if his effective for her. If is not she will call and I can send the Advair again to the pharmacy. I do believe since the initiation of the Dupixent her asthma has been better controlled and using as needed combination inhaler would be reasonable at this time. She continues have some daytime drowsiness. [place] score is elevated, 10/24. Although she did not tolerate CPAP and she has not interested to go back on it. We did review his sleep study. She should respond to positional therapy. We did talk about different options in order for to perform positional therapy at this time. No recent imaging studies to review. 07/16/2024 the patient is here for sick visit. The patient has been complaining of chest pain now for a couple weeks. The pain waxes and wanes. It is mainly substernal. Sometimes it affects her breathing. She has a hard time breathing in suggesting a pleuritic component. She denies any fevers chills. She denies any congested cough. She does use her inhalers and she gets some minimal improvement when she uses her inhalers. Her asthma continues to be well controlled under Dupixent. She has not had any recent studies and she has not use any hvhz-giy-cunwikf medications for. On further questioning she does states that her grandmother and her mother both had a history of blood clots. She has never had a blood clot in her life. She does have some lower extremity edema and she does have some pain in her lower extremities as well. During the office visit we did go for brief walking oximetry and heart rate in oxygen were within normal limits. The patient was complaining of her chest discomfort. Will go ahead and have blood work done including a D-dimer to see what her risk for thromboembolic diseases. If the D-dimer is elevated then she will need a CTA to rule out PE. Otherwise is negative will go ahead and request a chest x- ray. Likely that she may have a component of musculoskeletal discomfort or pleurisy. 10/21/2024 the patient is here for a pulmonary follow-up visit. Overall she is doing okay. She does have daytime drowsiness. [place] score is elevated 11/24. She did have sleep apnea was on CPAP but it was taken away because she was not using it as prescribed. Now she has the developing high blood pressure and also lower extremity edema explained to her that importance of her treating her sleep apnea because of cardiovascular health specially her young age. In addition to that she complains of sinus discomfort and nasal obstruction. Has been dealing with sinusitis her some time. She feels like her breathing is worse. The Airsupra has been helpful but she will do better with Breztri. In the meantime for high blood pressure and lower extremity edema will give her a few days of Lasix. She will have a repeat home sleep study and will return 3 months to review. Patient now is more accepting of the diagnosis sleep apnea and is willing to be compliant with therapy. 01/21/2025 the patient is here for a pulmonary follow-up visit. Overall the patient has been doing well. She still continues to have significant daytime drowsiness. [place] score is elevated 11/24. The patient did have a sleep study but is very limited because she has a hard time sleeping and her AHI was only 1. No evidence of any desaturation. She does have significant lower extremity edema. She has had palpitations and she recently had an episode of syncope. Therefore will request an in-lab sleep study this time to make it more more effective sleep studies specially with her Witness apnea and also significant daytime drowsiness and cardiac irregularities. Patient has been using her inhalers with good effect and Dupixent has been affecting beneficial. She has not had to use any prednisone which is reassuring. Will follow-up after her sleep study if she has any issues prior to that she will call for an earlier assessment. [facility] Medical History (Updated 01/21/25 @ 16:12 by Lennox Bae MD) Syncope Palpitations Food allergy History of colitis Chronic diarrhea of unknown origin Urinary urgency Morbid obesity with BMI of 45.0-49.9, adult Hydronephrosis Iron deficiency anemia Gallstones Abdominal pain Diarrhea Pleurisy Leukocytosis Elevated AST (SGOT) Left ear pain Pseudotumor cerebri Eosinophilic esophagitis Colitis Anxiety AMAIRANI (obstructive sleep apnea) Fibromyalgia Bipolar disorder Migraine headache History of lumbar puncture Urinary frequency Urinary incontinence Cervicalgia Benign intracranial hypertension Essential hypertension Major depressive disorder Anemia Irregular menses Eczema Nasal polyps Morbid (severe) obesity due to excess calories Asthma, mild intermittent, well-controlled Surgical History History of esophagogastroduodenoscopy (EGD) H/O colonoscopy History of wisdom tooth extraction Family History Mother Asthma HTN (hypertension) Father Bipolar 1 disorder Diabetes Parkinson disease Maternal Grandmother S/P triple vessel bypass Mother Uterine cancer Other Mental health disorder Social History Household Members: Family Housing: House Are you a primary residential child care counselor to a significant other at home: No Do you presently have visiting nurse or other home services: No Alcohol intake: current Alcohol intake frequency: holidays/special occasions only Patient Tobacco Use Status: Never used Tobacco e-Cigarette/Vaping Use: Never Used Second Hand Smoke Exposure: No Current occupational status: unemployed and student Current occupational exposures/hazards: No Gender identity: Female Cognitive needs: No Hearing needs: No Vision needs: No Review of Systems Const Denies chills, Reports difficulty sleeping, Denies fatigue, Denies fever(s), Reports snoring, Reports stops breathing during sleep, Denies weight gain and Denies weight loss ENT Denies dizziness, Denies lip swelling and Denies tongue swelling Card Denies chest pain, Denies leg edema, Denies lightheadedness, Denies palpitations, Denies dyspnea on exertion, Denies orthopnea and Denies other Resp Denies cough, Denies dyspnea on exertion, Reports snoring and Reports wheezing GI Denies hematochezia and Denies change in stool character Musc Denies abnormal gait, Denies muscle weakness, Denies numbness, Denies radiating pain into limb and Denies tingling Neuro Denies abnormal gait, Denies dizziness, Denies numbness and Denies tingling Psych Denies no additional complaints Endo Denies fatigue and Denies palpitations Vicente/Lymph Denies easy bleeding and Denies lymphadenopathy Aller/Immun Denies lip swelling, Denies tongue swelling and Reports wheezing Physical Exam Vital Signs: Last Vital Signs Pulse 111 H 01/21/25 15:48 BP 124/80 01/21/25 15:48 Pulse Ox 97 01/21/25 15:48 Oxygen Delivery Method Room Air 01/21/25 15:48 BMI result Body Mass Index 50.8 Const General: alert HEENT Head: Yes normocephalic General nose exam: Abnormal mucous membranes and turbinates present erythematous Neck Neck: Yes normal visual inspection, Yes full ROM and Yes no lymphadenopathy Chest Chest palpation & inspection: normal inspection of the chest Resp Effort & Inspection: normal respiratory effort Auscultation: no wheezes and diminished lung sounds Cardio Rate: regular rate Rhythm: regular rhythm Heart sounds: S1 normal heart sound present and S2 normal heart sound present GI Palpation (GI): Soft to palpation and nontender Auscultation: normal bowel sounds Skin General skin exam: rashes and/or lesions noted Extrem General: Yes edema Assessment & Plan Assessment & Plan (1) Asthma: Code(s): J45.909 - Unspecified asthma, uncomplicated Category: Medical Qualifiers: Asthma severity: moderate Asthma persistence: persistent Asthma complication type: uncomplicated Qualified Code(s): J45.40 - Moderate persistent asthma, uncomplicated (2) Seasonal allergies: Code(s): J30.2 - Other seasonal allergic rhinitis Category: Medical (3) Nasal polyps: Code(s): J33.9 - Nasal polyp, unspecified Category: Medical (4) Eczema: Code(s): L30.9 - Dermatitis, unspecified Category: Medical Qualifiers: Eczema type: flexural Qualified Code(s): L20.82 - Flexural eczema (5) Sleep apnea: Code(s): G47.30 - Sleep apnea, unspecified Category: Medical Qualifiers: Sleep apnea type: obstructive Qualified Code(s): G47.33 - Obstructive sleep apnea (adult) (pediatric) (6) Lower extremity edema: Code(s): R60.0 - Localized edema Category: Medical (7) Palpitations: Code(s): R00.2 - Palpitations Category: Medical Plan continue Airsupra BID continue Fluticasone continue Dupixent Continue nebulizer. Low NA diet compression stockings home sleep study non diagnostic, requesting inlab sleep study continue Trazodone for sleep Follow-up in 3-4 months Orders: Orders RT PSG in-lab sleep study Today G47.33 - Obstructive sleep apnea (adult) (pediatric), R00.2 - Palpitations, R55 - Syncope and collapse Medications: New trazodone 100 mg PO BEDTIME 30 days PRN 30 tabs 10RF sleep Coding Level of Care Code Est Pt Level 4 (09153) Diagnoses Moderate persistent asthma without complication J45.40 Asthma severity: moderate Asthma persistence: persistent Asthma complication type: uncomplicated Seasonal allergies J30.2 Nasal polyps J33.9 Flexural eczema L20.82 Eczema type: flexural Obstructive sleep apnea syndrome G47.33 Sleep apnea type: obstructive Lower extremity edema R60.0 Palpitations R00.2 Time Spent (min) 17
--- OUTSIDE RECORDS SUMMARY | 2025-01-21 18:30 | XMS_ITS | Referral Summary ---
Author Organization [facility] Address [address] [place] [address] Care Team Providers Care Floorman Name Role Phone Patient, Has No Pcp Or Ref Primary Care Provider Unavailable Encounters Date Type Department Care Team Description 12/27/2024 2:15 PM EDT Follow-Up [facility] Urology [address] [address] Building Superintendent: Anabell Britton MD UPJ obstruction, congenital (Primary Dx) 11/29/2024 2:00 PM EST Office Visit [facility] Urology [address] [address] Building Superintendent: Anabell Britton MD UPJ obstruction, congenital (Primary [...] Info) Description 01/27/2025 12:00 PM EDT Appointment [facility] Ultrasound [address] [place] [address] Anabell Davalos MD [address] [place] [address] 03/20/2025 2:30 PM EDT Office Visit [facility] [address] [place] [address] Building Superintendent: Ramona Montelongo MD [address] [place] [phone] [facility] MEDICAID Advance Directives Documents on File Type Date Recorded Patient User Experience Developer Expl anation Health Care Proxy 12/27/2024 1:52 PM Healt h Care Proxy Documentation Care Teams Floorman Relationship Specialty Start Date End Date Patient, Has No Pcp Or Ref DO NOT EDIT THIS RECORD VIA PROVIDER ON THE FLY PCP - General Web Content Developer 09/23/24
--- OUTSIDE RECORDS SUMMARY | 2025-01-21 18:30 | XMS_ITS | Clinical Summary ---
Author Organization [facility] Address [address] [place] [address] Care Team Providers Care Data Security Consultant Name Role Phone Patient, Has No Pcp [...] Team Description 12/27/2024 2:15 PM EDT Follow-Up [facility] [address] [place] [phone] Wig Stylist: Anabell Britton MD UPJ obstruction, congenital (Primary Dx) 11/29/2024 2:00 PM EST Office Visit [facility] [address] [place] [phone] Wig Stylist: Anabell Britton MD UPJ obstruction, congenital (Primary [...] Info) Description 01/27/2025 12:00 PM EDT Appointment [facility] Ultrasound [address], [place] [phone] Anabell Davalos MD [address] [place] [address] [phone] 03/20/2025 2:30 PM EDT Office Visit [facility] [address] [place], [place] [phone] Wig Stylist: Ramona Montelongo MD [address] [place] [address] [phone] Health Maintenance Due Date Last Done Comments [...] (1 - 1-dose 75+ series) 2073 Insurance [facility] MEDICAID Advance Directives Documents on File Type Date Recorded Patient Car Porter Expl simbaion Health Care Proxy 12/27/2024 1:52 PM Johnathan Care Proxy Documentation Care Teams Data Security Consultant Relationship Specialty Start Date End Date Patient, Has No Pcp Or Ref DO NOT EDIT THIS RECORD VIA PROVIDER ON THE FLY PCP - General Securities Sales Associate 09/23/24
== END 2025-01-21 16:18 | disposition home or self-care (01) ==
LOC: HO.HPS 15:45
PROVIDERS: PCP Nurse Practitioner Family; Visit Provider Hospitalist
DX: J45.40 Moderate persistent asthma, uncomplicated (principal); J30.2 Other seasonal allergic rhinitis; J33.9 Nasal polyp, unspecified; L20.82 Flexural eczema; G47.33 Obstructive sleep apnea (adult) (pediatric); R60.0 Localized edema; R00.2 Palpitations
CPT/HCPCS: 99214

== ENCOUNTER → 2025-01-21 15:44 | Outpatient (BNVA) | payer OTHER, SELFPAY | PROVIDERS: PCP Nurse Practitioner Family; Visit Provider Hospitalist | DX: G47.33 Obstructive sleep apnea (adult) (pediatric) (principal); J45.40 Moderate persistent asthma, uncomplicated; J30.2 Other seasonal allergic rhinitis; J33.9 Nasal polyp, unspecified; L20.82 Flexural eczema; R60.0 Localized edema; R00.2 Palpitations; Z99.89 Dependence on other enabling machines and devices | CPT/HCPCS: 99212 ==

== ENCOUNTER 2025-01-29 09:53 | Day surgery (SDC) | payer OTHER, SELFPAY ==
--- OUTSIDE RECORDS SUMMARY | 2025-01-09 15:04 | XMS_ITS | Referral Summary ---
Author Organization [facility] Address [address] [place] [address] Care Team Providers Care Assistant Head Cashier Name Role Phone Patient, Has No Pcp Or Ref Primary Care Provider Unavailable Encounters Date Type Department Care Team Description 12/27/2024 2:15 PM EDT Follow-Up [facility] [address] [address] Real Estate Utilization Officer: Anabell Britton MD UPJ obstruction, congenital (Primary Dx) 11/29/2024 2:00 PM EST Office Visit [facility] [address] [address] Real Estate Utilization Officer: Anabell Britton MD UPJ obstruction, congenital (Primary [...] muscle as directed as needed. 09/24/2024 Active Hospital, Clinic, or Other Facility Administered Medication Ordered Dose Route Frequency Start Date End Date Status ciprofloxacin (CIPRO) tablet 500 mg 500 mg oral Once 12/27/2024 12/27/2024 Ended Social History Tobacco Use Types Packs/Day Years Used Date Smoking Tobacco: Never Assessed Comments No Sex and Gender Information Value Date Recorded Sex Assigned at Female 11/29/2024 1:55 PM EST Legal Sex Female 10:56 AM EST Gender Identity Not on file Sexual Orientation Not on file Last Filed Vital Signs Vital Sign Reading Time Taken Comments Blood Pressure 140/83 12/27/2024 2:08 PM EDT Pulse 94 12/27/2024 2:08 PM EDT Temperature - - Respiratory Rate - - Oxygen Saturation - - Inhaled Oxygen Concentration - - Weight - - Height - - Body Mass Index - - Plan of Treatment Upcoming Encounters Date Type Department Care Team (Late st Contact Info) Description 01/27/2025 12:00 PM EDT Appointment [facility] [address] [place] [address] Anabell Davalos MD [address] [place] [address] 03/20/2025 2:30 PM EDT Office Visit [facility] [address] [place] [address] Real Estate Utilization Officer: Ramona Montelongo MD [address] [place] [address] [phone] Insurance [facility] MEDICAID Advance Directives Documents on File Type Date Recorded Patient Bridge Tender Expl anation Health Care Proxy 12/27/2024 1:52 PM Healt h Care Proxy Documentation Care Teams Assistant Head Cashier Relationship Specialty Start Date End Date Patient, Has No Pcp Or Ref DO NOT EDIT THIS RECORD VIA PROVIDER ON THE FLY PCP - General Precision Optical Goods Worker 09/23/24
--- OUTSIDE RECORDS SUMMARY | 2025-01-09 15:04 | XMS_ITS | Clinical Summary ---
Author Organization [facility] Address [address] [place] [address] Care Team Providers Care Assistant Professor Of Mathematics Name Role Phone Patient, Has No Pcp [...] 500 mg oral Once 12/27/2024 12/27/2024 Ended Encounters Date Type Department Care Team Description 12/27/2024 2:15 PM EDT Follow-Up [facility] [address] [place] [phone] Director Of Guidance In Public Schools: Anabell Britton MD UPJ obstruction, congenital (Primary Dx) 11/29/2024 2:00 PM EST Office Visit [facility] [address] [place] [phone] Director Of Guidance In Public Schools: Anabell Britton MD UPJ obstruction, congenital (Primary [...] Info) Description 01/27/2025 12:00 PM EDT Appointment [facility] [address] [place], [place] [phone] Anabell Davalos MD [address] [place] [phone] 03/20/2025 2:30 PM EDT Office Visit [facility] [address] [place], [place] [phone] Director Of Guidance In Public Schools: Ramona Montelongo MD [address] [place] [address] [phone] Health Maintenance Due Date Last Done Comments [...] Vaccine ( season) 2024 01/31/2022, 03/15/2021, 02/15/2021 Alcohol/Substance Use Screening 10/02/2024 Depression Screening and Follow-Up 10/02/2024 Social Drivers of Health Kary ual Screening 10/02/2024 Influenza Vaccine (Season Ended) 2025 10/21/19 22 RSV Vaccine (60+ years old a nd patients) (1 - 1-dose 75+ series) 2073 Insurance [facility] MEDICAID Advance Directives Documents on File Type Date Recorded Patient Global Compensation Analyst Expl simbaion Health Care Proxy 12/27/2024 1:52 PM Johnathan Care Proxy Documentation Care Teams Assistant Professor Of Mathematics Relationship Specialty Start Date End Date Patient, Has No Pcp Or Ref DO NOT EDIT THIS RECORD VIA PROVIDER ON THE FLY PCP - General Condenser Winder 09/23/24
--- NOTE | ~2025-01-29 | FL_ITS ---
EXAMINATION: XR LUMBAR PUNCTURE CLINICAL INFORMATION: G93.2 - Benign intracranial hypertension COMPARISON: 05/29/2023 TECHNIQUE: Informed consent was obtained from the patient. Timeout was performed. Using fluoroscopic guidance, the L3-4 interlaminar space was identified, marked, and the skin prepped and draped in sterile fashion. Skin and subcutaneous tissues were anesthetized with 1% lidocaine. Subsequently, a 20-gauge Quincke spinal needle was advanced into the thecal sac, and clear CSF was noted at the needle hub. Opening pressure was measured at 26 cm H2O. Approximately 16 mL of clear CSF was obtained passively, and discarded as per ordering request. Closing pressure was measured at 16 cm H2O. The needle was removed. The patient tolerated the procedure well. There were no immediate complications. 1 fluoroscopic spot image obtained. FLUOROSCOPY TIME: 15 seconds DOSE AREA PRODUCT: 38.6 Gy-m2 (paul-meter squared) FL/FL guided lumbar puncture LP IMPRESSION: 1. Successful L3-4 lumbar puncture with opening pressure measured at 26 cm H2O. 16 mL clear CSF removed passively. Closing pressure measured at approximately 16 cm H2O. 2. Patient tolerated the procedure well. No immediate complication. Electronically signed by: Jorge A Umana MD 01/29/2025 12:38 PM EDT RP
[2025-01-29 10:12] LABS: UPreg QC Valid YES
[2025-01-29 10:14] LABS: Urine Pregnancy NEGATIVE (NEGATIVE)
[2025-01-29 10:17] VITALS: BP 114/75; PULSE 100; RESP 14; TEMP 36.6; O2SAT 97; BMI 51.5
[2025-01-29 10:55] LABS: MANUAL DIFF FLAG NO
[2025-01-29 10:57] LABS: Basophils Percent Auto 0.3 % (0-2); Eosinophils Absolute Auto 0.6 X10*3/uL (0.0-0.4); Eosinophils Percent Auto 5.5 % (0-4); Hematocrit 32.2 % (37.0-47.0); Hemoglobin 10.5 g/dl (12.0-16.0); Imm Gran Abs Auto 0.03 X10*3/uL (0.00-0.03); Imm Gran Pct Auto 0.3 % (0.0-0.4); Lymphocytes Absolute Auto 3.3 X10*3/uL (1.2-4.9); Lymphocytes Percent Auto 31.4 % (20-40); Mean Corpuscular HGB Conc 32.6 g/dl (31.0-35.0); Mean Corpuscular Hemoglobin 28.4 pg (27.0-33.0); Mean Platelet Volume 10.2 fL (9.4-12.3); Monocytes Absolute Auto 0.7 X10*3/uL (0.1-1.2); Monocytes Percent Auto 6.8 % (2-11); Neutrophils Absolute Auto 5.8 x10*3/uL (2.0-8.3); Neutrophils Percent Auto 55.7 % (45-73); Platelet Count 283 X10*3/uL (160-400); Red Cell Distribution Width 14.5 % (11.0-16.0); White Blood Count 10.5 X10*3/uL (4.8-10.8)
[2025-01-29 11:10] LABS: Anion Gap 9 (12-20); Blood Urea Nitrogen 4 mg/dL (9-16); Calcium 8.7 mg/dL (8.4-10.2); Carbon Dioxide 29 mmol/L (22-29); Chloride 107 mmol/L (96-108); Creatinine Clr Calc Pharmacy 136.7; Estimated Glomerular Filt Rate > 60; Glucose Random 77 mg/dL (60-115); Sodium 141 mmol/L (135-145)
[2025-01-29 11:50] VITALS: BP 130/86; PULSE 83; RESP 20; TEMP 36.1; O2SAT 100
[2025-01-29 12:05] VITALS: BP 125/80; PULSE 85; RESP 20; O2SAT 100
[2025-01-29 12:20] VITALS: BP 114/68; PULSE 87; RESP 20; O2SAT 100
[2025-01-29 12:35] VITALS: BP 115/65; PULSE 89; RESP 20; O2SAT 100
[2025-01-29 12:50] VITALS: BP 118/69; PULSE 90; RESP 16; TEMP 36.6; O2SAT 100
== END 2025-01-29 13:02 | disposition home or self-care (01) ==
PROVIDERS: Radiology Diagnostic Radiology; PCP Nurse Practitioner Family; Visit Provider Psychiatry & Neurology Neurology
PROC: 009U3ZZ Drainage of Spinal Canal, Percutaneous Approach (ICD-10-PCS; CPT 62270; principal; 2025-01-29 11:00)
DX: G93.2 Benign intracranial hypertension (principal); G43.709 Chronic migraine without aura, not intractable, without status migrainosus; M79.7 Fibromyalgia; G47.33 Obstructive sleep apnea (adult) (pediatric); I10 Essential (primary) hypertension; D64.9 Anemia, unspecified; J45.20 Mild intermittent asthma, uncomplicated; E66.01 Morbid (severe) obesity due to excess calories; Z68.43 Body mass index [BMI] 50.0-59.9, adult; Z79.899 Other long term (current) drug therapy; Z88.1 Allergy status to other antibiotic agents; Z91.014 Allergy to mammalian meats; Z91.012 Allergy to eggs; Z91.011 Allergy to milk products; Z91.018 Allergy to other foods; Z88.8 Allergy status to other drugs, medicaments and biological substances; Z56.0 Unemployment, unspecified
CPT/HCPCS: 36415; 62328; 80048; 81025; 85025; 85610; J2003

== ENCOUNTER → 2025-01-29 11:00 | Outpatient (BNV) | payer OTHER, SELFPAY | PROVIDERS: PCP Nurse Practitioner Family; Visit Provider Radiology Diagnostic Radiology | DX: G93.2 Benign intracranial hypertension (principal) | CPT/HCPCS: 62328 ==

== ENCOUNTER → 2025-02-20 19:30 | Outpatient (REF) | payer OTHER, SELFPAY | LOC: HO.SL 19:30 | PROVIDERS: PCP Nurse Practitioner Family; Visit Provider Hospitalist | DX: G47.33 Obstructive sleep apnea (adult) (pediatric) (principal); R00.2 Palpitations; R55 Syncope and collapse | CPT/HCPCS: 95810 ==

== ENCOUNTER → 2025-02-20 21:08 | Outpatient (BNV) | payer OTHER, SELFPAY | PROVIDERS: PCP Nurse Practitioner Family; Visit Provider Internal Medicine | DX: G47.33 Obstructive sleep apnea (adult) (pediatric) (principal) | CPT/HCPCS: 95810 ==

== ENCOUNTER 2025-02-27 16:03 | Outpatient (AMB) | payer OTHER, SELFPAY ==
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
--- NOTE | 2025-02-27 16:06 | MHC.OFFVIS ---
Vital Signs 02/27/25 16:09 Height 5 ft Weight 260 lb 2.327 oz BMI 50.8 BP 108/80 Blood Pressure Location Lt brachial Position Sitting Pulse 86 Intake Visit Reasons: paresis, mid abd pain, ibs-m Intake Note: Nimo presents in the office as a follow up. CC: She has been dealing with a lot of constipation. She had a BM today and yesterday but she had not had a BM before that since a week prior. She states that when she does go it is not a lot. She does not have any blood with her BMs. Pains in the abdomen all over. Embryology Teacher Required: No Allergies fexofenadine [From Sofía-D] Allergy (Severe, Verified 02/27/25 16:10) Swelling milk Allergy (Severe, Verified 02/27/25 16:10) Anaphylaxis pseudoephedrine [From Sofía-D] Allergy (Severe, Verified 02/27/25 16:10) Swelling Beef Containing Products Allergy (Intermediate, Verified 02/27/25 16:10) Hives aranda Allergy (Intermediate, Verified 02/27/25 16:10) Hives egg Allergy (Intermediate, Verified 02/27/25 16:10) Hives lamotrigine Allergy (Intermediate, Verified 02/27/25 16:10) hives nut - unspecified Allergy (Intermediate, Verified 02/27/25 16:10) Hives doxycycline Adverse Reaction (Intermediate, Verified 02/27/25 16:10) projectile vomiting tiotropium [From Spiriva with HandiHaler] Adverse Reaction (Intermediate, Verified 02/27/25 16:10) Cough sulcralfate Adverse Reaction (Mild, Uncoded 02/27/25 16:10) hives HPI HPI paresis, mid abd pain, ibs-m: Details: Assessment & Plan (1) Gastroparesis: Comment: Grade 4, severe delay on 2023 Code(s): K31.84 - Gastroparesis Category: Medical (2) Food allergy: Comment: hazelnuts, almonds Code(s): Z91.018 - Allergy to other foods Category: Medical (3) Gastroesophageal reflux disease: Code(s): K21.9 - Gastro-esophageal reflux disease without esophagitis Category: Medical (4) Multiple food allergies: Comment: RAST SHOWS ONLY HAZELNUTS AND ALMONDS; but she does not tolerate Eggs, apples, milk, nuts, red meat Code(s): Z91.018 - Allergy to other foods Category: Medical (5) Abdominal cramping: Code(s): R10.9 - Unspecified abdominal pain Category: Medical Plan SHE CONTINUES ON HER CREON, DEXILANT, AND NOW REGLAN 5 MG 4 TIMES A DAY. She thinks that the Reglan has helped quite a lot as she is no longer vomiting but she also tends to forget to take it during the day. She has suffered absolutely no adverse effects at the 5 mg dose. The Dexilant has also greatly helped her heartburn. The 1 thing that continues is the sharp cramping in the periumbilical area and her stooling tends to go back and forth between constipation and diarrhea. We also reviewed the RAST and the only thing she actually tested out for in terms of foods allergies was [place] nuts and almonds. There are quite a lot of other foods she does not seem to tolerate. Will try to keep chipping away although we have improved quite a few of her symptoms. I think were going to try to approach the stooling with a trial of dicyclomine to see if that can help with the antwon abdominal cramping. She stopped the Creon because it did not seem to be helping her very much and also provided trouble in terms of the multiple daily doses. Return office visit next available Medications: New dicyclomine 20 mg PO QID PRN 120 tabs 3RF abdominal pain 30 days R10.9 - Unspecified abdominal pain Discontinued [id number] 36,000-114,000- 180,000 unit (Creon) administer with meals and/or snacks Discontinued Reason: Doctor's Order 2 caps PO BID 120 caps 6RF R10.9 - Unspecified abdominal pain, R19.7 - Diarrhea, unspecified TODAY'S VISIT SHE CONTINUES ON HER CREON, DEXILANT, AND NOW REGLAN 5 MG 4 TIMES A DAY. She has been having some CIC recently, but she may be out of the reglan. She feels that the bentyl really helped the cramping. Restart al meds and consider otc bisacodyl (senna did not work) and re eval. ROV 8 weeks. [facility] Medical History Syncope Palpitations Food allergy History of colitis Chronic diarrhea of unknown origin Urinary urgency Morbid obesity with BMI of 45.0-49.9, adult Hydronephrosis Iron deficiency anemia Gallstones Abdominal pain Diarrhea Pleurisy Leukocytosis Elevated AST (SGOT) Left ear pain Pseudotumor cerebri Eosinophilic esophagitis Colitis Anxiety AMAIARNI (obstructive sleep apnea) Fibromyalgia Bipolar disorder Migraine headache History of lumbar puncture Urinary frequency Urinary incontinence Cervicalgia Benign intracranial hypertension Essential hypertension Major depressive disorder Anemia Irregular menses Eczema Nasal polyps Morbid (severe) obesity due to excess calories Asthma, mild intermittent, well-controlled Surgical History (Updated 02/27/25 @ 16:10 by JOEL Mancuso) History of removal of ureteral stent History of esophagogastroduodenoscopy (EGD) H/O colonoscopy History of wisdom tooth extraction Family History Mother Asthma HTN (hypertension) Father Bipolar 1 disorder Diabetes Parkinson disease Maternal Grandmother S/P triple vessel bypass Mother Uterine cancer Other Mental health disorder Social History Household Members: Family Housing: House Are you a primary career representative to a significant other at home: No Do you presently have visiting nurse or other home services: No Alcohol intake: current Alcohol intake frequency: holidays/special occasions only Patient Tobacco Use Status: Never used Tobacco e-Cigarette/Vaping Use: Never Used Second Hand Smoke Exposure: No Current occupational status: unemployed and student Current occupational exposures/hazards: No Gender identity: Female Cognitive needs: No Hearing needs: No Vision needs: No Review of Systems Const Denies fatigue, Denies fever(s), Denies night sweats, Denies poor appetite and Denies weight loss Eyes Details: gl;asses Reports requires corrective lenses ENT Reports Normal hearing present, Denies dental pain, Denies dysphagia, Denies hearing loss, Denies mouth pain, Denies odynophagia, Denies throat swelling, Denies tongue swelling and Reports other (Dentition adequate) Card Reports no additional complaints Resp Reports no additional complaints GI Details: Denies abdominal pain, Denies melena, Denies bloating, Denies hematochezia, Reports constipation, Reports GI cramping, Denies dysphagia, Denies excessive flatus, Denies early satiety, Reports heartburn, Denies diarrhea, Reports loose stools, Denies nausea, Denies odynophagia, Denies vomiting and Denies hematemesis Skin/Breast Denies pruritus, Denies lesions, Denies rash and Denies jaundice Neuro Reports Normal hearing present and Denies Abnormal speech present Endo Denies fatigue Aller/Immun Denies throat swelling and Denies tongue swelling Physical Exam Vital Signs: Last Vital Signs Pulse 86 02/27/25 16:09 BP 108/80 02/27/25 16:09 BMI result Body Mass Index 50.8 Const General: cooperative, no acute distress, well developed and well groomed Nutritional Appearance: well nourished and obese morbidly obese Orientation/consciousness: oriented to person, oriented to place and oriented to time Limitations: No language barrier HEENT Head: Yes normocephalic and Yes atraumatic Eyes General: appearance normal, both eyes and all related structures Pupils: Equal, round and reactive pupils present Neck Neck: Yes normal visual inspection and Yes no lymphadenopathy Thyroid: Thyroid normal Resp Effort & Inspection: normal respiratory effort and able to speak in complete sentences Auscultation: clear to auscultation bilaterally Cardio Rate: regular rate Rhythm: regular rhythm Heart sounds: Normal, physiologic split S2 sound present Peripheral pulses: radial pulses present and posterior tibial pulses present GI Inspection: No distended, Yes Abdominal panniculus present and Yes obesity Palpation (GI): Soft to palpation, nontender, no guarding, not rigid and No hepatosplenomegaly present Percussion: Yes normal to percussion Auscultation: normal bowel sounds Rectal Exam - Female: deferred Skin General skin exam: no rashes or lesions noted, turgor normal, skin not dry, no jaundice, No spider nevi and no striae Rashes: no rashes Nails: normal Neuro General: oriented to person, oriented to place and oriented to time Cranial nerves: Yes Equal, round and reactive pupils present and Yes Normal hearing present Speech: No Abnormal speech present Extrem General: Yes normal to inspection, No clubbing, No cyanosis and No edema Psych Appearance: grossly normal and well kempt Mental Status: mental status grossly normal Speech and movement: Normal speech and movement present Affect: normal affect Attitude: cooperative Thought process: Normal thought process present and not confabulating Thought content: Normal thought content present Insight: Fair insight present (Psych) Judgement: Fair judgement present (Psych) Assessment & Plan Assessment & Plan (1) Abdominal cramping: Code(s): R10.9 - Unspecified abdominal pain Category: Medical (2) Gastroparesis: Comment: Grade 4, severe delay on 2023 GS Code(s): K31.84 - Gastroparesis Category: Medical (3) Gastroesophageal reflux disease: Code(s): K21.9 - Gastro-esophageal reflux disease without esophagitis Category: Medical (4) Multiple food allergies: Comment: RAST SHOWS ONLY HAZELNUTS AND ALMONDS; but she does not tolerate Eggs, apples, milk, nuts, red meat Code(s): Z91.018 - Allergy to other foods Category: Medical Plan SHE CONTINUES ON HER CREON, DEXILANT, AND NOW REGLAN 5 MG 4 TIMES A DAY. She has been having some CIC recently, but she may be out of the reglan. She feels that the bentyl really helped the cramping. Restart all meds and consider otc bisacodyl (senna did not work) and re eval. work note given for frequent bathroom breaks due to her GI condition. ROV 8 weeks Medications: Refilled metoclopramide HCl (Reglan) 5 mg PO QIDACHS 120 tabs 6RF K31.84 - Gastroparesis Dexilant (dexlansoprazole) 60 mg PO DAILY 30 caps 6RF 30 days NS dicyclomine 20 mg PO QID PRN 120 tabs 3RF abdominal pain 30 days R10.9 - Unspecified abdominal pain Discontinued trazodone Discontinued Reason: Duplicate 100 mg PO BEDTIME 30 tabs 2RF Patient Instructions: [facility] Gastroenterology [address] [place] [phone] To Whom It May Concern: Please be advised that Nimo Bae is under my care for a chronic GI condition. She may need frequent bathroom breaks and occasional absences due to this condition. If you have any questions please feel free to contact my office. DUSTIN Scott [facility] [place] [phone] phone [phone] fax Coding Level of Care Code Est Pt Level 3 (98611) Diagnoses Abdominal cramping R10.9 Gastroparesis K31.84 Gastroesophageal reflux disease K21.9 Multiple food allergies Z91.018
[2025-02-27 16:09] VITALS: BP 108/80; PULSE 86; BMI 50.8
== END 2025-02-27 16:31 | disposition home or self-care (01) ==
LOC: HO.HGI 16:04
PROVIDERS: PCP Nurse Practitioner Family; Visit Provider Nurse Practitioner
DX: R10.9 Unspecified abdominal pain (principal); K31.84 Gastroparesis; K21.9 Gastro-esophageal reflux disease without esophagitis; Z91.018 Allergy to other foods
CPT/HCPCS: 99213

== ENCOUNTER → 2025-02-27 16:03 | Outpatient (BNVA) | payer OTHER, SELFPAY | PROVIDERS: PCP Nurse Practitioner Family; Visit Provider Nurse Practitioner | DX: K59.00 Constipation, unspecified (principal); K31.84 Gastroparesis; K21.9 Gastro-esophageal reflux disease without esophagitis; R10.9 Unspecified abdominal pain; Z91.018 Allergy to other foods | CPT/HCPCS: 99212 ==

== ENCOUNTER 2025-05-28 13:18 | Outpatient (AMB) | payer OTHER, SELFPAY ==
--- NOTE | 2025-05-28 13:20 | A.OFFVIS_ITS ---
Vital Signs 05/28/25 13:32 Height 5 ft Weight 268 lb 1.314 oz BMI 52.4 BP 130/74 Blood Pressure Location Lt brachial Position Sitting Pulse 79 Intake Visit Reasons: Follow up IBS, GERD Intake Note: Patient is seen in office for 3 month follow up visit, following on IBS and GERD. Pt c/o: symptmos are about the same as last visit, constipation on and off, no blood in stool, continued abdominal pain- has decrease compare to last visit Baker Second Required: No Accompanied by: Self / Same As Patient Allergies fexofenadine (From Sofía-D) Allergy (Severe, Verified 05/28/25 13:33) Swelling milk Allergy (Severe, Verified 05/28/25 13:33) Anaphylaxis pseudoephedrine (From Sofía-D) Allergy (Severe, Verified 05/28/25 13:33) Swelling Beef Containing Products Allergy (Intermediate, Verified 05/28/25 13:33) Hives aranda Allergy (Intermediate, Verified 05/28/25 13:33) Hives egg Allergy (Intermediate, Verified 05/28/25 13:33) Hives lamotrigine Allergy (Intermediate, Verified 05/28/25 13:33) hives nut - unspecified Allergy (Intermediate, Verified 05/28/25 13:33) Hives doxycycline Adverse Reaction (Intermediate, Verified 05/28/25 13:33) projectile vomiting tiotropium (From Spiriva with HandiHaler) Adverse Reaction (Intermediate, Verified 05/28/25 13:33) Cough sulcralfate Adverse Reaction (Mild, Uncoded 05/28/25 13:33) hives HPI HPI Follow up IBS, GERD: Details: Assessment & Plan (1) Abdominal cramping: Code(s): R10.9 - Unspecified abdominal pain Category: Medical (2) Gastroparesis: Comment: Grade 4, severe delay on 2023 GS Code(s): K31.84 - Gastroparesis Category: Medical (3) Gastroesophageal reflux disease: Code(s): K21.9 - Gastro-esophageal reflux disease without esophagitis Category: Medical (4) Multiple food allergies: Comment: RAST SHOWS ONLY HAZELNUTS AND ALMONDS; but she does not tolerate Eggs, apples, milk, nuts, red meat Code(s): Z91.018 - Allergy to other foods Category: Medical Plan SHE CONTINUES ON HER CREON, DEXILANT, AND NOW REGLAN 5 MG 4 TIMES A DAY. She has been having some CIC recently, but she may be out of the reglan. She feels that the bentyl really helped the cramping. Restart all meds and consider otc bisacodyl (senna did not work) and re eval. work note given for frequent bathroom breaks due to her GI condition. ROV 8 weeks Medications: Refilled metoclopramide HCl (Reglan) 5 mg PO QIDACHS 120 tabs 6RF K31.84 - Gastroparesis Dexilant (dexlansoprazole) 60 mg PO DAILY 30 caps 6RF 30 days NS dicyclomine 20 mg PO QID PRN 120 tabs 3RF abdominal pain 30 days R10.9 - Unspecified abdominal pain Discontinued trazodone Discontinued Reason: Duplicate 100 mg PO BEDTIME 30 tabs 2RF Patient Instructions: [facility] [address] [place] [id number] To Whom It May Concern: Please be advised that Nimo Bae is under my care for a chronic GI condition. She may need frequent bathroom breaks and occasional absences due to this condition. If you have any questions please feel free to contact my office. [facility]USTIN [facility] [phone] phone [phone] fax TODAY'S VISIT SHE CONTINUES ON HER CREON, DEXILANT, AND NOW REGLAN 5 MG 4 TIMES A DAY. Restart all meds and consider otc bisacodyl (senna did not work) and re eval. [facility] Medical History Syncope Palpitations Food allergy History of colitis Chronic diarrhea of unknown origin Urinary urgency Morbid obesity with BMI of 45.0-49.9, adult Hydronephrosis Iron deficiency anemia Gallstones Abdominal pain Diarrhea Pleurisy Leukocytosis Elevated AST (SGOT) Left ear pain Pseudotumor cerebri Eosinophilic esophagitis Colitis Anxiety AMAIRANI (obstructive sleep apnea) Fibromyalgia Bipolar disorder Migraine headache History of lumbar puncture Urinary frequency Urinary incontinence Cervicalgia Benign intracranial hypertension Essential hypertension Major depressive disorder Anemia Irregular menses Eczema Nasal polyps Morbid (severe) obesity due to excess calories Asthma, mild intermittent, well-controlled Surgical History History of removal of ureteral stent History of esophagogastroduodenoscopy (EGD) H/O colonoscopy History of wisdom tooth extraction Family History Mother Asthma HTN (hypertension) Father Bipolar 1 disorder Diabetes Parkinson disease Maternal Grandmother S/P triple vessel bypass Mother Uterine cancer Other Mental health disorder Social History Household Members: Family Housing: House Are you a primary urgent care physician to a significant other at home: No Do you presently have visiting nurse or other home services: No Alcohol intake: current Alcohol intake frequency: holidays/special occasions only Patient Tobacco Use Status: Never used Tobacco e-Cigarette/Vaping Use: Never Used Second Hand Smoke Exposure: No Current occupational status: unemployed and student Current occupational exposures/hazards: No Gender identity: Female Cognitive needs: No Hearing needs: No Vision needs: No Review of Systems Const Denies fatigue, Denies fever(s), Denies night sweats, Denies poor appetite and Denies weight loss ENT Reports Normal hearing present, Denies dental pain, Denies dysphagia, Denies hearing loss, Denies mouth pain, Denies odynophagia, Denies throat swelling, Denies tongue swelling and Reports other (Dentition adequate) Card Reports no additional complaints Resp Reports no additional complaints GI Details: Denies abdominal pain, Denies melena, Reports bloating, Denies hematochezia, Reports constipation, Denies GI cramping, Denies dysphagia, Denies excessive flatus, Reports early satiety, Reports heartburn, Reports diarrhea, Denies nausea, Denies odynophagia, Denies vomiting and Denies hematemesis Skin/Breast Denies pruritus, Denies lesions, Denies rash and Denies jaundice Neuro Reports Normal hearing present and Denies Abnormal speech present Endo Denies fatigue Aller/Immun Denies throat swelling and Denies tongue swelling Physical Exam Vital Signs: Last Vital Signs Pulse 79 05/28/25 13:32 BP 130/74 05/28/25 13:32 BMI result Body Mass Index 52.4 Const General: cooperative, no acute distress, well developed and well groomed Nutritional Appearance: well nourished and obese Orientation/consciousness: oriented to person, oriented to place and oriented to time Limitations: No language barrier HEENT Head: Yes normocephalic and Yes atraumatic Eyes General: appearance normal, both eyes and all related structures Pupils: Equal, round and reactive pupils present Neck Neck: Yes normal visual inspection and Yes no lymphadenopathy Thyroid: Thyroid normal Resp Effort & Inspection: normal respiratory effort and able to speak in complete sentences Auscultation: clear to auscultation bilaterally Cardio Rate: regular rate Rhythm: regular rhythm Heart sounds: Normal, physiologic split S2 sound present Peripheral pulses: radial pulses present and posterior tibial pulses present GI Inspection: No distended, Yes Abdominal panniculus present and Yes obesity Palpation (GI): Soft to palpation, nontender, no guarding, not rigid and No hepatosplenomegaly present Percussion: Yes normal to percussion Auscultation: normal bowel sounds Rectal Exam - Female: deferred Skin General skin exam: no rashes or lesions noted, turgor normal, skin not dry, no jaundice, No spider nevi and no striae Rashes: no rashes Nails: normal Neuro General: oriented to person, oriented to place and oriented to time Cranial nerves: Yes Equal, round and reactive pupils present and Yes Normal hearing present Speech: No Abnormal speech present Extrem General: Yes normal to inspection, No clubbing, No cyanosis and No edema Psych Appearance: grossly normal and well kempt Mental Status: mental status grossly normal Speech and movement: Normal speech and movement present Affect: normal affect Attitude: cooperative Thought process: Normal thought process present and not confabulating Thought content: Normal thought content present Insight: Good insight present (Psych) Judgement: Good judgement present (Psych) Assessment & Plan Assessment & Plan (1) Irritable bowel syndrome with both constipation and diarrhea: Code(s): K58.2 - Mixed irritable bowel syndrome Category: Medical (2) Gastroparesis: Comment: Grade 4, severe delay on 2023 GS Code(s): K31.84 - Gastroparesis Category: Medical (3) Erosive esophagitis: Code(s): K22.10 - Ulcer of esophagus without bleeding Category: Medical (4) Gastroesophageal reflux disease: Code(s): K21.9 - Gastro-esophageal reflux disease without esophagitis Category: Medical (5) Abdominal cramping: Code(s): R10.9 - Unspecified abdominal pain Category: Medical (6) Multiple food allergies: Comment: RAST SHOWS ONLY HAZELNUTS AND ALMONDS; but she does not tolerate Eggs, apples, milk, nuts, red meat Code(s): Z91.018 - Allergy to other foods Category: Medical Plan SHE CONTINUES ON HER CREON, DEXILANT, AND NOW REGLAN 5 MG 4 TIMES A DAY. Restart all meds and consider otc bisacodyl (senna did not work) and re eval. She continues to struggle with constipation alternating with diarrhea. She really can not to find which of the dominant process as they seem to occur with equal regularity. In the past we tried treating the constipation to see if it was the driving process but senna was far too strong for her and she just likes the idea of using anything that is liquid because of taste including MiraLax, milk of magnesia or lactulose. With discussion it turns out that she stopped taking the Creon and it may just be that she forgot about it or she had difficulty with a 4 times a day dosing regimen. Because diarrhea could be the underlying process and Creon could be helpful with this I suggest we restarted at 2 caps twice a day with this dosing regimen promoting compliance. She is educated that this is the most difficult type of IBS to treat and if it fails fiber therapy it can be quite elusive to find any underlying problem as it could be functional in nature. Frequently the bowels will respond to so many internal and external variation since stimuli that it is impossible to completely pinned down reversible cause. She says she is avoiding the food allergies that were discovered so hopefully this is not contributing to her cycles of diarrhea. She continues to do well in terms of her gastroparesis at her GERD utilizing the Reglan and the Dexilant without any adverse effects. She asks about the use of a GLP 1 agonist for somebody who has diagnose gastric paresis, hers is severe, and I let her know that it is not an absolute contraindication but explain the pathophysiology as to why this could cause her problems. Sometimes we can Medicaid around this by increasing the metoclopramide and sometimes the patient simply can not tolerate this medication due to worsening gastroparesis but causes nausea vomiting and severe constipation along with abdominal pain. However if she wishes to try it I will be there to help her manage it as long as she understands that if she does not tolerate it she may need to discontinue the medication. Return office visit in 4 weeks Medications: New sennosides (Natural Senna Laxative) 8.6 mg PO BEDTIME 30 tabs 3RF K58.2 - Mixed irritable bowel syndrome [id number] 36,000-114,000- 180,000 unit (Creon) administer with meals and/or snacks 2 caps PO BID 60 caps 6RF K58.2 - Mixed irritable bowel syndrome Coding Level of Care Code Est Pt Level 3 (53203) Diagnoses Irritable bowel syndrome with both constipation and diarrhea K58.2 Gastroparesis K31.84 Erosive esophagitis K22.10 Gastroesophageal reflux disease K21.9 Abdominal cramping R10.9 Multiple food allergies Z91.018
[2025-05-28 13:32] VITALS: BP 130/74; PULSE 79; BMI 52.4
--- OUTSIDE RECORDS SUMMARY | 2025-05-28 14:09 | XMS_ITS | Clinical Summary ---
Author Organization [facility] Address [address] [place] [address] Care Team Providers Care Supply Chain Intern Name Role Phone Patient, Has No Pcp Or Ref Primary Care Provider Unavailable Allergies Active Allergy Reactions Criticality Noted Date Comments Beef Containing Products Rash 03/09/2016 Alejo Flavor Rash 03/09/2016 Doxycycline Nausea And Vomiting Medium 10/12/2022 Egg Unknown 03/09/2016 Fexofenadine-Pseudoephe drine Unknown 05/26/2017 Stiff neck Fruit Extracts Unknown 03/09/2016 Cherries, apples Milk Anaphylaxis High 03/09/2016 Nut - Unspecified Unknown 03/09/2016 Medications sertraline (ZOLOFT) 100 mg tablet Take 100 mg by mouth once a day. 5 Active traZODone (DESYREL) 100 mg tablet Take 100 mg by mouth nightly. 4 Active propranolol LA (INDERAL LA) 60 mg capsule Take 60 mg by mouth daily as needed. 4 Active metoclopramide (REGLAN) 5 mg tablet Take 5 mg by mouth 4 times a day. 4 Active Airsupra 90-80 mcg/actuation HFA aerosol inhaler SMARTSI Puff(s) By Mouth Twice Daily PRN 5 Active brimonidine (ALPHAGAN) 0.2% ophthalmic solution Instill 1 drop into both eyes 2 times a day. 5 Active cholecalcifero l (VITAMIN D3) 1,250 mcg (50,000 unit) capsule Take 50,000 Units by mouth once a week. 5 Active cyanocobalamin 1,000 mcg tablet Take 1,000 mcg by mouth once a day. 5 Active Dupixent Syringe 300 mg/2 mL syringe injection Inject 300 mg under the skin over 168 hr. 5 Active Dexilant 60 mg capsule Take 60 mg by mouth once a day. 5 Active Caplyta 42 mg capsule Take 42 mg by mouth once a day. 5 Active folic acid (FOLVITE) 1 mg tablet Take 1 mg by mouth once a day. 5 Active fesoterodine 8 mg tablet extended release 24 hr Take 8 mg by mouth daily. 5 Active EPINEPHrine (EPIPEN) 0.3 mg/0.3 mL injection syringe Inject 0.3 mg into the outer thigh muscle as directed as needed. 4 Active cloNIDine (CATAPRES) 0.1 mg tablet Take 0.1 mg by mouth once a day. Active desvenlafaxine succinate (Pristiq) 25 mg Take 25 mg by mouth once a day. Active magnesium oxide 400 mg magnesium tablet Take 400 mg by mouth every night. 4 025 Discontinued LORazepam (ATIVAN) 0.5 mg tablet Take 0.5 mg by mouth daily as needed. 4 025 Discontinued Creon 36,000-114,000 - 180,000 unit capsule Take 36,000 units of lipase by mouth 2 times a day. 4 025 Discontinued Encounters Date Type Department Care Team Description 05/23/2025 Telephone [facility] [address] [place] [id number] Floorworker Distributor: Anabell Britton MD 05/23/2025 Telephone [facility] [address] [place] [address] Floorworker Distributor: Anabell Britton MD 05/22/2025 Orders Only External Imaging [address] [place] [address] Radiology, External 05/22/2025 Orders Only External Imaging [address] [place] [address] Radiology, External 05/22/2025 Orders Only External Imaging [address] [place] [address] Radiology, External 05/22/2025 Orders Only External Imaging [address] [place] [address] Radiology, External 05/13/2025 3:30 PM EDT Pre-Admission Testing [facility] [address] [facility] [address] [place] [address] UPJ obstruction, congenital (Primary Dx); Pre-op evaluation 05/02/2025 10:00 AM EDT Telehealth [facility] [address] [place] [phone] Floorworker Distributor: Anabell Britton MD UPJ obstruction, congenital (Primary Dx) 05/02/2025 Prep for Case [facility] [address] [address] Floorworker Distributor: Anabell Britton MD UPJ obstruction, congenital (Primary Dx) 04/29/2025 Results Follow-Up [facility] [address] [address] Floorworker Distributor: Anabell Britton MD 04/28/2025 1:00 PM EDT - 04/28/2025 11:59 PM EDT Hospital [facility] Nuclear Medicine [address] [place] [address] Anabell Davalos MD UPJ obstruction, congenital Discharge Disposition: Home or Self Care (01) from Last 3 Months Family History Medical History Relation Name Comments Bipolar disorder Father Dementia Father Parkinsonism Father Heart disease Mother Venous thrombosis Mother Relation Name Status Comments Father Alive Mother Alive Social History Tobacco Use Types Packs/Day Years Used Date Smoking Tobacco: Never Smokeless Tobacco: Never Tobacco Cessation:Counseling Given: Not Answered Alcohol Use Standard Drinks/Week Comments Not Currently 0 (1 standard drink = 0.6 oz pur e alcohol) 4 times a year Comments No Sex and Gender Information Value Date Recorded Sex Assigned at Female 11/29/2024 1:55 PM EST Legal Sex Female 10:56 AM EST Gender Identity Female 04/28/2025 11:34 AM EDT Sexual Orientation Straight 04/28/2025 11 :34 AM EDT Last Filed Vital Signs Vital Sign Reading Time Taken Comments Blood Pressure 140/83 12/27/2024 2:08 PM EDT Pulse 94 12/27/2024 2:08 PM EDT Temperature - - Respiratory Rate - - Oxygen Saturation - - Inhaled Oxygen Concentration - - Weight 115.7 kg (255 lb 1.2 oz) 025 11:00 AM EDT Height 153.4 cm (5' 0.39 ) 05/14/2025 1 1:00 AM EDT Body Mass Index 49.17 05/14/2025 11:00 AM EDT Plan of Treatment Upcoming Encounters Date Type Department Care Team (Latest Contact Info) Description 06/11/2025 4:15 PM EDT Pre-Admission Testing [facility] [address] [place] [address] [address] [place] [address] 06/24/2025 7:10 AM EDT Hospital Encounter [facility] Operating Room [address] [place] [phone] Anabell Davalos MD [address] [place] [address] 06/24/2025 7:10 AM EDT Anesthesia Event [facility] Operating [facility] [address] [place] [address] Dacia Joyner, [address] [address] 06/24/2025 7:10 AM EDT - 06/24/2025 11:15 AM EDT Surgery [facility] Operating Room [address] [place] [address] Anabell Davalos MD [address] [place] [id number] ROBOTIC PYELOPLASTY SP [[id number] (CPT )] Scheduled Procedures Name Priority Associated Diagnoses Date/Ti me ROBOTIC PYELOPLASTY SP UPJ obstruction, congenital 06/24/2025 7:10 AM EDT Health Maintenance Due Date Last Done Comments HIV Screening 1998 Hepatitis C Screening 1998 Pap Smear 1998 Varicella Vaccines (1 of 2 - 13+ 2-dose series) 2011 Hepatitis B Vaccines (1 of 3 - 19+ 3-dose series) 2017 Pneumococcal Vaccine: Pediat bartolo (0-5 Years) and At-Risk Patients (6-50 Years) (1 of 2 - PCV) 2017 DTaP,Tdap,and Td Vaccines (2 - Tdap) 06/07/201901/2019 COVID-19 Vaccine ( season) 2024 01/31/2022, 03/15/2021, 02/15/2021 Alcohol/Substance Use Screening 10/02/2024 Depression Screening and Follow-Up 10/02/2024 Social Drivers of Health Kary ual Screening 10/02/2024 Influenza Vaccine (#1) 2025 10/21/2021 RSV Vaccine (60+ years old a nd patients) (1 - 1-dose 75+ series) 2073 Goals Goal Patient Goal Type Associated Problems Recent Progress Patient-Stated? Author Autogenera susan Goal Care Plan Autogenerated Problem No Sury Chairez Procedures * Due to [place] state law, this organization might not be sharing negative HIV tests. Procedure Name Priority Date/Time Associated Diagnosis Comments SR TOP, URN Routine 05/16/2025 12:23 PM EDT UPJ obstruction, congenital UA/CULTURE REFLEX Routine 05/16/2025 12: 23 PM EDT UPJ obstruction, congenital BASIC METABOLIC PANEL Routine 05/16/2025 12:23 PM EDT UPJ obstruction, congenital URINALYSIS W/REFLEX TO MICROSCOPIC & CULTURE Routine 05/16/2025 12:23 PM EDT UPJ obstruction, congenital TYPE AND SCREEN Routine 05/16/2025 12:23 PM EDT UPJ obstruction, congenital Pre-op evaluation CBC Routine 05/16/2025 12:23 PM EDT UPJ obstruction, congenital Pre-op evaluation NM KIDNEY FLOW AND FUNCTION WITH LASIX Routine 04/28/2025 3:50 PM EDT UPJ obstruction, congenital from Last 3 Months Results * Due to [place] state law, this organization might not be sharing negative HIV tests. * Sr Top, Urine (05/16/2025 12:23 PM EDT) Extra Tube Hold for add-ons. 05/16/2025 6:05 PM EDT [facility] Comment:Auto resulted. Urine Urine specimen collection, clean catch / Unknown Non-Blood Collection / Unknown 05/16/2025 12:23 PM EDT 05/16/2025 5:59 PM EDT us Anabell Davalos MD LAB URINE ORDERABLES Final Re sult [facility] [address] [place] [address], * Urinalysis W/Reflex to Microscopic & Culture (05/16/2025 12:23 PM EDT) Color, Urine Light Yellow Colorless, Light Yellow, Yellow, Dark Yellow 05/16/2025 6:27 PM EDT [facility] Clarity, Urine Clear Clear 05/16/2025 6:27 PM EDT [facility] Specific [place], Urine 1.015 <1.030 05/16/2025 6:27 PM EDT [email or web address] pH, Urine 6.0 4.6 - 8.0 05/16/2025 6:27 PM EDT [email or web address] Protein, Urine Negative Negative 05/16/2025 6:27 PM EDT [email or web address] Glucose, Urine Normal Normal 05/16/2025 6:27 PM EDT [email or web address] Ketones, Urine Negative Negative 05/16/2025 6:27 PM EDT [facility] Bilirubin, Urine Negative Negative 05/16/2025 6:27 PM EDT [email or web address] Blood, Urine Negative Negative 05/16/2025 6:27 PM EDT [facility] Nitrite, Urine Negative Negative 05/16/2025 6:27 PM EDT [email or web address] Urobilinogen, Urine Normal Normal 05/16/2025 6:27 PM EDT [email or web address] Leukocyte Esterase, Urine Negative Negative 05/16/2025 6:27 PM EDT [email or web address] Urine Urine specimen collection, clean catch / Unknown Non-Blood Collection / Unknown 05/16/2025 12:23 PM EDT 05/16/2025 5:59 PM EDT us Anabell Davalos MD LAB URINE ORDERABLES Final Re sult [facility] [address] [place] [address], * (ABNORMAL) CBC (05/16/2025 12:23 PM EDT) WBC 12.2(H) 3.8 - 10.8 10*3/uL 05/16/2025 1:43 PM EDT [facility] RBC 4.29 3.80 - 5.10 10*6/uL 05/16/2025 1:43 PM EDT [email or web address] Hemoglobin 11.1(L) 11.7 - 15.5 g/dL 05/16/2025 1:43 PM EDT [facility] Hematocrit 34.5(L) 35.0 - 45.0 % 05/16/2025 1:43 PM EDT [email or web address] MCV 80.4 80.0 - 100.0 fL 05/16/2025 1:[address] [facility] MCH 25.9(L) 27.0 - 33.0 pg 05/16/2025 1:[address] [facility] MCHC 32.2 32.0 - 36.0 g/dL 05/16/2025 1:[address] [facility] RDW 15.2(H) 11.0 - 15.0 % 05/16/2025 1:[address] [facility] Platelets 307 140 - 400 10*3/uL 05/16/2025 1:[address] [facility] MPV 11.3 7.5 - 12.5 fL 05/16/2025 1:[address] [facility] Blood Structure of peripheral vein / Unknown Venipuncture / Unknown 05/16/2025 12:23 PM EDT 05/16/2025 1:33 PM EDT Maren [facility] LAB BLOOD ORDERABLES Fin al Result [facility] [address] [place] [address], * Type and Screen (05/16/2025 12:23 PM EDT) ABO Blood Type AB 05/16/2025 8:11 PM EDT [facility] RH Type Positive 05/16/2025 8:11 PM EDT [facility] Expiration Date/Time 2025-05-29 23:59 05/16/2025 8:11 PM EDT [facility] Antibody Screen Negative 05/16/2025 8:11 PM EDT [facility] Blood Structure of peripheral vein / Unknown Venipuncture / Unknown 05/16/2025 12:23 PM EDT 05/16/2025 1:53 PM EDT Maren [facility] LAB BLOOD BANK TEST BHUMIKA ZAMARRIPA Final Result [facility] [address] [place] [address], * Basic metabolic panel (05/16/2025 12:23 PM EDT) NA 141 135 - 145 mmol/L 05/16/2025 2:06 PM EDT [facility] K 3.8 3.5 - 5.3 mmol/L 05/16/2025 2:06 PM EDT [facility] Cl 105 98 - 107 mmol/L 05/16/2025 2:06 PM EDT [facility] CO2 26 22 - 32 mmol/L 05/16/2025 2:06 PM EDT [facility] BUN 10 7 - 23 mg/dL 05/16/2025 2:06 PM EDT [facility] Creatinine 0.95 0.50 - 1.20 mg/dL 05/16/2025 2:06 PM EDT [facility] Glucose 83 65 - 99 mg/dL 05/16/2025 2:06 PM EDT [facility] Calcium 9.1 8.6 - 10.5 mg/dL 05/16/2025 2:06 PM EDT [facility] Anion Gap 10 5 - 15 05/16/2025 2:06 PM EDT [facility] eGFR 84 >=60 mL/min/1. 73m2 05/16/2025 2:06 PM EDT [facility] Comment:The estimated glomer ular filtration rate (eGFR) is calculated using a new formula developed by the NKF-ASN task force to eliminate race-based correction factors. The new formula uses serum/plasma creatinine, age, and gender to determine eGFR. A value below 60mls/min might indicate kidney disease and will be flagged. For additional information, see Last et al, Am J Kidney Dis. 2021;79(2):268- 288, A Unifying Approach for GFR estimation: Recommendations of the NKF-ASN Task Force on Reassessing the Inclusion of Race in Diagnosing Kidney Disease . Blood Structure of peripheral vein / Unknown Venipuncture / Unknown 05/16/2025 12:23 PM EDT 05/16/2025 1:33 PM EDT us Anabell Davalos MD LAB BLOOD ORDERABLES Final Re sult [facility] [address] [place] [address], [place] * NM Kidney Flow and Function with Lasix (04/28/2025 3:50 PM EDT) Anatomical Region Laterality Modality Body Nuclear Medicine 04/28/2025 4:57 PM EDT Impressions 04/28/2025 5:04 PM EDT 1. Split function: Right 48 % , Left 52%. 2. Normal left renal function with high-grade obstruction. 3. Normal right renal function and excretion. If this radiology report contains a blank impression section, it is an incomplete radiology report. Please contact the interpreting radiologist or applicable radiology division as soon as possible to obtain the completed interpretation. 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 Evaluate perfusion, function, and excretion. PHARMACEUTICAL: 10 mCi Tc-99m MAG3 were injected IV as a bolus. Multiple planar static and computer registered images were then obtained every minute for 43 minutes. 40 mg of IV furosemide were given at 28 minutes. COMPARISON: Renal ultrasound 01/27/2025. FINDINGS: Flow phase: Symmetric flow to both kidneys.. Cortical phase: Split function: Right 48%, Left 52% Right kidney: The right kidney is slightly smaller than the left. There is prompt cortical uptake. No cortical defects. Left kidney: The left kidney is slightly larger than the right. There is prompt cortical uptake. No cortical defects. Excretory phase: Right kidney: prompt corticomedullary transit with tracer visualized in the collecting system by 4 minutes (normal <8minutes). There is complete spontaneous drainage prior to furosemide. Left kidney: prompt corticomedullary transit with tracer visualized in the collecting system by 4 minutes (normal <8minutes). There is only minimal spontaneous drainage with mostly plateaued excretory phase Furosemide augmentation: Left kidney: Following administration of furosemide, there is minimal response to Lasix . Resulting Agency Comment [id number] Procedure Note Alba Barbour MD - 04/28/2025 EXAM: RENAL STUDY, PERFUSION and FUNCTION CLINICAL INFORMATION: 25 years old female with history of left UPJstenosis status post stent removal . Evaluate perfusion, function, andexcretion. PHARMACEUTICAL: 10 mCi Tc-99m MAG3 were injected IV as a bolus. Multipleplanar static and computer registered images were then obtained everyminute for 43 minutes. 40 mg of IV furosemide were given at 28 minutes. COMPARISON: Renal ultrasound 01/27/2025. FINDINGS: Flow phase: Symmetric flow to both kidneys.. Cortical phase: Split function: Right 48%, Left 52% Right kidney: The right kidney is slightly smaller than the left. There isprompt cortical uptake. No cortical defects. Left kidney: The left kidney is slightly larger than the right. There isprompt cortical uptake. No cortical defects. Excretory phase: Right kidney: prompt corticomedullary transit with tracer visualized inthe collecting system by 4 minutes (normal <8minutes). There is completespontaneous drainage prior to furosemide. Left kidney: prompt corticomedullary transit with tracer visualized inthe collecting system by 4 minutes (normal <8minutes). There is onlyminimal spontaneous drainage with mostly plateaued excretory phase Furosemide augmentation: Left kidney: Following administration of furosemide, there is minimalresponse to Lasix . IMPRESSION: 1. Split function: Right 48 % , Left 52%. 2. Normal left renal function with high-grade obstruction. 3. Normal right renal function and excretion. If this radiology report contains a blank impression section, it is anincomplete radiology report. Please contact the interpreting radiologistor applicable radiology division as soon as possible to obtain thecompleted interpretation. Workstation ID: [id number] us Anabell Davalos MD IMG NM PROCEDURES Final Resul t from Last 3 Months Additional Health Concerns Active Problems Noted Date Diagnosed Date Autogenerated Problem 05/02/2025 Insurance [employer] Advance Directives Documents on File Type Date Recorded Patient Flake Miller Helper Expl anation Health Care Proxy 12/27/2024 1:52 PM Aishat Care Proxy Documentation Care Teams Supply Chain Intern Relationship Specialty Start Date End Date Patient, Has No Pcp Or Ref DO NOT EDIT THIS RECORD VIA PROVIDER ON THE FLY PCP - General Dance Therapist 09/23/24
--- OUTSIDE RECORDS SUMMARY | 2025-05-28 14:09 | XMS_ITS | Encounter Summary ---
Author Organization [facility] Address [address] [place] [address] Care Team Providers Care Hematologist Oncologist Name Role Phone Patient, Has No Pcp Or Ref Primary Care Provider Unavailable Encounter Details Date Type Department Care Team (Late st Contact Info) Description 01/28/2025 Orders Only [facility] Nuclear Medicine [address] [place] [address] Torsten Harding MD PhD [address] [place] [address] Social History Tobacco Use Types Packs/Day Years Used Date Smoking Tobacco: Never Assessed Comments No Sex and Gender Information Value Date Recorded Sex Assigned at Female 11/29/2024 1:55 PM EST Legal Sex Female 10:56 AM EST Gender Identity Female 04/28/2025 11:34 AM EDT Sexual Orientation Straight 04/28/2025 11 :34 AM EDT documented as of this encounter Plan of Treatment Upcoming Encounters Date Type Department Care Team (Latest Contact Info) Description 06/11/2025 4:15 PM EDT Pre-Admission Testing [facility] [address] [facility] 3rd [place] [address] 06/24/2025 7:10 AM EDT Hospital Encounter [facility] Operating Room [address] [place] [address] Anabell Davalos MD [address] [place] [address] 06/24/2025 7:10 AM EDT Anesthesia Event [facility] Operating Room [address] [place] [address] Dacia Joyner CRNA [address] [place] [address] 06/24/2025 7:10 AM EDT - 06/24/2025 11:15 AM EDT Surgery [facility] Operating Room [address] [place] [address] Anabell Davalos MD [address] [place] [address] ROBOTIC PYELOPLASTY SP [[id number] (CPT )] Scheduled Procedures Name Priority Associated Diagnoses Date/Ti co ROBOTIC PYELOPLASTY SP UPJ obstruction, congenital 06/24/2025 7:10 AM EDT documented as of this encounter Visit Diagnoses Not on filedocumented in this encounter Care Teams Hematologist Oncologist Relationship Specialty Start Date End Date Patient, Has No Pcp Or Ref DO NOT EDIT THIS RECORD VIA PROVIDER ON THE FLY PCP - General Chrome Cleaner 09/23/24 documented as of this encounter
--- OUTSIDE RECORDS SUMMARY | 2025-05-28 14:09 | XMS_ITS | Encounter Summary ---
Author Organization [facility] Address [address] [place] [address] Care Team Providers Care Crew Dispatcher Name Role Phone Patient, Has No Pcp Or Ref Primary Care Provider Unavailable Encounter Details Date Type Department Care Team (Late st Contact Info) Description 05/22/2025 Orders Only External Imaging [address] [place] [address] Radiology, External [address] [place] [address] Social History Tobacco Use Types Packs/Day Years Used Date Smoking Tobacco: Never Smokeless Tobacco: Never Alcohol Use Standard Drinks/Week Comments Not Currently [...] Description 06/11/2025 4:15 PM EDT Pre-Admission Testing [facility] [address] [facility] [address] [place] [address] 06/24/2025 7:10 AM EDT Hospital Encounter [facility] Operating Room [address] [place] [address] Anabell Davalos MD [address] [place] [address] 06/24/2025 7:10 AM EDT Anesthesia Event [facility] Operating Room [address] [place] [address] Dacia Joyner CRNA [address] [place] [address] 06/24/2025 7:10 AM EDT - 06/24/2025 11:15 AM EDT Surgery [facility] Operating Room [address] [place] [address] Anabell Davalos MD [address] [place] [address] ROBOTIC PYELOPLASTY SP [[id number] (CPT )] Pending Results Name Type Priority Associated Diagnoses Date /Time CT Transfer of Outside Films Head Imaging Routine 05/26/2025 3:44 PM EDT Scheduled Orders Name Type Priority Associated Diagnoses Orde r Schedule CT Transfer of Outside Films Head Imaging Routine [address] arting 05/26/2025 until 07/26/2026 Scheduled Procedures Name Priority Associated Diagnoses Date/Ti me ROBOTIC PYELOPLASTY SP UPJ obstruction, congenital 06/24/2025 7:10 AM EDT documented as of this encounter Goals Goal Patient Goal Type Associated Problems Recent Progress Patient-Stated? Author Autogenera susan Goal Care Plan Autogenerated Problem No Sury Chairez documented as of this encounter Visit Diagnoses Not on filedocumented in this encounter Additional Health Concerns Active Problems Noted Date Diagnosed Date Autogenerated Problem 05/02/2025 documented as of this encounter Care Teams Crew Dispatcher Relationship Specialty Start Date End Date Patient, Has No Pcp Or Ref DO NOT EDIT THIS RECORD VIA PROVIDER ON THE FLY PCP - General Attending Pathologist 09/23/24 documented as of this encounter
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
--- OUTSIDE RECORDS SUMMARY | 2025-05-28 14:09 | XMS_ITS | Encounter Summary ---
Author Organization [facility] Address [address] [place] [address] Care Team Providers Care Injection Molding Process Technician Name Role Phone Patient, Has No Pcp Or Ref Primary Care Provider Unavailable Encounter Details Date Type Department Care Team (Late st Contact Info) Description 05/22/2025 Orders Only External Imaging [address] [place] [address] Radiology, External [address] [place] [address] Social History Tobacco Use Types Packs/Day Years [...] Description 06/11/2025 4:15 PM EDT Pre-Admission Testing [facility] [address] [facility] [address] [place] [address] 06/24/2025 7:10 AM EDT Hospital Encounter [facility] Operating Room [address] [place] [address] Anabell Davalos MD [address] [place] [address] 06/24/2025 7:10 AM EDT Anesthesia Event [facility] Operating Room [address] [place] [address] Dacia Joyner CRNA [address] [place] [address] 06/24/2025 7:10 AM EDT - 06/24/2025 11:15 AM EDT Surgery [facility] Operating Room [address] [place] [address] Anabell Davalos MD [address] [place] [address] ROBOTIC PYELOPLASTY SP [[id number] (CPT )] Pending Results Name Type Priority Associated Diagnoses Date /Time XR Transfer of Outside Films Lower Extremity Imaging Routine 05/26/2025 3:42 PM EDT Scheduled Orders Name Type Priority Associated Diagnoses Orde r Schedule XR Transfer of Outside Films Lower Extremity Imaging Routine Expected: 05/26/2025, Expires: 07/26/2026 Scheduled Procedures Name Priority Associated Diagnoses Date/Ti me ROBOTIC PYELOPLASTY SP UPJ obstruction, congenital 06/24/2025 7:10 AM EDT documented as of this encounter Goals Goal Patient Goal Type Associated Problems Recent Progress Patient-Stated? Author Autogenera susan Goal Care Plan Autogenerated Problem No ChairezKenrickia documented as of this encounter Visit Diagnoses Not on filedocumented in this encounter Additional Health Concerns Active Problems Noted Date Diagnosed Date Autogenerated Problem 05/02/2025 documented as of this encounter Care Teams Injection Molding Process Technician Relationship Specialty Start Date End Date Patient, Has No Pcp Or Ref DO NOT EDIT THIS RECORD VIA PROVIDER ON THE FLY PCP - General Food Beverage Manager 09/23/24 documented as of this encounter
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
--- OUTSIDE RECORDS SUMMARY | 2025-05-28 14:09 | XMS_ITS | Encounter Summary ---
Author Organization [facility] Address [address] [place] [address] Care Team Providers Care Police Academy Instructor Name Role Phone Patient, Has No Pcp Or Ref Primary Care Provider Unavailable Encounter Details Date Type Department Care Team (Late st Contact Info) Description 05/22/2025 Orders Only External Imaging [address] [place] [address] Radiology, External [address] [place] [address] Social History Tobacco Use Types Packs/Day Years [...] Description 06/11/2025 4:15 PM EDT Pre-Admission Testing [facility] [address] [facility] 3rd [place] [address] 06/24/2025 7:10 AM EDT Hospital Encounter [facility] Operating Room [address] [place] [address] Anabell Davalos MD [address] [place] [address] 06/24/2025 7:10 AM EDT Anesthesia Event [facility] Operating Room [address] [place] [address] Dacia Joyner CRNA [address] [place] [address] 06/24/2025 7:10 AM EDT - 06/24/2025 11:15 AM EDT Surgery [facility] Operating Room [address] [place] [address] Anabell Davalos MD [address] [place] [address] ROBOTIC PYELOPLASTY SP [[id number] (CPT )] Pending Results Name Type Priority Associated Diagnoses Date /Time CT Transfer of Outside Films Chest Imaging Routine 05/26/2025 3:41 PM EDT Scheduled Orders Name Type Priority Associated Diagnoses Orde r Schedule CT Transfer of Outside Films Chest Imaging Routine [address] arting 05/26/2025 [...] documented as of this encounter Care Teams Police Academy Instructor Relationship Specialty Start Date End Date Patient, Has No Pcp Or Ref DO NOT EDIT THIS RECORD VIA PROVIDER ON THE FLY PCP - General Class B Truck Driver 09/23/24 documented as of this encounter
--- OUTSIDE RECORDS SUMMARY | 2025-05-28 14:09 | XMS_ITS | Encounter Summary ---
Author Organization [facility] Address [address] [place] [address] Care Team Providers Care It Desktop Support Technician Name Role Phone Patient, Has No Pcp Or Ref Primary Care Provider Unavailable Encounter Details Date Type Department Care Team (Late st Contact Info) Description 05/22/2025 Orders Only External Imaging [address] [place] [address] Radiology, External [address] [place] [address] Social History Tobacco Use Types Packs/Day Years [...] Description 06/11/2025 4:15 PM EDT Pre-Admission Testing [facility] [address] [facility] 3rd [place] [address] 06/24/2025 7:10 AM EDT Hospital Encounter [facility] Operating Room [address] [place] [address] Anabell Davalos MD [address] [place] [address] 06/24/2025 7:10 AM EDT Anesthesia Event [facility] Operating Room [address] [place] [address] Dacia Joyner CRNA [address] [place] [address] 06/24/2025 7:10 AM EDT - 06/24/2025 11:15 AM EDT Surgery [facility] Operating Room [address] [place] [address] Anabell Davalos MD [address] [place] [address] ROBOTIC PYELOPLASTY SP [[id number] (CPT )] Pending Results Name Type Priority Associated Diagnoses Date /Time XR Transfer of Outside Films Lower Extremity Imaging Routine 05/26/2025 3:43 PM EDT Scheduled Orders Name Type Priority [...] documented as of this encounter Care Teams It Desktop Support Technician Relationship Specialty Start Date End Date Patient, Has No Pcp Or Ref DO NOT EDIT THIS RECORD VIA PROVIDER ON THE FLY PCP - General Safe And Vault Mechanic 09/23/24 documented as of this encounter
== END 2025-05-28 14:26 | disposition home or self-care (01) ==
LOC: HO.HGI 13:19
PROVIDERS: PCP Nurse Practitioner Family; Visit Provider Nurse Practitioner
DX: K58.2 Mixed irritable bowel syndrome (principal); K31.84 Gastroparesis; K22.10 Ulcer of esophagus without bleeding; K21.9 Gastro-esophageal reflux disease without esophagitis; R10.9 Unspecified abdominal pain; Z91.018 Allergy to other foods
CPT/HCPCS: 99213

== ENCOUNTER → 2025-05-28 13:18 | Outpatient (BNVA) | payer OTHER, SELFPAY | PROVIDERS: PCP Nurse Practitioner Family; Visit Provider Nurse Practitioner | DX: K21.9 Gastro-esophageal reflux disease without esophagitis (principal); K31.84 Gastroparesis; R10.9 Unspecified abdominal pain; Z91.018 Allergy to other foods | CPT/HCPCS: 99212 ==

== ENCOUNTER 2025-06-10 09:14 | Outpatient (AMB) | payer OTHER, SELFPAY ==
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
[2025-06-10 09:22] VITALS: BP 133/65; PULSE 94; RESP 16; TEMP 36.6; O2SAT 96; BMI 52.2
--- OUTSIDE RECORDS SUMMARY | 2025-06-10 10:40 | XMS_ITS | Clinical Summary ---
Author Organization [facility] Address [address] [place] [address] Care Team Providers Care Turntable Operator Name Role Phone Ref, Has No Pcp Or Primary Care Provider Unavail able Allergies Active Allergy Reactions Criticality Noted Date [...] Type Department Care Team Description 05/23/2025 Telephone [facility] [address] [place] [phone] Salesperson Men'S Hats: Anabell Britton MD 05/23/2025 Telephone [facility] [address] [place] [address] Salesperson Men'S Hats: Anabell Britton MD 05/22/2025 Orders Only External Imaging [address] [place] [address] Radiology, External 05/22/2025 Orders Only External Imaging [address] [place] [address] Radiology, External 05/22/2025 Orders Only External Imaging [address] [place] [address] Radiology, External 05/22/2025 Orders Only External Imaging [address] [place] [address] Radiology, External 05/13/2025 3:30 PM EDT Pre-Admission Testing [facility] [address] [facility] [address] [place] [address] UPJ obstruction, congenital (Primary Dx); Pre-op evaluation 05/02/2025 10:00 AM EDT Telehealth [facility] [address] [place] [address] Salesperson Men'S Hats: Anabell Britton MD UPJ obstruction, congenital (Primary Dx) 05/02/2025 Prep for Case [facility] [address] [address] Salesperson Men'S Hats: Anabell Britton MD UPJ obstruction, congenital (Primary Dx) 04/29/2025 Results Follow-Up [facility] [address] [address] Salesperson Men'S Hats: Anabell Britton MD 04/28/2025 1:00 PM EDT - 04/28/2025 11:59 PM EDT Hospital [facility] [address] [place] [address] Anabell Davalos MD UPJ obstruction, congenital Discharge [...] Description 06/11/2025 4:15 PM EDT Pre-Admission Testing [facility] [address] [place] [address] [address] [place] [address] 06/24/2025 7:10 AM EDT Hospital Encounter [facility] [address] [place] [address] Anabell Davalos MD [address] [place] [address] 06/24/2025 7:10 AM EDT Anesthesia Event [facility] [address] [place] [address] Dacia Joyner, [address] [address] 06/24/2025 7:10 AM EDT - 06/24/2025 11:15 AM EDT Surgery [facility] [address] [place] [address] Anabell Davalos MD [address] [place] [id number] ROBOTIC PYELOPLASTY SP [50022 (CPT )] Scheduled Procedures Name Priority Associated [...] DTaP,Tdap,and Td Vaccines (2 - Tdap) 06/07/201901/2019 Alcohol/Substance Use Screening 10/02/2024 Depression Screening and Follow-Up 10/02/2024 Social Drivers of Health Kary ual Screening 10/02/2024 COVID-19 Vaccine ( season) 2025 01/31/2022, 03/15/2021, 02/15/2021 Influenza Vaccine (#1) 2025 10/21/2021 RSV Vaccine (60+ years old a nd patients) (1 - 1-dose 75+ series) 2073 Goals Goal Patient Goal Type Associated Problems Recent Progress Patient-Stated? Author Autogenera susan Goal Care Plan Autogenerated Problem No Sury Chairez Procedures * Due to [place] state law, this organization might not be [...] Last 3 Months Results * Due to [place] state law, this organization might not be sharing negative HIV tests. * Sr Top, Urine (05/16/2025 12:23 PM EDT) Extra Tube Hold for add-ons. 05/16/2025 6:05 PM EDT [facility] Comment:Auto resulted. Urine Urine specimen collection, clean catch / Unknown Non-Blood Collection / Unknown 05/16/2025 12:23 PM EDT 05/16/2025 5:59 PM EDT us Anabell Davalos MD LAB URINE ORDERABLES Final Re sult [email or web address] [address] [place] [address], * Urinalysis W/Reflex to Microscopic & Culture (05/16/2025 12:23 PM EDT) Color, Urine Light Yellow Colorless, Light Yellow, Yellow, Dark Yellow 05/16/2025 6:27 PM EDT [facility] Clarity, Urine Clear Clear 05/16/2025 6:27 PM EDT [facility] Specific [place], Urine 1.015 <1.030 05/16/2025 6:27 PM EDT [facility] pH, Urine 6.0 4.6 - 8.0 05/16/2025 6:27 PM EDT [facility] Protein, Urine Negative Negative 05/16/2025 6:27 PM EDT [facility] Glucose, Urine Normal Normal 05/16/2025 6:27 PM EDT [facility] Ketones, Urine Negative Negative 05/16/2025 6:27 PM EDT [email or web address] Bilirubin, Urine Negative Negative 05/16/2025 6:27 PM EDT [facility] Blood, Urine Negative Negative 05/16/2025 6:27 PM EDT [facility] Nitrite, Urine Negative Negative 05/16/2025 6:27 PM EDT [facility] Urobilinogen, Urine Normal Normal 05/16/2025 6:27 PM EDT [facility] Leukocyte Esterase, Urine Negative Negative 05/16/2025 6:27 PM EDT [facility] Urine Urine specimen collection, clean catch / Unknown Non-Blood Collection / Unknown 05/16/2025 12:23 PM EDT 05/16/2025 5:59 PM EDT us Anabell Davalos MD LAB URINE ORDERABLES Final Re sult [facility] [address] [place] [id number], * (ABNORMAL) CBC (05/16/2025 12:23 PM EDT) WBC 12.2(H) 3.8 - 10.8 10*3/uL 05/16/2025 1:43 PM EDT [employer] [facility] RBC 4.29 3.80 - 5.10 10*6/uL 05/16/2025 1:43 PM EDT [facility] Hemoglobin 11.1(L) 11.7 - 15.5 g/dL 05/16/2025 1:43 PM EDT [facility] Hematocrit 34.5(L) 35.0 - 45.0 % 05/16/2025 1:43 PM EDT [facility] MCV 80.4 80.0 - 100.0 fL 05/16/2025 1:43 PM EDT [facility] MCH 25.9(L) 27.0 - 33.0 pg 05/16/2025 1:43 PM EDT [facility] MCHC 32.2 32.0 - 36.0 g/dL 05/16/2025 1:43 PM EDT [facility] RDW 15.2(H) 11.0 - 15.0 % 05/16/2025 1:43 PM EDT [facility] Platelets 307 140 - 400 10*3/uL 05/16/2025 1:43 PM EDT [facility] MPV 11.3 7.5 - 12.5 fL 05/16/2025 1:43 PM EDT [facility] Blood Structure of peripheral vein / Unknown Venipuncture / Unknown 05/16/2025 12:23 PM EDT 05/16/2025 1:33 PM EDT Maren SILVA LAB BLOOD ORDERABLES Fin al Result [facility] [address] [place] [address], * Type and Screen (05/16/2025 12:23 PM EDT) ABO Blood Type AB 05/16/2025 8:11 PM EDT [facility] RH Type Positive 05/16/2025 8:11 PM EDT [facility] Expiration Date/Time 2025-05-29 23:59 05/16/2025 8:11 PM EDT [facility] Antibody Screen Negative 05/16/2025 8:11 PM EDT [facility] Blood Structure of peripheral vein / Unknown Venipuncture / Unknown 05/16/2025 12:23 PM EDT 05/16/2025 1:53 PM EDT [facility] LAB BLOOD BANK TEST BHUMIKA ZAMARRIPA Final Result [facility] [address] [place] [address], * Basic metabolic panel (05/16/2025 12:23 PM EDT) NA 141 135 - 145 mmol/L 05/16/2025 2:06 PM EDT [facility] K 3.8 3.5 - 5.3 mmol/L 05/16/2025 2:06 PM EDT [facility] Cl 105 98 - 107 mmol/L 05/16/2025 2:06 PM EDT [facility] CO2 26 22 - 32 mmol/L 05/16/2025 2:06 PM EDT [facility] BUN 10 7 - 23 mg/dL 05/16/2025 2:06 PM EDT [facility] Creatinine 0.95 0.50 - 1.20 mg/dL 05/16/2025 2:06 PM EDT [facility] Glucose 83 65 - 99 mg/dL 05/16/2025 2:06 PM EDT [facility] Calcium 9.1 8.6 - 10.5 mg/dL 05/16/2025 2:06 PM EDT [facility] Anion Gap 10 5 - 15 05/16/2025 2:06 PM EDT [facility] eGFR 84 >=60 mL/min/1. 73m2 05/16/2025 2:06 PM EDT [facility] Comment:The estimated glomer ular [...] MD LAB BLOOD ORDERABLES Final Re sult [facility] [address] [place] [address], [place] * [place] Kidney Flow and Function [...] to obtain the completed interpretation. Workstation ID: [id number] Narrative 04/28/2025 5:04 PM EDT EXAM: RENAL [...] response to [facility] . Resulting Agency Comment [id number] Procedure Note Alba Barbour MD - 04/28/2025 [...] possible to obtain thecompleted interpretation. 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
--- OUTSIDE RECORDS SUMMARY | 2025-06-10 10:40 | XMS_ITS | Encounter Summary ---
Author Organization [facility] Address [address] [place] [address] Care Team Providers Care Fertilizer Applicator Name Role Phone Ref, Has No Pcp Or Primary Care Provider Unavail able Encounter Details Date Type Department Care Team (Late st Contact Info) Description 01/28/2025 Orders Only [facility] [address] [place] [address] Torsten Harding MD PhD [address] [place] [address] Social History Tobacco Use Types Packs/Day Years [...] Description 06/11/2025 4:15 PM EDT Pre-Admission Testing [facility] [address] [facility] 3rd [place] [address] 06/24/2025 7:10 AM EDT Hospital Encounter [facility] [address] [place] [address] Anabell Davalos MD [address] [place] [address] 06/24/2025 7:10 AM EDT Anesthesia Event [facility] [address] [place] [address] Dacia Joyner CRNA [address] [place] [address] 06/24/2025 7:10 AM EDT - 06/24/2025 11:15 AM EDT Surgery [facility] [address] [place] [address] Anabell Davalos MD [address] [place] [address] ROBOTIC PYELOPLASTY SP [29699 (CPT )] Scheduled Procedures Name Priority Associated Diagnoses Date/Ti sd ROBOTIC PYELOPLASTY SP UPJ obstruction, congenital 06/24/2025 7:10 AM EDT documented as of this encounter Visit Diagnoses Not on filedocumented in this encounter Care Teams Fertilizer Applicator Relationship Specialty Start Date End Date Ref, Has No Pcp Or DO NOT EDIT THIS RECORD VIA PROVIDER ON THE FLY PCP - 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
== END 2025-06-10 12:18 | disposition home or self-care (01) ==
LOC: HO.HMCFM 09:15
PROVIDERS: PCP Nurse Practitioner Family; Visit Provider Nurse Practitioner Family
DX: M79.601 Pain in right arm (principal); M25.551 Pain in right hip; M79.604 Pain in right leg; V89.2XXA Person injured in unspecified motor-vehicle accident, traffic, initial encounter

== ENCOUNTER → 2025-06-10 09:14 | Outpatient (BNVA) | payer OTHER, SELFPAY | PROVIDERS: PCP Nurse Practitioner Family; Visit Provider Nurse Practitioner Family | DX: M79.601 Pain in right arm (principal); M25.551 Pain in right hip; M79.604 Pain in right leg; V49.50XA Passenger injured in collision with unspecified motor vehicles in traffic accident, initial encounter; Y93.9 Activity, unspecified; Y92.9 Unspecified place or not applicable; Y99.9 Unspecified external cause status | CPT/HCPCS: 99212 ==

== ENCOUNTER 2025-06-26 15:38 | Outpatient (AMB) | payer OTHER, SELFPAY ==
--- OUTSIDE RECORDS SUMMARY | 2025-06-24 06:45 | XMS_ITS | Encounter Summary ---
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 applicable radiology division as soon as possible to obtain thecompleted interpretation. Workstation ID: [id number] Anabell Davalos MD IMG XR PROCEDURES Final Resul t * POCT HCG, Urine, non-interfaced (06/24/2025 7:19 AM EDT) Control band present? Yes Background Clear? Yes Preg Test, Ur Negative Negative Urine 06/24/2025 7:19 AM EDT Opal SILVA POINT OF CARE TEST ORDERABLES Fi nal Result documented in this encounter Visit Diagnoses Not on filedocumented in this encounter Administered Medications Inactive Administered Medications - up to 3 most recent administrations Medication Order MAR Action Action Date Dose Rate Site acetaminophen (TYLENOL) tablet 650 mg 650 mg, oral, Every 6 hours PRN, pain, Starting on Mon06/24/25 at 1055, Until 06/24/25 at 1625, PACU & Post-op haloperidol lactate (HALDOL) injection 1.25 mg 1.25 mg, intravenous, Every 8 hours PRN, nausea, vomiting, Starting on e 06/24/25 at 1057, Until 06/24/25 at 1625, PACU (only), If patient continues to have nausea/vomiting sooner than 8 hours after the previous antiemetic dose, do not repeat the same antiemetic(s). Instead, administer a different antiemetic from selection. QTc monitoring required for patients receiving doses greater than 35 mg/day., Order of administration of antiemetics: First heparin subcutaneous injection 5,000 Units 5,000 Units, subcutaneous, Once, On Mon06/24/25 at 0715, 1 dose, Pre-op Given 06/24/2025 7:38 AM EDT 5,000 Units Left Upper Arm (Back) HYDROmorphone (DILAUDID) injection 0.2 mg 0.2 mg, intravenous, Every 5 min PRN, Mild pain or 1-3 (on the numeric pain scale), Starting on Mon06/24/25 at 1057, Until Mon06/24/25 at 1625, PACU (only), Call Anesthesiologist if the max cumulative dose is given or the patient's pain is uncontrolled. Assess pain, sedation, and respiratory rate prior to each opioid administration., If RR is 10 or more, give up to: 1 mg Given 06/24/2025 12:11 PM EDT 0.2 mg Given 06/24/2025 11:50 AM EDT 0.2 mg HYDROmorphone (DILAUDID) injection 0.4 mg 0.4 mg, intravenous, Every 5 min PRN, Moderate pain or 4-6 (on the numeric pain scale), Starting on Mon06/24/25 at 1057, Until Mon06/24/25 at 1625, PACU (only), Call Anesthesiologist if the max cumulative dose is given or the patient's pain is uncontrolled. Assess pain, sedation, and respiratory rate prior to each opioid administration., If RR is 10 or more, give up to: 1 mg HYDROmorphone (DILAUDID) injection 0.6 mg 0.6 mg, intravenous, Every 5 min PRN, Severe pain or 7-10 (on the numeric pain scale), Starting on Mon06/24/25 at 1057, Until Mon06/24/25 at 1625, PACU (only), Call Anesthesiologist if the max cumulative dose is given or the patient's pain is uncontrolled. Assess pain, sedation, and respiratory rate prior to each opioid administration., If RR is 10 or more, give up to: 1 mg Given 06/24/2025 12:01 PM EDT 0.6 mg naloxone (NARCAN) injection 0.4 mg 0.4 mg, intravenous, Every 2 hour PRN, opioid reversal, respiratory depression, Starting on Mon06/24/25 at 1057, Until Mon06/24/25 at 1625, PACU (only), Complete opioid reversal for respiratory rate less than 10 (POSS greater than 2 or RASS less than 0). Notify provider if naloxone is administered to evaluate the patient to determine if additional naloxone doses are needed and to reevaluate the patient's opioid orders. naloxone 0.04 mg injection 0.04 mg, intravenous, Every 3 minutes as needed, opioid reversal, respiratory depression, Starting on Mon06/24/25 at 1057, Until Mon06/24/25 at 1625, PACU (only), Partial opioid reversal for respiratory rate less than 10 (POSS greater than 2 or RASS less than 0). Notify provider if naloxone is administered to evaluate the patient to determine if additional naloxone doses are needed and to reevaluate the patient's opioid orders. Draw up 1 mL from 0.4 mg/mL injection and add 9 mL NS for a final concentration of 0.04 mg/mL. phenazopyridine (PYRIDIUM) tablet 200 mg 200 mg, oral, Once as needed, bladder spasms, Starting on Mon06/24/25 at 1056, 1 dose, Until Mon06/24/25 at 1625, PACU & Post-op sodium chloride 0.9% flush 2.5-10 mL 2.5-10 mL, intravenous, See admin instructions, Starting on Mon06/24/25 at 0714, Until Mon06/24/25 at 1625, Pre-op, Flush each lumen with a pulsatile motion with a minimum of 2.5 mL before and after use. Please note which lumen(s) have been flushed in comments section. sodium chloride 0.9% flush 2.5-10 mL 2.5-10 mL, intravenous, Every 12 hours scheduled, First dose on Mon06/24/25 at 0900, Until Discontinued, Pre-op, Flush each lumen with a pulsatile motion with a minimum of 2.5 mL every 12 hours. Please note which lumen(s) have been flushed in comments section. tamsulosin (FLOMAX) capsule 0.4 mg 0.4 mg, oral, Once as needed, urinary discomfort, Starting on Mon06/24/25 at 1056, 1 dose, Until Mon06/24/25 at 1625, PACU & Post-op, Do not crush or chew. Capsule contents may be sprinkled in water for enteric tube administration. documented in this encounter Active and Recently Administered Medications Times are shown in EDT. Scheduled Medication Order 06/22/2025 06/23/2025 06/24/2025 ceFAZolin (ANCEF) 2 g in dextrose 100 mL IVPB premix (COMPLETED) 2 g, intravenous, at 200 mL/hr, Administer over 30 Minutes, Once, On Mon06/24/25 at 0715, 1 dose, Pre-op, Administer within 1 hour of surgical incision. Premix. Refrigerate., Reason for Therapy: Surgical Prophylaxis 0913 (Given - Provid er: Jeanna Mackey CRNA) heparin subcutaneous injection 5,000 Units (COMPLETED) 5,000 Units, subcutaneous, Once, On Mon06/24/25 at 0715, 1 dose, Pre-op 0738 (Given - Provid er: Teresa Boyd RN) sodium chloride 0.9% flush 2.5-10 mL(Linked Group 1) 2.5-10 mL, intravenous, See admin instructions, Starting on Mon06/24/25 at 0714, Until Mon06/24/25 at 1625, Pre-op, Flush each lumen with a pulsatile motion with a minimum of 2.5 mL before and after use. Please note which lumen(s) have been flushed in comments section. sodium chloride 0.9% flush 2.5-10 mL(Linked Group 1) 2.5-10 mL, intravenous, Every 12 hours scheduled, First dose on Mon06/24/25 at 0900, Until Discontinued, Pre-op, Flush each lumen with a pulsatile motion with a minimum of 2.5 mL every 12 hours. Please note which lumen(s) have been flushed in comments section. 0900 (Due) PRN Medication Order 06/22/2025 06/23/2025 06/24/2025 acetaminophen (TYLENOL) tablet 650 mg 650 mg, oral, Every 6 hours PRN, pain, Starting on Mon06/24/25 at 1055, Until Mon06/24/25 at 1625, PACU & Post-op bupivacaine (PF) (MARCAINE) 0.25% (2.5 mg/mL) injection (CANCELED) As needed, Starting on Mon06/24/25 at 1037, Until Mon06/24/25 at 1104, Intra-op 1037 (Given - Provid er: Anabell Davalos MD) haloperidol lactate (HALDOL) injection 1.25 mg 1.25 mg, intravenous, Every 8 hours PRN, nausea, vomiting, Starting on Mon06/24/25 at 1057, Until Mon06/24/25 at 1625, PACU (only), If patient continues to have nausea/vomiting sooner than 8 hours after the previous antiemetic dose, do not repeat the same antiemetic(s). Instead, administer a different antiemetic from selection. QTc monitoring required for patients receiving doses greater than 35 mg/day., Order of administration of antiemetics: First HYDROmorphone (DILAUDID) injection 0.2 mg(Linked Group 2) 0.2 mg, intravenous, Every 5 min PRN, Mild pain or 1-3 (on the numeric pain scale), Starting on Mon06/24/25 at 1057, Until Mon06/24/25 at 1625, PACU (only), Call Anesthesiologist if the max cumulative dose is given or the patient's pain is uncontrolled. Assess pain, sedation, and respiratory rate prior to each opioid administration., If RR is 10 or more, give up to: 1 mg 1150 (Given - Provid er: Gema Mathews RN)1201 (See Alternative - Provider: Gema Mathews RN)1211 (Given - Provider: Gema Mathews RN) HYDROmorphone (DILAUDID) injection 0.4 mg(Linked Group 2) 0.4 mg, intravenous, Every 5 min PRN, Moderate pain or 4-6 (on the numeric pain scale), Starting on Mon06/24/25 at 1057, Until Mon06/24/25 at 1625, PACU (only), Call Anesthesiologist if the max cumulative dose is given or the patient's pain is uncontrolled. Assess pain, sedation, and respiratory rate prior to each opioid administration., If RR is 10 or more, give up to: 1 mg 1150 (See Alternativ e - Provider: Gema Mathews RN)1201 (See Alternative - Provider: Gema Mathews RN)1211 (See Alternative - Provider: Gema Mathews RN) HYDROmorphone (DILAUDID) injection 0.6 mg(Linked Group 2) 0.6 mg, intravenous, Every 5 min PRN, Severe pain or 7-10 (on the numeric pain scale), Starting on Mon06/24/25 at 1057, Until Mon06/24/25 at 1625, PACU (only), Call Anesthesiologist if the max cumulative dose is given or the patient's pain is uncontrolled. Assess pain, sedation, and respiratory rate prior to each opioid administration., If RR is 10 or more, give up to: 1 mg 1150 (See Alternativ e - Provider: Gema Mathews RN)1201 (Given - Provider: Gema Mathews RN)1211 (See Alternative - Provider: Gema Mathews RN) naloxone (NARCAN) injection 0.4 mg 0.4 mg, intravenous, Every 2 hour PRN, opioid reversal, respiratory depression, Starting on Mon06/24/25 at 1057, Until Mon06/24/25 at 1625, PACU (only), Complete opioid reversal for respiratory rate less than 10 (POSS greater than 2 or RASS less than 0). Notify provider if naloxone is administered to evaluate the patient to determine if additional naloxone doses are needed and to reevaluate the patient's opioid orders. naloxone 0.04 mg injection 0.04 mg, intravenous, Every 3 minutes as needed, opioid reversal, respiratory depression, Starting on Mon06/24/25 at 1057, Until Mon06/24/25 at 1625, PACU (only), Partial opioid reversal for respiratory rate less than 10 (POSS greater than 2 or RASS less than 0). Notify provider if naloxone is administered to evaluate the patient to determine if additional naloxone doses are needed and to reevaluate the patient's opioid orders. Draw up 1 mL from 0.4 mg/mL injection and add 9 mL NS for a final concentration of 0.04 mg/mL. phenazopyridine (PYRIDIUM) tablet 200 mg 200 mg, oral, Once as needed, bladder spasms, Starting on Mon06/24/25 at 1056, 1 dose, Until Mon06/24/25 at 1625, PACU & Post-op sodium chloride 0.9% irrigation solution (CANCELED) As needed, Starting on Mon06/24/25 at 1008, Until Mon06/24/25 at 1104, Intra-op 1008 (Given - Provid er: Anabell Davalos MD) tamsulosin (FLOMAX) capsule 0.4 mg 0.4 mg, oral, Once as needed, urinary discomfort, Starting on Mon06/24/25 at 1056, 1 dose, Until Mon06/24/25 at 1625, PACU & Post-op, Do not crush or chew. Capsule contents may be sprinkled in water for enteric tube administration. Linked Groups Order Group 1: Insert IV (CANCELED) Until discontinued, Starting on Mon06/24/25 at 0715, Until Specified, Insert/Replace: 96 hours for non-flexion, sterile IVs, 48 hours for flexion IVs, and 24 hours for non-sterile field IVs, Blood Draw: With insertion only, Pre-op And sodium chloride 0.9% flush 2.5-10 mLJump to med 2.5-10 mL, intravenous, See admin instructions, Starting on Mon06/24/25 at 0714, Until Mon06/24/25 at 1625, Pre-op, Flush each lumen with a pulsatile motion with a minimum of 2.5 mL before and after use. Please note which lumen(s) have been flushed in comments section. And sodium chloride 0.9% flush 2.5-10 mLJump to med 2.5-10 mL, intravenous, Every 12 hours scheduled, First dose on Mon06/24/25 at 0900, Until Discontinued, Pre-op, Flush each lumen with a pulsatile motion with a minimum of 2.5 mL every 12 hours. Please note which lumen(s) have been flushed in comments section. Group 2: HYDROmorphone (DILAUDID) injection 0.2 mgJump to med 0.2 mg, intravenous, Every 5 min PRN, Mild pain or 1-3 (on the numeric pain scale), Starting on Mon06/24/25 at 1057, Until Mon06/24/25 at 1625, PACU (only), Call Anesthesiologist if the max cumulative dose is given or the patient's pain is uncontrolled. Assess pain, sedation, and respiratory rate prior to each opioid administration., If RR is 10 or more, give up to: 1 mg Or HYDROmorphone (DILAUDID) injection 0.4 mgJump to med 0.4 mg, intravenous, Every 5 min PRN, Moderate pain or 4-6 (on the numeric pain scale), Starting on Mon06/24/25 at 1057, Until Mon06/24/25 at 1625, PACU (only), Call Anesthesiologist if the max cumulative dose is given or the patient's pain is uncontrolled. Assess pain, sedation, and respiratory rate prior to each opioid administration., If RR is 10 or more, give up to: 1 mg Or HYDROmorphone (DILAUDID) injection 0.6 mgJump to med 0.6 mg, intravenous, Every 5 min PRN, Severe pain or 7-10 (on the numeric pain scale), Starting on Mon06/24/25 at 1057, Until Mon06/24/25 at 1625, PACU (only), Call Anesthesiologist if the max cumulative dose is given or the patient's pain is uncontrolled. Assess pain, sedation, and respiratory rate prior to each opioid administration., If RR is 10 or more, give up to: 1 mg documented in this encounter Care Teams Firestop/Containment Worker Relationship Specialty Start Date End Date Ayse Orta [address] [place] [address] PCP - General Family Medicine 06/24/25 documented as of this encounter
--- OUTSIDE RECORDS SUMMARY | 2025-06-24 08:15 | XMS_ITS | Encounter Summary ---
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] Procedures CO LAP,PYELOPLASTY ROBOTIC PYELOPLASTY SP Referral ID Status Reason Start Date Expiration Date Visits Re quested Visits Authorized [id number] [phone] Encounter Details Date Type Department Care Team (Late st Contact Info) Description 06/24/2025 8:15 AM EDT - 06/24/2025 12:20 PM EDT Surgery [facility] [address] [place] [address] Anabell Davalos MD [address] [place] [address] ROBOTIC URETEROLYSIS [[id number] (CPT )] Social History Tobacco Use Types Packs/Day Years [...] Sign Reading Time Taken Comments Blood Pressure 118/77 06/24/2025 12:07 PM EDT Pulse 82 06/24/2025 12:11 PM EDT Temperature 37 C (98.6 F) 06/24/2025 11:07 AM EDT Respiratory Rate 14 06/24/2025 12:11 PM EDT Oxygen Saturation 94% 06/24/2025 12:11 PM EDT Inhaled Oxygen Concentration - - [...] Medications Take all prescriptions as prescribed. Take rnid-fzj-tjdsche tylenol and ibuprofen as first-line treatment for [...] have occurred. Nimo Bae : 2000 CSN: [id number] Source Note - RICARDO Graves - 06/11/2025 3:59 PM EDT PREOPERATIVE HISTORY AND PHYSICAL Pre-Surgical Telephone History Physical exam to be done day of surgery (please see completed physical exam at the bottom of this note) Procedure Summary Procedure Summary Date: 06/24/25 Room / Location: [facility] [place] Anesthesia Start: Anesthesia Stop: Procedure: [...] patient DOES NOT accept blood products - Yazidi VISIT DIAGNOSIS: 1. Pre-op evaluation 2. UPJ [...] to patient: Immediate Urinalysis With Microscopic (No Culture)-TRADE ONLY Standing Status: Future Expected Date: 06/11/2025 [...] the day of surgery by a pre-testing ELECTROLYSIS INVESTIGATOR/PA or the surgeon/designee. The physical exam portion of the H&P will be documented as an addendum to this note, or less commonly as a separate brief progress note. 2. Pre-Op Labs - UA/UC, T&S ordered. Patient will present to a [facility] lab to have these drawn prior to surgery. BMP, CBC UTD from 05/16/25 3. EKG - . Not indicated based on surgical procedure or patient's medical history. 4. DOS Labs- POCT HCG 5. Anticoagulation/Aspirin Plan: NA 6. Cardiac: Sink Maker: NA Last visit: NA Outstanding Cardiac Issues: NA 7. Pulmonary: Clothes Marker: Dr Lennox Bae, of [facility] Last visit: January 2025 per pt Outstanding Pulmonary Issues: NA, records had previously been requested however unable to obtain per MAs not seen in office ; pt insistent that she was seen. Message sent to [facility] medical records with phone number to call again (office closed when I tried after visit) 8. The Pre-Procedure Instructions document was reviewed with the patient/caregiver: a copy has beensent to the patient via [employer] 9. Pending Items: RICARDO Guajardo Pre-Surgical Evaluation Department of Anesthesiology [facility] ----- ADDENDUM: 06/13/2025 - Pulmonary OV note from 12/2024 received and scanned - No changes to management or further testing recommended at that time; In-Lab sleep study still pending as home study inconclusive. 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 left robotic assisted ureterolysis Left ureteroscopy Left ureteral stent placement SURGEON: Anabell Davalos MD CIRCUIT RECORDER(S): Marleen Segura MD TYPE OF ANESTHESIA: General. ESTIMATED BLOOD LOSS: 5 ml DRAINS: 6fr x 24cm ureteral stent IMPLANTS: Implant Name Type Inv. Item Serial No. Concrete Laborer Lot No. LRB No. Used Action STENT URETERAL FIRM HYDROPLUS COATING 6FR 24CM PERCUFLEX PLUS - [id number] Stent STENT URETERAL FIRM HYDROPLUS COATING 6FR 24CM PERCUFLEX PLUS [employer] [id number] Left 1 Implanted WOUND CLASSIFICATION: Clean-contaminated COMPLICATIONS: [...] ultimate cause of her obstruction. A 6 Bulgarian by 24 cm stent was then placed [...] Segura MD - Resident - Assisting Staff: Barrel Polisher: Nat Gonzales RN Relief Scrub: Christofer Pedersen RN Scrub: Betina Huff Anesthesia: General Estimated Blood Loss: No blood loss documented. Anesthesia Encounters Anesthesia Encounter - Episode ID [id number] Intraprocedure I/O Totals Intake lactated Ringer's (LR) infusion 350.00 mL Total Intake 350 mL Specimens: * No specimens in log * Implant Name Type Inv. Item Serial No. Concrete Laborer Lot No. LRB No. Used Action STENT URETERAL FIRM HYDROPLUS COATING 6FR 24CM PERCUFLEX PLUS - [id number] Stent STENT URETERAL FIRM HYDROPLUS COATING 6FR 24CM PERCUFLEX PLUS [employer] [id number] Left 1 Implanted Drains: Urethral Catheter Straight-tip;Latex;Double-lumen 16 Fr. (Active) Complications: None Findings: L ureterolysis L UPJO open Infection Present at the Time of Surgery: No Infection Present. Nimo Bae : 2000 * Brief Progress Note - Esther Lewis NP - 06/24/2025 7:38 AM EDT Images from the original note were not included. ADDENDUM Completion of Surgical H&P Patient was previously phone-screened by Pre Surgical Evaluation ELECTROLYSIS INVESTIGATOR/PA with completed history and review of systems, refer to above note. This portion below serves strictly as the physical portion ofthe patient's presurgical evaluation. To be reviewed by the surgeon. 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 ROS: Pt states no changes in medical status since most recent assessment done on 06/11/25 with ELECTROLYSIS INVESTIGATOR/PA. ? VITAL SIGNS FOR PAST 24 Hours [...] Light Yellow Appearance Clear Slightly Cloudy Specific [place] <1.030 1.017 Protein Negative Negative Glucose Normal Normal Ketones Negative Negative Bilirubin Negative Negative Blood Negative 3+ Nitrite Negative Negative Urobilinogen Normal Normal Leukocyte Esterase Negative 2+ POCT, HCG 06/24/25 result: negative Esther Lewis NP Pre-Anesthesia Center [facility] documented in this encounter Plan of Treatment Upcoming Encounters Date Type Department Care Team (Late st Contact Info) Description 07/08/2025 10:00 AM EDT Office Visit [facility] [address] [place] [address] Processing Assistant: Anabell Britton MD [address] [place], [place] [id number] documented as of this encounter Procedures * Due to [place] OLX law, this organization might not be sharing negative HIV tests. Procedure Name Priority Date/Time Associated Diagnosis Comments XR ABDOMEN 1 VW STAT 06/24/2025 12:05 PM EDT CO LAP,PYELOPLASTY 06/24/2025 8:13 AM EDT UPJ obstruction, congenital Special Needs POCT HCG, URINE Routine 06/24/2025 7:19 AM EDT documented in this encounter Results * Due to [place] OLX law, this organization might not be sharing [...] to obtain the completed interpretation. Workstation ID: [id number] Narrative 06/24/2025 2:35 PM EDT EXAMINATION: XR ABDOMEN 1 VW INDICATION: check placement of ureteral stent COMPARISONS: None Resulting Agency Comment [id number] Procedure Note Kanu Rizzo MD - 06/24/2025 [...] possible to obtain thecompleted interpretation. Workstation ID: [id number] Anabell Davalos MD IMG XR PROCEDURES Final Resul t * POCT HCG, Urine, non-interfaced (06/24/2025 7:19 AM EDT) Control band present? Yes Background Clear? Yes Preg Test, Ur Negative Negative Urine 06/24/2025 7:19 AM EDT Opal SILVA POINT OF CARE TEST ORDERABLES Fi nal Result documented in this encounter Visit Diagnoses Diagnosis UPJ obstruction, congenital documented in this encounter Administered Medications Inactive Administered Medications - up to 3 most recent administrations Medication Order MAR Action Action Date Dose Rate Site acetaminophen (TYLENOL) tablet 650 mg 650 mg, oral, Every 6 hours PRN, pain, Starting on Mon06/24/25 at 1055, Until Mon06/24/25 at 1625, PACU & Post-op bupivacaine (PF) (MARCAINE) 0.25% (2.5 mg/mL) injection As needed, Starting on Mon06/24/25 at 1037, Until Mon06/24/25 at 1104, Intra-op Given 06/24/2025 10:37 AM EDT 15 mL Abdomen haloperidol lactate (HALDOL) injection 1.25 mg 1.25 [...] flushed in comments section. sodium chloride 0.9% irrigation solution As needed, Starting on Mon06/24/25 at 1008, Until Mon06/24/25 at 1104, Intra-op Given 06/24/2025 10:08 A M EDT 3,000 mL tamsulosin (FLOMAX) capsule 0.4 mg 0.4 mg, [...] mg documented in this encounter Care Teams Out And Out Cigar Maker Hand Relationship Specialty Start Date End Date Ayse Orta [address] [place] [id number] PCP - General Family Medicine 06/24/25 documented as of this encounter
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
[2025-06-26 15:47] VITALS: BP 124/61; PULSE 90; BMI 52.3
--- NOTE | 2025-06-26 15:47 | MHC.OFFVIS ---
Vital Signs 06/26/25 15:47 Height 5 ft Weight 268 lb BMI 52.3 BP 124/61 Blood Pressure Location Rt brachial Position Sitting Pulse 90 Intake Visit Reasons: follow up Intake Note: Patient in office today for follow up CC: Patient states that she never received the cholestyramine. She has been taking Senna with sx improvements. Denies any new GI symptoms or concerns. 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 Recruiter Required: No Accompanied by: Self / Same As Patient Allergies fexofenadine (From Sofía-D) Allergy (Severe, Verified 06/10/25 09:27) Swelling milk Allergy (Severe, Verified 06/10/25 09:27) Anaphylaxis pseudoephedrine (From Sofía-D) Allergy (Severe, Verified 06/10/25 09:27) Swelling Beef Containing Products Allergy (Intermediate, Verified 06/10/25 09:27) Hives aranda Allergy (Intermediate, Verified 06/10/25 09:27) Hives egg Allergy (Intermediate, Verified 06/10/25 09:27) Hives lamotrigine Allergy (Intermediate, Verified 06/10/25 09:27) hives nut - unspecified Allergy (Intermediate, Verified 06/10/25 09:27) Hives doxycycline Adverse Reaction (Intermediate, Verified 06/10/25 09:27) projectile vomiting tiotropium (From Spiriva with HandiHaler) Adverse Reaction (Intermediate, Verified 06/10/25 09:27) Cough sulcralfate Adverse Reaction (Mild, Uncoded 06/10/25 09:27) hives HPI HPI follow up: Details: Assessment & Plan (1) Irritable bowel syndrome with both constipation and diarrhea: Code(s): K58.2 - Mixed irritable bowel syndrome Category: Medical (2) Gastroparesis: Comment: Grade 4, severe delay on 2023 GS Code(s): K31.84 - Gastroparesis Category: Medical (3) Erosive esophagitis: Code(s): K22.10 - Ulcer of esophagus without bleeding Category: Medical (4) Gastroesophageal reflux disease: Code(s): K21.9 - Gastro-esophageal reflux disease without esophagitis Category: Medical (5) Abdominal cramping: Code(s): R10.9 - Unspecified abdominal pain Category: Medical (6) Multiple food allergies: Comment: RAST SHOWS ONLY HAZELNUTS AND ALMONDS; but she does not tolerate Eggs, apples, milk, nuts, red meat Code(s): Z91.018 - Allergy to other foods Category: Medical Plan SHE CONTINUES ON HER CREON, DEXILANT, AND NOW REGLAN 5 MG 4 TIMES A DAY. Restart all meds and consider otc bisacodyl (senna did not work) and re eval. She continues to struggle with constipation alternating with diarrhea. She really can not to find which of the dominant process as they seem to occur with equal regularity. In the past we tried treating the constipation to see if it was the driving process but senna was far too strong for her and she just likes the idea of using anything that is liquid because of taste including MiraLax, milk of magnesia or lactulose. With discussion it turns out that she stopped taking the Creon and it may just be that she forgot about it or she had difficulty with a 4 times a day dosing regimen. Because diarrhea could be the underlying process and Creon could be helpful with this I suggest we restarted at 2 caps twice a day with this dosing regimen promoting compliance. She is educated that this is the most difficult type of IBS to treat and if it fails fiber therapy it can be quite elusive to find any underlying problem as it could be functional in nature. Frequently the bowels will respond to so many internal and external variation since stimuli that it is impossible to completely pinned down reversible cause. She says she is avoiding the food allergies that were discovered so hopefully this is not contributing to her cycles of diarrhea. She continues to do well in terms of her gastroparesis at her GERD utilizing the Reglan and the Dexilant without any adverse effects. She asks about the use of a GLP 1 agonist for somebody who has diagnose gastric paresis, hers is severe, and I let her know that it is not an absolute contraindication but explain the pathophysiology as to why this could cause her problems. Sometimes we can medicate around this by increasing the metoclopramide and sometimes the patient simply can not tolerate this medication due to worsening gastroparesis but causes nausea vomiting and severe constipation along with abdominal pain. However if she wishes to try it I will be there to help her manage it as long as she understands that if she does not tolerate it she may need to discontinue the medication. Return office visit in 4 weeks Medications: New sennosides (Natural Senna Laxative) 8.6 mg PO BEDTIME 30 tabs 3RF K58.2 - Mixed irritable bowel syndrome [id number] 36,000-114,000- 180,000 unit (Creon) administer with meals and/or snacks 2 caps PO BID 60 caps 6RF K58.2 - Mixed irritable bowel syndrome TODAY'S VISIT [facility] Medical History Syncope Palpitations Food allergy History of colitis Chronic diarrhea of unknown origin Urinary urgency Morbid obesity with BMI of 45.0-49.9, adult Hydronephrosis Iron deficiency anemia Gallstones Abdominal pain Diarrhea Pleurisy Leukocytosis Elevated AST (SGOT) Left ear pain Pseudotumor cerebri Eosinophilic esophagitis Colitis Anxiety AMAIRANI (obstructive sleep apnea) Fibromyalgia Bipolar disorder Migraine headache History of lumbar puncture Urinary frequency Urinary incontinence Cervicalgia Benign intracranial hypertension Essential hypertension Major depressive disorder Anemia Irregular menses Eczema Nasal polyps Morbid (severe) obesity due to excess calories Asthma, mild intermittent, well-controlled Surgical History History of removal of ureteral stent History of esophagogastroduodenoscopy (EGD) H/O colonoscopy History of wisdom tooth extraction Family History Mother Asthma HTN (hypertension) Father Bipolar 1 disorder Diabetes Parkinson disease Maternal Grandmother S/P triple vessel bypass Mother Uterine cancer Other Mental health disorder Social History Household Members: Family Housing: House Are you a primary resident care spec to a significant other at home: No Do you presently have visiting nurse or other home services: No Alcohol intake: current Alcohol intake frequency: holidays/special occasions only Patient Tobacco Use Status: Never used Tobacco e-Cigarette/Vaping Use: Never Used Second Hand Smoke Exposure: No Current occupational status: unemployed and student Current occupational exposures/hazards: No Gender identity: Female Cognitive needs: No Hearing needs: No Vision needs: No Review of Systems Const Denies fatigue, Denies fever(s), Denies night sweats, Denies poor appetite and Denies weight loss ENT Reports Normal hearing present, Denies dental pain, Denies dysphagia, Denies hearing loss, Denies mouth pain, Denies odynophagia, Denies throat swelling, Denies tongue swelling and Reports other (Dentition adequate) Card Reports no additional complaints Resp Reports no additional complaints GI Details: Denies abdominal pain, Denies melena, Reports bloating, Denies hematochezia, Reports constipation, Denies GI cramping, Denies dysphagia, Denies excessive flatus, Reports early satiety, Reports heartburn, Denies diarrhea, Denies nausea, Denies odynophagia, Denies vomiting and Denies hematemesis Reports flank pain Skin/Breast Denies pruritus, Denies lesions, Denies rash and Denies jaundice Neuro Reports Normal hearing present and Denies Abnormal speech present Endo Denies fatigue Aller/Immun Denies throat swelling and Denies tongue swelling Physical Exam Vital Signs: Last Vital Signs Pulse 90 06/26/25 15:47 BP 124/61 06/26/25 15:47 BMI result Body Mass Index 52.3 Const General: cooperative, no acute distress, well developed and well groomed Nutritional Appearance: well nourished and obese morbidly obese Orientation/consciousness: oriented to person, oriented to place and oriented to time Limitations: No language barrier HEENT Head: Yes normocephalic and Yes atraumatic Eyes General: appearance normal, both eyes and all related structures Pupils: Equal, round and reactive pupils present Neck Neck: Yes normal visual inspection and Yes no lymphadenopathy Thyroid: Thyroid normal Resp Effort & Inspection: normal respiratory effort and able to speak in complete sentences Auscultation: clear to auscultation bilaterally Cardio Rate: regular rate Rhythm: regular rhythm Heart sounds: Normal, physiologic split S2 sound present Peripheral pulses: radial pulses present and posterior tibial pulses present GI Inspection: No distended, Yes Abdominal panniculus present and Yes obesity Palpation (GI): Soft to palpation, nontender, no guarding, not rigid and No hepatosplenomegaly present Percussion: Yes normal to percussion Auscultation: normal bowel sounds Rectal Exam - Female: deferred Skin General skin exam: no rashes or lesions noted, turgor normal, skin not dry, no jaundice, No spider nevi and no striae Rashes: no rashes Nails: normal Neuro General: oriented to person, oriented to place and oriented to time Cranial nerves: Yes Equal, round and reactive pupils present and Yes Normal hearing present Speech: No Abnormal speech present Extrem General: Yes normal to inspection, No clubbing, No cyanosis and No edema Psych Appearance: grossly normal and well kempt Mental Status: mental status grossly normal Speech and movement: Normal speech and movement present Affect: normal affect Attitude: cooperative Thought process: Normal thought process present and not confabulating Thought content: Normal thought content present Insight: Fair insight present (Psych) Judgement: Fair judgement present (Psych) Assessment & Plan Assessment & Plan (1) Multiple food allergies: Comment: RAST SHOWS ONLY HAZELNUTS AND ALMONDS; but she does not tolerate Eggs, apples, milk, nuts, red meat Code(s): Z91.018 - Allergy to other foods Category: Medical (2) Gastroesophageal reflux disease: Code(s): K21.9 - Gastro-esophageal reflux disease without esophagitis Category: Medical (3) Eosinophilic esophagitis: Code(s): K20.0 - Eosinophilic esophagitis Category: Medical (4) Gastroparesis: Comment: Grade 4, severe delay on 2023 GS Code(s): K31.84 - Gastroparesis Category: Medical (5) Erosive esophagitis: Code(s): K22.10 - Ulcer of esophagus without bleeding Category: Medical (6) Irritable bowel syndrome with both constipation and diarrhea: Code(s): K58.2 - Mixed irritable bowel syndrome Category: Medical (7) Morbid obesity with BMI of 50.0-59.9, adult: Code(s): E66.01 - Morbid (severe) obesity due to excess calories; Z68.43 - Body mass index [BMI] 50.0-59.9, adult Category: Medical Plan SHE CONTINUES ON HER CREON, SENNA, DEXILANT, AND NOW REGLAN 5 MG 4 TIMES A DAY. Unfortunately, Nimo did not received the Creon. We are not really certain why so my MA has called the pharmacy to try to work this out. The senna however she did receive an that is working well to move her bowels. She still has trouble with bloating, not unsurprising late, given the fact that she has not received her Creon. She is quite sleepy today but that is because she just had surgery with a stent for urethral stricture and she is still recovering from this. She has not yet started any weight loss medications but I reminded her that if she does she needs to keep in touch with me in case they complicate her GI conditions. Hopefully, if she does go on a weight loss medication we can adjust her medications to accommodate this. Return office visit in 8 weeks to evaluate the effect of the Creon. Medications: Refilled dicyclomine 20 mg PO QID PRN 120 tabs 3RF abdominal pain 30 days R10.9 - Unspecified abdominal pain Dexilant (dexlansoprazole) 60 mg PO DAILY 30 caps 6RF 30 days NS metoclopramide HCl (Reglan) 5 mg PO QIDACHS 120 tabs 6RF K31.84 - Gastroparesis Coding Level of Care Code Est Pt Level 3 (16346) Diagnoses Multiple food allergies Z91.018 Gastroesophageal reflux disease K21.9 Eosinophilic esophagitis K20.0 Gastroparesis K31.84 Erosive esophagitis K22.10 Irritable bowel syndrome with both constipation and diarrhea K58.2 Morbid obesity with BMI of 50.0-59.9, adult E66.01; Z68.43
--- OUTSIDE RECORDS SUMMARY | 2025-06-26 19:44 | XMS_ITS | Encounter Summary ---
Author Organization [facility] Address [address] [place] [address] Care Team Providers Care Case Managers Name Role Phone Ayse Orta Primary Care Provider [phone] Encounter Details Date Type Department Care Team (Late Contact Info) Description 01/28/2025 Orders Only [facility] Nuclear Medicine [address] [place] [address] [phone] Torsten Harding MD PhD [address] [place] [phone] Social History Tobacco Use Types Packs/Day Years [...] Description 07/08/2025 10:00 AM EDT Office Visit [facility] [address] [place] [address] Spiritual Advisor: Anabell Britton MD [address] [place] [phone] documented as of this encounter Visit Diagnoses Not on filedocumented in this encounter Care Teams Case Managers Relationship Specialty Start Date End Date Ayse Orta [address] [place] [phone] PCP - General Family Medicine 06/24/25 documented as of this encounter
--- OUTSIDE RECORDS SUMMARY | 2025-06-26 19:44 | XMS_ITS | Encounter Summary ---
Author Organization [facility] Address [address] [place] [address] Care Team Providers Care Crtt Name Role Phone Ayse Orta Primary Care Provider [phone] Encounter Details Date Type Department Care Team (Late Contact Info) Description 06/25/2025 Telephone [facility] [address] [place] [address] Leaf Binner: Anabell Britton MD [address] [place] [address] Social History Tobacco Use Types Packs/Day Years [...] encounter Miscellaneous Notes * Telephone Encounter - Zoya Grande - 06/25/2025 2:48 PM EDT Pt is calling, she is asking for a out of work note to cover her for the next 2 weeks, you can sendthis to her thru my chart documented in this encounter Plan of Treatment Upcoming Encounters Date Type Department Care Team (Late Contact Info) Description 07/08/2025 10:00 AM EDT Office Visit [facility] [address] [place] [phone] Leaf Binner: Anabell Britton MD [address] [place] [phone] documented as of this encounter Visit Diagnoses Not on filedocumented in this encounter Care Teams Crtt Relationship Specialty Start Date End Date Ayse Orta [address] [place] [address] PCP - General Family Medicine 06/24/25 documented as of this encounter
--- OUTSIDE RECORDS SUMMARY | 2025-06-26 19:44 | XMS_ITS | Encounter Summary ---
Author Organization [facility] Address [address] [place] [address] Care Team Providers Care Sheet Metal Assembler Name Role Phone Ayse Orta Primary Care Provider [phone] Encounter Details Date Type Department Care Team (Late Contact Info) Description 06/24/2025 Telephone [facility] [address] [place] [address] Crankshaft Grinder: Anabell Britton MD [address] [place] [address] Social History Tobacco Use Types Packs/Day Years [...] Telephone Encounter - Anabell Davalos MD - 06/24/2025 11:01 AM EDT 06/24/25 left ureterolysis RTC 2w for cysto stent removal documented in this encounter Plan of Treatment Upcoming Encounters Date Type Department Care Team (Late st Contact Info) Description 07/08/2025 10:00 AM EDT Office Visit [facility] [address] [place] [phone] Crankshaft Grinder: Anabell Britton MD [address] [place] [phone] documented as of this encounter Visit Diagnoses Not on filedocumented in this encounter Care Teams Sheet Metal Assembler Relationship Specialty Start Date End Date Ayse Orta [address] [place] [address] PCP - General Family Medicine 06/24/25 documented as of this encounter
--- OUTSIDE RECORDS SUMMARY | 2025-06-26 19:44 | XMS_ITS | Encounter Summary ---
Author Organization [facility] Address [address] [place] [address] Care Team Providers Care Nutrition Helper Name Role Phone Ayse Orta Primary Care Provider [phone] Encounter Details Date Type Department Care Team (Late Contact Info) Description 06/25/2025 myChart Message [facility] [address] [place] [phone] Violin Repairer: Fara Gagnon PA [address] [place] [phone] Work Letter Social History Tobacco Use Types Packs/Day Years [...] Description 07/08/2025 10:00 AM EDT Office Visit [facility] [address] [place] [phone] Violin Repairer: Anabell Britton MD [address] [place] [phone] documented as of this encounter Visit Diagnoses Not on filedocumented in this encounter Care Teams Nutrition Helper Relationship Specialty Start Date End Date Ayse Orta [address] [place] [phone] PCP - General Family Medicine 06/24/25 documented as of this encounter
--- OUTSIDE RECORDS SUMMARY | 2025-06-26 19:44 | XMS_ITS | Clinical Summary ---
Author Organization [facility] Address [address] [place] [address] Care Team Providers Care Producer Arborist Manager Name Role Phone Ayse Orta Primary Care Provider [phone] Allergies Active Allergy Reactions Criticality Noted Date Comments Beef Containing Products Rash 03/09/2016 Alejo Flavor Rash 03/09/2016 Doxycycline Nausea And Vomiting Medium 10/12/2022 Egg Unknown 03/09/2016 Fexofenadine-Pseudoephe drine Unknown 05/26/2017 Stiff neck Fruit Extracts Unknown 03/09/2016 Cherries, apples Milk Anaphylaxis High 03/09/2016 Nut - Unspecified Unknown 03/09/2016 Medications traZODone (DESYREL) 100 mg tablet Take 100 [...] eyes 2 times a day. 5 Active cyanocobalamin 1,000 mcg tablet Take [...] mg by mouth once a day. Active acetaminophen (TYLENOL) 325 mg tablet Take 2 tablets (650 mg total) by mouth every 6 hours as needed for pain. 5 Active ibuprofen (MOTRIN) 200 mg tablet Take 3 tablets (600 mg total) by mouth every 6 hours as needed for pain. 5 Active tamsulosin (FLOMAX) 0.4 mg capsule Take 1 capsule (0.4 mg total) by mouth daily as needed (urinary discomfort). 14 capsule 06/24/2025 1:18 PM EDT 5 Active phenazopyridin e (PYRIDIUM) 200 mg tablet Take 1 tablet (200 mg total) by mouth 3 times a day as needed for bladder spasms. 9 tablet 06/24/2025 1:18 PM EDT 5 Active hyoscyamine (LEVSIN) 0.125 mg SL tablet Take 1 tablet (0.125 mg total) by mouth every 4 hours as needed for cramping. 14 tablet 06/24/2025 1:18 PM EDT 5 Active sertraline (ZOLOFT) 100 mg tablet Take 100 mg by mouth once a day. 5 025 Discontinued cholecalcifero l (VITAMIN D3) 1,250 mcg (50,000 unit) capsule Take 50,000 Units by mouth once a week. 5 025 Discontinued Active Problems No known active problems Encounters Date Type Department Care Team Description 06/25/2025 myChart Message [facility] [address] [place] [address] [place] [id number] Popcorn Candy Maker: Fara Gagnon PA Work Letter 06/25/2025 Telephone [facility] Urology [address] [address] Popcorn Candy Maker: Anabell Britton MD 06/24/2025 8:33 AM EDT Anesthesia Event [facility] Operating Room [address] [place] [phone] Tima Rm MD Dow, Christopher C., MD 06/24/2025 8:15 AM EDT - 06/24/2025 12:20 PM EDT Surgery [facility] Operating Room [address] [place] [id number] Anabell Davalos MD ROBOTIC URETEROLYSIS [49761 (CPT )] 06/24/2025 6:45 AM EDT - 06/24/2025 2:25 PM EDT Hospital Encounter [facility] Operating Room [address] [place] [phone] Anabell Davalos MD Discharge Disposition: Home or Self Care (01) 06/24/2025 Telephone [facility] Urology [address] [address] Popcorn Candy Maker: Anabell Britton MD 06/11/2025 4:15 PM EDT Pre-Admission Testing [facility] [address] [phone] Opal Perez PA Pre-op evaluation (Primary Dx); UPJ obstruction, congenital 05/23/2025 Telephone [facility] Urology [address] [address] Popcorn Candy Maker: Anabell Britton MD 05/23/2025 Telephone [facility] [address] [place] [phone] Popcorn Candy Maker: Anabell Britton MD 05/22/2025 Orders Only External Imaging [address] [place] [address] Radiology, External 05/22/2025 Orders Only External Imaging [address] [place] [address] Radiology, External 05/22/2025 Orders Only External Imaging [address] [place] [address] Radiology, External 05/22/2025 Orders Only External Imaging [address] [place] [address] Radiology, External 05/13/2025 3:30 PM EDT Pre-Admission Testing [facility] [address] [place] [address] UPJ obstruction, congenital (Primary Dx); Pre-op evaluation 05/02/2025 10:00 AM EDT Telehealth [facility] Urology [address] [address] Popcorn Candy Maker: Anabell Britton MD UPJ obstruction, congenital (Primary Dx) 05/02/2025 Prep for Case [facility] Urology [address] [address] Popcorn Candy Maker: Anabell Britton MD UPJ obstruction, congenital (Primary Dx) 04/29/2025 Results Follow-Up [facility] Urology [address] [address] Popcorn Candy Maker: Anabell Britton MD 04/28/2025 1:00 PM EDT - 04/28/2025 11:59 PM EDT [facility] Nuclear Medicine [address] [place] [id number] Anabell Davalos MD UPJ obstruction, congenital Discharge [...] Mass Index 51.36 06/24/2025 7:10 AM EDT Plan of Treatment Upcoming Encounters Date Type Department Care Team (Late st Contact Info) Description 07/08/2025 10:00 AM EDT Office Visit [facility] [address] [place] [address] Popcorn Candy Maker: Anabell Britton MD [address] [place] [address] Health Maintenance Due Date Last Done Comments HIV Screening 1998 Hepatitis C Screening 1998 Pap Smear 1998 Varicella Vaccines (1 of 2 - 13+ 2-dose series) 2011 Hepatitis B Vaccines (1 of 3 - 19+ 3-dose series) 2017 Pneumococcal Vaccine: Pediat bartolo (0-5 Years) and At-Risk Patients (6-50 Years) (1 of 2 - PCV) 2017 DTaP,Tdap,and Td Vaccines (2 - Tdap) 06/07/2019 09/0 01/2019 Alcohol/Substance Use Screening 10/02/2024 Depression Screening and Follow-Up 10/02/2024 Social Drivers of Health Kary ual Screening 10/02/2024 COVID-19 Vaccine ( season) 2025 01/31/2022, 03/15/2021, 02/15/2021 Influenza Vaccine (#1) 2025 10/21/2021 RSV Vaccine (60+ years old a nd patients) (1 - 1-dose 75+ series) 2073 Medical Devices Implanted Type Area Local Delivery Driver Device Identifier Shelf Expiration Date Model / Serial / Lot Stent Ureteral Firm Hydroplus Coating 6fr 24cm Percuflex Plus - [id number] Implanted:Qty: 1 on 06/24/2025 by Anabell Davalos MD at [facility] Stent Left: Ureter [employer] 11/20/2027 [id number] / / [id number] Procedures * Due to [place] state law, this organization might not be sharing negative HIV tests. Procedure Name Priority Date/Time Associated Diagnosis Comments XR ABDOMEN 1 VW STAT 06/24/2025 12:05 PM EDT ND LAP,PYELOPLASTY 06/24/2025 8: 13 AM EDT UPJ obstruction, congenital Special Needs POCT HCG, URINE Routine 06/24/2025 7:19 AM EDT URINALYSIS W/MICROSCOPIC Routine 06/18/2025 2:49 PM EDT Pre-op evaluation UPJ obstruction, congenital TYPE AND SCREEN Routine 06/18/2025 2:49 PM EDT Pre-op evaluation UPJ obstruction, congenital URINE CULTURE, ROUTINE Routine 06/18/2025 2:49 PM EDT Pre-op evaluation UPJ obstruction, congenital SR TOP, URN Routine 05/16/2025 12:23 PM [...] to obtain the completed interpretation. Workstation ID: [id number] Narrative 06/24/2025 2:35 PM EDT EXAMINATION: XR ABDOMEN 1 VW INDICATION: check placement of ureteral stent COMPARISONS: None Resulting Agency Comment [id number] Procedure Note Kanu Rizzo MD - 06/24/2025 [...] possible to obtain thecompleted interpretation. Workstation ID: [id number] Anabell Davalos MD IMG XR PROCEDURES Final Resul t * POCT HCG, Urine, non-interfaced (06/24/2025 7:19 AM EDT) Control band present? Yes Background Clear? Yes Preg Test, Ur Negative Negative Urine 06/24/2025 7:19 AM EDT Opal SILVA POINT OF CARE TEST ORDERABLES Fi nal Result * (ABNORMAL) Urinalysis With Microscopic (No Culture)-[facility] ONLY (06/18/2025 2:49 PM EDT) Color, Urine Light Yellow Colorless, Light Yellow, Yellow, Dark Yellow 06/18/2025 6:26 PM EDT [facility] Clarity, Urine Slightly Cloudy(A) Clear 06/18/2025 6:26 PM EDT [facility] Specific [place], Urine 1.017 <1.030 06/18/2025 6:26 PM EDT [facility] pH, Urine 6.5 4.6 - 8.0 06/18/2025 6:26 PM EDT [facility] Protein, Urine Negative Negative 06/18/2025 6:26 PM EDT [facility] Glucose, Urine Normal Normal 06/18/2025 6:26 PM EDT [facility] Ketones, Urine Negative Negative 06/18/2025 6:26 PM EDT [facility] Bilirubin, Urine Negative Negative 06/18/2025 6:26 PM EDT [facility] Blood, Urine 3+(A) Negative 06/18/2025 6:26 PM EDT [facility] Nitrite, Urine Negative Negative 06/18/2025 6:26 PM EDT [facility] Urobilinogen, Urine Normal Normal 06/18/2025 6:26 PM EDT [facility] Leukocyte Esterase, Urine 2+(A) Negative 06/18/2025 6:26 PM EDT [facility]ENTERFirst Choice Pet CareMI [facility] WBC, Urine 22(H) 0 - 2 /HPF 06/18/2025 6:26 PM EDT [facility]American [facility]MER[facility] RBC, Urine 66(H) 0 - 2 /HPF 06/18/2025 6:26 PM EDT [facility]ARAmerican Injury [facility]MER[facility] Hyaline Casts, Urine 0 0 - 2 /LPF 06/18/2025 6:26 PM EDT [facility]ARFirst [facility] CareMI [facility] Bacteria, Urine Rare(A) None /HPF /HPF 06/18/2025 6:26 PM EDT [facility] Squamous Epithelial Cells, Urine 4 /HPF 06/18/2025 6:26 PM EDT [facility] Mucus, Urine Rare /LPF 06/18/2025 6:26 PM EDT [facility] Urine Urine specimen collection, clean catch / Unknown Non-Blood Collection / Unknown 06/18/2025 2:49 PM EDT 06/18/2025 6:04 PM EDT us Anabell Davalos MD LAB URINE ORDERABLES Final Re sult [facility] [address] [place] [address], * Type and Screen (06/18/2025 2:49 PM EDT) Only the most recent of2 resultswithin the time period is included. ABO Blood Type AB 06/18/2025 8:19 PM EDT [facility] RH Type Positive 06/18/2025 8:19 PM EDT [facility] Expiration Date/Time 2025-06-27 23:59 06/18/2025 8:19 PM EDT [facility] Antibody Screen Negative 06/18/2025 8:19 PM EDT [facility] Blood Structure of peripheral vein / Unknown Venipuncture / Unknown 06/18/2025 2:49 PM EDT 06/18/2025 5:59 PM EDT Anabell Davalos MD LAB BLOOD BANK TEST ORDERABLE S Final Result [facility] [address] [place] [address], [place] [phone] * Urine Culture, Routine (06/18/2025 2:49 PM EDT) Pathologist [facility] Culture Mixed genital erin isolated. These superficial bacteria are not indicative of a urinary tract infection. No further organism identification is warranted on this specimen. 06/19/2025 10:45 PM EDT [facility] Urine Urine specimen collection, clean catch / Unknown Non-Blood Collection / Unknown 06/18/2025 2:49 PM EDT 06/18/2025 6:04 PM EDT Narrative [facility] - 06/19/2025 10:45 PM EDT [facility] Received Date: MICRO NUMBER: [id number] SPECIMEN QUALITY: Adequate SOURCE: URINE CLEAN CATCH STATUS: FINAL If clinically indicated, recollect clean-catch, mid-stream urine and transfer immediately to Urine Culture Transport Tube. Anabell Davalos MD LAB MICROBIOLOGY - GENERAL OR DERABLES Final Result [facility] [address] [facility] [address], [place] [address], [place] [phone] [employer] [facility] [address] [facility] [address], [place] [address], [place] [phone] * Sr Top, Urine (05/16/2025 12:23 PM EDT) Extra Tube Hold for add-ons. 05/16/2025 6:05 PM EDT [facility] Comment:Auto resulted. Urine Urine specimen collection, clean catch / Unknown Non-Blood Collection / Unknown 05/16/2025 12:23 PM EDT 05/16/2025 5:59 PM EDT us Anabell Davalos MD LAB URINE ORDERABLES Final Re sult [facility]ENTER[facility] [address] [place] [address], [place] * Urinalysis W/Reflex to Microscopic & Culture (05/16/2025 12:23 PM EDT) Color, Urine Light Yellow Colorless, Light Yellow, Yellow, Dark Yellow 05/16/2025 6:27 PM EDT [facility] Clarity, Urine Clear Clear 05/16/2025 6:27 PM EDT [facility] Specific [place], Urine 1.015 <1.030 05/16/2025 6:27 PM EDT [facility] pH, Urine 6.0 4.6 - 8.0 05/16/2025 6:27 PM EDT [facility] Protein, Urine Negative Negative 05/16/2025 6:27 PM EDT [facility] Glucose, Urine Normal Normal 05/16/2025 6:27 PM EDT [facility] Ketones, Urine Negative Negative 05/16/2025 6:27 PM EDT [facility] Bilirubin, Urine Negative Negative 05/16/2025 6:27 PM EDT [facility] Blood, Urine Negative Negative 05/16/2025 6:27 PM EDT [facility] Nitrite, Urine Negative Negative 05/16/2025 6:27 PM EDT [facility] Urobilinogen, Urine Normal Normal 05/16/2025 6:27 PM EDT [facility] Leukocyte Esterase, Urine Negative Negative 05/16/2025 6:27 PM EDT [employer] [facility] Urine Urine specimen collection, clean catch / Unknown Non-Blood Collection / Unknown 05/16/2025 12:23 PM EDT 05/16/2025 5:59 PM EDT us Anabell Davalos MD LAB URINE ORDERABLES Final Re sult [facility] [address] [place] [address], [place] * (ABNORMAL) CBC (05/16/2025 12:23 PM EDT) WBC 12.2(H) 3.8 - 10.8 10*3/uL 05/16/2025 1:43 PM EDT [facility] RBC 4.29 3.80 - 5.10 10*6/uL 05/16/2025 1:43 PM EDT [facility] Hemoglobin 11.1(L) 11.7 - 15.5 g/dL 05/16/2025 1:43 PM EDT [facility] Hematocrit 34.5(L) 35.0 - 45.0 % 05/16/2025 1:43 PM EDT [facility] MCV 80.4 80.0 - 100.0 fL 05/16/2025 1:43 PM EDT [facility] MCH 25.9(L) 27.0 - 33.0 pg 05/16/2025 1:43 PM EDT [facility] MCHC 32.2 32.0 - 36.0 g/dL 05/16/2025 1:43 PM EDT [facility] RDW 15.2(H) 11.0 - 15.0 % 05/16/2025 1:43 PM EDT [facility] Platelets 307 140 - 400 10*3/uL 05/16/2025 1:43 PM EDT [facility] MPV 11.3 7.5 - 12.5 fL 05/16/2025 1:43 PM EDT [facility] Blood Structure of peripheral vein / Unknown Venipuncture / Unknown 05/16/2025 12:23 PM EDT 05/16/2025 1:33 PM EDT us Maren SILVA LAB BLOOD ORDERABLES Fin al Result [facility]ENTERFirst [facility] CareMI [facility] [address] [place] [address], * Basic metabolic panel (05/16/2025 12:23 PM EDT) NA 141 135 - 145 mmol/L 05/16/2025 2:06 PM EDT [facility] K 3.8 3.5 - 5.3 mmol/L 05/16/2025 2:06 PM EDT [facility] Cl 105 98 - 107 mmol/L 05/16/2025 2:06 PM EDT [facility] CO2 26 22 - 32 mmol/L 05/16/2025 2:06 PM EDT [facility] BUN 10 7 - 23 mg/dL 05/16/2025 2:06 PM EDT [facility] Creatinine 0.95 0.50 - 1.20 mg/dL 05/16/2025 2:06 PM EDT [facility] Glucose 83 65 - 99 mg/dL 05/16/2025 2:06 PM EDT [facility] Calcium 9.1 8.6 - 10.5 mg/dL 05/16/2025 2:06 PM EDT [facility] Anion Gap 10 5 - 15 05/16/2025 2:06 PM EDT [facility] eGFR 84 >=60 mL/min/1. 73m2 05/16/2025 2:06 PM EDT [facility] Comment:The estimated glomer ular [...] MD LAB BLOOD ORDERABLES Final Re sult [facility] [address] [place] [address], [place] * [place] Kidney Flow and Function [...] to obtain the completed interpretation. Workstation ID: [id number] Narrative 04/28/2025 5:04 PM EDT EXAM: RENAL [...] response to Lasix . Resulting Agency Comment [id number] Procedure Note Alba Barbour MD - 04/28/2025 [...] possible to obtain thecompleted interpretation. Workstation ID: [id number] Anabell Davalos MD IMG [place] PROCEDURES Final Resul t from Last 3 Months Insurance [place] [address] Advance Directives Documents on File Type Date Recorded Patient Chandelier Maker Expl anation Health Care Proxy 06/24/2025 7:31 AM Health Care Proxy 12/27/2024 1:52 PM Healt h Care Proxy Documentation * Presumed Full Code (Latest Code Status on File) Date Activated Date Inactivated Comments 06/24/2025 7:14 AM 06/24/2025 4:30 PM Care Teams Producer Arborist Manager Relationship Specialty Start Date End Date Ayse Orta [address] [place] [address] PCP - General Family Medicine 06/24/25
== END 2025-06-26 16:10 | disposition home or self-care (01) ==
LOC: HO.HGI 15:39
PROVIDERS: PCP Nurse Practitioner Family; Visit Provider Nurse Practitioner
DX: Z91.018 Allergy to other foods (principal); K21.9 Gastro-esophageal reflux disease without esophagitis; K20.0 Eosinophilic esophagitis; K31.84 Gastroparesis; K22.10 Ulcer of esophagus without bleeding; K58.2 Mixed irritable bowel syndrome; E66.01 Morbid (severe) obesity due to excess calories; Z68.43 Body mass index [BMI] 50.0-59.9, adult
CPT/HCPCS: 99213

== ENCOUNTER → 2025-06-26 15:38 | Outpatient (BNVA) | payer OTHER, SELFPAY | PROVIDERS: PCP Nurse Practitioner Family; Visit Provider Nurse Practitioner | DX: K58.2 Mixed irritable bowel syndrome (principal); K31.84 Gastroparesis; K22.10 Ulcer of esophagus without bleeding; K21.9 Gastro-esophageal reflux disease without esophagitis; R10.9 Unspecified abdominal pain; Z91.018 Allergy to other foods | CPT/HCPCS: 99212 ==

== ENCOUNTER 2025-08-05 08:02 | Outpatient (AMB) | payer OTHER, SELFPAY ==
[2025-08-05 08:02] VITALS: BP 128/84; PULSE 94; O2SAT 98; BMI 51.0
--- NOTE | 2025-08-05 08:02 | MHC.OFFVIS ---
Vital Signs 08/05/25 08:02 Height 5 ft Weight 261 lb 6 oz BMI 51.0 BP 128/84 Blood Pressure Location Rt brachial Position Sitting Pulse 94 Pulse Source Pulse Oximeter Pulse Oximetry (%) 98 Oxygen Delivery Method Room Air Intake Visit Reasons: follow up Intake Note: Follow up Benign intracranial hypertension and Migraine, unspecified, not intractable, without status migrainosus Interior Design Instructor Required: No Accompanied by: Mother Allergies fexofenadine (From Sofía-D) Allergy (Severe, Verified 08/05/25 08:11) Swelling milk Allergy (Severe, Verified 08/05/25 08:11) Anaphylaxis pseudoephedrine (From Sofía-D) Allergy (Severe, Verified 08/05/25 08:11) Swelling Beef Containing Products Allergy (Intermediate, Verified 08/05/25 08:11) Hives aranda Allergy (Intermediate, Verified 08/05/25 08:11) Hives egg Allergy (Intermediate, Verified 08/05/25 08:11) Hives lamotrigine Allergy (Intermediate, Verified 08/05/25 08:11) hives nut - unspecified Allergy (Intermediate, Verified 08/05/25 08:11) Hives doxycycline Adverse Reaction (Intermediate, Verified 08/05/25 08:11) projectile vomiting tiotropium (From Spiriva with HandiHaler) Adverse Reaction (Intermediate, Verified 08/05/25 08:11) Cough sulcralfate Adverse Reaction (Mild, Uncoded 06/10/25 09:27) hives HPI Comments Details: 24 y/o female patient presents for follow up of benign intracranial hypertension.she reports migraines every other day.she sees her sales agent financial report service monthly - was told her eye swollen ? Dr Ania Dunn she has not been on diamox since 2014. Pt reports she had a lumbar puncture done May,. Pt states that she has more frequent headache, she had 2-3 headache days per week, but now having daily headache. The headache accompanied by dizziness, photohobia and phonophobia. She feels really dizzy when she has headache, almost passing out when she stands up. She used Fioricet 4 times a week and ibuprofen, Tylenol between the Fioricet. [facility] Medical History Syncope Palpitations Food allergy History of colitis Chronic diarrhea of unknown origin Urinary urgency Morbid obesity with BMI of 45.0-49.9, adult Hydronephrosis Iron deficiency anemia Gallstones Abdominal pain Diarrhea Pleurisy Leukocytosis Elevated AST (SGOT) Left ear pain Pseudotumor cerebri Eosinophilic esophagitis Colitis Anxiety AMAIRANI (obstructive sleep apnea) Fibromyalgia Bipolar disorder Migraine headache History of lumbar puncture Urinary frequency Urinary incontinence Cervicalgia Benign intracranial hypertension Essential hypertension Major depressive disorder Anemia Irregular menses Eczema Nasal polyps Morbid (severe) obesity due to excess calories Asthma, mild intermittent, well-controlled Surgical History History of removal of ureteral stent History of esophagogastroduodenoscopy (EGD) H/O colonoscopy History of wisdom tooth extraction Family History Mother Asthma HTN (hypertension) Father Bipolar 1 disorder Diabetes Parkinson disease Maternal Grandmother S/P triple vessel bypass Mother Uterine cancer Other Mental health disorder Social History Household Members: Family Housing: House Are you a primary residential caregiver to a significant other at home: No Do you presently have visiting nurse or other home services: No Alcohol intake: current Alcohol intake frequency: holidays/special occasions only Patient Tobacco Use Status: Never used Tobacco e-Cigarette/Vaping Use: Never Used Second Hand Smoke Exposure: No Current occupational status: unemployed and student Current occupational exposures/hazards: No Gender identity: Female Cognitive needs: No Hearing needs: No Vision needs: No Physical Exam Vital Signs: Last Vital Signs Pulse 94 08/05/25 08:02 BP 128/84 08/05/25 08:02 Pulse Ox 98 08/05/25 08:02 Oxygen Delivery Method Room Air 08/05/25 08:02 BMI result Body Mass Index 51.0 Const General: cooperative and comfortable Nutritional Appearance: obese Orientation/consciousness: patient oriented x3 HEENT Head: Yes normal to inspection and Yes normocephalic Face and sinus: Yes normal facial exam Eyes Pupils: Equal, round and reactive pupils present Neuro General: patient oriented x3, gait normal, tone normal, moves all extremities and no focal motor deficits Cranial nerves: Yes Facial sensation intact/muscles of mastication intact, Yes Equal, round and reactive pupils present, Yes Bilaterally intact EOM present, Yes Nystagmus not present, Yes Normal facial strength present and Yes Midline tongue present Cognition (Neuro): normal cognition Gait exam (Neuro): Normal gait present Motor exam (neuro): 5/5 motor strength present throughout and Normal motor muscle tone present throughout Coordination: iulsai-da-byfi test normal Assessment & Plan Assessment & Plan (1) Benign intracranial hypertension: Code(s): G93.2 - Benign intracranial hypertension Category: Medical (2) Migraine: Code(s): G43.909 - Migraine, unspecified, not intractable, without status migrainosus Category: Medical Qualifiers: Intractability: not intractable Migraine type: chronic migraine (15 or more days per month) without aura Status migrainosus presence: without status migrainosus Qualified Code(s): G43.709 - Chronic migraine without aura, not intractable, without status migrainosus Plan schedule lumbar puncture to check opening pressure Unable to start diamox due to aptients allergy to milk and beef products I will start topiramate Xr 50mg qd F/u ophthalmology - scheduled for surgery Aug 18 Continue to take Magnesium 400mg qhs and Vit B 2 400mg qam. Continue CPAP f/u with Dr. Bae- needs a new CPAP pres . Orders: Orders FL guided lumbar puncture LP Today G93.2 - Benign intracranial hypertension Medications: New topiramate XR 50 mg PO DAILY 30 ea 6RF Coding Level of Care Code Est Pt Level 4 (27369) Diagnoses Benign intracranial hypertension G93.2 Chronic migraine without aura without status migrainosus, not intractable G43.709 Intractability: not intractable Migraine type: chronic migraine (15 or more days per month) without aura Status migrainosus presence: without status migrainosus
--- OUTSIDE RECORDS SUMMARY | 2025-08-05 08:12 | XMS_ITS | Clinical Summary ---
Author Organization [facility] Address [address] [place] [address] Care Team Providers Care Lehr Tender Name Role Phone Ayse Orta Primary Care Provider [phone] Allergies Active Allergy Reactions Criticality Noted Date [...] mouth 4 times a day. 07/22/2024 Active Airsupra 90-80 mcg/actuation HFA aerosol inhaler SMARTSI Puff(s) By Mouth Twice Daily PRN 10/21/2024 Active brimonidine (ALPHAGAN) 0.2% ophthalmic solution Instill 1 drop into both eyes 2 times a day. 11/05/2024 Active cyanocobalamin 1,000 mcg tablet Take 1,000 mcg by mouth once a day. 11/01/2024 Active Dupixent Syringe 300 mg/2 mL syringe injection Inject 300 mg under the skin over 168 hr. 11/06/2024 Active Dexilant 60 mg capsule Take 60 mg by mouth once a day. 10/31/2024 Active Caplyta 42 mg capsule Take 42 mg by mouth once a day. 11/21/2024 Active folic acid (FOLVITE) 1 mg tablet Take 1 mg by mouth once a day. 11/01/2024 Active fesoterodine 8 mg tablet extended release 24 hr Take 8 mg by mouth daily. 11/01/2024 Active EPINEPHrine (EPIPEN) 0.3 mg/0.3 mL injection syringe Inject 0.3 mg into the outer thigh muscle as directed as needed. 09/24/2024 Active cloNIDine (CATAPRES) 0.1 mg tablet Take 0.1 mg by mouth once a day. Active desvenlafaxine succinate (Pristiq) 25 mg Take 25 mg by mouth once a day. Active acetaminophen (TYLENOL) 325 mg tablet Take 2 tablets (650 mg total) by mouth every 6 hours as needed for pain. 06/24/2025 Active ibuprofen (MOTRIN) 200 mg tablet Take 3 tablets (600 mg total) by mouth every 6 hours as needed for pain. 06/24/2025 Active tamsulosin (FLOMAX) 0.4 mg capsule Take 1 capsule (0.4 mg total) by mouth daily as needed (urinary discomfort). 14 capsule 06/24/2025 1:18 PM EDT 06/24/2025 Active phenazopyridine (PYRIDIUM) 200 mg tablet Take 1 tablet (200 mg total) by mouth 3 times a day as needed for bladder spasms. 9 tablet 06/24/2025 1:18 PM EDT 06/24/2025 Active hyoscyamine (LEVSIN) 0.125 mg SL tablet Take 1 tablet (0.125 mg total) by mouth every 4 hours as needed for cramping. 14 tablet 06/24/2025 1:18 PM EDT 06/24/2025 Active Hospital, Clinic, or Other Facility Administered Medication Ordered Dose Route Frequency Start Date End Date Status ciprofloxacin (CIPRO) tablet 500 mg 500 mg oral Once 07/07/2025 07/08/2025 Ended Active Problems No known active problems Encounters Date Type Department Care Team Description 07/08/2025 10:00 AM EDT Office Visit [facility] [address] [place] [address] Devops Solutions Architect: Anabell Britton MD UPJ obstruction, congenital (Primary Dx) 06/25/2025 myChart Message [facility] [address] [place] [address] Devops Solutions Architect: Fara Gagnon PA Work Letter 06/25/2025 Telephone [facility] [address] [address] Devops Solutions Architect: Anabell Britton MD 06/24/2025 8:33 AM EDT Anesthesia Event [facility] [address] [place] [address] Tima Rm MD Dow, Christopher C., MD 06/24/2025 8:15 AM EDT - 06/24/2025 12:20 PM EDT Surgery [facility] [address] [place] [address] Anabell Davalos MD ROBOTIC URETEROLYSIS [39927 (CPT )] 06/24/2025 6:45 AM EDT - 06/24/2025 2:25 PM EDT Hospital Encounter [facility] [address] [place] [address] Anabell Davalos MD Discharge Disposition: Home or Self Care (01) 06/24/2025 Telephone [facility] [address] [address] Devops Solutions Architect: Anabell Britton MD 06/11/2025 4:15 PM EDT Pre-Admission Testing [facility] [address] [address] Opal Perez PA Pre-op evaluation (Primary Dx); UPJ obstruction, congenital 05/23/2025 Telephone [facility] [address] [place] [address] [employer] Architect: Anabell Britton MD 05/23/2025 Telephone [facility] [address] [facility] [place] [address] [employer]ops Solutions Architect: Anabell Britton MD 05/22/2025 Orders Only External Imaging [address] [place] [address] Radiology, External 05/22/2025 Orders Only External Imaging [address] [place] [address] Radiology, External 05/22/2025 Orders Only External Imaging [address] [place] [address] Radiology, External 05/22/2025 Orders Only External Imaging [address] [place] [address] Radiology, External 05/13/2025 3:30 PM EDT Pre-Admission Testing [facility] [address] [place] [address] UPJ obstruction, congenital (Primary Dx); Pre-op evaluation from Last 3 Months Family History Medical [...] Sign Reading Time Taken Comments Blood Pressure 122/87 07/08/2025 10:32 AM EDT Pulse 99 07/08/2025 10:32 AM EDT Temperature 36.6 C (97.9 F) 06/24/2025 1:09 PM EDT Respiratory Rate 16 06/24/2025 1:09 PM EDT Oxygen Saturation 93% 06/24/2025 1:09 PM EDT Inhaled Oxygen Concentration - - Weight 119.3 kg (263 lb) 06/24/2025 7:10 AM EDT Height 152.4 cm (5') 06/24/2025 7:10 AM EDT Body Mass Index 51.36 06/24/2025 7:10 AM EDT Plan of Treatment Health Maintenance Due Date Last Done Comments [...] series) 2073 Medical Devices Implanted Type Area Fabrication Welder Device Identifier Shelf Expiration Date Model / Serial / Lot Stent Ureteral Firm Hydroplus Coating 6fr 24cm Percuflex Plus - [id number] Implanted:Qty: 1 on 06/24/2025 by Anabell Davalos MD at [facility] Stent Left: Ureter [employer] 11/20/2027 [id number] / / [id number] Procedures * Due to [place] state law, this organization might not be sharing negative HIV tests. Procedure Name Priority Date/Time Associated Diagnosis Comments XR ABDOMEN 1 VW STAT 06/24/2025 12:05 PM EDT MI LAP,PYELOPLASTY 06/24/2025 8: 13 AM EDT UPJ [...] PM EDT UPJ obstruction, congenital Pre-op evaluation from Last 3 Months Results * Due to [place] state law, this organization might not be [...] to obtain the completed interpretation. Workstation ID: [id number] Narrative 06/24/2025 2:35 PM EDT EXAMINATION: XR ABDOMEN 1 VW INDICATION: check placement of ureteral stent COMPARISONS: None Resulting Agency Comment [id number] Procedure Note Kanu Rizzo MD - 06/24/2025 [...] possible to obtain thecompleted interpretation. Workstation ID: [id number] Anabell Davalos MD IMG XR PROCEDURES Final Resul t * POCT HCG, Urine, non-interfaced (06/24/2025 7:19 AM EDT) Control band present? Yes Background Clear? Yes Preg Test, Ur Negative Negative Urine 06/24/2025 7:19 AM EDT Opal SILVA POINT OF CARE TEST ORDERABLES Fi nal Result * (ABNORMAL) Urinalysis With Microscopic (No Culture)-PIGEON FORGE ONLY (06/18/2025 2:49 PM EDT) Color, Urine Light Yellow Colorless, Light Yellow, Yellow, Dark Yellow 06/18/2025 6:26 PM EDT [facility] Clarity, Urine Slightly Cloudy(A) Clear 06/18/2025 6:26 PM EDT [facility] Specific [place], Urine 1.017 <1.030 06/18/2025 6:26 PM EDT [facility] pH, Urine 6.5 4.6 - 8.0 06/18/2025 6:26 PM EDT [facility] Protein, Urine Negative Negative 06/18/2025 6:26 PM EDT [facility] Glucose, Urine Normal Normal 06/18/2025 6:26 PM EDT [facility] Ketones, Urine Negative Negative 06/18/2025 6:26 PM EDT [facility] Bilirubin, Urine Negative Negative 06/18/2025 6:26 PM EDT [facility] Blood, Urine 3+(A) Negative 06/18/2025 6:26 PM EDT [facility] Nitrite, Urine Negative Negative 06/18/2025 6:26 PM EDT [facility] Urobilinogen, Urine Normal Normal 06/18/2025 6:26 PM EDT [facility] Leukocyte Esterase, Urine 2+(A) Negative 06/18/2025 6:26 PM EDT [facility] WBC, Urine 22(H) 0 - 2 /HPF 06/18/2025 6:26 PM EDT [facility] RBC, Urine 66(H) 0 - 2 /HPF 06/18/2025 6:26 PM EDT [facility] Hyaline Casts, Urine 0 0 - 2 /LPF 06/18/2025 6:26 PM EDT [facility] Bacteria, Urine Rare(A) None /HPF /HPF 06/18/2025 6:26 PM EDT [facility] Squamous Epithelial Cells, Urine 4 /HPF 06/18/2025 6:26 PM EDT [facility] Mucus, Urine Rare /LPF 06/18/2025 6:26 PM EDT [facility] Urine Urine specimen collection, clean catch / Unknown Non-Blood Collection / Unknown 06/18/2025 2:49 PM EDT 06/18/2025 6:04 PM EDT Anabell Davalos MD LAB URINE ORDERABLES Final Re sult [facility] [address] [place] [address], * Type and Screen (06/18/2025 2:49 PM EDT) Only the most recent of2 resultswithin the time period is included. ABO Blood Type AB 06/18/2025 8:19 PM EDT [facility] RH Type Positive 06/18/2025 8:19 PM EDT [facility] Expiration Date/Time 2025-06-27 23:59 06/18/2025 8:19 PM EDT [facility] Antibody Screen Negative 06/18/2025 8:19 PM EDT [facility] Blood Structure of peripheral vein / Unknown Venipuncture / Unknown 06/18/2025 2:49 PM EDT 06/18/2025 5:59 PM EDT Anabell Davalos MD LAB BLOOD BANK TEST ORDERABLE S Final Result Performing Organization Address City/[facility]/ZIP Co de Phone Number [facility] [address] [place] [address], * Urine Culture, Routine (06/18/2025 2:49 PM EDT) Culture Mixed genital erin isolated. These superficial bacteria are not indicative of a urinary tract infection. No further organism identification is warranted on this specimen. 06/19/2025 10:45 PM EDT [employer] [facility] Urine Urine specimen collection, clean catch / Unknown Non-Blood Collection / Unknown 06/18/2025 2:49 PM EDT 06/18/2025 6:04 PM EDT [facility] 06/19/2025 10:45 PM EDT [facility] Received Date:[id number] MICRO NUMBER: [id number] SPECIMEN QUALITY: Adequate SOURCE: URINE CLEAN CATCH STATUS: FINAL If clinically indicated, recollect clean-catch, mid-stream urine and transfer immediately to Urine Culture Transport Tube. us Anabell Davalos MD LAB MICROBIOLOGY - GENERAL OR DERABLES Final Result [facility] [address], [place] [address], [place] [phone] [employer] [facility] [address], [place] [address], [place] [phone] * Sr Top, Urine (05/16/2025 12:23 PM EDT) Pathologist [facility] Extra Tube Hold for add-ons. 05/16/2025 6:05 PM EDT [facility] Comment:Auto resulted. Urine Urine specimen collection, clean catch / Unknown Non-Blood Collection / Unknown 05/16/2025 12:23 PM EDT 05/16/2025 5:59 PM EDT Anabell Davalos MD LAB URINE ORDERABLES Final Re sult [facility] [address] [place] [address], * Urinalysis W/Reflex to Microscopic & Culture (05/16/2025 12:23 PM EDT) Pathologist [facility] Color, Urine Light Yellow Colorless, Light Yellow, Yellow, Dark Yellow 05/16/2025 6:27 PM EDT [facility] Clarity, Urine Clear Clear 05/16/2025 6:27 PM EDT [facility] Specific [place], Urine 1.015 <1.030 05/16/2025 6:27 PM EDT [facility] pH, Urine 6.0 4.6 - 8.0 05/16/2025 6:27 PM EDT [facility] Protein, Urine Negative Negative 05/16/2025 6:27 PM EDT [facility] Glucose, Urine Normal Normal 05/16/2025 6:27 PM EDT [facility] Ketones, Urine Negative Negative 05/16/2025 6:27 PM EDT [facility] Bilirubin, Urine Negative Negative 05/16/2025 6:27 PM EDT [facility] Blood, Urine Negative Negative 05/16/2025 6:27 PM EDT [facility] Nitrite, Urine Negative Negative 05/16/2025 6:27 PM EDT [facility] Urobilinogen, Urine Normal Normal 05/16/2025 6:27 PM EDT [facility] Leukocyte Esterase, Urine Negative Negative 05/16/2025 6:27 PM EDT [facility] Urine Urine specimen collection, clean catch / Unknown Non-Blood Collection / Unknown 05/16/2025 12:23 PM EDT 05/16/2025 5:59 PM EDT us Anabell Davalos MD LAB URINE ORDERABLES Final Re sult [facility] [address] [place] [address], * (ABNORMAL) CBC (05/16/2025 12:23 PM EDT) WBC 12.2(H) 3.8 - 10.8 10*3/uL 05/16/2025 1:43 PM EDT [facility] RBC 4.29 3.80 - 5.10 10*6/uL 05/16/2025 1:43 PM EDT [facility] Hemoglobin 11.1(L) 11.7 - 15.5 g/dL 05/16/2025 1:43 PM EDT [facility] Hematocrit 34.5(L) 35.0 - 45.0 % 05/16/2025 1:43 PM EDT [facility] MCV 80.4 80.0 - 100.0 fL 05/16/2025 1:43 PM EDT [facility] MCH 25.9(L) 27.0 - 33.0 pg 05/16/2025 1:43 PM EDT [facility] MCHC 32.2 32.0 - 36.0 g/dL 05/16/2025 1:43 PM EDT [facility] RDW 15.2(H) 11.0 - 15.0 % 05/16/2025 1:43 PM EDT [facility] Platelets 307 140 - 400 10*3/uL 05/16/2025 1:43 PM EDT [facility] MPV 11.3 7.5 - 12.5 fL 05/16/2025 1:43 PM EDT [facility] Blood Structure of peripheral vein / Unknown Venipuncture / Unknown 05/16/2025 12:23 PM EDT 05/16/2025 1:33 PM EDT us Maren SILVA LAB BLOOD ORDERABLES Fin al Result [facility] [address] [place] [address], * Basic metabolic panel (05/16/2025 12:23 PM EDT) NA 141 135 - 145 mmol/L 05/16/2025 2:06 PM EDT [facility] K 3.8 3.5 - 5.3 mmol/L 05/16/2025 2:06 PM EDT [facility] Cl 105 98 - 107 mmol/L 05/16/2025 2:06 PM EDT [facility] CO2 26 22 - 32 mmol/L 05/16/2025 2:06 PM EDT [facility] BUN 10 7 - 23 mg/dL 05/16/2025 2:06 PM EDT [facility] Creatinine 0.95 0.50 - 1.20 mg/dL 05/16/2025 2:06 PM EDT [facility] Glucose 83 65 - 99 mg/dL 05/16/2025 2:06 PM EDT [facility] Calcium 9.1 8.6 - 10.5 mg/dL 05/16/2025 2:06 PM EDT [facility] Anion Gap 10 5 - 15 05/16/2025 2:06 PM EDT [facility] eGFR 84 >=60 mL/min/1. 73m2 05/16/2025 2:06 PM EDT [facility] Comment:The estimated glomer ular [...] MD LAB BLOOD ORDERABLES Final Re sult [facility] [address] [place] [address], from Last 3 Months Insurance [employer] Advance Directives Documents on File Type Date Recorded Patient Health Economist Expl anation Health Care Proxy 06/24/2025 7:31 AM Health Care Proxy 12/27/2024 1:52 PM Healt h Care Proxy Documentation * Presumed Full Code (Latest Code Status on File) Date Activated Date Inactivated Comments 06/24/2025 7:14 AM 06/24/2025 4:30 PM Care Teams Lehr Tender Relationship Specialty Start Date End Date Ayse Orta [address] [place] [address] PCP - General Family Medicine 06/24/25
--- OUTSIDE RECORDS SUMMARY | 2025-08-05 08:12 | XMS_ITS | Encounter Summary ---
Author Organization [facility] Address [address] [place] [address] Care Team Providers Care Magnesium Mill Operator Name Role Phone Ayse Orta Primary Care Provider [phone] Encounter Details Date Type Department Care Team (Late st Contact Info) Description 01/28/2025 Orders Only [facility] Nuclear Medicine [address] [place] [address] [phone] Torsten Harding MD PhD [address] [place] [address] [phone] Social History Tobacco Use Types Packs/Day Years Used Date Smoking Tobacco: Never Assessed Comments No Sex and Gender Information Value Date Recorded Sex Assigned at Female 11/29/2024 1:55 PM EST Legal Sex Female 10:56 AM EST Gender Identity Female 04/28/2025 11:34 AM EDT Sexual Orientation Straight 04/28/2025 11 :34 AM EDT documented as of this encounter Plan of Treatment Not on file documented as of this encounter Visit Diagnoses Not on filedocumented in this encounter Care Teams Magnesium Mill Operator Relationship Specialty Start Date End Date Ayse Orta [address] [place] [address] PCP - General Family Medicine 06/24/25 documented as of this encounter
== END 2025-08-05 08:31 | disposition home or self-care (01) ==
LOC: HO.HSMS 08:02
PROVIDERS: PCP Nurse Practitioner Family; Visit Provider Psychiatry & Neurology Neurology
DX: G93.2 Benign intracranial hypertension (principal); G43.709 Chronic migraine without aura, not intractable, without status migrainosus
CPT/HCPCS: 99214

== ENCOUNTER → 2025-08-05 08:02 | Outpatient (BNVA) | payer OTHER, SELFPAY | PROVIDERS: PCP Nurse Practitioner Family; Visit Provider Psychiatry & Neurology Neurology | DX: G93.2 Benign intracranial hypertension (principal); G43.709 Chronic migraine without aura, not intractable, without status migrainosus | CPT/HCPCS: 99212 ==

== ENCOUNTER 2025-08-20 10:11 | Day surgery (SDC) | payer OTHER, SELFPAY ==
--- OUTSIDE RECORDS SUMMARY | 2025-08-15 19:47 | XMS_ITS | Clinical Summary ---
Author Organization [facility] Address [address] [place] [address] Care Team Providers Care Wrap Checker Name Role Phone Ayse Orta Primary Care Provider [phone] Allergies Active Allergy Reactions Criticality Noted Date [...] tablet 06/24/2025 1:18 PM EDT 06/24/2025 Active Active Problems No known active problems Encounters Date Type Department Care Team Description 07/08/2025 10:00 AM EDT Office Visit [facility] [address] [place] [address] Enrober Tender: Anabell Britton MD UPJ obstruction, congenital (Primary Dx) 06/25/2025 myChart Message [facility] [address] [place] [address] Enrober Tender: Fara Gagnon PA Work Letter 06/25/2025 Telephone [facility] Urology [address] [address] Enrober Tender: Anabell Britton MD 06/24/2025 8:33 AM EDT Anesthesia Event [facility] Operating Room [address] [place] [address] Tima Rm MD Dow, Christopher C., MD 06/24/2025 8:15 AM EDT - 06/24/2025 12:20 PM EDT Surgery [facility] Operating Room [address] [place], [place] [id number] Anabell Davalos MD ROBOTIC URETEROLYSIS [[id number] (CPT )] 06/24/2025 6:45 AM EDT - 06/24/2025 2:25 PM EDT Hospital Encounter [facility] Operating Room [address] [place] [address] Anabell Davalos MD Discharge Disposition: Home or Self Care (01) 06/24/2025 Telephone [facility] Urology [address] [address] Enrober Tender: Anabell Britton MD 06/11/2025 4:15 PM EDT Pre-Admission Testing [facility] [address] [address] Opal Perez PA Pre-op evaluation (Primary Dx); UPJ obstruction, congenital 05/23/2025 Telephone [facility] [address] [place] [address] Enrober Tender: Anabell Britton MD 05/23/2025 Telephone [facility] [address] [place] [address] Enrober Tender: Anabell Britton MD 05/22/2025 Orders Only External Imaging [address] [place] [address] Radiology, External 05/22/2025 Orders Only External Imaging [address] [place] [address] Radiology, External 05/22/2025 Orders Only External Imaging [address] [place] [address] Radiology, External 05/22/2025 Orders Only External Imaging [address] [place] [address] Radiology, External from Last 3 Months Family History Medical [...] Care Team (Late st Contact Info) Description 10/07/2025 1:30 PM EST Appointment [facility] Ultrasound [address] [place] [address] Health Maintenance Due Date Last Done Comments [...] 03/15/2021, 02/15/2021 Influenza Vaccine (#1) 2025 10/21/2021 Medical Devices Implanted Type Area Operations Supervisor 2Nd Shift Device Identifier Shelf Expiration Date Model / Serial / Lot Stent Ureteral Firm Hydroplus Coating 6fr 24cm Percuflex Plus - [id number] Implanted:Qty: 1 on 06/24/2025 by Anabell Davalos MD at [facility] Stent Left: Ureter [employer] 11/20/2027 [id number] / / [id number] Procedures * Due to [place] state law, this organization might not be sharing negative HIV tests. Procedure Name Priority Date/Time Associated Diagnosis Comments XR ABDOMEN 1 VW STAT 06/24/2025 12:05 PM EDT MO LAP,PYELOPLASTY 06/24/2025 8: 13 AM EDT UPJ [...] Last 3 Months Results * Due to [place] state law, this organization might not be [...] to obtain the completed interpretation. Workstation ID: [id number] Narrative 06/24/2025 2:35 PM EDT EXAMINATION: XR ABDOMEN 1 VW INDICATION: check placement of ureteral stent COMPARISONS: None Resulting Agency Comment [id number] Procedure Note Kanu Rizzo MD - 06/24/2025 [...] possible to obtain thecompleted interpretation. Workstation ID: [id number] Anabell Davalos MD IMG XR PROCEDURES Final Resul t * POCT HCG, Urine, non-interfaced (06/24/2025 7:19 AM EDT) Control band present? Yes Background Clear? Yes Preg Test, Ur Negative Negative Urine 06/24/2025 7:19 AM EDT Opal SILVA POINT OF CARE TEST ORDERABLES Fi nal Result * (ABNORMAL) Urinalysis With Microscopic (No Culture)-[place] ONLY (06/18/2025 2:49 PM EDT) Color, Urine Light Yellow Colorless, Light Yellow, Yellow, Dark Yellow 06/18/2025 6:26 PM EDT [facility] Clarity, Urine Slightly Cloudy(A) Clear 06/18/2025 6:26 PM EDT [facility] Specific [place], Urine 1.017 <1.030 06/18/2025 6:26 PM EDT [facility] pH, Urine 6.5 4.6 - 8.0 06/18/2025 6:26 PM EDT [facility] Protein, Urine Negative Negative 06/18/2025 6:26 PM EDT [facility] Glucose, Urine Normal Normal 06/18/2025 6:26 PM EDT [facility] Ketones, Urine Negative Negative 06/18/2025 6:26 PM EDT [facility] Bilirubin, Urine Negative Negative 06/18/2025 6:26 PM EDT [facility] Blood, Urine 3+(A) Negative 06/18/2025 6:26 PM EDT [facility] Nitrite, Urine Negative Negative 06/18/2025 6:26 PM EDT [facility] [employer] [facility] Urobilinogen, Urine Normal Normal 06/18/2025 6:26 PM EDT [facility] [employer] [facility] Leukocyte Esterase, Urine 2+(A) Negative 06/18/2025 6:26 PM EDT [facility] WBC, Urine 22(H) 0 - 2 /HPF 06/18/2025 6:26 PM EDT [facility] RBC, Urine 66(H) 0 - 2 /HPF 06/18/2025 6:26 PM EDT [facility] Hyaline Casts, Urine 0 0 - 2 /LPF 06/18/2025 6:26 PM EDT [facility] Bacteria, Urine Rare(A) None /HPF /HPF 06/18/2025 6:26 PM EDT [facility] Squamous Epithelial Cells, Urine 4 /HPF 06/18/2025 6:26 PM EDT [facility] Mucus, Urine Rare /LPF 06/18/2025 6:26 PM EDT [facility] [employer] [facility] Urine Urine specimen collection, clean catch / Unknown Non-Blood Collection / Unknown 06/18/2025 2:49 PM EDT 06/18/2025 6:04 PM EDT us Anabell Davalos MD LAB URINE ORDERABLES Final Re sult [facility] [employer] [facility] [address] [place] [address], * Type and Screen (06/18/2025 2:49 PM EDT) Only the most recent of2 resultswithin the time period is included. ABO Blood Type AB 06/18/2025 8:19 PM EDT [facility] RH Type Positive 06/18/2025 8:19 PM EDT [facility] Expiration Date/Time 2025-06-27 23:59 06/18/2025 8:19 PM EDT [facility] Antibody Screen Negative 06/18/2025 8:19 PM EDT [facility] Blood Structure of peripheral vein / Unknown Venipuncture / Unknown 06/18/2025 2:49 PM EDT 06/18/2025 5:59 PM EDT us Anabell Davalos MD LAB BLOOD BANK TEST ORDERABLE S Final Result [facility] [address] [place] [address], [place] [phone] * Urine Culture, Routine (06/18/2025 2:49 PM EDT) Culture Mixed genital erin isolated. These superficial bacteria are not indicative of a urinary tract infection. No further organism identification is warranted on this specimen. 06/19/2025 10:45 PM EDT [employer] [place] [facility] Urine Urine specimen collection, clean catch / Unknown Non-Blood Collection / Unknown 06/18/2025 2:49 PM EDT 06/18/2025 6:04 PM EDT Narrative [facility] - 06/19/2025 10:45 PM EDT [facility] Received Date: MICRO NUMBER: [id number] SPECIMEN QUALITY: Adequate SOURCE: URINE CLEAN CATCH STATUS: FINAL If clinically indicated, recollect clean-catch, mid-stream urine and transfer immediately to Urine Culture Transport Tube. us Anabell Davalos MD LAB MICROBIOLOGY - GENERAL OR DERABLES Final Result [facility] [address] [facility] [address], [place] [address], [place] [phone] [employer] [place] [facility] [address] [facility] [address], [place] [address], [place] [phone] * Sr Top, Urine (05/16/2025 12:23 PM EDT) Extra Tube Hold for add-ons. 05/16/2025 6:05 PM EDT [facility] Comment:Auto resulted. Urine Urine specimen collection, clean catch / Unknown Non-Blood Collection / Unknown 05/16/2025 12:23 PM EDT 05/16/2025 5:59 PM EDT us Anabell Davalos MD LAB URINE ORDERABLES Final Re sult [facility] [address] [place] [address], * Urinalysis W/Reflex to Microscopic & Culture (05/16/2025 12:23 PM EDT) Pathologist [facility] Color, Urine Light Yellow Colorless, Light Yellow, Yellow, Dark Yellow 05/16/2025 6:27 PM EDT [facility] Clarity, Urine Clear Clear 05/16/2025 6:27 PM EDT [facility] Specific [place], Urine 1.015 <1.030 05/16/2025 6:27 PM EDT [facility] pH, Urine 6.0 4.6 - 8.0 05/16/2025 6:27 PM EDT [facility] Protein, Urine Negative Negative 05/16/2025 6:27 PM EDT [facility] Glucose, Urine Normal Normal 05/16/2025 6:27 PM EDT [facility] Ketones, Urine Negative Negative 05/16/2025 6:27 PM EDT [facility] Bilirubin, Urine Negative Negative 05/16/2025 6:27 PM EDT [facility] Blood, Urine Negative Negative 05/16/2025 6:27 PM EDT [facility] Nitrite, Urine Negative Negative 05/16/2025 6:27 PM EDT [facility] Urobilinogen, Urine Normal Normal 05/16/2025 6:27 PM EDT [facility] Leukocyte Esterase, Urine Negative Negative 05/16/2025 6:27 PM EDT [facility] Urine Urine specimen collection, clean catch / Unknown Non-Blood Collection / Unknown 05/16/2025 12:23 PM EDT 05/16/2025 5:59 PM EDT us Anabell Davalos MD LAB URINE ORDERABLES Final Re sult [facility] [employer] [facility] [address] [place] [address], [place] * (ABNORMAL) CBC (05/16/2025 12:23 PM EDT) WBC 12.2(H) 3.8 - 10.8 10*3/uL 05/16/2025 1:43 PM EDT [facility] [place] [facility] RBC 4.29 3.80 - 5.10 10*6/uL 05/16/2025 1:43 PM EDT [facility] [place] [facility] Hemoglobin 11.1(L) 11.7 - 15.5 g/dL 05/16/2025 1:43 PM EDT [facility] Hematocrit 34.5(L) 35.0 - 45.0 % 05/16/2025 1:43 PM EDT [facility] [place] [facility] MCV 80.4 80.0 - 100.0 fL 05/16/2025 1:43 PM EDT [facility] [place] [facility] MCH 25.9(L) 27.0 - 33.0 pg 05/16/2025 1:43 PM EDT [facility] [place] [facility] MCHC 32.2 32.0 - 36.0 g/dL 05/16/2025 1:43 PM EDT [facility] RDW 15.2(H) 11.0 - 15.0 % 05/16/2025 1:43 PM EDT [facility] Platelets 307 140 - 400 10*3/uL 05/16/2025 1:43 PM EDT [facility] MPV 11.3 7.5 - 12.5 fL 05/16/2025 1:43 PM EDT [facility] Blood Structure of peripheral vein / Unknown Venipuncture / Unknown 05/16/2025 12:23 PM EDT 05/16/2025 1:33 PM EDT us Maren SILVA LAB BLOOD ORDERABLES Fin al Result [facility] [employer] [facility] [address] [place] [address], * Basic metabolic panel (05/16/2025 12:23 PM EDT) NA 141 135 - 145 mmol/L 05/16/2025 2:06 PM EDT [facility] K 3.8 3.5 - 5.3 mmol/L 05/16/2025 2:06 PM EDT [facility] Cl 105 98 - 107 mmol/L 05/16/2025 2:06 PM EDT [facility] CO2 26 22 - 32 mmol/L 05/16/2025 2:06 PM EDT [facility] BUN 10 7 - 23 mg/dL 05/16/2025 2:06 PM EDT [facility] Creatinine 0.95 0.50 - 1.20 mg/dL 05/16/2025 2:06 PM EDT [facility] Glucose 83 65 - 99 mg/dL 05/16/2025 2:06 PM EDT [facility] Calcium 9.1 8.6 - 10.5 mg/dL 05/16/2025 2:06 PM EDT [facility] Anion Gap 10 5 - 15 05/16/2025 2:06 PM EDT [facility] eGFR 84 >=60 mL/min/1. 73m2 05/16/2025 2:06 PM EDT [facility] Comment:The estimated glomer ular filtration rate (eGFR) is calculated using a new formula developed by the NKF-ASN task force to eliminate race-based correction factors. The new formula uses serum/plasma creatinine, age, and gender to determine eGFR. A value below 60mls/min might indicate kidney disease and will be flagged. For additional information, see Ni et al, Am J Kidney Dis. 2021;79(2):268- 288, A Unifying Approach for GFR estimation: Recommendations of the NKF-ASN Task Force on Reassessing the Inclusion of Race in Diagnosing Kidney Disease . Blood Structure of peripheral vein / Unknown Venipuncture / Unknown 05/16/2025 12:23 PM EDT 05/16/2025 1:33 PM EDT us Anabell Davalos MD LAB BLOOD ORDERABLES Final Re sult [facility] [address] [place] [address], [place] from Last 3 Months Insurance [facility] MEDICAID Advance Directives Documents on File Type Date Recorded Patient E Commerce Merchandising Coordinator Expl anation Health Care Proxy 06/24/2025 7:31 AM Health Care Proxy 12/27/2024 1:52 PM Healt h Care Proxy Documentation * Presumed Full Code (Latest Code Status on File) Date Activated Date Inactivated Comments 06/24/2025 7:14 AM 06/24/2025 4:30 PM Care Teams Wrap Checker Relationship Specialty Start Date End Date Ayse Orta [address] [place] [address] PCP - General Family Medicine 06/24/25
--- OUTSIDE RECORDS SUMMARY | 2025-08-15 19:48 | XMS_ITS | Encounter Summary ---
Author Organization [facility] Address [address] [place] [address] Care Team Providers Care Airline Pilot Flight Instructor Name Role Phone Ayse Orta Primary Care Provider [phone] Encounter Details Date Type Department Care Team (Late st Contact Info) Description 01/28/2025 Orders Only [facility] Nuclear Medicine [address] [place], [place] [phone] Torsten Harding MD PhD [address] [place], [place] [phone] Social History Tobacco Use Types Packs/Day Years [...] Info) Description 10/07/2025 1:30 PM EST Appointment [facility] Ultrasound [address] [place] [address] documented as of this encounter Visit Diagnoses Not on filedocumented in this encounter Care Teams Airline Pilot Flight Instructor Relationship Specialty Start Date End Date YouAyse whatley [address] [place] [address] PCP - General Family Medicine 06/24/25 documented as of this encounter
--- NOTE | ~2025-08-20 | FL_ITS ---
EXAMINATION: XR LUMBAR PUNCTURE CLINICAL INFORMATION: G93.2 - Benign intracranial hypertension. COMPARISON: 01/29/2025. TECHNIQUE: Informed consent was obtained from the patient. Timeout was performed. Using fluoroscopic guidance, the L3-4 interlaminar space was identified, marked, and the overlying skin marked, prepped and draped in sterile fashion. Skin and subcutaneous tissues were anesthetized with 1% lidocaine. Subsequently, a 20-gauge , 6 inch Quincke spinal needle was advanced into the thecal sac, and clear CSF was noted at the needle hub. Opening pressure was measured at 28 cm H2O. Approximately 17 mL of clear CSF was obtained passively, and discarded as per ordering request. The needle was removed. The patient tolerated the procedure well. There were no immediate complications. 1 fluoroscopic spot image obtained. FLUOROSCOPY TIME: 14 seconds DOSE AREA PRODUCT: 358.8 uGy-m2 (microgray-meter squared) FL/FL guided lumbar puncture LP IMPRESSION: 1. Successful fluoroscopically guided L3-4 lumbar puncture with opening pressure measured at 28 cm H2O. 17 mL of clear CSF removed passively. 2. The patient tolerated the procedure well. There were no immediate complications. Electronically signed by: Jorge A Umana MD 08/20/2025 11:49 AM MEGHANN
[2025-08-20 10:21] VITALS: BMI 50.5
[2025-08-20 10:31] VITALS: BP 101/59; PULSE 72; RESP 16; TEMP 36.1; O2SAT 94
[2025-08-20 10:34] LABS: UPreg QC Valid YES
[2025-08-20 10:39] LABS: MANUAL DIFF FLAG NO
[2025-08-20 10:46] LABS: Hematocrit 34.2 % (37.0-47.0); Hemoglobin 10.9 g/dl (12.0-16.0); Imm Gran Abs Auto 0.02 X10*3/uL (0.00-0.03); Imm Gran Pct Auto 0.2 % (0.0-0.4); Lymphocytes Absolute Auto 2.8 X10*3/uL (1.2-4.9); Mean Corpuscular HGB Conc 31.9 g/dl (31.0-35.0); Mean Corpuscular Hemoglobin 26.3 pg (27.0-33.0); Mean Corpuscular Volume 82.6 fL (80.0-98.0); NRBC Abs Auto 0.000 X10*3/uL (0.0-0.012); NRBC Pct Auto 0.0 /100WBC (0.0-0.2); Platelet Count 294 X10*3/uL (160-400); Red Blood Count 4.14 X10*6/uL (4.20-5.50); White Blood Count 10.3 X10*3/uL (4.8-10.8)
[2025-08-20 10:47] LABS: INTERNATIONAL NORM RATIO 1.1 (0.9-1.1); Prothrombin Time 13.0 SEC (11.2-13.5)
[2025-08-20 10:54] LABS: Anion Gap 9 (12-20); Blood Urea Nitrogen 7 mg/dL (9-16); Calcium 8.8 mg/dL (8.4-10.2); Carbon Dioxide 26 mmol/L (22-29); Chloride 108 mmol/L (96-108); Creatinine Clr Calc Pharmacy 111.2; Estimated Glomerular Filt Rate > 60; Potassium 4.0 mmol/L (3.3-5.1); Sodium 139 mmol/L (135-145)
[2025-08-20 11:40] VITALS: BP 104/59; PULSE 65; RESP 16; TEMP 36.2; O2SAT 97
[2025-08-20 11:55] VITALS: BP 104/59; PULSE 65; RESP 16; O2SAT 98
[2025-08-20 12:20] VITALS: BP 112/67; PULSE 65; RESP 14; O2SAT 97
[2025-08-20 12:45] VITALS: BP 115/47; PULSE 65; RESP 14; O2SAT 97
[2025-08-20 13:15] VITALS: BP 115/67; PULSE 71; RESP 16; O2SAT 99
== END 2025-08-20 13:45 | disposition home or self-care (01) ==
PROVIDERS: Radiology Diagnostic Radiology; PCP Nurse Practitioner Family; Visit Provider Psychiatry & Neurology Neurology
PROC: 009U3ZZ Drainage of Spinal Canal, Percutaneous Approach (ICD-10-PCS; CPT 62270; principal; 2025-08-20 11:00)
DX: G93.2 Benign intracranial hypertension (principal); G43.709 Chronic migraine without aura, not intractable, without status migrainosus; R42 Dizziness and giddiness; D50.9 Iron deficiency anemia, unspecified; G47.33 Obstructive sleep apnea (adult) (pediatric); E66.01 Morbid (severe) obesity due to excess calories; Z68.43 Body mass index [BMI] 50.0-59.9, adult; Z88.1 Allergy status to other antibiotic agents; Z88.8 Allergy status to other drugs, medicaments and biological substances; Z91.014 Allergy to mammalian meats; Z91.0120 Allergy to eggs, unspecified; Z91.0110 Allergy to milk products, unspecified; Z91.018 Allergy to other foods
CPT/HCPCS: 36415; 62328; 80048; 81025; 85025; 85610; J2003

== ENCOUNTER → 2025-08-20 10:16 | Outpatient (BNV) | payer OTHER, SELFPAY | PROVIDERS: PCP Nurse Practitioner Family; Visit Provider Radiology Diagnostic Radiology | DX: G93.2 Benign intracranial hypertension (principal) | CPT/HCPCS: 62328 ==